=== PATIENT | female | born 1960 ===

== ENCOUNTER → 2018-07-14 08:08 | Outpatient (CLI) | payer MEDICARE, OTHER, SELFPAY ==
[2018-07-14 09:11] LABS: Add Manual Diff / Slide Review NO; Basophils Absolute Auto 0 /uL (0-100); Basophils Percent Auto 0.5 % (0-2); Eosinophils Absolute Auto 200 /uL (0-450); Eosinophils Percent Auto 2.8 % (2-4); Hematocrit 42.8 % (36-46); Hemoglobin 14.5 g/dL (12.0-16.0); Lymphocytes Absolute Auto 1600 /uL (1100-4500); Lymphocytes Percent Auto 27.9 % (25-40); Mean Corpuscular HGB Conc 33.8 % (30-36); Mean Corpuscular Hemoglobin 29.8 PG (26-34); Mean Corpuscular Volume 88.2 fL (80-100); Monocytes Absolute Auto 400 /uL (0-900); Monocytes Percent Auto 6.9 % (3-14); Neutrophils Absolute Auto 3600 /uL (1500-7000); Neutrophils Percent Auto 61.9 % (50-75); Platelet Count 257 X10^3/uL (150-400); Red Blood Cell Count 4.85 X10^6/uL (4.0-5.2); Red Cell Distribution Width 13.6 % (11.6-14.8); White Blood Cell Count 5.8 X10^3/uL (4.5-11.0)
[2018-07-14 09:43] LABS: Alanine Aminotransferase 32 IU/L (9-52); Albumin 4.5 g/dL (3.5-5.0); Albumin Globulin Ratio 1.4 (1.0-2.8); Alkaline Phosphatase 102 U/L (38-126); Aspartate Aminotransferase 26 IU/L (14-36); Bilirubin Total 0.5 mg/dL (0.2-1.3); Blood Urea Nitrogen 27 mg/dL (7-17); Calcium 10.9 mg/dL (8.4-10.2); Carbon Dioxide 30 mmol/L (22-32); Chloride 102 mmol/L (98-107); Cholesterol 151 mg/dL (140-199); Estimated Glomerular Filt Rate > 60.0 mL/min (>60); Globulin 3.3 g/dL (1.7-4.1); Glucose 110 mg/dL (70-100); HDL Cholesterol 38 mg/dL (40-60); HEMOLYSIS < 15 (0-50); LDL Cholesterol Calculated 80 mg/dL (<100); Potassium 4.7 mmol/L (3.4-5.1); Sodium 139 mmol/L (137-145); Total Protein 7.8 g/dL (6.3-8.2); Triglycerides 164 mg/dL (35-150)
[2018-07-14 10:17] LABS: Thyroid Stimulating Hormone 0.03 uIU/mL (0.47-4.68)
== END ==
PROVIDERS: Visit Provider Nurse Practitioner
DX: E03.9 Hypothyroidism, unspecified (principal); Z01.419 Encounter for gynecological examination (general) (routine) without abnormal findings
CPT/HCPCS: 36415; 80053; 80061; 84443; 85025

== ENCOUNTER → 2018-09-14 07:35 | Outpatient (CLI) | payer MEDICARE, OTHER, SELFPAY ==
[2018-09-14 09:28] LABS: Glucose 85 mg/dL (70-100)
[2018-09-14 09:49] LABS: Thyroid Stimulating Hormone 0.03 uIU/mL (0.47-4.68)
[2018-09-14 10:00] LABS: Vitamin D 25 Hydroxy (D3) 36.5 ng/mL (30.0-100.0)
[2018-09-14 10:14] LABS: Vitamin B12 282 pg/mL (239-931)
== END ==
PROVIDERS: Registered Nurse; PCP Nurse Practitioner; Visit Provider Nurse Practitioner
DX: R73.9 Hyperglycemia, unspecified (principal); E03.9 Hypothyroidism, unspecified; E55.9 Vitamin D deficiency, unspecified; E53.8 Deficiency of other specified B group vitamins
CPT/HCPCS: 36415; 82306; 82607; 82947; 84443

== ENCOUNTER → 2018-09-15 10:17 | Outpatient (CLI) | payer MEDICARE, OTHER, SELFPAY ==
--- NOTE | 2018-09-15 10:19 | DI.MG.S_ITS ---
BILATERAL DIGITAL SCREENING MAMMOGRAM 3D/2D WITH CAD: 09/15/2018 CLINICAL: Routine screening. Comparison is made to exam dated: 02/28/2014 mammogram - [facility]. There are scattered fibroglandular elements in both breasts. Current study was also evaluated with a Computer Aided Detection (CAD) system. There is an oval asymmetry in the right breast anterior depth superior region seen on the mediolateral oblique view only. There is an asymmetry in the left breast anterior depth lateral region seen on the craniocaudal view only. There is possible architectural distortion associated with the asymmetry. No other significant masses or calcifications are seen in either breast. IMPRESSION: INCOMPLETE: NEEDS ADDITIONAL IMAGING EVALUATION The oval asymmetry in the right breast anterior depth superior region seen on the mediolateral oblique view only is indeterminate. Additional views with possible ultrasound are recommended. The asymmetry in the left breast anterior depth lateral region seen on the craniocaudal view only is indeterminate. Additional views with possible ultrasound are recommended. This exam was interpreted at Station ID: [id number]. NOTE: For mammograms, a report in lay terms will be sent to the patient. Approximately 15% of breast malignancies will not be visualized mammographically. In the management of a palpable breast mass, a negative mammogram must not discourage biopsy of a clinically suspicious lesion. Electronically Signed By: Guillaume Obrine M.D. ecl/:09/15/2018 20:20:12 letter sent: Additional Imaging Needed ACR BI-RADS Category 0: Incomplete 3340F
== END ==
PROVIDERS: PCP Nurse Practitioner; Visit Provider Nurse Practitioner
DX: Z12.31 Encounter for screening mammogram for malignant neoplasm of breast (principal)
CPT/HCPCS: 77063; 77067

== ENCOUNTER → 2018-09-30 13:44 | Outpatient (CLI) | payer MEDICARE, OTHER, SELFPAY ==
--- NOTE | 2018-09-30 13:48 | DI.MG.S_ITS ---
BILATERAL DIGITAL DIAGNOSTIC MAMMOGRAM 3D/2D WITH ADDITIONAL VIEWS: 09/30/2018 CLINICAL: Additional evaluation requested from prior study. Comparison is made to exams dated: 09/15/2018 mammogram - [facility] and 02/28/2014 mammogram - [facility]. There are scattered fibroglandular elements in both breasts. Previously identified oval asymmetry in the right breast anterior depth superior region seen on the mediolateral oblique view only on comparison screening mammogram of 09/15/18 resolves with additional views and likely represented superimposed fibroglandular tissues. Previously identified asymmetry with possible associated architectural distortion in the left breast anterior depth lateral region seen on the craniocaudal view only on comparison screening mammogram of 09/15/18 localizes to the superior lateral left breast and resolves with additional views and likely represented superimposed fibroglandular tissues. There is an asymmetry in the left breast anterior to middle depth superior region resolves with additional views and likely represented superimposed fibroglandular tissues. No significant masses, calcifications, or other findings are seen in either breast. IMPRESSION: INCOMPLETE: NEEDS ADDITIONAL IMAGING EVALUATION 1) Previously identified oval asymmetry in the right breast anterior depth superior region seen on the mediolateral oblique view only on comparison screening mammogram of 09/15/18 resolves with additional views and likely represented superimposed fibroglandular tissues. A targeted ultrasound is recommended for further evaluation. 2) Previously identified asymmetry with possible associated architectural distortion in the left breast anterior depth lateral region seen on the craniocaudal view only on comparison screening mammogram of 09/15/18 localizes to the superior lateral left breast and resolves with additional views and likely represented superimposed fibroglandular tissues. A targeted ultrasound is recommended for further evaluation. 3) An asymmetry in the left breast anterior to middle depth superior region resolves with additional views and likely represented superimposed fibroglandular tissues. A targeted ultrasound is recommended for further evaluation. This exam was interpreted at Station ID: [id number]. NOTE: For mammograms, a report in lay terms will be sent to the patient. Approximately 15% of breast malignancies will not be visualized mammographically. In the management of a palpable breast mass, a negative mammogram must not discourage biopsy of a clinically suspicious lesion. Electronically Signed By: Guillaume Obrien M.D. ecl/:09/30/2018 15:26:43 ACR BI-RADS Category 0: Incomplete [id number]
--- NOTE | 2018-09-30 13:48 | DI.US.S_ITS ---
LIMITED ULTRASOUND OF LEFT BREAST: 09/30/2018 CLINICAL: Additional evaluation requested from prior study. Comparison is made to exams dated: 09/30/2018 mammogram, 09/15/2018 mammogram - [facility], and 02/28/2014 mammogram - [facility]. Color flow and real-time ultrasound of the left breast 9-3 o'clock region were performed. Whatley scale images of the real-time examination were reviewed. No underlying breast mass or abnormality is identified. There is no ultrasound correlate for the previously noted asymmetry with possible associated architectural distortion in the left breast anterior depth lateral region seen on the craniocaudal view only on comparison screening mammogram of 09/15/18 or the asymmetry in the left breast anterior to middle depth superior region, both of which also resolved on additional diagnostic mammogram views performed earlier today 09/30/18 and likely represented superimposed fibroglandular tissues. IMPRESSION: NEGATIVE There is no sonographic evidence of malignancy in the imaged areas of the left breast. Return to annual screening mammography schedule is recommended. The patient was advised to monitor her breasts and to return sooner for re-evaluation should she feel anything grow or change. This exam was interpreted at Station ID: [id number]. Electronically Signed By: Guillaume Obrien M.D. ecl/:09/30/2018 15:34:33 letter sent: Normal Exam Ultrasound BI-RADS: 1 Negative
--- NOTE | 2018-09-30 13:48 | DI.US.S_ITS ---
LIMITED ULTRASOUND OF RIGHT BREAST: 09/30/2018 CLINICAL: Additional evaluation requested from prior study. Comparison is made to exams dated: 09/30/2018 mammogram, 09/15/2018 mammogram - [facility], and 02/28/2014 mammogram - [facility]. Color flow and real-time ultrasound of the right breast 9-3 o'clock region were performed. Whatley scale images of the real-time examination were reviewed. No underlying breast mass or abnormality is identified. There is no ultrasound correlate for the previously noted oval asymmetry in the right breast anterior depth superior region seen on the mediolateral oblique view only on comparison screening mammogram of 09/15/18, which also resolved on additional diagnostic mammogram views performed earlier today 09/30/18 and likely represented superimposed fibroglandular tissues. IMPRESSION: NEGATIVE There is no sonographic evidence of malignancy in the imaged areas of the right breast. Return to annual screening mammography schedule is recommended. The patient was advised to monitor her breasts and to return sooner for re-evaluation should she feel anything grow or change. This exam was interpreted at Station ID: [id number]. Electronically Signed By: Guillaume Obrien M.D. ecl/:09/30/2018 15:37:08 letter sent: Normal Exam Ultrasound BI-RADS: 1 Negative
== END ==
PROVIDERS: PCP Nurse Practitioner; Visit Provider Nurse Practitioner
DX: R92.8 Other abnormal and inconclusive findings on diagnostic imaging of breast (principal)
CPT/HCPCS: 76642; 77066; G0279

== ENCOUNTER → 2018-11-19 07:52 | Outpatient (CLI) | payer MEDICARE, OTHER, SELFPAY ==
[2018-11-19 10:57] LABS: Thyroid Stimulating Hormone 0.17 uIU/mL (0.47-4.68)
== END ==
PROVIDERS: PCP Nurse Practitioner; Visit Provider Nurse Practitioner
DX: E03.9 Hypothyroidism, unspecified (principal)
CPT/HCPCS: 36415; 84443

== ENCOUNTER → 2018-11-23 11:33 | Outpatient (CLI) | payer MEDICARE, OTHER, SELFPAY ==
--- NOTE | 2018-11-23 11:36 | DI.RAD.S_ITS ---
PROCEDURE: XR CHEST 2V INDICATIONS: cough TECHNIQUE: 2 views of the chest were acquired. COMPARISON: None. FINDINGS: Surgical changes and devices: None. Lungs and pleura: Lungs are clear. No pleural effusions or pneumothorax. Mediastinum: Mediastinal contours are normal. Heart size is normal. Bones and chest wall: No suspicious bony abnormalities. Soft tissues appear unremarkable. IMPRESSION: Relatively large lung volumes, no pneumonia seen. No underlying mass identified. Possible COPD. Dictated by: Tyrone uMeller M.D. on 11/23/2018 at 12:25 Approved by: Tyrone Mueller M.D. on 11/23/2018 at 12:35
== END ==
PROVIDERS: PCP Nurse Practitioner; Visit Provider Nurse Practitioner
DX: R05 Cough (principal); J44.9 Chronic obstructive pulmonary disease, unspecified
CPT/HCPCS: 71046

== ENCOUNTER → 2018-12-27 12:01 | Outpatient (CLI) | payer MEDICARE, OTHER, SELFPAY | PROVIDERS: PCP Nurse Practitioner; Visit Provider Psychiatry & Neurology Psychiatry | DX: F31.73 Bipolar disorder, in partial remission, most recent episode manic (principal) ==

== ENCOUNTER 2018-12-29 10:11 | Emergency (ER) | payer MEDICARE, OTHER, SELFPAY ==
[2018-12-29 10:15] VITALS: BP 142/86; PULSE 98; RESP 18; TEMP 36.8; O2SAT 97
--- NOTE | 2018-12-29 10:34 | ED.GENADULT ---
HPI - General Adult General Chief complaint: Abdominal Pain Stated complaint: Chrons attack, can't eat Time Seen by Provider: 12/29/18 10:25 Source: patient Mode of arrival: Ambulatory Limitations: no limitations History of Present Illness HPI narrative: Patient is a 58-year-old female with a history of Crohn's disease. Has had bowel resection in the past. Patient states she has ?small bowel Crohn's ?. Is not on any immune modulating medicines for this. States that yesterday she started having abdominal pain. Has not had a bowel movement the past couple days. No urinary symptoms. Has had some nausea and vomiting. No fevers. Generalized abdominal pain. Related Data Home Medications Medication Instructions Recorded Confirmed vedolizumab 300 mg intravenous 300 mg IV Q8W 08/11/18 12/29/18 solution Previous Rx's Medication Instructions Recorded Glucometer #1 ea 08/17/18 lancets #100 each 08/17/18 test strips #100 each 08/17/18 aripiprazole 20 mg tablet 20 mg PO DAILY #30 tab 11/02/18 levothyroxine 137 mcg tablet 137 mcg PO DAILY #30 tab 11/22/18 albuterol sulfate 90 mcg/actuation 2 puff INHALATION Q4-6H PRN #8.5 11/23/18 aerosol inhaler gram montelukast 10 mg tablet 10 mg PO BEDTIME #90 tab 11/23/18 fluticasone 250 mcg-salmeterol 50 1 inhalation INHALATION Q12H #60 12/27/18 mcg/dose blistr powdr for each inhalation hydroxyzine HCl 50 mg tablet 50 mg PO QID PRN #120 tab 12/27/18 ondansetron 4 mg disintegrating 4 mg PO Q6H PRN #60 tab 12/27/18 tablet trazodone 50 mg tablet 100 mg PO BEDTIME #60 tab 12/27/18 prednisone 20 mg PO DAILY #25 tab 12/29/18 Allergies Allergy/AdvReac Type Severity Reaction Status Date / Time From SEROQUEL Allergy Intermediate MY LEGS Uncoded 12/27/18 10:54 DON;T WORK PENICILLIN Allergy Intermediate RASH Uncoded 12/27/18 10:54 SULFA Allergy Intermediate HIVES Uncoded 12/27/18 10:54 Review of Systems Constitutional Constitutional: Denies fever(s) Cardiovascular Cardiovascular: Denies chest pain and Denies dyspnea Respiratory Respiratory: Denies dyspnea Gastrointestinal Gastrointestinal: Reports abdominal pain, Reports nausea and Reports vomiting Comments: No bowel movement the past couple days Genitourinary Genitourinary: Denies dysuria Musculoskeletal Musculoskeletal: Denies myalgias and Denies arthralgias Integumentary/Breasts Skin/Breast: Denies rash Neurologic Neurologic: Denies behavioral changes Psychiatric Psychiatric: Denies behavioral changes Hematologic/Lymphatic Hematologic/Lymphatic: Denies easy bleeding and Denies easy bruising Patient History Medical History Abnormal chest xray (Resolved) ADHD (Chronic) Anemia (Resolved ~2016) Ankle pain (Chronic ~2017) Anxiety (Chronic) Asthma (Chronic) Bipolar disease, chronic (Chronic ~1998) Cataracts, bilateral (Chronic ~2018) Chicken pox (Resolved) Chronic back pain (Chronic ~2003) Chronic cough (Chronic) COPD (chronic obstructive pulmonary disease) (Chronic) Crohn's disease (Chronic ~2009) Depression (Chronic ~1988) Eczema (Chronic) Foot pain (Chronic ~2018) Headache (Chronic) Hemorrhoid (Chronic ~1979) History of emphysema (Chronic ~2017) Hypothyroidism (Chronic ~1989) Kidney disease (Chronic ~1974) Migraines (Chronic) MRSA (methicillin resistant Staphylococcus aureus) (Chronic ~2004) Osteoporosis (Chronic ~2016) Post traumatic stress disorder (PTSD) (Chronic) Restless leg syndrome (Chronic) Seizure (Chronic) Skin cancer, basal cell (Chronic ~2016) Sleep apnea (Chronic) Social History Smoking Status: Current every day smoker Exam Initial Vital Signs Initial Vital Signs: Vital Signs Temperature 98.3 F 12/29/18 10:15 Pulse Rate 98 H 12/29/18 10:15 Respiratory Rate 18 12/29/18 10:15 Blood Pressure 142/86 H 12/29/18 10:15 Pulse Oximetry 97 12/29/18 10:15 Const General: cooperative and comfortable Orientation: alert and awake HENMT Head: normal to inspection and normocephalic Resp Effort & Inspection: normal respiratory effort Auscultation: clear to auscultation bilaterally Cardio Rate: regular rate Rhythm: regular rhythm GI Inspection: non-distended Palpation: No firm, No guarding and tender (Generalized tenderness) Skin Lesions: no lesions Rashes: no rashes Neuro General: alert, awake and oriented x3 Cognition: normal cognition Speech: speech normal Extrem General: normal to inspection and capillary refill normal Psych Appearance: grossly normal and well kempt Course Orders Ordered: ED Orders 12/29/18 10:53 Complete Blood Count AUTO DIFF Stat Comprehensive Metabolic Panel Stat Lactate (Lactic Acid) Stat Lipase Stat 12/29/18 11:55 CT abdomen pelvis w con Stat Discontinued Medications Acetaminophen (Tylenol) 650 mg PO NOW ONE Stop: 12/29/18 12:13 Last Admin: 12/29/18 12:28 Dose: 650 mg Documented by: BTONER Sodium Chloride (Normal Saline 0.9%) 1,000 mls @ 1,000 mls/hr IV BOLUS ONE Stop: 12/29/18 11:31 Last Admin: 12/29/18 11:07 Dose: 1,000 mls/hr Documented by: BTONER Ondansetron HCl (Zofran) 4 mg IV NOW ONE Stop: 12/29/18 10:33 Last Admin: 12/29/18 11:07 Dose: 4 mg Documented by: BTONER Vital Signs Vital signs: Vital Signs - 8 hr 12/29/18 10:15 12/29/18 12:09 Temperature 98.3 F Pulse Rate 98 H 88 Respiratory Rate 18 Blood Pressure 142/86 H Blood Pressure [Right Arm] 145/61 H Pulse Oximetry 97 99 Medical Decision Making Lab Data Lab results reviewed: Yes I reviewed the patient's lab results. Result diagrams: 12/29/18 10:53 12/29/18 10:53 Labs: Lab Results 12/29/18 12/29/18 12/29/18 Range/Units 10:53 10:53 10:53 WBC 9.7 (4.5-11.0) X10^3/uL RBC 4.96 (4.0-5.2) X10^6/uL Hgb 15.0 (12.0-16.0) g/dL Hct 43.6 (36-46) % MCV 87.9 (80-100) fL MCH 30.3 (26-34) PG MCHC 34.5 (30-36) % RDW 14.3 (11.6-14.8) % Plt Count 347 (150-400) X10^3/uL Neut % (Auto) 76.6 H (50-75) % Lymph % (Auto) 14.5 L (25-40) % Tillman % (Auto) 7.1 (3-14) % Eos % (Auto) 1.4 L (2-4) % Baso % (Auto) 0.4 (0-2) % Neut # (Auto) 7400 H (0232-2721) /uL Lymph # (Auto) 1400 (9728-8806) /uL Tillman # (Auto) 700 (0-900) /uL Eos # (Auto) 100 (0-450) /uL Baso # (Auto) 0 (0-100) /uL Sodium 138 (137-145) mmol/L Potassium 4.1 (3.4-5.1) mmol/L Chloride 101 (98-107) mmol/L Carbon Dioxide 25 (22-32) mmol/L BUN 32 H (7-17) mg/dL Creatinine 1.00 (0.52-1.04) mg/dL Estimated GFR 56.7 L (>60) mL/min BUN/Creatinine Ratio 32.0 H (6-22) Glucose 116 H (70-100) mg/dL Lactate 0.7 (0.7-2.1) mmol/L Calcium 10.8 H (8.4-10.2) mg/dL Total Bilirubin 1.8 H (0.2-1.3) mg/dL AST 47 H (14-36) IU/L ALT 46 H (<35) IU/L Alkaline Phosphatase 131 H (38-126) U/L Total Protein 8.3 H (6.3-8.2) g/dL Albumin 5.0 (3.5-5.0) g/dL Globulin 3.3 (1.7-4.1) g/dL Albumin/Globulin Ratio 1.5 (1.0-2.8) Lipase 83 (23-300) U/L Imaging Data CT scan - abdomen: Radiologist's impression: [address] [address] [address] Scan Report Signed Patient: Louann Diaz JMR#: [id number] : 1960Acct:[id number] Age/Sex: 58 / FDate of Service: 12/29/18 Loc: ED Accession Number: [id number] Procedure: CT abdomen pelvis w con Ordering Provider: Manuel Phillips D.O. PROCEDURE: CT ABDOMEN PELVIS W CON INDICATIONS: History of Crohn's with abdominal pain TECHNIQUE: After the administration of oral and intravenous contrast, 5 mm thick sections acquired from the diaphragms to the symphysis. 5 mm thick coronal and sagittal reformats were performed. For radiation dose reduction, the following was used: automated exposure control, adjustment of mA and/or kV according to patient size. COMPARISON: None. FINDINGS: Image quality: Excellent. ABDOMEN: Lung bases: Scarring/atelectasis in the anterior aspect of right lung base is seen. Left lung base is clear. Heart size is normal. Solid organs: Liver is normal in size and enhancement. Gallbladder is surgically absent small bilateral. Biliary system is non-dilated. Pancreas enhances normally. Spleen is normal in size and enhancement. No adrenal nodules. Kidneys are normal in size and enhancement, without hydronephrosis. The bilateral renal cysts are seen, measures up to 2.1 x 1.6 cm in size in lower pole of right kidney Peritoneum and bowel: There is no evidence of bowel obstruction. Mild fluid distended small bowel loops are noted in mid to lower abdomen. Postsurgical changes are noted involving right side of abdomen, likely involving terminal ileal loop. There is wall thickening involving small bowel loops proximal to the area of surgical anastomosis with mild adjacent mesenteric fat stranding. There is also suggestion of wall thickening involving the ascending colon and sigmoid colon. No free fluid or free air is seen. Nodes and vessels: No retroperitoneal or mesenteric adenopathy. Aorta and inferior vena cava are normal in caliber. Miscellaneous: No ventral hernias. PELVIS: Genitourinary: Bladder wall thickness is normal. Miscellaneous: No inguinal hernias or adenopathy. Bones: No suspicious bony lesions. No vertebral body compression fractures. IMPRESSION: 1. Multiple segments of small bowel wall thickening in left side of abdomen extending to the surgical anastomosis in right side of abdomen. Wall thickening and edema also noted involving descending colon and sigmoid colon. Findings likely represent changes secondary to Crohn's disease. 2. No bowel obstruction. No free fluid or free air. 3. Prior cholecystectomy. Bilateral renal cysts. No hydronephrosis. Dictated by: Wilner Nowak M.D. on 12/29/2018 at 12:41 Approved by: Wilner Nowak M.D. on 12/29/2018 at 12:54 MDM Narrative Medical decision making narrative: Patient's CT scan is consistent with Crohn's disease. There is no signs of obstructions or abscesses. No indication for antibiotics. She is on a pain contract. Will send home with prednisone. She does have a GI provider. She is scheduled for colonoscopy 4 days from now. I informed her to contact her GI provider to discuss potentially changing this given her current situation. Patient was given return precautions. She expressed understanding and agreement plan. Discharge Plan Departure Patient Disposition: Home Clinical Impression: Crohn's disease Qualifiers: Gastrointestinal tract location: unspecified location Digestive disease complication type: unspecified complication Qualified Code(s): K50.919 - Crohn's disease, unspecified, with unspecified complications Abdominal pain Qualifiers: Abdominal location: generalized Qualified Code(s): R10.84 - Generalized abdominal pain Instructions: Crohn Disease Activity Restrictions/Additional Instructions: I recommend that you contact your GI provider today to discuss potential rescheduling of your colonoscopy and to discuss the Crohn's flare that you are currently having. Take the prednisone as directed. Return to the emergency department for any new symptoms. Prescriptions: New prednisone 20 mg tablet 20 mg PO DAILY Qty: 25 RF: 0 No Action aripiprazole 20 mg tablet 20 mg PO DAILY Qty: 30 RF: 3 trazodone 50 mg tablet 100 mg PO BEDTIME Qty: 60 RF: 3 (DME) Glucometer Qty: 1 RF: 0 (DME) lancets Qty: 100 RF: 0 (DME) test strips Qty: 100 RF: 0 levothyroxine 137 mcg tablet 137 mcg PO DAILY Qty: 30 RF: 2 Entyvio 300 mg recon soln 300 mg IV Q8W RF: 0 montelukast 10 mg tablet 10 mg PO BEDTIME Qty: 90 RF: 3 albuterol sulfate [Ventolin HFA] 90 mcg/actuation HFA aerosol inhaler 2 puff INHALATION Q4-6H PRN (Reason: shortness of breath or wheezing) Qty: 8.5 RF: 6 fluticasone propion-salmeterol [Advair Diskus] 250-50 mcg/dose blister with device 1 inhalation INHALATION Q12H Qty: 60 RF: 0 hydroxyzine HCl 50 mg tablet 50 mg PO QID PRN (Reason: nausea and vomiting) Qty: 120 RF: 0 ondansetron 4 mg tablet,disintegrating 4 mg PO Q6H PRN (Reason: nausea and vomiting) Qty: 60 RF: 11 Referrals: Liat Hernandez ARNP [Primary Care Provider] -
[2018-12-29] MEDS: SODIUM CHLORIDE 0.9% 1,000 ML 1000 ML IV (11:07)
[2018-12-29] MEDS: ONDANSETRON 4 MG/2 ML INJ IV (11:07)
[2018-12-29 11:12] LABS: Add Manual Diff / Slide Review NO; Basophils Absolute Auto 0 /uL (0-100); Basophils Percent Auto 0.4 % (0-2); Eosinophils Absolute Auto 100 /uL (0-450); Eosinophils Percent Auto 1.4 % (2-4); Hematocrit 43.6 % (36-46); Lymphocytes Absolute Auto 1400 /uL (1100-4500); Lymphocytes Percent Auto 14.5 % (25-40); Mean Corpuscular HGB Conc 34.5 % (30-36); Mean Corpuscular Hemoglobin 30.3 PG (26-34); Mean Corpuscular Volume 87.9 fL (80-100); Monocytes Absolute Auto 700 /uL (0-900); Monocytes Percent Auto 7.1 % (3-14); Neutrophils Absolute Auto 7400 /uL (1500-7000); Neutrophils Percent Auto 76.6 % (50-75); Platelet Count 347 X10^3/uL (150-400); Red Blood Cell Count 4.96 X10^6/uL (4.0-5.2); Red Cell Distribution Width 14.3 % (11.6-14.8); White Blood Cell Count 9.7 X10^3/uL (4.5-11.0)
[2018-12-29 11:24] LABS: Alanine Aminotransferase 46 IU/L (<35); Albumin Globulin Ratio 1.5 (1.0-2.8); Alkaline Phosphatase 131 U/L (38-126); Aspartate Aminotransferase 47 IU/L (14-36); Bilirubin Total 1.8 mg/dL (0.2-1.3); Blood Urea Nitrogen 32 mg/dL (7-17); Calcium 10.8 mg/dL (8.4-10.2); Carbon Dioxide 25 mmol/L (22-32); Chloride 101 mmol/L (98-107); Estimated Glomerular Filt Rate 56.7 mL/min (>60); Globulin 3.3 g/dL (1.7-4.1); Glucose 116 mg/dL (70-100); HEMOLYSIS < 15 (0-50); Lipase 83 U/L (23-300); Potassium 4.1 mmol/L (3.4-5.1); Sodium 138 mmol/L (137-145); Total Protein 8.3 g/dL (6.3-8.2)
[2018-12-29 11:25] LABS: Lactate (Lactic Acid) 0.7 mmol/L (0.7-2.1)
--- NOTE | 2018-12-29 11:48 | PC.NURSE ---
pt states similar to previous crohns flare.
--- NOTE | 2018-12-29 11:49 | PC.NURSE ---
pt c/o headache and abd pain, reported to dr. art.
--- NOTE | 2018-12-29 11:55 | DI.CT.S_ITS ---
PROCEDURE: CT ABDOMEN PELVIS W CON INDICATIONS: History of Crohn's with abdominal pain TECHNIQUE: After the administration of oral and intravenous contrast, 5 mm thick sections acquired from the diaphragms to the symphysis. 5 mm thick coronal and sagittal reformats were performed. For radiation dose reduction, the following was used: automated exposure control, adjustment of mA and/or kV according to patient size. COMPARISON: None. FINDINGS: Image quality: Excellent. ABDOMEN: Lung bases: Scarring/atelectasis in the anterior aspect of right lung base is seen. Left lung base is clear. Heart size is normal. Solid organs: Liver is normal in size and enhancement. Gallbladder is surgically absent small bilateral. Biliary system is non-dilated. Pancreas enhances normally. Spleen is normal in size and enhancement. No adrenal nodules. Kidneys are normal in size and enhancement, without hydronephrosis. The bilateral renal cysts are seen, measures up to 2.1 x 1.6 cm in size in lower pole of right kidney Peritoneum and bowel: There is no evidence of bowel obstruction. Mild fluid distended small bowel loops are noted in mid to lower abdomen. Postsurgical changes are noted involving right side of abdomen, likely involving terminal ileal loop. There is wall thickening involving small bowel loops proximal to the area of surgical anastomosis with mild adjacent mesenteric fat stranding. There is also suggestion of wall thickening involving the ascending colon and sigmoid colon. No free fluid or free air is seen. Nodes and vessels: No retroperitoneal or mesenteric adenopathy. Aorta and inferior vena cava are normal in caliber. Miscellaneous: No ventral hernias. PELVIS: Genitourinary: Bladder wall thickness is normal. Miscellaneous: No inguinal hernias or adenopathy. Bones: No suspicious bony lesions. No vertebral body compression fractures. IMPRESSION: 1. Multiple segments of small bowel wall thickening in left side of abdomen extending to the surgical anastomosis in right side of abdomen. Wall thickening and edema also noted involving descending colon and sigmoid colon. Findings likely represent changes secondary to Crohn's disease. 2. No bowel obstruction. No free fluid or free air. 3. Prior cholecystectomy. Bilateral renal cysts. No hydronephrosis. Dictated by: Wilner Nowak M.D. on 12/29/2018 at 12:41 Approved by: Wilner Nowak M.D. on 12/29/2018 at 12:54
[2018-12-29 12:09] VITALS: BP 145/61; PULSE 88; O2SAT 99
[2018-12-29] MEDS: ACETAMINOPHEN 325 MG TABLET 650 MG PO (12:28)
== END 2018-12-29 13:30 | disposition home or self-care (01) ==
PROVIDERS: Emergency Provider Emergency Medicine; PCP Nurse Practitioner
DX: K50.919 Crohn's disease, unspecified, with unspecified complications (principal); R10.84 Generalized abdominal pain; R11.2 Nausea with vomiting, unspecified
CPT/HCPCS: 36415; 74177; 80053; 83605; 83690; 85025; 96374; 99282; 99285; J2405; Q9967

== ENCOUNTER 2019-01-02 10:31 | Emergency (ER) | payer MEDICARE, OTHER, SELFPAY ==
[2019-01-02 10:36] VITALS: BP 183/105; PULSE 70; RESP 18; TEMP 36.7; O2SAT 97; BMI 25.5
[2019-01-02 11:34] LABS: Bacteria Urine None Seen; WBC Urine None Seen (0-5/HPF)
[2019-01-02 11:42] VITALS: BP 176/107; PULSE 66; RESP 18; O2SAT 100
[2019-01-02 11:51] LABS: Calcium Oxalate Crystals Urine Few; Culture Indicated Urine Cult Not Indicated; RBC Urine 1-5/HPF (0-5/HPF); Squamous Epithelial Cell Urine None Seen (0-5/HPF)
[2019-01-02] MEDS: PANTOPRAZOLE 40 MG VIAL IV (12:05)
[2019-01-02] MEDS: ONDANSETRON 4 MG/2 ML INJ IV ×2 (12:05→13:40)
[2019-01-02] MEDS: SODIUM CHLORIDE 0.9% 1,000 ML 1000 ML IV (12:05)
[2019-01-02 12:06] LABS: Add Manual Diff / Slide Review NO; Basophils Absolute Auto 0 /uL (0-100); Basophils Percent Auto 0.2 % (0-2); Eosinophils Absolute Auto 0 /uL (0-450); Eosinophils Percent Auto 0.3 % (2-4); Hematocrit 41.2 % (36-46); Hemoglobin 13.9 g/dL (12.0-16.0); Lymphocytes Absolute Auto 1500 /uL (1100-4500); Lymphocytes Percent Auto 12.2 % (25-40); Mean Corpuscular HGB Conc 33.7 % (30-36); Mean Corpuscular Hemoglobin 29.8 PG (26-34); Mean Corpuscular Volume 88.6 fL (80-100); Monocytes Absolute Auto 1000 /uL (0-900); Monocytes Percent Auto 8.1 % (3-14); Neutrophils Absolute Auto 9700 /uL (1500-7000); Neutrophils Percent Auto 79.2 % (50-75); Platelet Count 366 X10^3/uL (150-400); Red Blood Cell Count 4.65 X10^6/uL (4.0-5.2); Red Cell Distribution Width 14.4 % (11.6-14.8); White Blood Cell Count 12.3 X10^3/uL (4.5-11.0)
[2019-01-02 12:08] LABS: INR 0.9 (0.9-1.3); Prothrombin Time 10.1 SECONDS (10.1-12.7)
[2019-01-02 12:10] LABS: PTT Partial Thromboplastin Tim 29 SECONDS (26.4-36.2)
[2019-01-02 12:12] LABS: Alanine Aminotransferase 27 IU/L (<35); Albumin 4.7 g/dL (3.5-5.0); Albumin Globulin Ratio 1.4 (1.0-2.8); Alkaline Phosphatase 102 U/L (38-126); Aspartate Aminotransferase 24 IU/L (14-36); BUN Creatinine Ratio 24.4 (6-22); Bilirubin Total 0.8 mg/dL (0.2-1.3); Blood Urea Nitrogen 22 mg/dL (7-17); Calcium 10.8 mg/dL (8.4-10.2); Carbon Dioxide 25 mmol/L (22-32); Chloride 104 mmol/L (98-107); Estimated Glomerular Filt Rate > 60.0 mL/min (>60); Globulin 3.3 g/dL (1.7-4.1); Glucose 120 mg/dL (70-100); HEMOLYSIS 16 (0-50); Lipase 164 U/L (23-300); Potassium 3.6 mmol/L (3.4-5.1); Sodium 140 mmol/L (137-145)
--- NOTE | 2019-01-02 12:26 | ED.ABDPAIN ---
HPI - Abdominal Pain General Chief Complaint: Abdominal Pain Stated Complaint: ongoing chrones Time Seen by Provider: 01/02/19 11:30 Source: patient Mode of arrival: Ambulatory Limitations: no limitations History of Present Illness HPI narrative: Patient comes emergency department complaining of vomiting. The patient was recently seen for a flare-up of her Crohn's disease, and states that that is slowly improving though it is not totally better yet. She states that normally, she does have vomiting with the Crohn's, and feels that this is somewhat different than her usual symptoms. patient has been on prednisone, which she states normally does not make her nauseated. Patient also had an endoscopy about a week and half ago and states that they did not find any abnormalities that she knows of. Patient states that she has not had any blood in her vomitus. No chest pain or shortness of breath. No fevers. No blood in her stools. No sick contacts. No other complaints at this time. Related Data Home Medications Medication Instructions Recorded Confirmed vedolizumab 300 mg intravenous 300 mg IV Q8W 08/11/18 12/29/18 solution Previous Rx's Medication Instructions Recorded Glucometer #1 ea 08/17/18 lancets #100 each 08/17/18 test strips #100 each 08/17/18 aripiprazole 20 mg tablet 20 mg PO DAILY #30 tab 11/02/18 levothyroxine 137 mcg tablet 137 mcg PO DAILY #30 tab 11/22/18 albuterol sulfate 90 mcg/actuation 2 puff INHALATION Q4-6H PRN #8.5 11/23/18 aerosol inhaler gram montelukast 10 mg tablet 10 mg PO BEDTIME #90 tab 11/23/18 fluticasone 250 mcg-salmeterol 50 1 inhalation INHALATION Q12H #60 12/27/18 mcg/dose blistr powdr for each inhalation hydroxyzine HCl 50 mg tablet 50 mg PO QID PRN #120 tab 12/27/18 ondansetron 4 mg disintegrating 4 mg PO Q6H PRN #60 tab 12/27/18 tablet trazodone 50 mg tablet 100 mg PO BEDTIME #60 tab 12/27/18 prednisone 20 mg PO DAILY #25 tab 12/29/18 Allergies Allergy/AdvReac Type Severity Reaction Status Date / Time From SEROQUEL Allergy Intermediate MY LEGS Uncoded 01/02/19 10:36 DON;T WORK PENICILLIN Allergy Intermediate RASH Uncoded 01/02/19 10:36 SULFA Allergy Intermediate HIVES Uncoded 01/02/19 10:36 Review of Systems Constitutional Constitutional: Denies chills, Denies fatigue, Denies fever(s), Denies frequent falls, Denies lethargy and Denies weakness Eyes Eyes: Denies change in vision, Denies eye discharge, Denies irritation and Denies loss of vision ENT Ears, Nose, Mouth, and Throat: Denies change in voice, Denies dizziness, Denies neck pain, Denies sore throat and Denies throat swelling Cardiovascular Cardiovascular: Denies chest pain, Denies irregular heart rhythm, Denies lightheadedness, Denies palpitations, Denies dyspnea, Denies dyspnea on exertion and Denies orthopnea Respiratory Respiratory: Denies cough, Denies dyspnea, Denies dyspnea on exertion and Denies wheezing Gastrointestinal Gastrointestinal: Denies abdominal pain, Denies change in bowel habits, Reports diarrhea, Reports nausea and Reports vomiting Genitourinary Genitourinary: Denies hematuria, Denies flank pain, Denies urinary incontinence and Denies urinary urgency Musculoskeletal Musculoskeletal: Denies back pain, Denies muscle weakness, Denies neck pain, Denies numbness and Denies tingling Integumentary/Breasts Skin/Breast: Denies pruritus, Denies erythema, Denies rash and Denies wounds Neurologic Neurologic: Denies behavioral changes, Denies confusion, Denies dizziness, Denies frequent falls, Denies loss of vision, Denies numbness, Denies tingling and Denies weakness Psychiatric Psychiatric: Denies anxiety, Denies behavioral changes, Denies confusion, Denies depression, Denies homicidal ideation and Denies suicidal ideation Endocrine Endocrine: Denies fatigue, Denies flushing and Denies palpitations Hematologic/Lymphatic Hematologic/Lymphatic: Denies easy bruising Allergic/Immunologic Allergic/Immunologic: Denies urticaria, Denies throat swelling and Denies wheezing Patient History Medical History Abnormal chest xray (Resolved) ADHD (Chronic) Anemia (Resolved ~2016) Ankle pain (Chronic ~2017) Anxiety (Chronic) Asthma (Chronic) Bipolar disease, chronic (Chronic ~1998) Cataracts, bilateral (Chronic ~2018) Chicken pox (Resolved) Chronic back pain (Chronic ~2003) Chronic cough (Chronic) COPD (chronic obstructive pulmonary disease) (Chronic) Crohn's disease (Chronic ~2009) Depression (Chronic ~1988) Eczema (Chronic) Foot pain (Chronic ~2018) Headache (Chronic) Hemorrhoid (Chronic ~1979) History of emphysema (Chronic ~2017) Hypothyroidism (Chronic ~1989) Kidney disease (Chronic ~1974) Migraines (Chronic) MRSA (methicillin resistant Staphylococcus aureus) (Chronic ~2004) Osteoporosis (Chronic ~2016) Post traumatic stress disorder (PTSD) (Chronic) Restless leg syndrome (Chronic) Seizure (Chronic) Skin cancer, basal cell (Chronic ~2016) Sleep apnea (Chronic) Surgical History History of section (Resolved) History of cholecystectomy (Resolved) History of intestinal surgery (Resolved) History of partial hysterectomy (Resolved) Social History Smoking Status: Current every day smoker tobacco type: cigarettes Substance Use Type: marijuana Exam Initial Vital Signs Initial Vital Signs: Vital Signs Temperature 98.0 F 01/02/19 10:36 Pulse Rate 70 01/02/19 10:36 Respiratory Rate 18 01/02/19 10:36 Blood Pressure 183/105 H 01/02/19 10:36 Pulse Oximetry 97 01/02/19 10:36 Const General: cooperative and well developed Nutritional Appearance: well nourished Orientation: alert, awake, oriented x3 and not confused [facility] Head: normocephalic and atraumatic Ears: external ears normal Nose: external nose normal and No nasal discharge Face and sinus: face symmetric and No dry mucous membranes Mouth: oral mucosae normal and moist mucous membranes Teeth and gingiva: dentition normal Eyes General: appearance normal, both eyes and all related structures Eyelids: eyelids normal Conjunctivae: conjunctivae normal Sclera: sclerae normal Pupils: PERRL EOM: EOM intact bilaterally Neck Neck: normal visual inspection, trachea midline, No lymphadenopathy, No midline deformity and No JVD Lymphatic: No lymphedema Chest Chest: normal inspection of the chest Resp Effort & Inspection: normal respiratory effort, able to speak in complete sentences, no respiratory distress and no use of accessory muscles Auscultation: clear to auscultation bilaterally, no rales, no rhonchi and no wheezes Cardio Rate: regular rate Rhythm: regular rhythm Heart Sounds: no click, no gallops, no murmurs and no rubs Pulses: normal peripheral pulses GI Inspection: non-distended Palpation: soft, no hepatosplenomegaly, No guarding, No pulsatile mass and No tender Auscultation: normal bowel sounds Back/Spine/Pelvis Back: No CVA tenderness Cervical Spine: cervical ROM normal and No pain with cervical ROM Thoracic/Lumbar Spine: thoracic and lumbar spine normal to inspection Skin General: no rashes or lesions noted, No jaundice and No petechiae Neuro General: alert, oriented x3, gait normal and no focal motor deficits Speech: speech normal Extrem General: full ROM, no clubbing, cyanosis or edema, no pedal edema and no calf tenderness Psych Appearance: well kempt Mental Status: mental status grossly normal Attitude: cooperative Thought Content: normal and suicidality Judgment: judgment good Course Course Course Narrative: Patient was treated symptomatically with IV fluids, Zofran, Protonix,and Ativan. She was worked with laboratory studies and EKG. Workup was unremarkable. The patient was found to be feeling much better after the above treatment and a small dose of Dilaudid. I feel the patient was stable for discharge home. We have discussed home management of the symptoms, as well as the usual indications for return and follow-up. Orders Ordered: Discontinued Medications Hydromorphone HCl (Dilaudid) 1 mg IV NOW ONE Stop: 01/02/19 13:32 Last Admin: 01/02/19 13:40 Dose: 1 mg Documented by: ÓSCAR Sodium Chloride (Normal Saline 0.9%) 1,000 mls @ 1,000 mls/hr IV BOLUS ONE Stop: 01/02/19 13:00 Last Infusion: 01/02/19 13:30 Dose: 0 mls/hr Documented by: Admin: 01/02/19 12:05 Dose: 1,000 mls/hr Documented by: MAURICE Lorazepam (Ativan) 1 mg IV NOW ONE Stop: 01/02/19 12:25 Last Admin: 01/02/19 12:32 Dose: 1 mg Documented by: MAURICE Ondansetron HCl (Zofran) 4 mg IV NOW ONE Stop: 01/02/19 12:02 Last Admin: 01/02/19 12:05 Dose: 4 mg Documented by: MAURICE Ondansetron HCl (Zofran) 4 mg IV NOW ONE Stop: 01/02/19 13:38 Last Admin: 01/02/19 13:40 Dose: 4 mg Documented by: ÓSCAR Pantoprazole Sodium (Protonix) 40 mg IV NOW ONE Stop: 01/02/19 12:02 Last Admin: 01/02/19 12:05 Dose: 40 mg Documented by: MAURICE Vital Signs Vital signs: Vital Signs - 8 hr 01/02/19 10:36 01/02/19 11:42 Temperature 98.0 F Pulse Rate 70 66 Respiratory Rate 18 18 Blood Pressure 183/105 H Blood Pressure [Right Arm] 176/107 H Pulse Oximetry 97 100 MDM - Abdominal Pain Medical Records Attestation: I reviewed the patient's medical records. Lab Data Attestation: I reviewed the patient's lab results. Result diagrams: 01/02/19 11:55 01/02/19 11:55 Labs: Lab Results 01/02/19 01/02/19 01/02/19 Range/Units 11: 11:55 11:55 WBC 12.3 H (4.5-11.0) X10^3/uL RBC 4.65 (4.0-5.2) X10^6/uL Hgb 13.9 (12.0-16.0) g/dL Hct 41.2 (36-46) % MCV 88.6 (80-100) fL MCH 29.8 (26-34) PG MCHC 33.7 (30-36) % RDW 14.4 (11.6-14.8) % Plt Count 366 (150-400) X10^3/uL Neut % (Auto) 79.2 H (50-75) % Lymph % (Auto) 12.2 L (25-40) % [place] % (Auto) 8.1 (3-14) % Eos % (Auto) 0.3 L (2-4) % Baso % (Auto) 0.2 (0-2) % Neut # (Auto) 9700 H (9258-6335) /uL Lymph # (Auto) 1500 (1504-5954) /uL [place] # (Auto) 1000 H (0-900) /uL Eos # (Auto) 0 (0-450) /uL Baso # (Auto) 0 (0-100) /uL PT 10.1 (10.1-12.7) SECONDS INR 0.9 (0.9-1.3) APTT 29 (26.4-36.2) SECONDS Sodium (137-145) mmol/L Potassium (3.4-5.1) mmol/L Chloride (98-107) mmol/L Carbon Dioxide (22-32) mmol/L BUN (7-17) mg/dL Creatinine (0.52-1.04) mg/dL Estimated GFR (>60) mL/min BUN/Creatinine Ratio (6-22) Glucose (70-100) mg/dL Calcium (8.4-10.2) mg/dL Total Bilirubin (0.2-1.3) mg/dL AST (14-36) IU/L ALT (<35) IU/L Alkaline Phosphatase (38-126) U/L Total Protein (6.3-8.2) g/dL Albumin (3.5-5.0) g/dL Globulin (1.7-4.1) g/dL Albumin/Globulin Ratio (1.0-2.8) Lipase (23-300) U/L Urine RBC 1-5/hpf (0-5/HPF) Urine WBC None seen (0-5/HPF) Ur Squamous Epith Cells None seen (0-5/HPF) Calcium Oxalate Crystal Few H Urine Bacteria None seen (None) Ur Culture Indicated? Cult not indicated 01/02/19 Range/Units 11:55 WBC (4.5-11.0) X10^3/uL RBC (4.0-5.2) X10^6/uL Hgb (12.0-16.0) g/dL Hct (36-46) % MCV (80-100) fL MCH (26-34) PG MCHC (30-36) % RDW (11.6-14.8) % Plt Count (150-400) X10^3/uL Neut % (Auto) (50-75) % Lymph % (Auto) (25-40) % [place] % (Auto) (3-14) % Eos % (Auto) (2-4) % Baso % (Auto) (0-2) % Neut # (Auto) (0271-2960) /uL Lymph # (Auto) (5279-7879) /uL [place] # (Auto) (0-900) /uL Eos # (Auto) (0-450) /uL Baso # (Auto) (0-100) /uL PT (10.1-12.7) SECONDS INR (0.9-1.3) APTT (26.4-36.2) SECONDS Sodium 140 (137-145) mmol/L Potassium 3.6 (3.4-5.1) mmol/L Chloride 104 (98-107) mmol/L Carbon Dioxide 25 (22-32) mmol/L BUN 22 H (7-17) mg/dL Creatinine 0.90 (0.52-1.04) mg/dL Estimated GFR > 60.0 (>60) mL/min BUN/Creatinine Ratio 24.4 H (6-22) Glucose 120 H (70-100) mg/dL Calcium 10.8 H (8.4-10.2) mg/dL Total Bilirubin 0.8 (0.2-1.3) mg/dL AST 24 (14-36) IU/L ALT 27 (<35) IU/L Alkaline Phosphatase 102 (38-126) U/L Total Protein 8.0 (6.3-8.2) g/dL Albumin 4.7 (3.5-5.0) g/dL Globulin 3.3 (1.7-4.1) g/dL Albumin/Globulin Ratio 1.4 (1.0-2.8) Lipase 164 D (23-300) U/L Urine RBC (0-5/HPF) Urine WBC (0-5/HPF) Ur Squamous Epith Cells (0-5/HPF) Calcium Oxalate Crystal Urine Bacteria (None) Ur Culture Indicated? Point of care testing: Urine Dip Bedside Urine Glucose Negative Bedside Urine Bilirubin - Negative Bedside Urine Ketone - Negative Urine Specific [place] 1.025 Bedside Urine Occult Blood + Bedside Urine pH 6.0 Bedside Urine Protein ++ 100 Bedside Urine Urobilinogen - Negative Bedside Urine Nitrite - Negative Bedside Urine Leukocytes - Negative Esterase Discharge Plan Departure Patient Disposition: Home Clinical Impression: Vomiting Qualifiers: Vomiting type: unspecified Vomiting Intractability: non-intractable Nausea presence: with nausea Qualified Code(s): R11.2 - Nausea with vomiting, unspecified Discharge Date/Time: 01/02/19 14:48 Instructions: DI for Vomiting -- Adult Activity Restrictions/Additional Instructions: Your labs looked great today. In fact, they look better today than they did 4 days ago when you are here. Your CT scan at that time showed changes consistent with a Crohn's flare. However, no other worrisome findings were noted. As such, we have not repeated your CT scan today. Please get plenty of fluids to drinking get rest tonight, and you may cautiously advance your diet tomorrow. Please follow up with your primary care physician. Prescriptions: No Action aripiprazole 20 mg tablet 20 mg PO DAILY Qty: 30 RF: 3 trazodone 50 mg tablet 100 mg PO BEDTIME Qty: 60 RF: 3 (DME) Glucometer Qty: 1 RF: 0 (DME) lancets Qty: 100 RF: 0 (DME) test strips Qty: 100 RF: 0 levothyroxine 137 mcg tablet 137 mcg PO DAILY Qty: 30 RF: 2 Entyvio 300 mg recon soln 300 mg IV Q8W RF: 0 montelukast 10 mg tablet 10 mg PO BEDTIME Qty: 90 RF: 3 albuterol sulfate [Ventolin HFA] 90 mcg/actuation HFA aerosol inhaler 2 puff INHALATION Q4-6H PRN (Reason: shortness of breath or wheezing) Qty: 8.5 RF: 6 fluticasone propion-salmeterol [Advair Diskus] 250-50 mcg/dose blister with device 1 inhalation INHALATION Q12H Qty: 60 RF: 0 hydroxyzine HCl 50 mg tablet 50 mg PO QID PRN (Reason: nausea and vomiting) Qty: 120 RF: 0 ondansetron 4 mg tablet,disintegrating 4 mg PO Q6H PRN (Reason: nausea and vomiting) Qty: 60 RF: 11 prednisone 20 mg tablet 20 mg PO DAILY Qty: 25 RF: 0 Referrals: Liat Hernandez ARNP [Primary Care Provider] -
[2019-01-02] MEDS: LORazepam 2 MG/ML INJ 1 MG IV (12:32)
[2019-01-02 12:38] VITALS: BP 142/98; PULSE 69; O2SAT 98
[2019-01-02] MEDS: HYDROMORPHONE 1 MG INJ IV (13:40)
[2019-01-02 13:44] VITALS: BP 169/100; PULSE 79; RESP 16; O2SAT 98
--- NOTE | 2019-01-02 13:53 | PC.NURSE ---
Received report from LYUDMILA Rod. pt ambulating to room from . IVF infused. IV flushed. reports intense abd pain. denies diarrhea states her stools are normal they are just constant. Assisted to bed. MD made aware of pain and pain and nausea meds given. pt vomited x 1 into emesis bag and felt better after. resting in bed. VS obtained and at side, will monitor.
[2019-01-02 14:02] VITALS: BP 116/74; PULSE 87; RESP 16; O2SAT 97
== END 2019-01-02 14:48 | disposition home or self-care (01) ==
PROVIDERS: Emergency Provider Emergency Medicine; PCP Nurse Practitioner
DX: R11.2 Nausea with vomiting, unspecified (principal); R19.7 Diarrhea, unspecified; R10.9 Unspecified abdominal pain
CPT/HCPCS: 36415; 80053; 81003; 81015; 83690; 85025; 85610; 85730; 93005; 96361; 96374; 96375; 96376; 99283; 99284; C9113; J1170; J2060; J2405

== ENCOUNTER → 2019-02-18 09:47 | Outpatient (CLI) | payer MEDICARE, OTHER, SELFPAY ==
[2019-02-18 10:38] LABS: Hematocrit 39.1 % (36-46); Hemoglobin 13.4 g/dL (12.0-16.0); Mean Corpuscular HGB Conc 34.2 % (30-36); Mean Corpuscular Hemoglobin 30.3 PG (26-34); Mean Corpuscular Volume 88.8 fL (80-100); Red Cell Distribution Width 14.8 % (11.6-14.8); White Blood Cell Count 11.2 X10^3/uL (4.5-11.0)
[2019-02-18 10:44] LABS: Add Manual Diff / Slide Review YES
[2019-02-18 10:58] LABS: Alanine Aminotransferase 23 IU/L (<35); Albumin 4.5 g/dL (3.5-5.0); Albumin Globulin Ratio 1.6 (1.0-2.8); Alkaline Phosphatase 74 U/L (38-126); Aspartate Aminotransferase 20 IU/L (14-36); BUN Creatinine Ratio 22.2 (6-22); Bilirubin Total 0.8 mg/dL (0.2-1.3); Bilirubin Unconjugated 0.8 mg/dL (0.0-1.1); Blood Urea Nitrogen 20 mg/dL (7-17); Calcium 10.2 mg/dL (8.4-10.2); Carbon Dioxide 26 mmol/L (22-32); Chloride 102 mmol/L (98-107); Estimated Glomerular Filt Rate > 60.0 mL/min (>60); Globulin 2.8 g/dL (1.7-4.1); Glucose 106 mg/dL (70-100); HEMOLYSIS < 15 (0-50); Sodium 138 mmol/L (137-145); Total Protein 7.3 g/dL (6.3-8.2)
[2019-02-18 11:02] LABS: Neutrophils Absolute Manual 9184 /uL (3000-5900); RBC Morphology Normal Morphology; Total Cells Counted 100
[2019-02-18 11:30] LABS: Thyroid Stimulating Hormone 0.25 uIU/mL (0.47-4.68)
== END ==
PROVIDERS: Family Provider Psychiatry & Neurology Psychiatry; PCP Nurse Practitioner; Visit Provider Nurse Practitioner
DX: F31.70 Bipolar disorder, currently in remission, most recent episode unspecified (principal); Z79.899 Other long term (current) drug therapy; F31.0 Bipolar disorder, current episode hypomanic; F31.71 Bipolar disorder, in partial remission, most recent episode hypomanic
CPT/HCPCS: 36415; 80053; 80076; 84439; 84443; 85025

== ENCOUNTER 2019-07-01 22:14 | Observation (INO) | payer MEDICARE, OTHER, SELFPAY ==
[2019-07-01 22:23] VITALS: BP 159/122; PULSE 120; RESP 20; TEMP 36.6; O2SAT 99
[2019-07-01 23:10] LABS: Add Manual Diff / Slide Review NO; Basophils Absolute Auto 100 /uL (0-100); Basophils Percent Auto 1.2 % (0-2); Eosinophils Absolute Auto 200 /uL (0-450); Eosinophils Percent Auto 2.1 % (2-4); Hematocrit 43.1 % (36-46); Hemoglobin 14.7 g/dL (12.0-16.0); Lymphocytes Absolute Auto 2000 /uL (1100-4500); Lymphocytes Percent Auto 19.3 % (25-40); Mean Corpuscular HGB Conc 34.2 % (30-36); Mean Corpuscular Hemoglobin 30.2 PG (26-34); Mean Corpuscular Volume 88.2 fL (80-100); Monocytes Absolute Auto 900 /uL (0-900); Monocytes Percent Auto 9.1 % (3-14); Neutrophils Absolute Auto 7100 /uL (1500-7000); Neutrophils Percent Auto 68.3 % (50-75); Platelet Count 448 X10^3/uL (150-400); Red Blood Cell Count 4.89 X10^6/uL (4.0-5.2); Red Cell Distribution Width 13.3 % (11.6-14.8); White Blood Cell Count 10.4 X10^3/uL (4.5-11.0)
[2019-07-01 23:12] LABS: Alanine Aminotransferase 28 IU/L (<35); Albumin 4.8 g/dL (3.5-5.0); Albumin Globulin Ratio 1.3 (1.0-2.8); Alkaline Phosphatase 139 U/L (38-126); Aspartate Aminotransferase 35 IU/L (14-36); BUN Creatinine Ratio 21.4 (6-22); Blood Urea Nitrogen 28 mg/dL (7-17); Carbon Dioxide 23 mmol/L (22-32); Chloride 101 mmol/L (98-107); Estimated Glomerular Filt Rate 41.4 mL/min (>60); Globulin 3.8 g/dL (1.7-4.1); Glucose 132 mg/dL (80-110); HEMOLYSIS < 15 (0-50); Lipase 105 U/L (23-300); Potassium 3.7 mmol/L (3.4-5.1); Sodium 137 mmol/L (137-145); Total Protein 8.6 g/dL (6.3-8.2)
--- NOTE | 2019-07-01 23:15 | ED_ITS ---
HPI - Nausea/Vomiting/Diarrhea General Chief complaint: Nausea/Vomiting/Diarrhea Stated complaint: Nauseous, Can't Sleep Time Seen by Provider: 07/01/19 22:28 Source: patient Mode of arrival: Ambulatory Limitations: no limitations History of Present Illness HPI Narrative: 59-year-old woman with Crohn's disease on Entyvio presents with 4 days of significant nausea and vomiting. She has chronic diarrhea and that has not changed in frequency. She notes that she has been eating and drinking a bit less of the volumes of diarrhea have slowed a bit. She never gets fevers but she has noted some chills over the past 3-4 days. She has had no coughing, notes that her wheezing has gotten significantly better since she stopped smoking cigarettes in switched to vaping, no chest pain, no shortness of breath, no abdominal pain associated with the nausea she is currently having, no increased extremity edema. She also notes a recent 25 lb weight increase that happened over an approximate month period of time with a changed medications including large doses of prednisone Related Data Home Medications Medication Instructions Recorded Confirmed vedolizumab 300 mg intravenous 300 mg IV Q8W 08/11/18 06/06/19 solution Previous Rx's Medication Instructions Recorded albuterol sulfate 90 mcg/actuation 2 puff INHALATION Q4-6H PRN #8.5 11/23/18 aerosol inhaler gram montelukast 10 mg tablet 10 mg PO BEDTIME #90 tab 11/23/18 hydroxyzine HCl 50 mg tablet 50 mg PO QID PRN #120 tab 12/27/18 ondansetron 4 mg disintegrating 4 mg PO Q6H PRN #60 tab 12/27/18 tablet levothyroxine 125 mcg tablet 125 mcg PO DAILY #30 tab 04/14/19 gabapentin 300 mg capsule 300 mg PO TID #270 cap 05/25/19 aripiprazole 20 mg tablet 20 mg PO DAILY #30 tab 05/27/19 trazodone 50 mg tablet 100 mg PO BEDTIME #60 tab 05/27/19 baclofen 10 mg tablet 5 mg PO DAILY PRN #30 tab 06/29/19 miscellaneous medical supply 1 each MISC BID #1 each 06/29/19 methylphenidate HCl 20 mg tablet 20 mg PO BID #60 tab 06/30/19 lisinopril 5 mg tablet 5 mg PO DAILY #90 tab MDD 5 mg (1 07/01/19 tablet) Allergies Allergy/AdvReac Type Severity Reaction Status Date / Time From SEROQUEL Allergy Intermediate MY LEGS Uncoded 06/06/19 10:44 DON;T WORK PENICILLIN Allergy Intermediate RASH Uncoded 06/06/19 10:44 SULFA Allergy Intermediate HIVES Uncoded 06/06/19 10:44 Review of Systems Review of Systems Narrative: Pertinent positive and negative findings as per HPI Remainder of review of systems is otherwise unremarkable for ENT: No sore throat, neck pain, ear pain CV: Chest pain, palpitations, dyspnea on exertion Respiratory: Cough, dyspnea : Dysuria, hematuria, flank pain MS: Muscle weakness, numbness, joint swelling or warmth Skin: Rashes, nonhealing lesions Neuro: Syncope, dizziness, tingling Psych: Depression, anxiety, suicidal ideation Endocrine: heat or cold intolerance, very dry skin Heme: Easy bruising or bleeding Allergy: Seasonal rhinorrhea, itchy eyes Patient History Medical History Abnormal chest xray (Resolved) ADHD (Chronic) Anemia (Resolved ~2016) Ankle pain (Chronic ~2017) Anxiety (Chronic) Asthma (Chronic) Bipolar disease, chronic (Chronic ~1998) Bronchospasm (Acute) Cataracts, bilateral (Chronic ~2018) Chicken pox (Resolved) Chronic back pain (Chronic ~2003) Chronic cough (Chronic) COPD (chronic obstructive pulmonary disease) (Chronic) Crohn's disease (Chronic ~2009) Depression (Chronic ~1988) Eczema (Chronic) Foot pain (Chronic ~2018) Headache (Chronic) Hemorrhoid (Chronic ~1979) History of emphysema (Chronic ~2017) Hypothyroidism (Chronic ~1989) Kidney disease (Chronic ~1974) Migraines (Chronic) MRSA (methicillin resistant Staphylococcus aureus) (Chronic ~2004) Osteoporosis (Chronic ~2016) Post traumatic stress disorder (PTSD) (Chronic) Restless leg syndrome (Chronic) Seizure (Chronic) Skin cancer, basal cell (Chronic ~2016) Sleep apnea (Chronic) Surgical History History of section (Resolved) History of cholecystectomy (Resolved) History of intestinal surgery (Resolved) History of partial hysterectomy (Resolved) Social History Smoking Status: Current every day smoker Smoking Status: Current every day smoker tobacco type: vaping Substance Use Type: marijuana Exam Narrative Exam Narrative: General: Healthy appearing, in no acute distress. Able to give a complete and coherent history. Well-nourished well-developed HEENT: Moist mucous membranes, normal sclera with reactive pupils, Neck: No JVD, supple Respiratory: Lungs are clear to auscultation, minor scattered wheezing no rales no rhonchi. Full and symmetrical air movement Cardiac: Regular rate and rhythm no murmurs no bruits Abdomen: Soft nontender good bowel tones, no flank pain Skin: Warm and dry, no rashes Neurologic: Grossly neurologically intact with no obvious asymmetries or abnormalities Extremities: No trauma, well perfused Psych: Cooperative, appropriate insight and affect Initial Vital Signs Initial Vital Signs: Vital Signs Temperature 98 F 07/01/19 22:23 Pulse Rate 120 H 07/01/19 22:23 Respiratory Rate 20 07/01/19 22:23 Blood Pressure 159/122 H 07/01/19 22:23 Pulse Oximetry 99 07/01/19 22:23 Course Orders Ordered: ED Orders 07/01/19 22:40 Complete Blood Count AUTO DIFF Stat Comprehensive Metabolic Panel Stat Lipase Stat 07/02/19 00:31 Ionized Calcium Stat Acetaminophen (Tylenol) 650 mg PO Q6HR PRN PRN Reason: Fever/Mild Pain (1-3) Sodium Chloride (Normal Saline 0.9%) 1,000 mls @ 1,000 mls/hr IV BOLUS ONE Stop: 07/02/19 01:16 Sodium Chloride (Normal Saline 0.9%) 1,000 mls @ 150 mls/hr IV CONT TIA Ondansetron HCl (Zofran) 4 mg IV Q4HR PRN PRN Reason: Nausea And Vomiting Discontinued Medications Sodium Chloride (Normal Saline 0.9%) 1,000 mls @ 1,000 mls/hr IV BOLUS ONE Stop: 07/01/19 23:53 Last Admin: 07/01/19 23:22 Dose: 1,000 mls/hr Documented by: FEDERICA Lorazepam (Ativan) 0.5 mg IV NOW ONE Stop: 07/02/19 00:39 Metoclopramide HCl (Reglan) 10 mg IV NOW ONE Stop: 07/02/19 00:18 Ondansetron HCl (Zofran) 4 mg IV NOW ONE Stop: 07/01/19 22:55 Last Admin: 07/01/19 23:22 Dose: 4 mg Documented by: FEDERICA Vital Signs Vital signs: Vital Signs - 8 hr 07/01/19 22:23 07/02/19 00:34 Temperature 98 F Pulse Rate 120 H 108 H Respiratory Rate 20 15 Blood Pressure 159/122 H Blood Pressure [Left Arm] 138/85 Pulse Oximetry 99 98 MDM - Nausea/Vomiting/Diarrhea Medical Records Attestation: I reviewed the patient's medical records. Lab Data Attestation: I reviewed the patient's lab results. Lab results narrative: Worsening renal function with a creatinine of 1.3 and noted hypercalcemia Result diagrams: 07/01/19 22:40 07/01/19 22:40 Labs: Lab Results 07/01/19 07/01/19 Range/Units 22:40 22:40 WBC 10.4 (4.5-11.0) X10^3/uL RBC 4.89 (4.0-5.2) X10^6/uL Hgb 14.7 (12.0-16.0) g/dL Hct 43.1 (36-46) % MCV 88.2 (80-100) fL MCH 30.2 (26-34) PG MCHC 34.2 (30-36) % RDW 13.3 (11.6-14.8) % Plt Count 448 H (150-400) X10^3/uL Neut % (Auto) 68.3 (50-75) % Lymph % (Auto) 19.3 L (25-40) % [place] % (Auto) 9.1 (3-14) % Eos % (Auto) 2.1 (2-4) % Baso % (Auto) 1.2 (0-2) % Neut # (Auto) 7100 H (4847-5077) /uL Lymph # (Auto) 2000 (5184-1797) /uL [place] # (Auto) 900 (0-900) /uL Eos # (Auto) 200 (0-450) /uL Baso # (Auto) 100 (0-100) /uL Sodium 137 (137-145) mmol/L Potassium 3.7 (3.4-5.1) mmol/L Chloride 101 (98-107) mmol/L Carbon Dioxide 23 (22-32) mmol/L BUN 28 H (7-17) mg/dL Creatinine 1.31 H (0.52-1.04) mg/dL Estimated GFR 41.4 L (>60) mL/min BUN/Creatinine Ratio 21.4 (6-22) Glucose 132 H (80-110) mg/dL Calcium 12.6 H (8.4-10.2) mg/dL Total Bilirubin 1.0 (0.2-1.3) mg/dL AST 35 (14-36) IU/L ALT 28 (<35) IU/L Alkaline Phosphatase 139 H (38-126) U/L Total Protein 8.6 H (6.3-8.2) g/dL Albumin 4.8 (3.5-5.0) g/dL Globulin 3.8 (1.7-4.1) g/dL Albumin/Globulin Ratio 1.3 (1.0-2.8) Lipase 105 (23-300) U/L Urine Dip Bedside Urine Glucose Negative Bedside Urine Bilirubin + 1 Bedside Urine Ketone ++ 40 Urine Specific [place] 1.030 Bedside Urine Occult Blood +/- Bedside Urine pH 5.5 Bedside Urine Protein ++ 100 Bedside Urine Urobilinogen 1+ 2mg Bedside Urine Nitrite - Negative Bedside Urine Leukocytes - Negative Esterase MDM Narrative Medical decision making narrative: 59-year-old woman on Entyvio for Crohn's disease presents with 4 days of unrelenting nausea and vomiting without diarrhea or abdominal pain. Labs reveal worsening renal function with a creatinine jumping from 0.8-1.3 and calcium elevated at 12.6. Will admit for intractable nausea vomiting with acute renal impairment, dehydration and hypercalcemia needing further workup. Case is discussed with Dr. Paul Driscoll MD transition orders are written and patient will be admitted to Dr. Natasha Stearns's. Discharge Plan Departure Patient Disposition: Admitted as Observation Clinical Impression: Hypercalcemia, Acute renal insufficiency Nausea & vomiting Qualifiers: Vomiting type: unspecified Vomiting Intractability: intractable Qualified Code(s): R11.2 - Nausea with vomiting, unspecified Referrals: Liat Hernandez ARNP [Primary Care Provider] -
[2019-07-01] MEDS: ONDANSETRON 4 MG/2 ML INJ IV (23:22)
[2019-07-01] MEDS: SODIUM CHLORIDE 0.9% 1,000 ML 1000 ML IV (23:22)
[2019-07-01 23:23] LABS: Calcium 12.6 mg/dL (8.4-10.2)
[2019-07-02 00:34] VITALS: BP 138/85; PULSE 108; RESP 15; O2SAT 98
[2019-07-02] MEDS: ONDANSETRON 4 MG/2 ML INJ IV (00:43)
[2019-07-02 01:10] VITALS: BP 127/93; PULSE 91; RESP 16; TEMP 36.9; O2SAT 95; BMI 29.8
[2019-07-02] MEDS: SODIUM CHLORIDE 0.9% 1,000 ML 1000 ML IV (01:25)
[2019-07-02] MEDS: SODIUM CHLORIDE 0.9% 1,000 ML 150 ML IV (02:33)
[2019-07-02] MEDS: LORazepam 2 MG/ML INJ 0.5 MG IV (02:42)
--- NOTE | 2019-07-02 02:51 | PC.NURSE ---
Pt. admitted from ER via wheelchair. Denies nausea upon admit, Reglan ER order not administer. But C/O insomnia & requested one time order of Lorazepam 0.5 mg. IVP admin. History of fall placed on high fall risk, bed alarm activated & instructed not to get up OOB without any assistance. Call light within reach, oriented to her room call light, TV & bed controls. Will cont. POC & monitor.
[2019-07-02 03:18] VITALS: BP 98/68; PULSE 91; RESP 16
[2019-07-02 04:15] VITALS: BP 98/69; PULSE 97; RESP 16; TEMP 36.8; O2SAT 91
--- NOTE | 2019-07-02 07:49 | P.HP_ITS ---
History of Present Illness History of Present Illness Date Patient Seen: 07/02/19 Chief complaint: Nauseous, Can't Sleep Narrative: Louann Diaz is a 59-year-old female with a past medical history significant for hypertension, Crohn's disease on Entyvio, bipolar disorder, ADHD, depression, anxiety, COPD, and tobacco dependence currently smoking cigarettes and vaping who presented to the ED with progressive worsening nausea and vomiting. The patient reports that she began having nausea and vomiting 4 days ago that has progressively worsened. She noticed her urine output has tapered off and her appetite is poor with little p.o. intake. She reports she has done this before and believes that she vaped too much. She does not believe her Crohn's is flaring and continues to have chronic diarrhea which is variable and up to 15 times a day. She denies headache, chest pain, shortness of breath, abdominal pain, nausea, vomiting, fever, chills, dysuria, or constipation. She does en dorse chronic cough which is she reports is her normal cough and no worse than usual. She also endorses night sweats which she believes is related to her Crohn's disease. She has no other complaints. The patient is admitted as observation for nausea and vomiting with dehydration, acute kidney injury, and hypercalcemia. Patient History Medical History Abnormal chest xray (Resolved) ADHD (Chronic) Anemia (Resolved ~2016) Ankle pain (Chronic ~2017) Anxiety (Chronic) Asthma (Chronic) Bipolar disease, chronic (Chronic ~1998) Bronchospasm (Acute) Cataracts, bilateral (Chronic ~2018) Chicken pox (Resolved) Chronic back pain (Chronic ~2003) Chronic cough (Chronic) COPD (chronic obstructive pulmonary disease) (Chronic) Crohn's disease (Chronic ~2009) Depression (Chronic ~1988) Eczema (Chronic) Foot pain (Chronic ~2018) Headache (Chronic) Hemorrhoid (Chronic ~1979) History of emphysema (Chronic ~2017) Hypothyroidism (Chronic ~1989) Kidney disease (Chronic ~1974) Migraines (Chronic) MRSA (methicillin resistant Staphylococcus aureus) (Chronic ~2004) Osteoporosis (Chronic ~2016) Post traumatic stress disorder (PTSD) (Chronic) Restless leg syndrome (Chronic) Seizure (Chronic) Skin cancer, basal cell (Chronic ~2016) Sleep apnea (Chronic) Surgical History (Updated 07/02/19 @ 11:36 by Natasha Stearns DO) History of section (Resolved) History of cholecystectomy (Resolved) History of intestinal surgery (Resolved) History of partial hysterectomy (Resolved) S/P tonsillectomy (Acute) Family & Social History Family History (Updated 07/02/19 @ 11:37 by Natasha Stearns DO) Mother Cancer Father Heart disease Kidney disease Social History: household members spouse Prior Living Arrangements House Safety & Behavioral: Feels Safe in Current Yes Environment Been Physically Hurt or No Threatened By a Person Suicidal Ideation Description None Suicide Plan Description No Plan Tobacco & Substance use: Tobacco type e-cigarettes Smoking Status Current every day smoker alcohol intake never Substance Use Type marijuana Meds Home Medications and Allergies Home Medications Medication Instructions Recorded Confirmed Type vedolizumab 300 mg intravenous 300 mg IV Q8W 08/11/18 07/02/19 History solution albuterol sulfate 90 mcg/actuation 2 puff INHALATION Q4-6H PRN #8.5 11/23/18 07/02/19 Rx aerosol inhaler gram montelukast 10 mg tablet 10 mg PO BEDTIME #90 tab 11/23/18 07/02/19 Rx hydroxyzine HCl 50 mg tablet 50 mg PO QID PRN #120 tab 12/27/18 07/02/19 Rx ondansetron 4 mg disintegrating 4 mg PO Q6H PRN #60 tab 12/27/18 07/02/19 Rx tablet levothyroxine 125 mcg tablet 125 mcg PO DAILY #30 tab 04/14/19 07/02/19 Rx baclofen 10 mg tablet 5 mg PO DAILY PRN #30 tab 06/29/19 07/02/19 Rx miscellaneous medical supply 1 each MISC BID #1 each 06/29/19 07/02/19 Rx methylphenidate HCl 20 mg tablet 20 mg PO BID #60 tab 06/30/19 07/02/19 Rx lisinopril 5 mg tablet 5 mg PO DAILY #90 tab MDD 5 mg (1 07/01/19 07/02/19 Rx tablet) aripiprazole [Abilify] 20 mg PO DAILY 07/02/19 07/02/19 History gabapentin [Neurontin] 300 mg PO TID 07/02/19 07/02/19 History trazodone 100 mg PO BEDTIME PRN 07/02/19 07/02/19 History Allergies Allergy/AdvReac Type Severity Reaction Status Date / Time From SEROQUEL Allergy Intermediate MY LEGS Uncoded 06/06/19 10:44 DON;T WORK PENICILLIN Allergy Intermediate RASH Uncoded 06/06/19 10:44 SULFA Allergy Intermediate HIVES Uncoded 06/06/19 10:44 Review of Systems Review of Systems Narrative: A 10 system comprehensive review of systems was conducted with the patient and found to be negative except as above in the History of Present Illness. Exam Vital Signs (past 8 hours): - 07/02/19 00:34 07/02/19 01:10 07/02/19 03:18 Temperature 98.5 F Pulse Rate 108 H 91 H 91 H Respiratory Rate 15 16 16 Blood Pressure 127/93 H 98/68 Blood Pressure [Left Arm] 138/85 Pulse Oximetry 98 95 07/02/19 04:15 Temperature 98.2 F Pulse Rate 97 H Respiratory Rate 16 Blood Pressure 98/69 Blood Pressure [Left Arm] Pulse Oximetry 91 Oxygen Delivery Method Room Air Oxygen Flow Rate 0 Narrative Exam Narrative: General: Older female lying in bed and in no acute distress, appears chronically ill and older than stated age, well-developed, well-nourished, appropriately interactive. HEENT: Normocephalic, atraumatic. External ears without defect. Pupils equal, round, and reactive to light. Anicteric sclerae, moist conjunctivae, and no lid lag. Oropharynx free of erythema and cobble stoning with moist mucosa. Neck: Supple with full range of motion. No lymphadenopathy or thyromegaly. Cardiovascular: Regular rate and rhythm without murmurs, rubs, or gallops appreciated Pulmonary: Clear to auscultation bilaterally without crackles, wheezes, or rhonchi. Normal respiratory effort with no use of accessory muscles. Abdomen: Soft, bowel sounds present, nontender, nondistended. No hepatosplenomegaly or masses appreciated. Extremities: No clubbing, cyanosis, or edema. Skin: Normal temperature, turgor, and texture; no rash, ulcers, or subcutaneous nodules appreciated. Neurological: Cranial nerves grossly intact. Psychiatric: Mildly anxious mood and affect. Alert and oriented to person, place, and time. Objective Labs Result Diagrams: 07/02/19 06:00 07/02/19 06:00 Labs: Laboratory Results - last 24 hr 07/01/19 07/01/19 22:40 22:40 WBC 10.4 RBC 4.89 Hgb 14.7 Hct 43.1 MCV 88.2 MCH 30.2 MCHC 34.2 RDW 13.3 Plt Count 448 H Neut % (Auto) 68.3 Lymph % (Auto) 19.3 L [place] % (Auto) 9.1 Eos % (Auto) 2.1 Baso % (Auto) 1.2 Neut # (Auto) 7100 H Lymph # (Auto) 2000 [place] # (Auto) 900 Eos # (Auto) 200 Baso # (Auto) 100 Sodium 137 Potassium 3.7 Chloride 101 Carbon Dioxide 23 BUN 28 H Creatinine 1.31 H Estimated GFR 41.4 L BUN/Creatinine Ratio 21.4 Glucose 132 H Calcium 12.6 H Total Bilirubin 1.0 AST 35 ALT 28 Alkaline Phosphatase 139 H Total Protein 8.6 H Albumin 4.8 Globulin 3.8 Albumin/Globulin Ratio 1.3 Lipase 105 Assessment & Plan Assessment & Plan narrative: Louann Diaz is a 59-year-old female with a past medical history significant for hypertension, Crohn's disease on Entyvio, bipolar disorder, ADHD, depression, anxiety, COPD, and tobacco dependence currently smoking cigarettes and vaping who presented to the ED with progressive worsening nausea and vomiting. 1. Acute intractable nausea and vomiting with dehydration, present on admission. Resolved. -Patient reports progressive worsening nausea and vomiting x4 days which she believes is related to vaping. -Differential diagnosis includes: Crohn's flare versus hyperemesis cannabis versus viral gastroenteritis versus vaping? -Continue antiemetics with ondansetron 4 mg every 6 hours as needed for nausea and vomiting. -Received 2 L of NS in ED. Continued normal saline at 200 mL/hr until adequately hydrated. 2. Acute kidney injury, secondary to nausea and vomiting with dehydration, present on admission. Resolved. -Initial creatinine 1.3. Baseline creatinine 0.90. -Avoid nephrotoxic agents. Held lisinopril and gabapentin due to KRISTI. -Received 2 L of NS in ED. Continue normal saline at 200 mL/hr until adequately hydrated. -Continue to monitor renal function daily. 3. Acute hypercalcemia, secondary to nausea and vomiting with dehydration -Initial calcium 12.6. -Ionized calcium and intact PTH pending. -Received 2 L of NS in ED. Continue normal saline at 200 mL/hr until adequately hydrated. -Continue to monitor calcium level daily. 4. Crohn's disease, chronic, present on admission. Presumed stable -Patient receives Entyvio 300 mg every 8 weeks with last injection 06/06/2019. -Recommended close outpatient follow-up with GI Dr. Chan for evaluation and treatment of Crohn's as patient reports she continues to have variable amount of bowel movements a day sometimes up to 15. 5. Hypertension, chronic, present on admission. Stable. -Held lisinopril due to KRISTI as above. Ordered labetalol 10 mg IV every 4 hours as needed for SBP> 180 mmHg sustained for 15 minutes. 6. Bipolar disorder, ADHD, depression, and anxiety, chronic, present on admission. Stable. -Continue home Abilify 20 mg daily and methylphenidate 20 mg twice daily. 7. Hypothyroidism, chronic, present on admission. Stable. -Ordered TSH with reflex, pending. -Continue home levothyroxine 125 mcg daily. 8. Insomnia, chronic, present on admission. Stable. -Continue home trazodone 100 mg daily at bedtime as needed for insomnia. 9. COPD, chronic, present on admission. Stable. -Does not represent COPD exacerbation. -Continue home albuterol inhaler 2 puffs every 4-6 hours as needed for shortness of breath and montelukast 10 mg daily at bedtime. Code status: Full code DVT prophylaxis: SQ heparin Patient is admitted under observation status with expected length of stay less than 2 midnights due to severity of presenting symptoms, risk of adverse event, and complexity of treatment plan. Quality VTE Deep Vein Thrombosis/Pulmonary Embolism Present on Admission: No
[2019-07-02 08:05] VITALS: BP 112/57; PULSE 90; RESP 19; TEMP 36.1; O2SAT 99
[2019-07-02 08:09] LABS: Add Manual Diff / Slide Review NO; Basophils Absolute Auto 0 /uL (0-100); Basophils Percent Auto 0.6 % (0-2); Eosinophils Absolute Auto 100 /uL (0-450); Hematocrit 36.4 % (36-46); Hemoglobin 12.3 g/dL (12.0-16.0); Lymphocytes Absolute Auto 1800 /uL (1100-4500); Lymphocytes Percent Auto 27.3 % (25-40); Mean Corpuscular HGB Conc 33.7 % (30-36); Mean Corpuscular Hemoglobin 30.1 PG (26-34); Mean Corpuscular Volume 89.4 fL (80-100); Monocytes Absolute Auto 600 /uL (0-900); Monocytes Percent Auto 8.9 % (3-14); Neutrophils Absolute Auto 4000 /uL (1500-7000); Neutrophils Percent Auto 61.2 % (50-75); Platelet Count 342 X10^3/uL (150-400); Red Blood Cell Count 4.07 X10^6/uL (4.0-5.2); Red Cell Distribution Width 13.5 % (11.6-14.8); White Blood Cell Count 6.6 X10^3/uL (4.5-11.0)
[2019-07-02 08:12] LABS: Alanine Aminotransferase 22 IU/L (<35); Albumin 3.7 g/dL (3.5-5.0); Albumin Globulin Ratio 1.2 (1.0-2.8); Alkaline Phosphatase 96 U/L (38-126); Aspartate Aminotransferase 60 IU/L (14-36); BUN Creatinine Ratio 26.8 (6-22); Bilirubin Total 0.8 mg/dL (0.2-1.3); Blood Urea Nitrogen 26 mg/dL (7-17); Calcium 10.1 mg/dL (8.4-10.2); Carbon Dioxide 24 mmol/L (22-32); Chloride 108 mmol/L (98-107); Estimated Glomerular Filt Rate 58.6 mL/min (>60); Glucose 103 mg/dL (80-110); HEMOLYSIS < 15 (0-50); Potassium 3.9 mmol/L (3.4-5.1); Sodium 140 mmol/L (137-145); Total Protein 6.7 g/dL (6.3-8.2)
[2019-07-02] MEDS: FAMOTIDINE 20 MG TABLET PO (09:01)
[2019-07-02] MEDS: HEPARIN 5,000 UNIT/ML VIAL 5000 UNIT SUBCUT (09:01)
[2019-07-02 09:10] LABS: TSH w/ Reflex to FT4 4.72 uIU/mL (0.47-4.68)
[2019-07-02 10:18] LABS: Appearance Urine UA CLEAR; Bilirubin Urine UA 1+ (NEGATIVE); Color Urine UA YELLOW; Glucose Urine UA NEGATIVE (Negative); Ketones Urine UA TRACE (NEGATIVE); Leukocyte Esterase Urine UA NEGATIVE (NEGATIVE); Nitrite Urine UA NEGATIVE (Negative); Occult Blood Urine UA 1+ (Negative); Protein Urine UA TRACE (Negative); Specific Gravity Urine UA >=1.030 (1.000-1.035); Urobilinogen Urine UA 0.2 E.U./dL (0.2)
--- NOTE | 2019-07-02 10:19 | CM.DANOTE ---
DCP: Case received, EMR reviewed and met with patient. Introduced self and role. Was able to meet with patient and obtain information regarding her baseline activity level and living situation. DCP assessment completed with information currently available. Patient is a 59 year old female who admitted early this morning to the care of the hospitalist team. PCP: Liat YAO. Payer: confirmed: Medicare/. Patient came to the hospital secondary to nausea and vomiting. She holds current diagnosis of acute renal impairment. Patient has been receiving some IV fluids. Met with patient in her room. She was sitting up in bed, alert and oriented. She is independent at baseline, and resides in [place] with her spouse, Jose Ordoñez. P: DCP to continue to follow and be available for any resources needed. Patient should be able to discharge home when she is medically stable. Na Ribeiro RN/Adjutant General
[2019-07-02 10:39] LABS: Bacteria Urine Few (2-10); Calcium Oxalate Crystals Urine Occasional; Hyaline Casts Urine 1-5/LPF; Mucus Urine 1+ (Negative); RBC Urine 1-5/HPF (0-5/HPF); Squamous Epithelial Cell Urine 1-5 /HPF (0-5/HPF); Uric Acid Crystals Urine Few; WBC Urine 1-5/HPF (0-5/HPF); pH Urine UA 5.5 (4.5-8.0)
[2019-07-02 10:40] LABS: Culture Indicated Urine Cult Not Indicated
[2019-07-02 10:44] LABS: Ictotest Urine Negative (Negative)
[2019-07-02] MEDS: METHYLPHENIDATE 5 MG TABLET 20 MG PO (11:08)
[2019-07-02] MEDS: ARIPiprazole 10 MG TABLET 20 MG PO (11:09)
--- NOTE | 2019-07-02 11:42 | P.DS_ITS ---
History of Present Illness History of Present Illness Date Patient Seen: 07/02/19 Chief complaint: Nauseous, Can't Sleep Narrative: Written by myself Dr. Stearns: Louann Diaz is a 59-year-old female with a past medical history significant for hypertension, Crohn's disease on Entyvio, bipolar disorder, ADHD, depression, anxiety, COPD, and tobacco dependence currently smoking cigarettes and vaping who presented to the ED with progressive worsening nausea and vomiting. The patient reports that she began having nausea and vomiting 4 days ago that has progressively worsened. She noticed her urine output has tapered off and her appetite is poor with little p.o. intake. She reports she has done this before and believes that she vaped too much. She does not believe her Crohn's is f laring and continues to have chronic diarrhea which is variable and up to 15 times a day. She denies headache, chest pain, shortness of breath, abdominal pain, nausea, vomiting, fever, chills, dysuria, or constipation. She does endorse chronic cough which is she reports is her normal cough and no worse than usual. She also endorses night sweats which she believes is related to her Crohn's disease. She has no other complaints. The patient is admitted as observation for nausea and vomiting with dehydration, acute kidney injury, and hypercalcemia. Discharge Providers Provider Date of admission: 07/02/19 00:42 Discharge Date: 07/02/19 Primary care physician: MAXIMILIAN Doyle Discharge provider: Natasha Stearns DO Summary Hospital Course Discharge Diagnosis: 1. Acute intractable nausea and vomiting with dehydration, present on admission. Resolved. 2. Acute kidney injury, secondary to nausea and vomiting with dehydration, present on admission. Resolved. 3. Acute hypercalcemia, secondary to nausea and vomiting with dehydration, present on admission. Resolved. 4. Crohn's disease, chronic, present on admission. Presumed stable 5. Hypertension, chronic, present on admission. Stable. 6. Bipolar disorder, ADHD, depression, and anxiety, chronic, present on admission. Stable. 7. Hypothyroidism, chronic, present on admission. Stable. 8. Insomnia, chronic, present on admission. Stable. 9. COPD, chronic, present on admission. Stable. 10. Tobacco dependence, chronic, present on admission. Stable. Hospital Course: Louann Diaz is a 59-year-old female with a past medical history significant for hypertension, Crohn's disease on Entyvio, bipolar disorder, ADHD, depression, anxiety, COPD, and tobacco dependence currently smoking cigarettes and vaping who presented to the ED with progressive worsening nausea and vomiting. 1. Acute intractable nausea and vomiting with dehydration, present on admission. Resolved. -Patient reports progressive worsening nausea and vomiting x4 days which she believes is related to vaping. -Differential diagnosis includes: Crohn's flare versus hyperemesis cannabis versus viral gastroenteritis versus vaping? -GI stool PCR negative for infectious diarrhea. -Continued antiemetics with ondansetron 4 mg every 6 hours as needed for nausea and vomiting. -Received 2 L of NS in ED. Continued normal saline at 200 mL/hr until adequately hydrated then discontinued. 2. Acute kidney injury, secondary to nausea and vomiting with dehydration, present on admission. Resolved. -Initial creatinine 1.3. Baseline creatinine 0.90. Repeat creatinine returned to baseline at 0.97. -Avoid nephrotoxic agents. Held lisinopril and gabapentin due to KRISTI. Inst ructed patient to restart her lisinopril and gabapentin as prescribed at time of discharge. -Received 2 L of NS in ED. Continued normal saline at 200 mL/hr until adequately hydrated then discontinued. -Continued to monitor renal function daily. 3. Acute hypercalcemia, secondary to nausea and vomiting with dehydration, present on admission. Resolved. -Initial calcium 12.6. Repeat calcium normalized at 10.1. -Ionized calcium and intact PTH pending and will need to be followed up by PCP. -Received 2 L of NS in ED. Continued normal saline at 200 mL/hr until adequately hydrated then discontinued. -Continued to monitor calcium level daily. 4. Crohn's disease, chronic, present on admission. Presumed stable -Patient receives Entyvio 300 mg every 8 weeks with last injection 06/06/2019. -GI stool PCR negative for infectious diarrhea. -Recommended close outpatient follow-up with GI, Dr. Chan, for evaluation and treatment of Crohn's as patient reports she continues to have variable byron unt of bowel movements a day sometimes up to 15x/day. Patient reports she was supposed to have colonoscopy recently but it was rescheduled due to COVID-19 pandemic. 5. Hypertension, chronic, present on admission. Stable. -Held lisinopril due to KRISTI as above. Ordered labetalol 10 mg IV every 4 hours as needed for SBP> 180 mmHg sustained for 15 minutes. -Instructed patient to restart her lisinopril as prescribed at time of discharge. 6. Bipolar disorder, ADHD, depression, and anxiety, chronic, present on admission. Stable. -Continued home Abilify 20 mg daily and methylphenidate 20 mg twice daily. 7. Hypothyroidism, chronic, present on admission. Stable. -TSH mildly elevated at 4.72 and free T4 normal at 1.06 indicative of subclinical hypothyroidism and may need to increase levothyroxine if symptomatic and will defer to PCP. -Continued home levothyroxine 125 mcg daily. 8. Insomnia, chronic, present on admission. Stable. -Continued home trazodone 100 mg daily at bedtime as needed for insomnia. 9. COPD, chronic, present on admission. Stable. -Does not represent COPD exacerbation. -Continued home albuterol inhaler 2 puffs every 4-6 hours as needed for shortness of breath and montelukast 10 mg daily at bedtime. 10. Tobacco dependence, chronic, present on admission. Stable. -Patient reports she smokes 5-6 cigarettes per day and uses a vape pen frequently throughout the day. -Highly recommended and discussed at length smoking cessation. Also recommended against use of marijuana. Exam Vital Signs (past 8 hours): - 07/02/19 04:15 07/02/19 08:05 Temperature 98.2 F 96.9 F L Pulse Rate 97 H 90 Respiratory Rate 16 19 Blood Pressure 98/69 112/57 L Pulse Oximetry 91 99 Oxygen Delivery Method Room Air Oxygen Flow Rate 0 Narrative Exam Narrative: General: Older female lying in bed and in no acute distress, appears chronically ill and older than stated age, well-developed, well-nourished, appropriately interactive. HEENT: Normocephalic, atraumatic. External ears without defect. Pupils equal, round, and reactive to light. Anicteric sclerae, moist conjunctivae, and no lid lag. Oropharynx free of erythema and cobble stoning with moist mucosa. Neck: Supple with full range of motion. No lymphadenopathy or thyromegaly. Cardiovascular: Regular rate and rhythm without murmurs, rubs, or gallops appreciated Pulmonary: Clear to auscultation bilaterally without crackles, wheezes, or rhonchi. Normal respiratory effort with no use of accessory muscles. Abdomen: Soft, bowel sounds present, nontender, nondistended. No hepatosplenomegaly or masses appreciated. Extremities: No clubbing, cyanosis, or edema. Skin: Normal temperature, turgor, and texture; no rash, ulcers, or subcutaneous nodules appreciated. Neurological: Cranial nerves grossly intact. Psychiatric: Mildly anxious mood and affect. Alert and oriented to person, place, and time. Objective Labs Result Diagrams: 07/02/19 06:00 07/02/19 06:00 Labs: Laboratory Results - last 24 hr 07/01/19 07/01/19 07/02/19 22:40 22:40 06:00 WBC 10.4 6.6 RBC 4.89 4.07 Hgb 14.7 12.3 Hct 43.1 36.4 MCV 88.2 89.4 MCH 30.2 30.1 MCHC 34.2 33.7 RDW 13.3 13.5 Plt Count 448 H 342 Neut % (Auto) 68.3 61.2 Lymph % (Auto) 19.3 L 27.3 [place] % (Auto) 9.1 8.9 Eos % (Auto) 2.1 2.0 Baso % (Auto) 1.2 0.6 Neut # (Auto) 7100 H 4000 Lymph # (Auto) 2000 1800 [place] # (Auto) 900 600 Eos # (Auto) 200 100 Baso # (Auto) 100 0 Sodium 137 Potassium 3.7 Chloride 101 Carbon Dioxide 23 BUN 28 H Creatinine 1.31 H Estimated GFR 41.4 L BUN/Creatinine Ratio 21.4 Glucose 132 H Calcium 12.6 H Total Bilirubin 1.0 AST 35 ALT 28 Alkaline Phosphatase 139 H Total Protein 8.6 H Albumin 4.8 Globulin 3.8 Albumin/Globulin Ratio 1.3 Lipase 105 TSH Urine Color Urine Appearance Urine pH Ur Specific [place] Urine Protein Urine Glucose (UA) Urine Ketones Urine Occult Blood Urine Nitrate Urine Bilirubin Ur Bilirubin Confirm Urine Urobilinogen Ur Leukocyte Esterase Urine RBC Urine WBC Ur Squamous Epith Cells Calcium Oxalate Crystal Uric Acid Crystals Urine Bacteria Hyaline Casts Urine Mucus Ur Culture Indicated? 07/02/19 07/02/19 07/02/19 06:00 06:00 09:44 WBC RBC Hgb Hct MCV MCH MCHC RDW Plt Count Neut % (Auto) Lymph % (Auto) [place] % (Auto) Eos % (Auto) Baso % (Auto) Neut # (Auto) Lymph # (Auto) [place] # (Auto) Eos # (Auto) Baso # (Auto) Sodium 140 Potassium 3.9 Chloride 108 H Carbon Dioxide 24 BUN 26 H Creatinine 0.97 Estimated GFR 58.6 L BUN/Creatinine Ratio 26.8 H Glucose 103 Calcium 10.1 Total Bilirubin 0.8 AST 60 H ALT 22 Alkaline Phosphatase 96 Total Protein 6.7 Albumin 3.7 Globulin 3.0 Albumin/Globulin Ratio 1.2 Lipase TSH 4.72 H Urine Color Yellow Urine Appearance Clear Urine pH 5.5 Ur Specific [place] >=1.030 H Urine Protein Trace H Urine Glucose (UA) Negative Urine Ketones Trace H Urine Occult Blood 1+ H Urine Nitrate Negative Urine Bilirubin 1+ H Ur Bilirubin Confirm Negative Urine Urobilinogen 0.2 Ur Leukocyte Esterase Negative Urine RBC 1-5/hpf Urine WBC 1-5/hpf Ur Squamous Epith Cells 1-5 /hpf Calcium Oxalate Crystal Occasional H Uric Acid Crystals Few H Urine Bacteria Few (2-10) H Hyaline Casts 1-5/lpf Urine Mucus 1+ H Ur Culture Indicated? Cult not indicated Discharge Plan Discharge Plan Patient Disposition: Home Discharge comment: You are being discharged home. You were severely dehydrated from nausea and vomiting. Your kidneys and calcium level are back to normal. Please try to stay well hydrated and get plenty of rest. Please follow-up with your primary care provider, Liat YAO, in the next 1 week regarding your hospitalization and repeat lab work. Recommend you also follow-up as soon as possible with GI, Dr. Chan, regarding your Crohn's disease, persistent diarrhea, and need for repeat colonoscopy. Discharge orders & Medications Prescriptions: Continued levothyroxine 125 mcg tablet 125 mcg PO DAILY Qty: 30 RF: 1 methylphenidate HCl 20 mg tablet 20 mg PO BID Qty: 60 RF: 0 lisinopril 5 mg tablet 5 mg PO DAILY MDD 5 mg (1 tablet) Qty: 90 RF: 0 Entyvio 300 mg recon soln 300 mg IV Q8W RF: 0 montelukast 10 mg tablet 10 mg PO BEDTIME Qty: 90 RF: 3 albuterol sulfate [Ventolin HFA] 90 mcg/actuation HFA aerosol inhaler 2 puff INHALATION Q4-6H PRN (Reason: shortness of breath or wheezing) Qty: 8.5 RF: 6 hydroxyzine HCl 50 mg tablet 50 mg PO QID PRN (Reason: nausea and vomiting) Qty: 120 RF: 0 ondansetron 4 mg tablet,disintegrating 4 mg PO Q6H PRN (Reason: nausea and vomiting) Qty: 60 RF: 11 baclofen 10 mg tablet 5 mg PO DAILY PRN (Reason: pain) Qty: 30 RF: 2 Blood Pressure Cuff Misc 1 each MISC BID Qty: 1 RF: 0 gabapentin [Neurontin] 300 mg capsule 300 mg PO TID RF: 0 aripiprazole [Abilify] 20 mg tablet 20 mg PO DAILY RF: 0 trazodone 50 mg tablet 100 mg PO BEDTIME PRN (Reason: insomnia) RF: 0 Follow up/Referrals: Liat Hernandez ARNP [Primary Care Provider] - 1 Week Ursula Chan DO [Physician] - 1 Week (Next available) Diet/Activity/Treatments Diet: Diet as Tolerated, Low-fat, Low-sodium and Low-cholesterol Activity: Activity as tolerated Visit Report/Discharge Packet Instructions: DI for Crohn's Disease, DI for Dehydration -- Adult, How to Pr event [place], E-Cigarettes and Vaporizers: A Safe Substitute for Smokers?, All Forms of Smoking Are Bad for You, Nausea and Vomiting-Adult, How to Quit Smoking, DI for Crohn's Disease Flare Visit Report Forms: Patient Portal/API, Stroke Signs & Symptoms Discharge Data Primary Care Provider: Liat Hernandez Attending Provider: Natasha Stearns Admit Date/Time: 07/02/19 00:42 Discharges patient from system. Discharge Date/Time: 07/02/19 15:00 Quality VTE Deep Vein Thrombosis/Pulmonary Embolism Present on Admission: No
[2019-07-02 12:05] VITALS: BP 112/81; PULSE 84; RESP 18; TEMP 36.4; O2SAT 96
[2019-07-02 12:33] LABS: Free T4, Direct Thyroxine 1.06 ng/dL (0.78-2.19)
--- NOTE | 2019-07-02 14:57 | PC.NURSE ---
Addendum entered by Melo Macdonald R.N. 07/02/19 15:08: Patient only wanted to wait 1 hour for stool results, which are not back at this time and patient's is waiting to pick her up. She states it is hard to coordinate with her to get the ride home. Attempted to call lab and micro to see if results are in but no one is answering at this time. IV dc'd intact and patient escorted out for discharge to home, phone number taken for MD to call her if stool results come back abnormal. Patient states she will schedule follwo up. Original Note: Discharge instructions and home care handouts reviewed with patient, she states understanding and has no further questions or concerns at this time. Patient tolerating liquids and meals, denies n/v. Patient did have episode watery brown stool with mucous noted, and sent to lab for GI panel. Per Dr. Stearns, she requests that patient wait until stool sample results are in before patient leaves for home. Patient states she will schedule a follow up within next week to see her PCP and her GI doctor. A waiting results at this time.
[2019-07-02 15:58] LABS: Campylobacter Not Detected (Not Detect); Clostridium difficile toxin AB Not Detected (Not Detect); Enteroaggregative E.coli Not Detected (Not Detect); Enteropathogenic E.coli Not Detected (Not Detect); Enterotoxigenic E.coli It/st Not Detected (Not Detect); Plesiomonsa shigelloides Not Detected (Not Detect); Salmonella Not Detected (Not Detect); Shiga-like toxin-prod E.coli Not Detected (Not Detect); Vibrio Not Detected (Not Detect); Vibrio cholerae Not Detected (Not Detect); Yersinia enterocolitica Not Detected (Not Detect)
[2019-07-02 15:59] LABS: Adenovirus F 40/41 Not Detected (Not Detect); Astrovirus Not Detected (Not Detect); Cryptosporidium Not Detected (Not Detect); Cyclospora cayetanensis Not Detected (Not Detect); Entamoeba histolytica Not Detected (Not Detect); Giardia lamblia Not Detected (Not Detect); Norovirus GI/GII Not Detected (Not Detect); Rotavirus A Not Detected (Not Detect); Sapovirus Not Detected (Not Detect); Shigella/Enteroinvasive E.coli Not Detected (Not Detect)
[2019-07-03 09:53] LABS: Parathyroid Hormone Int 39 pg/mL (15-65)
[2019-07-03 14:48] LABS: Ionized Calcium 5.6 mg/dL (4.5-5.6)
== END 2019-07-02 15:00 | disposition home or self-care (01) ==
LOC: ED 07-02 00:22 → AC 07-02 08:42
PROVIDERS: Admitting Provider Internal Medicine; Emergency Provider Emergency Medicine; Family Provider Psychiatry & Neurology Psychiatry; PCP Nurse Practitioner; Referring Provider Emergency Medicine; Visit Provider Internal Medicine
DX: R11.2 Nausea with vomiting, unspecified (principal); K50.90 Crohn's disease, unspecified, without complications; Z72.0 Tobacco use; I10 Essential (primary) hypertension; F41.9 Anxiety disorder, unspecified; F31.9 Bipolar disorder, unspecified; F12.99 Cannabis use, unspecified with unspecified cannabis-induced disorder; J44.9 Chronic obstructive pulmonary disease, unspecified; E86.0 Dehydration; N17.9 Acute kidney failure, unspecified; E83.52 Hypercalcemia; E03.9 Hypothyroidism, unspecified; G47.00 Insomnia, unspecified; R19.7 Diarrhea, unspecified
CPT/HCPCS: 36415; 80053; 81001; 81003; 82330; 83690; 83970; 84439; 84443; 85025; 87507; 96361; 96372; 96374; 96375; 96376; 99284; G0378; A9270; J1644; J2060; J2405

== ENCOUNTER → 2019-07-23 10:44 | Outpatient (CLI) | payer MEDICARE, OTHER, SELFPAY ==
[2019-07-02 01:10] VITALS: BMI 29.8
[2019-07-24 01:47] LABS: COVID19 Sendout Not Detected (Not Detect)
== END ==
PROVIDERS: Family Provider Psychiatry & Neurology Psychiatry; PCP Nurse Practitioner; Visit Provider Physician Assistant
DX: Z01.812 Encounter for preprocedural laboratory examination (principal)
CPT/HCPCS: 87635

== ENCOUNTER → 2019-08-09 10:01 | Outpatient (CLI) | payer MEDICARE, OTHER, SELFPAY ==
--- NOTE | 2019-08-09 10:03 | DI.RAD.S_ITS ---
PROCEDURE: XR FOOT LT MIN 3V INDICATIONS: left foot pain dorsal aspect under 2nd and 3rd toes TECHNIQUE: 3 views of the foot were acquired. COMPARISON: None. FINDINGS: Bones: No acute fractures or dislocations. Degenerative changes of the first metatarsophalangeal joint. No suspicious bony lesions. Soft tissues: No tibiotalar joint effusion. Achilles tendon appears normal. IMPRESSION: Left foot without acute fracture or dislocation. Degenerative changes of the left first metatarsophalangeal joint. If there are persistent symptoms or clinical suspicion for pathology, then repeat radiographs or advanced imaging (CT, MRI or bone scan) should be considered for further evaluation. Dictated by: Víctor Lawler M.D. on 08/09/2019 at 12:14 Approved by: Víctor Lawler M.D. on 08/09/2019 at 12:16
== END ==
PROVIDERS: Family Provider Psychiatry & Neurology Psychiatry; PCP Nurse Practitioner; Referring Provider Nurse Practitioner; Visit Provider Nurse Practitioner
DX: M79.672 Pain in left foot (principal)
CPT/HCPCS: 73630

== ENCOUNTER 2019-08-14 05:52 | Inpatient (IN) | payer MEDICARE, OTHER, SELFPAY ==
[2019-08-14] VITALS (17 sets, daily range): BP systolic 132–180; BP diastolic 72–108; PULSE 83–110; RESP 15–21; TEMP 36.4–36.8; O2SAT 87–99; BMI 29.0; BMI 29.5
--- NOTE | 2019-08-14 06:04 | DI.CT.S_ITS ---
PROCEDURE: CT ABDOMEN PELVIS W CON INDICATIONS: Generalized abdominal pain, history of Crohn's TECHNIQUE: After the administration of intravenous contrast, 5 mm thick sections acquired from the diaphragm to the symphysis. 5 mm coronal and sagittal reformats were acquired. For radiation dose reduction, the following was used: automated exposure control, adjustment of mA and/or kV according to patient size. COMPARISON: None. FINDINGS: Image quality: Excellent. ABDOMEN: Lung bases: Lung bases are clear. Heart size is normal. Solid organs: Liver is normal in size and enhancement. Gallbladder is surgically absent. Biliary system is non dilated. Pancreas enhances normally. Spleen is normal in size and enhancement. No adrenal nodules. Kidneys demonstrate normal size and enhancement, without hydronephrosis. Peritoneum and bowel: Partial small bowel resection is noted. There is an anastomosis present at the right of midline in the upper abdomen. Reference image 39/2. There is an apparent narrowing at the anastomosis. This may be the area of small bowel obstruction. The small bowel contents are fecalized proximal to this anastomosis. However, additionally, there are nondilated loops of ileum which exhibit wall thickening and are consistent with involvement of Crohn's disease. The colon is decompressed. The appearance of the sigmoid suggests chronic inflammatory change. No free air or abscess cavity. Minimal free fluid. Nodes and vessels: No retroperitoneal or mesenteric adenopathy by size criteria. Aorta and inferior vena cava are normal in size. Miscellaneous: No ventral hernias. PELVIS: Genitourinary: Bladder wall thickness is normal. Miscellaneous: No inguinal hernias or adenopathy. Bones: No suspicious bony lesions. No vertebral body compression fractures. IMPRESSION: 1. Findings consistent with Crohn's disease, with involvement of multiple small bowel loops and possibly the sigmoid. 2. Previous partial small bowel resection. 3. Small bowel obstruction. Dictated by: Robel Rayo M.D. on 08/14/2019 at 6:53 Approved by: Robel Rayo M.D. on 08/14/2019 at 7:01
--- NOTE | 2019-08-14 06:16 | ED_ITS ---
HPI - General Adult General Chief complaint: Nausea/Vomiting/Diarrhea Stated complaint: has Crohns, states has blockage Time Seen by Provider: 08/14/19 06:02 Source: patient Mode of arrival: Ambulatory Limitations: no limitations History of Present Illness HPI narrative: Patient is a 59-year-old female. History of Crohn's disease. Has also had a history of bowel resection. Is currently on IV infusions every 8 weeks for her Crohn's disease. Her GI provider is located at [facility]. Here for evaluation of which she thinks is a bowel blockage. She states that yesterday she was feeling fine. She states that last evening she started have some nausea which turned into vomiting. Multiple episodes of vomiting since then. Did not have a bowel movement all evening. She did have 1 here just after checking into the emergency department however she states that it was very hard. She still feels nauseated. Reports minimal abdominal pain. No other reported symptoms. Related Data Home Medications Medication Instructions Recorded Confirmed vedolizumab 300 mg intravenous 300 mg IV Q8W 08/11/18 08/14/19 solution aripiprazole [Abilify] 20 mg PO DAILY 07/02/19 08/14/19 trazodone 50 mg PO BEDTIME PRN 07/02/19 08/14/19 fluticasone propion-salmeterol 1 inh INHALATION BID 08/14/19 08/14/19 [Advair Diskus] Previous Rx's Medication Instructions Recorded albuterol sulfate 90 mcg/actuation 2 puff INHALATION Q4-6H PRN #8.5 11/23/18 aerosol inhaler gram montelukast 10 mg tablet 10 mg PO BEDTIME #90 tab 11/23/18 hydroxyzine HCl 50 mg tablet 50 mg PO QID PRN #120 tab 12/27/18 ondansetron 4 mg disintegrating 4 mg PO Q6H PRN #60 tab 12/27/18 tablet baclofen 10 mg tablet 5 mg PO DAILY PRN #30 tab 06/29/19 miscellaneous medical supply 1 each MISC BID #1 each 06/29/19 methylphenidate HCl 20 mg tablet 20 mg PO BID #60 tab 07/28/19 levothyroxine 125 mcg tablet 125 mcg PO DAILY #90 tab 08/01/19 lisinopril 5 mg tablet 10 mg PO DAILY #180 tab 08/09/19 omeprazole 20 mg capsule,delayed 20 mg PO DAILY PRN #30 cap 08/09/19 release Allergies Allergy/AdvReac Type Severity Reaction Status Date / Time Penicillins Allergy Intermediate Rash Verified 08/14/19 07:37 Sulfa (Sulfonamide Allergy Intermediate Hives Verified 08/14/19 07:37 Antibiotics) adalimumab [From Humira] AdvReac Intermediate pneumonia Verified 08/14/19 10:03 quetiapine [From Seroquel] AdvReac Intermediate Verified 08/14/19 07:37 Review of Systems Constitutional Constitutional: Denies fever(s) Cardiovascular Cardiovascular: Denies chest pain and Denies dyspnea Respiratory Respiratory: Denies dyspnea Gastrointestinal Gastrointestinal: Denies abdominal pain, Reports change in bowel habits, Reports nausea and Reports vomiting Genitourinary Genitourinary: Denies dysuria Genitourinary: Denies dysuria Musculoskeletal Musculoskeletal: Denies arthralgias and Denies myalgias Integumentary/Breasts Skin/Breast: Denies rash Neurologic Neurologic: Denies behavioral changes and Denies confusion Psychiatric Psychiatric: Denies behavioral changes and Denies confusion Hematologic/Lymphatic Hematologic/Lymphatic: Denies easy bleeding and Denies easy bruising Allergic/Immunologic Allergic/Immunologic: Denies urticaria Patient History Medical History Abnormal chest xray (Resolved) ADHD (Chronic) Anemia (Resolved ~2016) Ankle pain (Chronic ~2017) Anxiety (Chronic) Asthma (Chronic) Bipolar disease, chronic (Chronic ~1998) Bronchospasm (Acute) Cataracts, bilateral (Chronic ~2018) Chicken pox (Resolved) Chronic back pain (Chronic ~2003) Chronic cough (Chronic) COPD (chronic obstructive pulmonary disease) (Chronic) Crohn's disease (Chronic ~2009) Depression (Chronic ~1988) Eczema (Chronic) Foot pain (Chronic ~2018) Headache (Chronic) Hemorrhoid (Chronic ~1979) History of emphysema (Chronic ~2017) Hypothyroidism (Chronic ~1989) Kidney disease (Chronic ~1974) Left foot pain (Acute) Migraines (Chronic) MRSA (methicillin resistant Staphylococcus aureus) (Chronic ~2004) Osteoporosis (Chronic ~2016) Post traumatic stress disorder (PTSD) (Chronic) Restless leg syndrome (Chronic) Seizure (Chronic) Skin cancer, basal cell (Chronic ~2016) Sleep apnea (Chronic) Surgical History History of section (Resolved) History of cholecystectomy (Resolved) History of intestinal surgery (Resolved) History of partial hysterectomy (Resolved) S/P tonsillectomy (Acute) Family History Mother Cancer Father Heart disease Kidney disease Social History household members: spouse Smoking Status: Current every day smoker alcohol intake: never Smoking Status: Current every day smoker tobacco type: vaping Substance Use Type: marijuana Exam Initial Vital Signs Initial Vital Signs: Vital Signs Temperature 97.6 F 08/14/19 06:03 Pulse Oximetry 95 08/14/19 06:03 Const General: cooperative, comfortable and well developed Limitations: mental status not altered HENMT Head: normal to inspection and normocephalic Resp Effort & Inspection: normal respiratory effort Auscultation: clear to auscultation bilaterally Cardio Rate: regular rate GI Inspection: non-distended Palpation: soft, No firm and No tender Skin Lesions: no lesions Rashes: no rashes Neuro General: patient alert, patient awake and patient oriented x3 Cognition: normal cognition Motor: muscle tone normal throughout Sensory Exam: no sensory deficits noted Extrem General: normal to inspection and capillary refill normal Psych Appearance: grossly normal and well kempt Scores GCS Sincere coma scale eye opening: Spontaneous Sincere coma scale verbal response: Orientated Sincere coma scale motor response: Obey commands [place] coma scale total score: 15 Course Orders Ordered: Albuterol (Ventolin Hfa) 2 puff INH Q4H PRN PRN Reason: shortness of breath/wheezing Aripiprazole (Abilify) 20 mg PO DAILY TIA Last Admin: 08/14/19 10:10 Dose: 20 mg Documented by: EDVIN Baclofen (Lioresal) 5 mg PO DAILY PRN PRN Reason: pain Hydroxyzine Pamoate (Vistaril) 50 mg PO QID PRN PRN Reason: nausea and vomiting Sodium Chloride (Normal Saline 0.9%) 1,000 mls @ 125 mls/hr IV CONT TIA Last Infusion: 08/14/19 12:12 Dose: 0 mls/hr Documented by: Infusion: 08/14/19 10:00 Dose: 125 mls/hr Documented by: Infusion: 08/14/19 09:53 Dose: 0 mls/hr Documented by: Admin: 08/14/19 09:00 Dose: 125 mls/hr Documented by: JUANCHO Levothyroxine Sodium (Synthroid) 125 mcg PO DAILY [facility] Last Admin: 08/14/19 10:12 Dose: 125 mcg Documented by: EDVIN Lisinopril (Zestril) 10 mg PO DAILY [facility] Last Admin: 08/14/19 10:10 Dose: 10 mg Documented by: EDVIN Montelukast Sodium (Singulair) 10 mg PO BEDTIME [facility] Morphine Sulfate (Morphine) 2 mg IV Q2HR PRN PRN Reason: Pain, Moderate (4-6) Last Admin: 08/14/19 13:06 Dose: 2 mg Documented by: EDVIN Morphine Sulfate (Morphine) 4 mg IV Q4HR PRN PRN Reason: Pain, Severe (7-10) Last Admin: 08/14/19 15:24 Dose: 4 mg Documented by: ALEXANDRA Ondansetron HCl (Zofran) 4 mg IV Q2HR PRN PRN Reason: Nausea And Vomiting Last Admin: 08/14/19 18:05 Dose: 4 mg Documented by: Admin: 08/14/19 11:53 Dose: 4 mg Documented by: EDIVN Trazodone HCl (Desyrel) 50 mg PO BEDTIME PRN PRN Reason: insomnia Discontinued Medications Albuterol (Ventolin Hfa (Vent/Covid R/O)) 2 puff INH Q4H PRN PRN Reason: shortness of breath or wheezing Gabapentin (Neurontin) 300 mg PO TID [facility] Last Admin: 08/14/19 10:05 Dose: Not Given Documented by: EDVIN Sodium Chloride (Normal Saline 0.9%) 1,000 mls @ 1,000 mls/hr IV BOLUS ONE Stop: 08/14/19 07:02 Last Infusion: 08/14/19 11:48 Dose: 0 mls/hr Documented by: Admin: 08/14/19 06:39 Dose: 1,000 mls/hr Documented by: JODY Lactated Ringer's (Lactated Ringers) 1,000 mls @ 100 mls/hr IV CONT TIA Last Admin: 08/14/19 10:05 Dose: Not Given Documented by: EDVIN Sodium Chloride (Normal Saline 0.9%) 1,000 mls @ 1,000 mls/hr IV BOLUS ONE Stop: 08/14/19 13:00 Last Admin: 08/14/19 12:08 Dose: 1,000 mls/hr Documented by: EDVIN Morphine Sulfate (Morphine) 4 mg IV NOW ONE Stop: 08/14/19 08:49 Last Admin: 08/14/19 08:56 Dose: 4 mg Documented by: JUANCHO Ondansetron HCl (Zofran) 4 mg IV NOW ONE Stop: 08/14/19 06:18 Last Admin: 08/14/19 06:39 Dose: 4 mg Documented by: JODY Ondansetron HCl (Zofran) 4 mg IV NOW ONE Stop: 08/14/19 08:49 Last Admin: 08/14/19 08:56 Dose: 4 mg Documented by: JUANCHO Trazodone HCl (Desyrel) 100 mg PO BEDTIME PRN PRN Reason: insomnia Vital Signs Vital signs: Vital Signs - 8 hr 08/14/19 06:03 08/14/19 06:09 08/14/19 06:30 Temperature 97.6 F Pulse Rate 110 H 106 H Blood Pressure 167/74 H 157/100 H Pulse Oximetry 95 97 96 Medical Decision Making Lab Data Lab results reviewed: Yes I reviewed the patient's lab results. Result diagrams: 08/14/19 06:20 08/14/19 06:20 Labs: Lab Results 08/14/19 08/14/19 08/14/19 Range/Units 06:20 06:20 06:20 WBC 10.8 (4.5-11.0) X10^3/uL RBC 4.89 (4.0-5.2) X10^6/uL Hgb 14.4 (12.0-16.0) g/dL Hct 42.7 (36-46) % MCV 87.4 (80-100) fL MCH 29.5 (26-34) PG MCHC 33.7 (30-36) % RDW 13.7 (11.6-14.8) % Plt Count 346 (150-400) X10^3/uL Neut % (Auto) 87.9 H (50-75) % Lymph % (Auto) 6.5 L (25-40) % [place] % (Auto) 5.3 (3-14) % Eos % (Auto) 0.0 L (2-4) % Baso % (Auto) 0.3 (0-2) % Neut # (Auto) 9500 H (9644-6035) /uL Lymph # (Auto) 700 L (1935-3168) /uL [place] # (Auto) 600 (0-900) /uL Eos # (Auto) 0 (0-450) /uL Baso # (Auto) 0 (0-100) /uL ESR 5 (0-20) MM/HR Sodium 141 (137-145) mmol/L Potassium 4.0 (3.4-5.1) mmol/L Chloride 105 (98-107) mmol/L Carbon Dioxide 22 (22-32) mmol/L BUN 24 H (7-17) mg/dL Creatinine 0.89 (0.52-1.04) mg/dL Estimated GFR > 60.0 (>60) mL/min BUN/Creatinine Ratio 27.0 H (6-22) Glucose 177 H (80-110) mg/dL Lactate 4.0 H (0.7-2.1) mmol/L Calcium 10.9 H (8.4-10.2) mg/dL Total Bilirubin 0.9 (0.2-1.3) mg/dL AST 34 (14-36) IU/L ALT 42 H (<35) IU/L Alkaline Phosphatase 144 H (38-126) U/L C-Reactive Protein 5.0 H (<1.0) mg/dL Total Protein 7.8 (6.3-8.2) g/dL Albumin 4.6 (3.5-5.0) g/dL Globulin 3.2 (1.7-4.1) g/dL Albumin/Globulin Ratio 1.4 (1.0-2.8) Lipase 69 (23-300) U/L Procalcitonin (<0.5) ng/mL 08/14/19 Range/Units 06:20 WBC (4.5-11.0) X10^3/uL RBC (4.0-5.2) X10^6/uL Hgb (12.0-16.0) g/dL Hct (36-46) % MCV (80-100) fL MCH (26-34) PG MCHC (30-36) % RDW (11.6-14.8) % Plt Count (150-400) X10^3/uL Neut % (Auto) (50-75) % Lymph % (Auto) (25-40) % [place] % (Auto) (3-14) % Eos % (Auto) (2-4) % Baso % (Auto) (0-2) % Neut # (Auto) (2305-3129) /uL Lymph # (Auto) (1637-3745) /uL [place] # (Auto) (0-900) /uL Eos # (Auto) (0-450) /uL Baso # (Auto) (0-100) /uL ESR (0-20) MM/HR Sodium (137-145) mmol/L Potassium (3.4-5.1) mmol/L Chloride (98-107) mmol/L Carbon Dioxide (22-32) mmol/L BUN (7-17) mg/dL Creatinine (0.52-1.04) mg/dL Estimated GFR (>60) mL/min BUN/Creatinine Ratio (6-22) Glucose (80-110) mg/dL Lactate (0.7-2.1) mmol/L Calcium (8.4-10.2) mg/dL Total Bilirubin (0.2-1.3) mg/dL AST (14-36) IU/L ALT (<35) IU/L Alkaline Phosphatase (38-126) U/L C-Reactive Protein (<1.0) mg/dL Total Protein (6.3-8.2) g/dL Albumin (3.5-5.0) g/dL Globulin (1.7-4.1) g/dL Albumin/Globulin Ratio (1.0-2.8) Lipase (23-300) U/L Procalcitonin 0.08 (<0.5) ng/mL Imaging Data CT scan - abdomen/pelvis: Radiologist's Impression: Proximal small bowel dilation consistent with mechanical obstruction. No pneumoperitoneum. Generalized wall thickening of the distal small bowel consistent with a history of inflammatory bowel disease. Prior cholecystectomy. Renal cysts bilaterally. MDM Narrative Medical decision making narrative: Patient has a benign abdominal exam however does have an elevated lactate and a CT scan that is concerning for a bowel obstruction. Fluids administered. Patient hypotensive. Care turned over to Dr. Shields at change of shift to follow up on surgery consultation and disposition. Discharge Plan Departure Patient Disposition: Admitted as Observation Clinical Impression: Nausea and vomiting Discharge Date/Time: 08/14/19 09:30 Admit Date/Time: 08/14/19 08:36 Admit Provider: Kelin Waldron
[2019-08-14 06:30] LABS: Add Manual Diff / Slide Review NO; Basophils Absolute Auto 0 /uL (0-100); Basophils Percent Auto 0.3 % (0-2); Eosinophils Absolute Auto 0 /uL (0-450); Hematocrit 42.7 % (36-46); Hemoglobin 14.4 g/dL (12.0-16.0); Lymphocytes Absolute Auto 700 /uL (1100-4500); Lymphocytes Percent Auto 6.5 % (25-40); Mean Corpuscular HGB Conc 33.7 % (30-36); Mean Corpuscular Hemoglobin 29.5 PG (26-34); Mean Corpuscular Volume 87.4 fL (80-100); Monocytes Absolute Auto 600 /uL (0-900); Monocytes Percent Auto 5.3 % (3-14); Neutrophils Absolute Auto 9500 /uL (1500-7000); Neutrophils Percent Auto 87.9 % (50-75); Platelet Count 346 X10^3/uL (150-400); Red Blood Cell Count 4.89 X10^6/uL (4.0-5.2); Red Cell Distribution Width 13.7 % (11.6-14.8); White Blood Cell Count 10.8 X10^3/uL (4.5-11.0)
[2019-08-14 06:38] LABS: Albumin 4.6 g/dL (3.5-5.0); Albumin Globulin Ratio 1.4 (1.0-2.8); Alkaline Phosphatase 144 U/L (38-126); Aspartate Aminotransferase 34 IU/L (14-36); Bilirubin Total 0.9 mg/dL (0.2-1.3); Blood Urea Nitrogen 24 mg/dL (7-17); Calcium 10.9 mg/dL (8.4-10.2); Carbon Dioxide 22 mmol/L (22-32); Chloride 105 mmol/L (98-107); Estimated Glomerular Filt Rate > 60.0 mL/min (>60); Globulin 3.2 g/dL (1.7-4.1); Glucose 177 mg/dL (80-110); HEMOLYSIS < 15 (0-50); Lipase 69 U/L (23-300); Sodium 141 mmol/L (137-145); Total Protein 7.8 g/dL (6.3-8.2)
[2019-08-14] MEDS: SODIUM CHLORIDE 0.9% 1,000 ML 1000 ML IV ×2 (06:39→12:08)
[2019-08-14] MEDS: ONDANSETRON 4 MG/2 ML INJ IV ×4 (06:39→18:05)
[2019-08-14 06:42] LABS: Alanine Aminotransferase 42 IU/L (<35)
[2019-08-14 06:43] LABS: Erythrocyte Sedimentation Rate 5 MM/HR (0-20)
[2019-08-14 08:22] LABS: Reflexed Lactate in 2 Hours Y
[2019-08-14] MEDS: MORPHINE 4 MG/ML INJ IV ×2 (08:56→15:24)
[2019-08-14] MEDS: SODIUM CHLORIDE 0.9% 1,000 ML 125 ML IV ×2 (09:00→19:50)
--- NOTE | 2019-08-14 09:01 | PM.HP.1 ---
History of Present Illness History of Present Illness Date Patient Seen: 08/14/19 Time Patient Seen: 09:01 Date of Onset of Symptoms: 08/13/19 Chief complaint: has Crohns, states has blockage Narrative: This is a 59 yo woman with history of bipolar, ADHD, depression, anxiety, COPD, tobacco dependence currently smoking and vaping, hypothyroid, asthma, back pain, hypertension, seasonal allergies, who is s/p ileocecectomy for fistulizing Crohn's disease. She is maintained on Q8 week Vedoluzimab for her Crohn's which she last had two weeks ago. Yesterday evening she started having nausea and vomiting. She normally has chronic diarrhea which is variable and up to 15 times a day. Her last BM was this morning, but she felt is was very hard and abnormal for her. Her last colonoscopy and EGD was done on 07/25. No active Crohn's or inflammatory findings were seen, and biopsies were negative for active inflammation. She reports back pain and general malaise. She denies fevers. She also endorses night sweats which she believes is related to her Crohn's disease. She has no other complaints. Her CT scan in the ER is concerning for small bowel obstruction. She has a normal WBC, but her lactate is 4 in the ER. She denies any cough or viral symptoms. She states she was covid tested two weeks ago for her endoscopy procedures and has been isolating at home. ROS: Constitutional: Denies fever(s) Cardiovascular: Denies chest pain and Denies dyspnea Respiratory: Denies dyspnea Gastrointestinal: Denies abdominal pain, Reports change in bowel habits, Reports nausea and Reports vomiting Genitourinary: Denies dysuria Musculoskeletal: Denies arthralgias and Denies myalgias; reports exacerbation of her chronic back pain Skin/Breast: Denies rash Neurologic: Denies behavioral changes and Denies confusion Hematologic/Lymphatic: Denies easy bleeding and Denies easy bruising Allergic/Immunologic: Denies urticaria PE: GENERAL: Alert, markedly uncomfortable. Appears stated age. Answers questions promptly and appropriately. Vital signs noted. HENT: Normocephalic, atraumatic. Hearing intact. EYES: Conjunctiva pink, sclera white, no periorbital swelling. CARDIOVASCULAR: Regular rate. No pedal edema. RESPIRATORY: Non-tachypneic, breathing comfortably on room air. GASTROINTESTINAL: Abdomen soft, mildly distended, non tender, well healed midline incisional scar; no masses GENITALURINARY: No flank tenderness. MUSCULOSKELETAL: Equal tone and mass bilaterally. SKIN: Warm, dry, soft, appropriate color for ethnicity. No other lesions, rashes, or wounds. NEURO: Alert and Oriented X 3. No gross sensory deficits, or cognitive issues. PSYCH: Appropriate affect and mood. Patient History Medical History Abnormal chest xray (Resolved) ADHD (Chronic) Anemia (Resolved ~2016) Ankle pain (Chronic ~2017) Anxiety (Chronic) Asthma (Chronic) Bipolar disease, chronic (Chronic ~1998) Bronchospasm (Acute) Cataracts, bilateral (Chronic ~2018) Chicken pox (Resolved) Chronic back pain (Chronic ~2003) Chronic cough (Chronic) COPD (chronic obstructive pulmonary disease) (Chronic) Crohn's disease (Chronic ~2009) Depression (Chronic ~1988) Eczema (Chronic) Foot pain (Chronic ~2018) Headache (Chronic) Hemorrhoid (Chronic ~1979) History of emphysema (Chronic ~2017) Hypothyroidism (Chronic ~1989) Kidney disease (Chronic ~1974) Left foot pain (Acute) Migraines (Chronic) MRSA (methicillin resistant Staphylococcus aureus) (Chronic ~2004) Osteoporosis (Chronic ~2016) Post traumatic stress disorder (PTSD) (Chronic) Restless leg syndrome (Chronic) Seizure (Chronic) Skin cancer, basal cell (Chronic ~2016) Sleep apnea (Chronic) Surgical History History of section (Resolved) History of cholecystectomy (Resolved) History of intestinal surgery (Resolved) History of partial hysterectomy (Resolved) S/P tonsillectomy (Acute) Family & Social History Family History Mother Cancer Father Heart disease Kidney disease Social History: household members spouse Safety & Behavioral: Feels Safe in Current Yes Environment Tobacco & Substance use: Tobacco type e-cigarettes Smoking Status Current every day smoker alcohol intake never alcohol intake frequency 0-2 drinks per day Substance Use Type marijuana Meds Home Medications and Allergies Home Medications Medication Instructions Recorded Confirmed Type vedolizumab 300 mg intravenous 300 mg IV Q8W 08/11/18 08/14/19 History solution albuterol sulfate 90 mcg/actuation 2 puff INHALATION Q4-6H PRN #8.5 11/23/18 08/14/19 Rx aerosol inhaler gram montelukast 10 mg tablet 10 mg PO BEDTIME #90 tab 11/23/18 08/14/19 Rx hydroxyzine HCl 50 mg tablet 50 mg PO QID PRN #120 tab 12/27/18 08/14/19 Rx ondansetron 4 mg disintegrating 4 mg PO Q6H PRN #60 tab 12/27/18 08/14/19 Rx tablet baclofen 10 mg tablet 5 mg PO DAILY PRN #30 tab 06/29/19 08/14/19 Rx miscellaneous medical supply 1 each MISC BID #1 each 06/29/19 08/14/19 Rx aripiprazole [Abilify] 20 mg PO DAILY 07/02/19 08/14/19 History trazodone 50 mg PO BEDTIME PRN 07/02/19 08/14/19 History methylphenidate HCl 20 mg tablet 20 mg PO BID #60 tab 07/28/19 08/14/19 Rx levothyroxine 125 mcg tablet 125 mcg PO DAILY #90 tab 08/01/19 08/14/19 Rx lisinopril 5 mg tablet 10 mg PO DAILY #180 tab 08/09/19 08/14/19 Rx omeprazole 20 mg capsule,delayed 20 mg PO DAILY PRN #30 cap 08/09/19 08/14/19 Rx release fluticasone propion-salmeterol 1 inh INHALATION BID 08/14/19 08/14/19 History [Advair Diskus] Allergies Allergy/AdvReac Type Severity Reaction Status Date / Time Penicillins Allergy Intermediate Rash Verified 08/14/19 07:37 Sulfa (Sulfonamide Allergy Intermediate Hives Verified 08/14/19 07:37 Antibiotics) adalimumab [From Humira] AdvReac Intermediate pneumonia Verified 08/14/19 10:03 quetiapine [From Seroquel] AdvReac Intermediate Verified 08/14/19 07:37 Exam Vital Signs (past 8 hours): - 08/14/19 06:03 08/14/19 06:09 08/14/19 06:30 Temperature 97.6 F Pulse Rate 110 H 106 H Blood Pressure 167/74 H 157/100 H Pulse Oximetry 95 97 96 07/05/20 07:02 08/14/19 07:30 08/14/19 07:33 Temperature Pulse Rate 95 H 96 H 104 H Blood Pressure 137/89 Pulse Oximetry 97 98 98 08/14/19 08:00 08/14/19 08:01 Temperature Pulse Rate 95 H 92 H Blood Pressure 156/72 H Pulse Oximetry [address] scan - abdomen: Radiologist's impression: [address] [address] [address] Scan Report Signed Patient: Louann Diaz JMR#: [id number] : 1960Acct:[id number] Age/Sex: 59 / FDate of Service: 08/14/19 Loc: ED Accession Number: [id number] Procedure: CT abdomen pelvis w con Ordering Provider: Manuel Phillips D.O. PROCEDURE: CT ABDOMEN PELVIS W CON INDICATIONS: Generalized abdominal pain, history of Crohn's TECHNIQUE: After the administration of intravenous contrast, 5 mm thick sections acquired from the diaphragm to the symphysis. 5 mm coronal and sagittal reformats were acquired. For radiation dose reduction, the following was used: automated exposure control, adjustment of mA and/or kV according to patient size. COMPARISON: None. FINDINGS: Image quality: Excellent. ABDOMEN: Lung bases: Lung bases are clear. Heart size is normal. Solid organs: Liver is normal in size and enhancement. Gallbladder is surgically absent. Biliary system is non dilated. Pancreas enhances normally. Spleen is normal in size and enhancement. No adrenal nodules. Kidneys demonstrate normal size and enhancement, without hydronephrosis. Peritoneum and bowel: Partial small bowel resection is noted. There is an anastomosis present at the right of midline in the upper abdomen. Reference image 39/2. There is an apparent narrowing at the anastomosis. This may be the area of small bowel obstruction. The small bowel contents are fecalized proximal to this anastomosis. However, additionally, there are nondilated loops of ileum which exhibit wall thickening and are consistent with involvement of Crohn's disease. The colon is decompressed. The appearance of the sigmoid suggests chronic inflammatory change. No free air or abscess cavity. Minimal free fluid. Nodes and vessels: No retroperitoneal or mesenteric adenopathy by size criteria. Aorta and inferior vena cava are normal in size. Miscellaneous: No ventral hernias. PELVIS: Genitourinary: Bladder wall thickness is normal. Miscellaneous: No inguinal hernias or adenopathy. Bones: No suspicious bony lesions. No vertebral body compression fractures. IMPRESSION: 1. Findings consistent with Crohn's disease, with involvement of multiple small bowel loops and possibly the sigmoid. 2. Previous partial small bowel resection. 3. Small bowel obstruction. Labs Result Diagrams: 08/14/19 06:20 08/14/19 06:20 Labs: Laboratory Results - last 24 hr 08/14/19 08/14/19 08/14/19 06:20 06:20 06:20 WBC 10.8 RBC 4.89 Hgb 14.4 Hct 42.7 MCV 87.4 MCH 29.5 MCHC 33.7 RDW 13.7 Plt Count 346 Neut % (Auto) 87.9 H Lymph % (Auto) 6.5 L [place] % (Auto) 5.3 Eos % (Auto) 0.0 L Baso % (Auto) 0.3 Neut # (Auto) 9500 H Lymph # (Auto) 700 L [place] # (Auto) 600 Eos # (Auto) 0 Baso # (Auto) 0 ESR 5 Sodium 141 Potassium 4.0 Chloride 105 Carbon Dioxide 22 BUN 24 H Creatinine 0.89 Estimated GFR > 60.0 BUN/Creatinine Ratio 27.0 H Glucose 177 H Lactate 4.0 H Calcium 10.9 H Total Bilirubin 0.9 AST 34 ALT 42 H Alkaline Phosphatase 144 H C-Reactive Protein 5.0 H Total Protein 7.8 Albumin 4.6 Globulin 3.2 Albumin/Globulin Ratio 1.4 Lipase 69 Assessment & Plan Assessment and plan (1) Nausea and vomiting: Status: Acute (2) Tobacco abuse disorder: Status: Chronic (3) Marijuana use: Status: Chronic (4) Asthma: Status: Chronic (5) COPD (chronic obstructive pulmonary disease): Status: Chronic (6) Chronic post-traumatic stress disorder (PTSD): Status: Chronic (7) Bipolar disorder in partial remission: Status: Chronic (8) Anxiety and depression: Status: Chronic (9) Crohns disease: Status: Chronic (10) Kidney disease: Status: Chronic (11) Hypothyroidism (acquired): Status: Chronic (12) Chronic pain: Status: Chronic (13) SBO (small bowel obstruction): Status: Acute (14) Hypercalcemia: Status: Acute Assessment & Plan narrative: This is a 59-year-old woman with a complex medical and surgical history who presents with symptoms and imaging consistent with a small-bowel obstruction. In the setting of her Crohn's disease and her prior surgical resections, she may be having an adhesive obstruction, an obstruction due to anastomotic narrowing, or a Crohn's flare. She is nontender, and she had a normal EGD and colonoscopy 2 weeks ago, and so Crohn's flare seems less likely. For now, we will treat her as an adhesive small bowel obstruction, and place an NG tube, and attempt to treat her nonsurgically. I have requested the notes from her outside GI doctor, which should becoming tomorrow. I will continue her home medications, and treat her with IV antiemetics and pain medication as needed. Her lactate has come down to 3 after some IV fluids. We will give her another saline bolus and repeated. She continues to have nausea, and so we will place NG tube. Plan: NGT NPO except for meds, sips, ice chips daily labs repeat lactate saline bolus IV antiemetic and pain med as needed Ambulate frequently Request outside GI notes from Dr. Chan COVID-19 COVID-19 status: Negative Result date/Date tested (Pos, Neg/Pending): 07/23/19 Time Spent With Patient Time with patient: Greater than 35 minutes Quality VTE Deep Vein Thrombosis/Pulmonary Embolism Present on Admission: No
[2019-08-14 09:32] LABS: Procalcitonin 0.08 ng/mL (<0.5)
[2019-08-14] MEDS: lisinopriL 5 MG TABLET 10 MG PO (10:10)
[2019-08-14] MEDS: ARIPiprazole 10 MG TABLET 20 MG PO (10:10)
[2019-08-14] MEDS: LEVOTHYROXINE 125 MCG TABLET PO (10:12)
--- NOTE | 2019-08-14 11:59 | PC.NURSE ---
Addendum entered by Quin Casillas R.N. 08/14/19 15:19: Up walking in halls with x2 this shift, walked around ICU nurses station and down mendoza to main nurses station and back. Addendum entered by Quin Casillas R.N. 08/14/19 13:11: Episode of emesis 200 ml, pt reports feeling better but still nauseated after zofran administration. Also reporting 6/10 cramping abdominal pain. Reported to Dr. Waldron and order for NG tube received/implemented. 16F NG tube placed to right nare, pt tolerated well, green/brown output resulting. Verified via CXR - NG tube advanced about 2 cm per CXR report recommendations. IV morphine administered for pain control and pt instructed on importance of mobility and is agreeable to walk in halls this afternoon. Original Note: Admit Note Pt to room 223 from ER at 0935. Able to walk self from stretcher to bed, steady on feet. Denies nausea, denies pain on arrival, received morphine/zofran prior to transfer. NPO except sips/chips. Purse at bedside, clothing in room closet, declines to lock up any valuables in safe. Oriented to room and to call light/bed/tv controls. Instructed to call for assistance prior to getting out of bed, acknowledged understanding. Call light within reach.
--- NOTE | 2019-08-14 12:42 | DI.RAD.S_ITS ---
PROCEDURE: XR CHEST 1V INDICATIONS: verify NG tube placement TECHNIQUE: One view of the chest was acquired. COMPARISON: None. FINDINGS: Surgical changes and devices: NG tube tip projects to the GE junction. Slight advancement may be helpful. Lungs and pleura: Lungs are clear. No pleural effusions or pneumothorax. Mediastinum: Mediastinal contours appear normal. Heart size is normal. Bones and chest wall: No suspicious bony lesions. Overlying soft tissues appear unremarkable. IMPRESSION: NG tube tip projects to GE junction. Slight advancement may be helpful. Dictated by: Robel Rayo M.D. on 08/14/2019 at 12:00 Approved by: Robel Rayo M.D. on 08/14/2019 at 12:00
[2019-08-14] MEDS: MORPHINE 2 MG/ML INJ IV ×2 (13:06→20:54)
[2019-08-14 15:32] LABS: Lactate (Lactic Acid) 1.7 mmol/L (0.7-2.1)
[2019-08-14] MEDS: NICOTINE 14 PATCH 14 MG TOP (19:02)
[2019-08-14] MEDS: LORazepam 2 MG/ML INJ 0.5 MG IV (19:02)
[2019-08-14] MEDS: HEPARIN 5,000 UNIT/ML VIAL 5000 UNIT SUBCUT (20:54)
[2019-08-14] MEDS: PROCHLORPERAZINE 10 MG/2 ML VIAL IV (20:55)
--- NOTE | 2019-08-14 22:36 | PC.NURSE ---
Pt c/o of intermittent nausea and abdominal px, well controlled w/Morphine and compazine. Pt states she believes she needs to have a bowel movement, but is unable to do so at this time. Pt began to ambulate around unit, but began retching and returned to bed.
--- NOTE | 2019-08-14 23:21 | PC.NURSE ---
NG to LIS with Channing valve in place and tube actively draining brown liquid into cannister. Placement check by injecting small air bolus into blue pigtail and placement confirmed by auscultation. Tube pinned to pt's gown. Filter plug in blue pigtail appropriately. No gastric contents in blue pigtail.
[2019-08-15] VITALS (7 sets, daily range): BP systolic 120–148; BP diastolic 74–98; PULSE 87–118; RESP 16–20; TEMP 35.9–36.9; O2SAT 95–99
[2019-08-15] MEDS: LORazepam 2 MG/ML INJ 0.5 MG IV ×5 (00:02→21:10)
[2019-08-15] MEDS: MORPHINE 4 MG/ML INJ IV (00:09)
[2019-08-15] MEDS: SODIUM CHLORIDE 0.9% 1,000 ML 125 ML IV (04:01)
[2019-08-15 05:15] LABS: Add Manual Diff / Slide Review NO; Basophils Absolute Auto 0 /uL (0-100); Basophils Percent Auto 0.4 % (0-2); Eosinophils Absolute Auto 100 /uL (0-450); Eosinophils Percent Auto 3.3 % (2-4); Hematocrit 36.1 % (36-46); Lymphocytes Absolute Auto 1100 /uL (1100-4500); Lymphocytes Percent Auto 26.7 % (25-40); Mean Corpuscular HGB Conc 33.4 % (30-36); Mean Corpuscular Hemoglobin 29.5 PG (26-34); Mean Corpuscular Volume 88.2 fL (80-100); Monocytes Absolute Auto 800 /uL (0-900); Monocytes Percent Auto 20.4 % (3-14); Neutrophils Absolute Auto 2000 /uL (1500-7000); Neutrophils Percent Auto 49.2 % (50-75); Platelet Count 253 X10^3/uL (150-400); Red Blood Cell Count 4.09 X10^6/uL (4.0-5.2); Red Cell Distribution Width 13.5 % (11.6-14.8); White Blood Cell Count 4.1 X10^3/uL (4.5-11.0)
[2019-08-15 05:24] LABS: BUN Creatinine Ratio 23.7 (6-22); Blood Urea Nitrogen 18 mg/dL (7-17); Calcium 9.5 mg/dL (8.4-10.2); Carbon Dioxide 27 mmol/L (22-32); Chloride 108 mmol/L (98-107); Estimated Glomerular Filt Rate > 60.0 mL/min (>60); Glucose 108 mg/dL (80-110); HEMOLYSIS < 15 (0-50); Potassium 4.3 mmol/L (3.4-5.1); Sodium 141 mmol/L (137-145)
--- NOTE | 2019-08-15 05:36 | PC.NURSE ---
No complaints of nausea on this shift. Patient had small BM brown and bloody w/ solid chunks. NG tube output 350cc. Patient up ambulating in hallway this shift.
--- NOTE | 2019-08-15 07:34 | DI.RAD.S_ITS ---
PROCEDURE: FL SMALL BOWEL FOLLOW THROUGH INDICATIONS: small bowel obstruction. COMPARISON: Located Within [facility], CT, CT ABDOMEN PELVIS W CON, 08/14/2019, 6:49. FINDINGS: KUB: Preprocedural solutions architect film demonstrates a normal bowel gas pattern. No suspicious abdominal calcifications. Visualized solid organ contours appear normal. No suspicious bony abnormalities. Small bowel: There is normal transit time of oral contrast through the small bowel. Small bowel loops are of normal caliber superiorly and through the middle third, and appear only slightly dilated at the distal third. This represents an interval improvement from the comparison CT scan early yesterday. Mucosal folds are smooth and of normal thickness. There is a focal mild stricture identified at the right lower quadrant of the abdomen, in the area identified by CT scanning 08/14/19. The pattern of feculent transformation of small bowel contents seen by CT scanning also appears to have resolved. No new strictures, intraluminal masses, or extrinsic mass effects are noted. The terminal ileum is identified, and is normal in morphology. IMPRESSION: Appreciable improvement from reference with the PET/CT scanning performed early 08/14/19 in terms of degree of small bowel distention previously present. A focal stricture also seen by CT scanning appears present at the right lower abdomen, no free air is seen, and oral contrast has entered the colon. Dictated by: Tyrone Mueller M.D. on 08/15/2019 at 10:03 Approved by: Tyrone Mueller M.D. on 08/15/2019 at 10:11
[2019-08-15] MEDS: NICOTINE 14 PATCH 14 MG TOP (08:02)
[2019-08-15] MEDS: METHYLPHENIDATE 5 MG TABLET 20 MG PO ×2 (08:03→13:09)
[2019-08-15] MEDS: ARIPiprazole 10 MG TABLET 20 MG PO (08:03)
[2019-08-15] MEDS: lisinopriL 5 MG TABLET 10 MG PO (08:03)
[2019-08-15] MEDS: PANTOPRAZOLE 40 MG VIAL IV (08:04)
[2019-08-15] MEDS: LEVOTHYROXINE 125 MCG TABLET PO (08:04)
[2019-08-15] MEDS: HEPARIN 5,000 UNIT/ML VIAL 5000 UNIT SUBCUT ×2 (08:04→21:03)
--- NOTE | 2019-08-15 08:12 | PC.NURSE ---
Day shift: Pt off unit for imaging at this time. Meds given and NG clamped and Pt SL at this time. Pt will be going to the imaging throughout the day.
[2019-08-15] MEDS: MORPHINE 2 MG/ML INJ IV ×3 (09:11→21:10)
--- NOTE | 2019-08-15 09:19 | PC.NURSE ---
Day shift: Pt back on AC unit at approx 0910. Per design technology teacher Do not hook back to NG suction yet.
--- NOTE | 2019-08-15 09:35 | PC.NURSE ---
Day shift: Pt off AC unit for more imaging at approx 0930.
[2019-08-15] MEDS: ALBUTEROL HFA 60 PUFF/8 GM INH INH ×2 (10:04→13:26)
--- NOTE | 2019-08-15 10:12 | PC.NURSE ---
Day shift: Pt back on AC unit at approx 0950. Pt has had 2 losse BM's since returing. Back on IV fluids and NG tube patent on low intermittent suction.
--- NOTE | 2019-08-15 10:42 | CM.DANOTE ---
DCP/Assessment: Reviewed chart. Patient is a 59yr old female admitted to [facility] with Chrohn's disease /SBO. PCP is Liat Hernandez. Primary payor is 1)Medicare 2)[facility]. Met with patient and spouse at bedside explained CM/SW role. Patient ambulating in room. Patient currently with NG tube. Current plan per notes, is to attempt to treat patient non-surgically for SBO. Patient reports that she is completely I with all ADL's. Patient resides with family in [place] No identified d/c planning needs at this time. Patient and spouse aware that CM team will continue to follow. Patient with h/o bipolar, depression, and anxiety. Per notes, patient active with Dr. Pollack from psychiatry. No concerns related to patient's MH noted at this time. P: CM team to continue to follow for d/c planning needs. REN Mendenhall Discharge Planning/Care Management CM Discharge Assessment Start: 08/15/19 10:39 Freq: Status: Active Protocol: Document 08/15/19 10:40 KJS (Rec: 08/15/19 10:42 KJS [id number]) Discharge Planning Assessment Assigned Plastics Seasoner Operator REN Mendenhall Contact Information Kiel Diaz (spouse) Advance Directives? No Advance Directives on File No History Provided By Patient,Significant Other, Medical Record Prior Living Arrangements House Household Members spouse Type of transporation used prior to Drives own vehicle admit Independent with ADL's Yes Is patient alert and oriented? Yes Caregiver for Another No Barriers to Discharge No Discharge Plan Home Transportation Arrangement Spouse Whiteboard Updated in Patient Room with Yes name and ext. # of Plastics Seasoner Operator Review Status In Process Next Review Type Continued Stay Review
[2019-08-15] MEDS: BENZOCAINE/MENTHOL 1 LOZ PKT 1 EACH PO (12:50)
[2019-08-15] MEDS: predniSONE 20 MG TABLET 40 MG PO (12:54)
--- NOTE | 2019-08-15 12:56 | P.PN_ITS ---
Subjective Subjective Date Patient Seen: 08/15/19 Time Patient Seen: 12:56 Interval history: No acute overnight events. May be passage of flatus overnight but patient is unsure. Abdominal distension feels less than yesterday continues to have some right sided abdominal pain. Exam Vital Signs (past 8 hours): - 08/15/19 08:00 08/15/19 10:08 Temperature 98.4 F Pulse Rate 97 H 99 H Respiratory Rate 16 20 Blood Pressure 147/98 H Pulse Oximetry 97 99 Oxygen Delivery Method Room Air Oxygen Flow Rate 0 Narrative Exam Narrative: General adult female alert oriented no acute distress Chest nonlabored respirations Abdomen soft mildly distended Objective Labs Result Diagrams: 08/15/19 04:50 08/15/19 04:50 Labs: Laboratory Results - last 24 hr 08/14/19 08/15/19 08/15/19 15:10 04:50 04:50 WBC 4.1 L D RBC 4.09 Hgb 12.0 Hct 36.1 MCV 88.2 MCH 29.5 MCHC 33.4 RDW 13.5 Plt Count 253 Neut % (Auto) 49.2 L D Lymph % (Auto) 26.7 D [place] % (Auto) 20.4 H Eos % (Auto) 3.3 Baso % (Auto) 0.4 Neut # (Auto) 2000 Lymph # (Auto) 1100 [place] # (Auto) 800 Eos # (Auto) 100 Baso # (Auto) 0 Sodium 141 Potassium 4.3 Chloride 108 H Carbon Dioxide 27 BUN 18 H Creatinine 0.76 Estimated GFR > 60.0 BUN/Creatinine Ratio 23.7 H Glucose 108 Lactate 1.7 Calcium 9.5 Phosphorus 3.0 Magnesium 2.0 C-Reactive Protein 08/15/19 04:50 WBC RBC Hgb Hct MCV MCH MCHC RDW Plt Count Neut % (Auto) Lymph % (Auto) [place] % (Auto) Eos % (Auto) Baso % (Auto) Neut # (Auto) Lymph # (Auto) [place] # (Auto) Eos # (Auto) Baso # (Auto) Sodium Potassium Chloride Carbon Dioxide BUN Creatinine Estimated GFR BUN/Creatinine Ratio Glucose Lactate Calcium Phosphorus Magnesium C-Reactive Protein 7.0 H Assessment & Plan Assessment & Plan narrative: This 59-year-old female with a history of Crohn's disease admitted with a small-bowel obstruction. Small-bowel follow-through was performed today which shows the largely normal transit of contrast through the small bowel which is no longer duct is significantly dilated into the colon. It appears there is a partial stricture in the right lower quadrant. Nasogastric tube is removed will start clear liquid diet. In discussion with her glue mill operator it is unclear whether the right lower quadrant stricture is acute or chronic. Gastroenterology recommends a trial of 40 mg of prednisone daily should this be in acute Crohn's stricture that may respond to corticosteroids. -clear liquid diet -DC IV fluids was tolerating adequate p.o. -anticipate transition to regular diet tomorrow and likely discharge home at at time Quality VTE Deep Vein Thrombosis/Pulmonary Embolism Present on Admission: No
--- NOTE | 2019-08-15 13:56 | PC.NURSE ---
Day shift: Pt tolerating oral fluids at this time w/ no nausea or emesis.
[2019-08-15] MEDS: MONTELUKAST 10 MG TABLET PO (21:03)
[2019-08-15] MEDS: TRAZODONE 50 MG TABLET PO (21:11)
[2019-08-16 00:10] VITALS: BP 110/67; PULSE 111; RESP 18; TEMP 36.4; O2SAT 96
[2019-08-16] MEDS: MORPHINE 2 MG/ML INJ IV (00:45)
[2019-08-16] MEDS: LORazepam 2 MG/ML INJ 0.5 MG IV (00:45)
[2019-08-16] MEDS: SODIUM CHLORIDE 0.9% FLUSH 10 ML IV (00:46)
[2019-08-16] MEDS: ONDANSETRON 4 MG/2 ML INJ IV (00:46)
[2019-08-16 04:57] VITALS: BP 132/73; PULSE 60; RESP 18; TEMP 36.6; O2SAT 96
[2019-08-16 05:12] LABS: Add Manual Diff / Slide Review NO; Basophils Absolute Auto 0 /uL (0-100); Basophils Percent Auto 0.4 % (0-2); Eosinophils Absolute Auto 0 /uL (0-450); Eosinophils Percent Auto 0.7 % (2-4); Hematocrit 29.8 % (36-46); Hemoglobin 9.9 g/dL (12.0-16.0); Lymphocytes Absolute Auto 900 /uL (1100-4500); Lymphocytes Percent Auto 32.5 % (25-40); Mean Corpuscular HGB Conc 33.3 % (30-36); Mean Corpuscular Hemoglobin 29.3 PG (26-34); Mean Corpuscular Volume 88.1 fL (80-100); Monocytes Absolute Auto 500 /uL (0-900); Monocytes Percent Auto 19.3 % (3-14); Neutrophils Absolute Auto 1300 /uL (1500-7000); Neutrophils Percent Auto 47.1 % (50-75); Platelet Count 208 X10^3/uL (150-400); Red Blood Cell Count 3.39 X10^6/uL (4.0-5.2); Red Cell Distribution Width 13.2 % (11.6-14.8); White Blood Cell Count 2.8 X10^3/uL (4.5-11.0)
[2019-08-16 05:22] LABS: Blood Urea Nitrogen 13 mg/dL (7-17); Calcium 9.7 mg/dL (8.4-10.2); Carbon Dioxide 26 mmol/L (22-32); Chloride 108 mmol/L (98-107); Estimated Glomerular Filt Rate > 60.0 mL/min (>60); Glucose 98 mg/dL (80-110); HEMOLYSIS < 15 (0-50); Magnesium 2.1 mg/dL (1.6-2.3); Phosphorous 3.5 mg/dL (2.8-4.1); Potassium 3.7 mmol/L (3.4-5.1); Sodium 138 mmol/L (137-145)
[2019-08-16] MEDS: LEVOTHYROXINE 125 MCG TABLET PO (06:11)
[2019-08-16] MEDS: METHYLPHENIDATE 5 MG TABLET 20 MG PO (06:13)
[2019-08-16 07:20] VITALS: BP 148/79; PULSE 81; RESP 16; TEMP 36.3; O2SAT 97
[2019-08-16] MEDS: ALBUTEROL HFA 60 PUFF/8 GM INH INH (08:14)
[2019-08-16 08:15] VITALS: PULSE 76; RESP 18; O2SAT 97
[2019-08-16] MEDS: ACETAMINOPHEN 325 MG TABLET 650 MG PO (08:56)
[2019-08-16] MEDS: HEPARIN 5,000 UNIT/ML VIAL 5000 UNIT SUBCUT (08:56)
[2019-08-16] MEDS: lisinopriL 5 MG TABLET 10 MG PO (08:57)
[2019-08-16] MEDS: predniSONE 20 MG TABLET 40 MG PO (08:57)
[2019-08-16] MEDS: PANTOPRAZOLE 40 MG VIAL IV (08:57)
[2019-08-16] MEDS: ARIPiprazole 10 MG TABLET 20 MG PO (09:03)
--- NOTE | 2019-08-16 12:11 | DIET.PN ---
Dietary Progress Note Assessment: 59y F admitted for SBO c hx of Crohns Disease referred to nutrition for d/c teaching on low residue and anti-inflammatory diet. Pt was dx c CD 7y ago, in 2014 had bowel resection of ileus and fistula b/w LI and SI. 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 Pt teary and upset about going back on prednisone on d/c. Pt has lived in apartments past 7y, recently bought home. Pt feeling stressed about pandemic and how health is falling apart. Pt unhappy as she cannot walk as stress reliever r/t arthritis. Per pt and confirmed c spouse: pt avoids popcorn, most fresh F/V, eggs, hard meats (like pork chop), is careful c potato skins and grain foods as these all tend to cause GI issues. Pt enjoys peanut butter, beans, peeled potatoes. Pt is current everyday smoker combined c low intake fresh F/V puts pt at higher risk for inflammation and ROS r/t low Vit C intake. Pt is good water drinker so tries to stay hydrated. Pt reports after surgery in 2014 relied on Inspecting Machine Adjuster [place] type spaghetti o's and raviolis to avoid SBO. Cooks c butter and vegetable/canola oil. HT: 167.6cm WT: 81.6kg BMI: 29.0 Labs: hgb 9.9 L, CRP 7 H MNA: 14 normal nutrition Usama: 21 low risk for skin breakdown Interventions: 1. Pt has pretty good idea of low residue diet principles, collaborated c pt and spouse on making beans and fresh melon work in diet by limiting volume and frequency. Pt received handout for review at home. 2. Introduced concept of anti-inflammatory diet focusing on what pt can include into already restrictive diet. Pt will drink more black, green, and herbal tea. Pt will incorporate anti-inflammatory herbs and spices. Pt will switch from veg/canola oil to olive oil for cooking. Pt will incorporate fresh melon into diet (also vit C). 3. Discussed at length self-care and stress reduction. Pt enjoys watering sheets, playing c pets, and woodworking. Reinforced stress reduction as way to reduce Crohn's flairs. That both exciting stress and negative stress can cause trigger event. Diet Order: Full Liquid
--- NOTE | 2019-08-16 12:29 | PC.NURSE ---
Day shift: Pt left unit in WC to private car driven by spouse. Paperwork signed and all questions answered. Pt has all personal belongings. scripts sent electronic. Pt did talk with the nutrition person and has paperwork for that as well as a start to a good plan. Read through Dr Cotter d/c instructions as well.
[2019-08-17 15:08] LABS: Calprotectin, Stool 229 ug/g (0-120)
== END 2019-08-16 12:34 | disposition home or self-care (01) | DRG 389 ==
LOC: ED 06:54 → AC 08:37
PROVIDERS: Admitting Provider Surgery; Emergency Provider Emergency Medicine; Family Provider Psychiatry & Neurology Psychiatry; PCP Nurse Practitioner; Referring Provider Emergency Medicine; Visit Provider Surgery
DX: K56.609 Unspecified intestinal obstruction, unspecified as to partial versus complete obstruction (principal); K50.90 Crohn's disease, unspecified, without complications; E83.52 Hypercalcemia; F31.9 Bipolar disorder, unspecified; F90.9 Attention-deficit hyperactivity disorder, unspecified type; J44.9 Chronic obstructive pulmonary disease, unspecified; F17.210 Nicotine dependence, cigarettes, uncomplicated; E03.9 Hypothyroidism, unspecified; J45.909 Unspecified asthma, uncomplicated; I10 Essential (primary) hypertension
CPT/HCPCS: 36415; 71045; 74177; 74250; 80048; 80053; 82962; 83605; 83690; 83735; 83993; 84100; 84145; 85025; 85651; 86140; 94640; 99221; 99231; 99284; G0378; C9113; J0780; J1644; J2060; J2270; J2405; Q9967

== ENCOUNTER → 2019-09-09 14:33 | Outpatient (CLI) | payer MEDICARE, OTHER, SELFPAY ==
[2019-08-14 09:46] VITALS: BMI 29.5
--- NOTE | 2019-09-09 14:37 | DI.MRI.S_ITS ---
PROCEDURE: MRFOOT LT WO CON INDICATIONS: Pain in left foot TECHNIQUE: Noncontrast sagittal T1 spin echo and T2 fast spin echo with fat saturation, long-axis T1 spin echo and T2 fast spin echo with fat saturation, short-axis T1 spin echo and T2 fast spin echo with fat saturation through the forefoot. COMPARISON: None. FINDINGS: Image quality: Excellent. Nondisplaced , incomplete stress fracture involving the base of the 2nd metatarsal. There is associated marrow edema. There is also periosteal and adjacent soft tissue edema. Remainder of the marrow signal intensity remains intact. Hallux sesamoids grossly unremarkable. The visualized flexor and extensor tendons unremarkable. Subcutaneous signal intensity within normal limits. IMPRESSION: Nondisplaced 2nd metatarsal base stress fracture with associated adjacent soft tissue and periosteal edema. Approved by: Dimitrios Fry M.D. on 09/09/2019 at 15:51
== END ==
PROVIDERS: Family Provider Psychiatry & Neurology Psychiatry; PCP Nurse Practitioner; Referring Provider Podiatrist; Visit Provider Podiatrist
DX: M79.672 Pain in left foot (principal); M84.375A Stress fracture, left foot, initial encounter for fracture
CPT/HCPCS: 73718

== ENCOUNTER 2019-09-24 12:27 | Emergency (ER) | payer MEDICARE, OTHER, SELFPAY ==
[2019-08-14 09:46] VITALS: BMI 29.5
[2019-09-24 12:47] VITALS: BP 119/74; PULSE 71; RESP 16; TEMP 36.8; O2SAT 97; BMI 29.0
--- NOTE | 2019-09-24 12:58 | ED.EYEPROB ---
HPI - Eye Problem General Chief complaint: Eye Problems Stated complaint: Right Eye Pain and Swelling Time Seen by Provider: 09/24/19 12:51 Source: patient Mode of arrival: Ambulatory Limitations: no limitations History of Present Illness HPI Narrative: Patient is a 59-year-old female with history of Crohn's disease presenting with right eye swelling just below the eye which started yesterday and progressively got worse today. She denies any visual changes no erythema no fever. She took Tylenol at 7:00 a.m. this morning without any relief she says it is slightly painful to touch. She denies any fever she has no sinus tenderness or his frontal standard it is MD chief complaint: eye pain Onset (ago): day(s) Onset description: gradual Location: right eye Related Data Home Medications Medication Instructions Recorded Confirmed vedolizumab 300 mg intravenous 300 mg IV Q8W 08/11/18 08/29/19 solution trazodone 50 mg PO BEDTIME PRN 07/02/19 08/29/19 fluticasone propion-salmeterol 1 inh INHALATION BID 08/14/19 08/29/19 [Advair Diskus] Previous Rx's Medication Instructions Recorded albuterol sulfate 90 mcg/actuation 2 puff INHALATION Q4-6H PRN #8.5 11/23/18 aerosol inhaler gram montelukast 10 mg tablet 10 mg PO BEDTIME #90 tab 11/23/18 baclofen 10 mg tablet 5 mg PO DAILY PRN #30 tab 06/29/19 miscellaneous medical supply 1 each MISC BID #1 each 06/29/19 levothyroxine 125 mcg tablet 125 mcg PO DAILY #90 tab 08/01/19 lisinopril 5 mg tablet 10 mg PO DAILY #180 tab 08/09/19 omeprazole 20 mg capsule,delayed 20 mg PO DAILY PRN #90 cap 08/16/19 release prednisone 40 mg PO DAILY #60 tab 08/16/19 ondansetron 4 mg disintegrating 4 mg PO Q6H PRN #60 tab 08/24/19 tablet aripiprazole 20 mg tablet 20 mg PO DAILY #30 tab 08/29/19 hydroxyzine HCl 50 mg tablet 50 mg PO QID PRN #120 tab 08/29/19 methylphenidate HCl 20 mg tablet 20 mg PO BID #60 tab 08/29/19 methylphenidate HCl 20 mg tablet 20 mg PO BID #60 tab 08/29/19 methylphenidate HCl 20 mg tablet 20 mg PO BID #60 tab 08/29/19 Allergies Allergy/AdvReac Type Severity Reaction Status Date / Time Penicillins Allergy Intermediate Rash Verified 08/29/19 11:06 Sulfa (Sulfonamide Allergy Intermediate Hives Verified 08/29/19 11:06 Antibiotics) adalimumab [From Humira] AdvReac Intermediate pneumonia Verified 08/29/19 11:06 quetiapine [From Seroquel] AdvReac Intermediate Verified 08/29/19 11:06 Review of Systems Review of Systems Narrative: GENERAL: Denies chills,fever HEENT: See HPI Denies throat pain RESPIRATORY: Denies dyspnea, cough, wheezing CARDIOVASCULAR: Denies chest pain, palpitations GASTROINTESTINAL: Denies nausea, vomiting MUSCULOSKELETAL: Denies extremity pain, injury SKIN: No rash, no laceration, no pruritus NEUROLOGIC: Denies weakness, dizziness, headache, numbness 8 point review of systems is negative except for those stated above and HPI Patient History Medical History Abnormal chest xray (Resolved) ADHD (Chronic) Anemia (Resolved ~2016) Ankle pain (Chronic ~2017) Anxiety (Chronic) Asthma (Chronic) Bipolar disease, chronic (Chronic ~1998) Bronchospasm (Acute) Cataracts, bilateral (Chronic ~2018) Chicken pox (Resolved) Chronic back pain (Chronic ~2003) Chronic cough (Chronic) COPD (chronic obstructive pulmonary disease) (Chronic) Crohn's disease (Chronic ~2009) Depression (Chronic ~1988) Eczema (Chronic) Foot pain (Chronic ~2018) Headache (Chronic) Hemorrhoid (Chronic ~1979) History of emphysema (Chronic ~2017) Hypothyroidism (Chronic ~1989) Kidney disease (Chronic ~1974) Left foot pain (Acute) Migraines (Chronic) MRSA (methicillin resistant Staphylococcus aureus) (Chronic ~2004) Osteoporosis (Chronic ~2016) Post traumatic stress disorder (PTSD) (Chronic) Restless leg syndrome (Chronic) Seizure (Chronic) Skin cancer, basal cell (Chronic ~2016) Sleep apnea (Chronic) Surgical History History of section (Resolved) History of cholecystectomy (Resolved) History of intestinal surgery (Resolved) History of partial hysterectomy (Resolved) S/P tonsillectomy (Acute) Family History Mother Cancer Father Heart disease Kidney disease Social History household members: spouse Smoking Status: Current every day smoker alcohol intake: never Smoking Status: Current every day smoker tobacco type: vaping alcohol intake frequency: 0-2 drinks per day Substance Use Type: marijuana Exam Initial Vital Signs Initial Vital Signs: Vital Signs Temperature 98.2 F 09/24/19 12:47 Pulse Rate 71 09/24/19 12:47 Respiratory Rate 16 09/24/19 12:47 Blood Pressure 119/74 09/24/19 12:47 Pulse Oximetry 97 09/24/19 12:47 GENERAL: Well-appearing, well-nourished and in no acute distress. EYES: EOMI, swelling noted right inferior orbit, no erythema, no stye CARDIOVASCULAR: peripheral pulses in tact, cap refill <2 sec RESPIRATORY: No respiratory distress, speaks in full sentences without difficulty ABDOMEN: Soft, nontender, no guarding or rebound EXTREMITIES: Normal range of motion, no clubbing or edema. Neurovascularly intact NEUROLOGICAL: Cranial nerves II through XII grossly intact. Normal gait and speech. SKIN: Warm, dry, no petechiae, no rashes or lesions. Course Vital Signs Vital signs: Vital Signs - 8 hr 09/24/19 12:47 Temperature 98.2 F Pulse Rate 71 Respiratory Rate 16 Blood Pressure 119/74 Pulse Oximetry 97 Discharge Plan Departure Patient Disposition: Home Clinical Impression: Eye swelling, right Discharge Date/Time: 09/24/19 13:25 Instructions: DI for Eye Allergic Reaction Activity Restrictions/Additional Instructions: *You have been diagnosed with right eye swelling *What to do: Recommend cool compresses, expect swelling to be worse in the morning and as you sit up and are vertical the swelling she decrease and be only just below the eye. *Continue to take medications as directed Recommend ibuprofen 600 mg every 6-8 hours if needed for pain or swelling *Follow up with your primary care provider in 2-3 days *Return to ER if you should have increased swelling, redness, visual changes, discharge from the eye or any new, worsening or concerning symptoms Prescriptions: No Action methylphenidate HCl 20 mg tablet 20 mg PO BID Qty: 60 RF: 0 aripiprazole 20 mg tablet 20 mg PO DAILY Qty: 30 RF: 5 methylphenidate HCl 20 mg tablet 20 mg PO BID Qty: 60 RF: 0 methylphenidate HCl 20 mg tablet 20 mg PO BID Qty: 60 RF: 0 levothyroxine 125 mcg tablet 125 mcg PO DAILY Qty: 90 RF: 1 omeprazole 20 mg capsule,delayed release(DR/EC) 20 mg PO DAILY PRN (Reason: GERD) Qty: 90 RF: 3 ondansetron 4 mg tablet,disintegrating 4 mg PO Q6H PRN (Reason: nausea and vomiting) Qty: 60 RF: 11 hydroxyzine HCl 50 mg tablet 50 mg PO QID PRN (Reason: nausea and vomiting) Qty: 120 RF: 1 Entyvio 300 mg recon soln 300 mg IV Q8W RF: 0 montelukast 10 mg tablet 10 mg PO BEDTIME Qty: 90 RF: 3 albuterol sulfate [Ventolin HFA] 90 mcg/actuation HFA aerosol inhaler 2 puff INHALATION Q4-6H PRN (Reason: shortness of breath or wheezing) Qty: 8.5 RF: 6 baclofen 10 mg tablet 5 mg PO DAILY PRN (Reason: pain) Qty: 30 RF: 2 Blood Pressure Cuff Misc 1 each MISC BID Qty: 1 RF: 0 lisinopril 5 mg tablet 10 mg PO DAILY Qty: 180 RF: 3 trazodone 50 mg tablet 50 mg PO BEDTIME PRN (Reason: insomnia) RF: 0 fluticasone propion-salmeterol [Advair Diskus] 250-50 mcg/dose blister with device 1 inh INHALATION BID RF: 0 prednisone 20 mg tablet 40 mg PO DAILY Qty: 60 RF: 2 Referrals: Liat Hernandez ARNP [Primary Care Provider] -
== END 2019-09-24 13:25 | disposition home or self-care (01) ==
PROVIDERS: Emergency Provider Emergency Medicine; Family Provider Psychiatry & Neurology Psychiatry; PCP Nurse Practitioner
DX: H57.89 Other specified disorders of eye and adnexa (principal)
CPT/HCPCS: 99281

== ENCOUNTER → 2019-12-01 12:25 | Outpatient (CLI) | payer MEDICARE, OTHER, SELFPAY ==
[2019-08-14 09:46] VITALS: BMI 29.5
--- NOTE | 2019-12-01 12:27 | DI.MG.S_ITS ---
BILATERAL DIGITAL SCREENING MAMMOGRAM 3D/2D WITH CAD: 12/01/2019 CLINICAL: Routine screening. Comparison is made to exams dated: 09/30/2018 mammogram, 09/15/2018 mammogram - [facility], and 02/28/2014 mammogram - [facility]. There are scattered fibroglandular elements in both breasts. Current study was also evaluated with a Computer Aided Detection (CAD) system. No significant masses, calcifications, or other findings are seen in either breast. There has been no significant interval change. IMPRESSION: NEGATIVE There is no mammographic evidence of malignancy. A 1 year screening mammogram is recommended. This exam was interpreted at Station ID: [id number]. NOTE: For mammograms, a report in lay terms will be sent to the patient. Approximately 15% of breast malignancies will not be visualized mammographically. In the management of a palpable breast mass, a negative mammogram must not discourage biopsy of a clinically suspicious lesion. Electronically Signed By: Lowell mcleod/lauro:12/01/2019 12:44:11 letter sent: Normal Exam ACR BI-RADS Category 1: Negative 3341F
== END ==
PROVIDERS: Family Provider Psychiatry & Neurology Psychiatry; PCP Nurse Practitioner; Referring Provider Nurse Practitioner; Visit Provider Nurse Practitioner
DX: Z12.31 Encounter for screening mammogram for malignant neoplasm of breast (principal); M85.852 Other specified disorders of bone density and structure, left thigh; Z78.0 Asymptomatic menopausal state; E07.9 Disorder of thyroid, unspecified; S92.902A Unspecified fracture of left foot, initial encounter for closed fracture; Z79.52 Long term (current) use of systemic steroids; Z72.0 Tobacco use
CPT/HCPCS: 77063; 77067; 77080

== ENCOUNTER → 2020-04-11 10:56 | Outpatient (CLI) | payer MEDICARE, OTHER, SELFPAY ==
[2020-01-18 16:58] VITALS: BMI 29.5
[2020-04-11 12:54] LABS: Alanine Aminotransferase 54 IU/L (<35); Albumin 5.1 g/dL (3.5-5.0); Albumin Globulin Ratio 1.6 (1.0-2.8); Alkaline Phosphatase 121 U/L (38-126); Aspartate Aminotransferase 46 IU/L (14-36); Bilirubin Total 0.8 mg/dL (0.2-1.3); Blood Urea Nitrogen 20 mg/dL (7-17); Calcium 11.4 mg/dL (8.4-10.2); Carbon Dioxide 28 mmol/L (22-32); Chloride 102 mmol/L (98-107); Estimated Glomerular Filt Rate 56.4 mL/min (>60); Globulin 3.2 g/dL (1.7-4.1); Glucose 98 mg/dL (80-110); HEMOLYSIS 22 (0-50); Potassium 4.8 mmol/L (3.4-5.1); Sodium 137 mmol/L (137-145); Total Protein 8.3 g/dL (6.3-8.2)
[2020-04-11 13:27] LABS: Thyroid Stimulating Hormone 9.93 uIU/mL (0.47-4.68)
== END ==
PROVIDERS: Family Provider Psychiatry & Neurology Psychiatry; PCP Nurse Practitioner; Referring Provider Nurse Practitioner; Visit Provider Nurse Practitioner
DX: E03.9 Hypothyroidism, unspecified (principal); F32.9 Major depressive disorder, single episode, unspecified; F41.9 Anxiety disorder, unspecified; Z79.899 Other long term (current) drug therapy; R94.4 Abnormal results of kidney function studies
CPT/HCPCS: 36415; 80053; 84443

== ENCOUNTER → 2020-04-12 09:39 | Outpatient (CLI) | payer MEDICARE, OTHER, SELFPAY ==
[2020-01-18 16:58] VITALS: BMI 29.5
[2020-04-12 12:20] LABS: Thyroid Stimulating Hormone 12.6 uIU/mL (0.47-4.68)
[2020-04-13 12:11] LABS: Calcium 10.5 mg/dL (8.7-10.3); Parathyroid Hormone, Intact 73 pg/mL (15-65)
== END ==
PROVIDERS: Family Provider Psychiatry & Neurology Psychiatry; PCP Nurse Practitioner; Referring Provider Nurse Practitioner; Visit Provider Nurse Practitioner
DX: E03.9 Hypothyroidism, unspecified (principal); R79.89 Other specified abnormal findings of blood chemistry; E83.52 Hypercalcemia
CPT/HCPCS: 36415; 82310; 83970; 84443

== ENCOUNTER → 2020-11-16 07:13 | Outpatient (CLI) | payer MEDICARE, OTHER, SELFPAY ==
[2020-01-18 16:58] VITALS: BMI 29.5
[2020-11-16 08:29] LABS: COVID19 -Nasal RAPID Negative (Negative)
== END ==
PROVIDERS: Family Provider Psychiatry & Neurology Psychiatry; PCP Nurse Practitioner; Visit Provider Nurse Practitioner
DX: Z20.822 Contact with and (suspected) exposure to COVID-19 (principal); J02.9 Acute pharyngitis, unspecified; R51.9 Headache, unspecified
CPT/HCPCS: 87635

== ENCOUNTER → 2020-12-04 09:53 | Outpatient (CLI) | payer MEDICARE, OTHER, SELFPAY ==
[2020-01-18 16:58] VITALS: BMI 29.5
--- NOTE | 2020-12-04 09:56 | DI.MG.S_ITS ---
BILATERAL DIGITAL SCREENING MAMMOGRAM 3D/2D WITH CAD: 12/04/2020 CLINICAL: Routine screening. Comparison is made to exams dated: 12/01/2019 mammogram, 09/15/2018 mammogram - [facility], and 02/28/2014 mammogram - [facility]. There are scattered fibroglandular elements in both breasts. Current study was also evaluated with a Computer Aided Detection (CAD) system. No significant masses, calcifications, or other findings are seen in either breast. There has been no significant interval change. IMPRESSION: NEGATIVE There is no mammographic evidence of malignancy. A 1 year screening mammogram is recommended. This exam was interpreted at Station ID: [id number]. NOTE: For mammograms, a report in lay terms will be sent to the patient. Approximately 15% of breast malignancies will not be visualized mammographically. In the management of a palpable breast mass, a negative mammogram must not discourage biopsy of a clinically suspicious lesion. Electronically Signed By: Geovanni Calderon acr/lauro:12/04/2020 11:05:35 letter sent: Normal Exam ACR BI-RADS Category 1: Negative 3341F
== END ==
PROVIDERS: Family Provider Psychiatry & Neurology Psychiatry; PCP Nurse Practitioner; Referring Provider Nurse Practitioner; Visit Provider Nurse Practitioner
DX: Z12.31 Encounter for screening mammogram for malignant neoplasm of breast (principal)
CPT/HCPCS: 77063; 77067

== ENCOUNTER 2020-12-04 22:19 | Observation (INO) | payer MEDICARE, OTHER, SELFPAY ==
[2020-01-18 16:58] VITALS: BMI 29.5
[2020-12-04 22:25] VITALS: BP 169/78; PULSE 122; RESP 30; O2SAT 97
[2020-12-04 22:27] VITALS: BP 169/78; PULSE 118; RESP 25; O2SAT 95
[2020-12-04 22:30] VITALS: PULSE 118; RESP 21; O2SAT 95; BMI 24.2
--- NOTE | 2020-12-04 22:31 | DI.CT.S_ITS ---
PROCEDURE: CT ABDOMEN PELVIS W CON INDICATIONS: Right-sided abdominal pain, history of Crohn's disease TECHNIQUE: After the administration of intravenous contrast, axial sections acquired from the lung bases to the pubic symphysis. Coronal and sagittal reformats were performed. For radiation dose reduction, the following was used: automated exposure control, adjustment of mA and/or kV according to patient size. COMPARISON: [facility], CT, CT ABDOMEN PELVIS W CON, 08/14/2019, 6:49. FINDINGS: Image quality: Excellent. Lung bases: Lung bases are clear. Heart size is normal. Solid organs: Liver: The liver has no mass or intrahepatic biliary ductal dilatation. The portal vein and hepatic veins are patent. Biliary: Status post cholecystectomy. Pancreas: The pancreas has no mass or ductal dilatation. There is no surrounding inflammation. Spleen: Normal size. There are no masses. Adrenals: No hypertrophy or nodules. Kidneys: No obstructive calculus or hydronephrosis. No solid mass. The right kidney a 1.5 cm cyst in the inferior pole. No solid mass. Peritoneum and bowel: There is a small hiatal hernia. The small bowel is diffusely distended with fluid to the colon. Anastomotic sutures are seen at the distal small bowel proximal colon junction likely from prior resection of the terminal ileum. The lumen within the anastomotic sutures appears narrowed. There is stool in the right colon. The appendix is not visualized, likely resected. No mass. No free air or pneumatosis. There is fluid in the pelvis. Nodes and vessels: No retroperitoneal or mesenteric adenopathy by size criteria. The aorta has atherosclerosis with no aneurysmal dilatation. Miscellaneous: No abdominal wall mass or hernia. PELVIS: Genitourinary: The bladder has no wall thickening or mass. No pelvic mass. Bones: No suspicious bony lesions. No vertebral body compression fractures. IMPRESSION: Fluid distension and air-fluid levels throughout the small bowel to the level of anastomotic sutures between the distal ileum and right colon which appears narrowed, likely the point of bowel obstruction/partial bowel obstruction. Dictated by: Geovanni Calderon M.D. on 12/05/2020 at 0:09 Approved by: Geovanni Calderon M.D. on 12/05/2020 at 0:17
--- NOTE | 2020-12-04 22:44 | ED.GENADULT ---
HPI - General Adult General Chief complaint: Abdominal Pain Stated complaint: Chrones/Poss Blockage Time Seen by Provider: 12/04/20 22:30 Source: patient Mode of arrival: Ambulatory History of Present Illness HPI narrative: Patient is a 60-year-old female. History of Crohn's disease. Has had a bowel resection in the past. Does see a GI provider. Gets Q6 week infusions for her Crohn's. Her last infusion was 5 weeks ago. She is here for evaluation of approximately 12 hours of right-sided abdominal discomfort. She states that it was a fairly sudden onset earlier this afternoon. Has had some nausea and vomiting. No fevers. No chest pain. No shortness of breath. No urinary symptoms. No change in bowel habits. No blood in her stool. She states this does feel very similar to her prior issues with Crohn's. She also states that her abdomen is distended. Related Data Home Medications Medication Instructions Recorded Confirmed fluticasone 250 mcg-salmeterol 50 1 inh INHALATION BID 08/14/19 11/16/20 mcg/dose blistr powdr for inhalation (Advair Diskus) cholecalciferol (vitamin D3) 10 10 mcg PO DAILY 02/14/20 11/16/20 mcg (400 unit) capsule multivitamin,[id number] 1 tab PO DAILY 02/14/20 11/16/20 (Complete Multivitamin) vedolizumab 300 mg intravenous 300 mg IV Q6W ea 04/11/20 11/16/20 solution (Entyvio) super beets PO 08/28/20 11/16/20 Previous Rx's Medication Instructions Recorded albuterol sulfate 90 mcg/actuation 2 puff INHALATION Q4-6H PRN #8.5 11/23/18 aerosol inhaler (Ventolin HFA) gram Che[employer]incellaneous medical supply 1 each MISC BID #1 each 06/29/19 (Blood Pressure Cuff) varicella-zoster glycoE [id number] 0.5 ml IM ONCE #1 each 10/25/19 adj(PF) 50 mcg/0.5 mL IM susp, kit (Shingrix (PF)) lidocaine HCl 2 % mucosal solution 15 ml MUCOUS MEMBRANE DAILY PRN 07/28/20 #100 ml lisinopril 5 mg tablet 10 mg PO DAILY #180 tab 08/14/20 levothyroxine 125 mcg tablet 125 mcg PO DAILY #90 tab 09/17/20 levothyroxine 25 mcg tablet See Rx Instructions .ROUTE 09/17/20 .COMPLEX #90 tab aripiprazole 15 mg tablet 15 mg PO BEDTIME #90 tab 09/19/20 buspirone 10 mg tablet 10 mg PO BID #60 tab 09/19/20 estradiol 1 appful VAGINAL DAILY #42.5 g 09/19/20 fluconazole 150 mg tablet 150 mg PO Q3D #2 tab 09/19/20 methylphenidate HCl 20 mg 20 mg PO QAM #30 tab 09/19/20 tablet,extended release trazodone 50 mg tablet 50 mg PO BEDTIME PRN #90 tab 09/19/20 methylphenidate HCl 10 mg tablet 10 mg PO DAILY #30 tab 11/14/20 methylphenidate HCl 10 mg tablet 10 mg PO DAILY #30 tab 11/14/20 methylphenidate HCl 10 mg tablet 10 mg PO DAILY #30 tab 11/14/20 methylphenidate HCl 20 mg 20 mg PO QAM #30 tab 11/14/20 tablet,extended release methylphenidate HCl 20 mg 20 mg PO QAM #30 tab 11/14/20 tablet,extended release ondansetron 4 mg disintegrating See Rx Instructions .ROUTE 11/21/20 tablet .COMPLEX #60 tab Allergies Allergy/AdvReac Type Severity Reaction Status Date / Time Penicillins Allergy Intermediate Rash Verified 11/16/20 07:39 Sulfa (Sulfonamide Allergy Intermediate Hives Verified 11/16/20 07:39 Antibiotics) adalimumab [From Humira] AdvReac Intermediate pneumonia Verified 11/16/20 07:39 quetiapine [From Seroquel] AdvReac Intermediate Verified 11/16/20 07:39 Review of Systems Constitutional Constitutional: Denies fever(s) Cardiovascular Cardiovascular: Reports as per HPI and Reports system reviewed and no additional complaints, except as documented Respiratory Respiratory: Reports as per HPI and Reports system reviewed and no additional complaints, except as documented Gastrointestinal Gastrointestinal: Reports system reviewed and no additional complaints, except as documented Genitourinary Genitourinary: Reports system reviewed and no additional complaints, except as documented Musculoskeletal Musculoskeletal: Reports system reviewed and no additional complaints, except as documented Integumentary/Breasts Skin/Breast: Reports system reviewed and no additional complaints, except as documented Neurologic Neurologic: Reports system reviewed and no additional complaints, except as documented Hematologic/Lymphatic On Anticoagulants: No Patient History Medical History Abnormal chest xray Acute renal insufficiency ADHD Anemia (~2016) Ankle pain (~2017) Anxiety Asthma Attention deficit disorder Bipolar disease, chronic (~1998) Bipolar disorder in partial remission Bronchospasm Cataracts, bilateral Cataracts, bilateral (~2018) Chicken pox Chronic back pain (~2003) Chronic cough Chronic pain Chronic post-traumatic stress disorder (PTSD) COPD (chronic obstructive pulmonary disease) Cough COVID-19 vaccine series declined Crohn's disease (~2009) Decreased GFR Depressed bipolar affective disorder Depression (~1988) Eczema Eczema Elevated liver enzymes Encounter for tobacco use cessation counseling Foot pain (~2018) Foot pain, left Headache Hemorrhoid (~1979) History of emphysema (~2017) Hypercalcemia Hypothyroidism (~1989) Insomnia Kidney disease Kidney disease (~1974) Left foot pain Lower extremity pain, posterior Marijuana use Migraines MRSA (methicillin resistant Staphylococcus aureus) (~2004) Nausea & vomiting Osteopenia of multiple sites Osteoporosis (~2016) Post traumatic stress disorder (PTSD) Restless leg syndrome Restless legs syndrome SBO (small bowel obstruction) Seizure Skin cancer, basal cell (~2016) Sleep apnea Tobacco abuse disorder Surgical History History of section History of cholecystectomy History of intestinal surgery History of partial hysterectomy S/P tonsillectomy Family History Mother Cancer Father Heart disease Kidney disease Social History household members: spouse Smoking Status: Current every day smoker (vape) alcohol intake: never Smoking Status: Current every day smoker (vape) tobacco type: vaping alcohol intake frequency: 0-2 drinks per day Substance Use Type: marijuana Exam Initial Vital Signs Initial Vital Signs: Vital Signs Pulse Rate 122 H 12/04/20 22:25 Respiratory Rate 30 H 12/04/20 22:25 Blood Pressure 169/78 H 12/04/20 22:25 Pulse Oximetry 97 12/04/20 22:25 Const General: cooperative and well developed HENMT Head: normal to inspection and normocephalic Eyes General: appearance normal, both eyes and all related structures Resp Effort & Inspection: normal respiratory effort Auscultation: clear to auscultation bilaterally Cardio Rate: regular rate Rhythm: regular rhythm GI Palpation: soft, No firm, No rigid and tender Back/Spine/Pelvis Back: No CVA tenderness Skin General: no rashes or lesions noted Neuro General: patient alert, patient awake, patient oriented x3 and moves all extremities Extrem General: normal to inspection and capillary refill normal Psych Appearance: grossly normal and well kempt Course Orders Ordered: ED Orders 12/04/20 22:31 CT abdomen pelvis w con Stat 12/04/20 22:40 Complete Blood Count AUTO DIFF Stat Comprehensive Metabolic Panel Stat Lipase Stat 12/04/20 23:30 Urine Culture Stat Urine Microscopic Stat 12/05/20 00:27 Consult to General Surgery Stat 12/05/20 00:56 COVID19 - ADMIT (COMSEC MANAGER swab/PCR) Stat Discontinued Medications Sodium Chloride (Normal Saline 0.9%) 1,000 mls @ 1,000 mls/hr IV BOLUS ONE Stop: 12/04/20 23:30 Last Infusion: 12/05/20 00:32 Dose: 1,000 mls/hr Documented by: Admin: 12/04/20 22:55 Dose: 1,000 mls/hr Documented by: JORJE Morphine Sulfate (Morphine 4 Mg/Ml Inj) 4 mg IV NOW ONE Stop: 12/04/20 22:45 Last Admin: 12/04/20 22:56 Dose: 4 mg Documented by: JORJE Ondansetron HCl (Ondansetron 4 Mg/2 Ml Inj) 4 mg IV NOW ONE Stop: 12/04/20 22:45 Last Admin: 12/04/20 22:56 Dose: 4 mg Documented by: JORJE Ondansetron HCl (Ondansetron 4 Mg/2 Ml Inj) 4 mg IV NOW ONE Stop: 12/05/20 00:30 Last Admin: 12/05/20 00:31 Dose: 4 mg Documented by: JORJE Vital Signs Vital signs: Vital Signs - 8 hr 12/04/20 22:25 12/04/20 22:27 12/04/20 22:30 Pulse Rate 122 H 118 H 118 H Respiratory Rate 30 H 25 H 21 Blood Pressure 169/78 H 169/78 H Pulse Oximetry 97 95 95 12/04/20 23:00 12/04/20 23:46 12/04/20 23:47 Pulse Rate 124 H 101 H 98 H Respiratory Rate 29 H 30 H 22 Blood Pressure 142/60 H 159/72 H Pulse Oximetry 98 98 12/05/20 00:00 Pulse Rate 92 H Respiratory Rate 18 Blood Pressure 142/60 H Pulse Oximetry 93 Medical Decision Making Lab Data Lab results reviewed: Yes I reviewed the patient's lab results. Result diagrams: 12/04/20 22:40 12/04/20 22:40 Labs: Lab Results 12/04/20 12/04/20 12/04/20 Range/Units 22:40 22:40 23:30 WBC 11.5 H (4.5-11.0) X10^3/uL RBC 4.48 (4.0-5.2) X10^6/uL Hgb 13.4 (12.0-16.0) g/dL Hct 40.2 (36-46) % MCV 89.7 (80-100) fL MCH 29.9 (26-34) PG MCHC 33.3 (30-36) % RDW 13.6 (11.6-14.8) % Plt Count 409 H (150-400) X10^3/uL Neut % (Auto) 81.6 H (50-75) % Lymph % (Auto) 12.3 L (25-40) % [place] % (Auto) 3.9 (3-14) % Eos % (Auto) 1.8 L (2-4) % Baso % (Auto) 0.4 (0-2) % Neut # (Auto) 9400 H (5393-2254) /uL Lymph # (Auto) 1400 (0483-3400) /uL [place] # (Auto) 500 (0-900) /uL Eos # (Auto) 200 (0-450) /uL Baso # (Auto) 0 (0-100) /uL Sodium 141 (137-145) mmol/L Potassium 3.5 (3.4-5.1) mmol/L Chloride 100 (98-107) mmol/L Carbon Dioxide 30 (22-32) mmol/L BUN 19 H (7-17) mg/dL Creatinine 1.29 H (0.52-1.04) mg/dL Estimated GFR 42.0 L (>60) mL/min BUN/Creatinine Ratio 14.7 (6-22) Glucose 155 H (80-110) mg/dL Calcium 10.3 H (8.4-10.2) mg/dL Total Bilirubin 0.7 (0.2-1.3) mg/dL AST 40 H (14-36) IU/L ALT 39 H (<35) IU/L Alkaline Phosphatase 162 H (38-126) U/L Total Protein 7.8 (6.3-8.2) g/dL Albumin 4.5 (3.5-5.0) g/dL Globulin 3.3 (1.7-4.1) g/dL Albumin/Globulin Ratio 1.4 (1.0-2.8) Lipase 62 (23-300) U/L Urine RBC 0-1/hpf (0-5/HPF) Urine WBC 5-10/hpf H (0-5/HPF) Ur Squamous Epith Cells 0-1 /hpf (0-5/HPF) Ur Renal Epithelial Cell 0-1/hpf (0-1/HPF) Amorphous Sediment 2+ Urine Bacteria None seen (None) Ur Culture Indicated? Specimen cultured Urine Dip Bedside Urine Glucose Negative Bedside Urine Bilirubin - Negative Bedside Urine Ketone - Negative Urine Specific [place] 1.015 Bedside Urine Occult Blood - Negative Bedside Urine pH 8.0 Bedside Urine Protein +/- 15 Bedside Urine Urobilinogen - Negative Bedside Urine Nitrite - Negative Bedside Urine Leukocytes + 70 Esterase Point of care testing: Urine Dip Bedside Urine Glucose Negative Bedside Urine Bilirubin - Negative Bedside Urine Ketone - Negative Urine Specific [place] 1.015 Bedside Urine Occult Blood - Negative Bedside Urine pH 8.0 Bedside Urine Protein +/- 15 Bedside Urine Urobilinogen - Negative Bedside Urine Nitrite - Negative Bedside Urine Leukocytes + [address] scan - abdomen/pelvis: Radiologist's Impression: [address] [id number] Scan ReportSigned Patient: Louann Diaz JMR#: [id number]: [id number]:[id number]/Sex: 60 / FDate of Service: 12/04/20Loc: EDAccession Number: [id number] Procedure: CT abdomen pelvis w con Ordering Provider: Manuel Phillips D.O. PROCEDURE: CT ABDOMEN PELVIS W CON INDICATIONS: Right-sided abdominal pain, history of Crohn's disease TECHNIQUE: After the administration of intravenous contrast, axial sections acquired from the lung bases to the pubic symphysis. Coronal and sagittal reformats were performed. For radiation dose reduction, the following was used: automated exposure control, adjustment of mA and/or kV according to patient size. COMPARISON: [facility], CT, CT ABDOMEN PELVIS W CON, 08/14/2019, 6:49. FINDINGS: Image quality: Excellent. Lung bases: Lung bases are clear. Heart size is normal. Solid organs: Liver: The liver has no mass or intrahepatic biliary ductal dilatation. The portal vein and hepatic veins are patent. Biliary: Status post cholecystectomy. Pancreas: The pancreas has no mass or ductal dilatation. There is no surrounding inflammation. Spleen: Normal size. There are no masses. Adrenals: No hypertrophy or nodules. Kidneys: No obstructive calculus or hydronephrosis. No solid mass. The right kidney a 1.5 cm cyst in the inferior pole. No solid mass. Peritoneum and bowel: There is a small hiatal hernia. The small bowel is diffusely distended with fluid to the colon. Anastomotic sutures are seen at the distal small bowel proximal colon junction likely from prior resection of the terminal ileum. The lumen within the anastomotic sutures appears narrowed. There is stool in the right colon. The appendix is not visualized, likely resected. No mass. No free air or pneumatosis. There is fluid in the pelvis. Nodes and vessels: No retroperitoneal or mesenteric adenopathy by size criteria. The aorta has atherosclerosis with no aneurysmal dilatation. Miscellaneous: No abdominal wall mass or hernia. PELVIS: Genitourinary: The bladder has no wall thickening or mass. No pelvic mass. Bones: No suspicious bony lesions. No vertebral body compression fractures. IMPRESSION: Fluid distension and air-fluid levels throughout the small bowel to the level of anastomotic sutures between the distal ileum and right colon which appears narrowed, likely the point of bowel obstruction/partial bowel obstruction. Dictated by: Geovanni Calderon M.D. on 12/05/2020 at 0:09 Approved by: Geovanni Calderon M.D. on 12/05/2020 at 0:17 MDM Narrative Medical decision making narrative: CT scan of the abdomen does show findings consistent with a small-bowel obstruction. This also fits her exam. I did discuss the case with Dr. Foley with General surgery who asked the patient be admitted to the Medicine Service. Discussed the case with COMSEC MANAGER Mills the night hospitalist who will admit for further evaluation and treatment. I did discuss the findings of the CT scan with the patient and her . They expressed understanding and agreement as well. Will hold on an NG tube for now. Patient's nausea and pain controlled with Zofran and morphine. Discharge Plan Departure Patient Disposition: Home Clinical Impression: Small bowel obstruction, Crohn's disease
[2020-12-04] MEDS: SODIUM CHLORIDE 0.9% 1,000 ML 1000 ML IV (22:55)
[2020-12-04] MEDS: MORPHINE 4 MG/ML INJ IV (22:56)
[2020-12-04] MEDS: ONDANSETRON 4 MG/2 ML INJ IV (22:56)
[2020-12-04 23:00] VITALS: BP 142/60; PULSE 124; RESP 29
[2020-12-04 23:15] LABS: Alanine Aminotransferase 39 IU/L (<35); Albumin 4.5 g/dL (3.5-5.0); Albumin Globulin Ratio 1.4 (1.0-2.8); Alkaline Phosphatase 162 U/L (38-126); Aspartate Aminotransferase 40 IU/L (14-36); BUN Creatinine Ratio 14.7 (6-22); Bilirubin Total 0.7 mg/dL (0.2-1.3); Blood Urea Nitrogen 19 mg/dL (7-17); Calcium 10.3 mg/dL (8.4-10.2); Carbon Dioxide 30 mmol/L (22-32); Chloride 100 mmol/L (98-107); Globulin 3.3 g/dL (1.7-4.1); Glucose 155 mg/dL (80-110); HEMOLYSIS < 15 (0-50); Lipase 62 U/L (23-300); Potassium 3.5 mmol/L (3.4-5.1); Sodium 141 mmol/L (137-145); Total Protein 7.8 g/dL (6.3-8.2)
[2020-12-04 23:23] LABS: Add Manual Diff / Slide Review NO; Basophils Absolute Auto 0 /uL (0-100); Basophils Percent Auto 0.4 % (0-2); Eosinophils Absolute Auto 200 /uL (0-450); Eosinophils Percent Auto 1.8 % (2-4); Hematocrit 40.2 % (36-46); Hemoglobin 13.4 g/dL (12.0-16.0); Lymphocytes Absolute Auto 1400 /uL (1100-4500); Lymphocytes Percent Auto 12.3 % (25-40); Mean Corpuscular HGB Conc 33.3 % (30-36); Mean Corpuscular Hemoglobin 29.9 PG (26-34); Mean Corpuscular Volume 89.7 fL (80-100); Monocytes Absolute Auto 500 /uL (0-900); Monocytes Percent Auto 3.9 % (3-14); Neutrophils Absolute Auto 9400 /uL (1500-7000); Neutrophils Percent Auto 81.6 % (50-75); Platelet Count 409 X10^3/uL (150-400); Red Blood Cell Count 4.48 X10^6/uL (4.0-5.2); Red Cell Distribution Width 13.6 % (11.6-14.8); White Blood Cell Count 11.5 X10^3/uL (4.5-11.0)
[2020-12-04 23:46] VITALS: PULSE 101; RESP 30; O2SAT 98
[2020-12-04 23:47] VITALS: BP 159/72; PULSE 98; RESP 22; O2SAT 98
[2020-12-04 23:53] LABS: Amorphous Sediment Urine 2+; Bacteria Urine None Seen; Culture Indicated Urine Specimen Cultured; RBC Urine 0-1/HPF (0-5/HPF); Renal Epithelial Cells Urine 0-1/HPF (0-1/HPF); Squamous Epithelial Cell Urine 0-1 /HPF (0-5/HPF); WBC Urine 5-10/HPF (0-5/HPF)
[2020-12-05] VITALS (13 sets, daily range): BP systolic 105–142; BP diastolic 60–79; PULSE 65–92; RESP 15–19; TEMP 36.2–37.1; O2SAT 93–97; BMI 27.7
[2020-12-05] MEDS: ONDANSETRON 4 MG/2 ML INJ IV ×2 (00:31→02:36)
[2020-12-05] MEDS: MORPHINE 4 MG/ML INJ IV ×4 (01:25→20:22)
[2020-12-05 02:05] LABS: Magnesium 1.7 mg/dL (1.6-2.3)
[2020-12-05 02:07] LABS: COVID19 - ADMIT (NP swab/PCR) Negative (Negative)
--- NOTE | 2020-12-05 02:13 | PM.HP.1 ---
History of Present Illness History of Present Illness Date Patient Seen: 12/05/20 Time Patient Seen: 01:50 Chief complaint: Chrones/Poss Blockage Narrative: Louann Diaz is a 60-year-old female with a past medical history significant for hypertension, Crohn's disease on Vedolizumab, bipolar disorder, ADHD, PTSD, depression, anxiety, COPD, and tobacco dependence currently smoking cigarettes & vaping who presented to the ED for approximately 12 hours of right-sided abdominal pain, nausea, and vomting.? She states that it was a fairly sudden onset earlier this afternoon.? Has had some nausea and vomiting.? No fevers, body aches, chills, chest pain, shortness of breath, urinary symptoms, and no change in bowel habits.? Patient denies melena or hematuria. She does feel these symptoms are very similar to her prior issues with Crohn's disease.? She also states that her abdomen is distended. Patients last BM was earlier in the ED, liquid which is normal for her,denies constipation, melena. appetite has been decreased due to nausea. Patient denies any recent changes to her medication, chest pain, SOB, PRINCE, change in vision, weakness, cough, respiratory symptoms, recent injury or trauma. Initially WBC 11.5, with left shift neutrophils 9400, platelets 409, KRISTI with a BUN of 19 and creatinine of 1.29 (baseline 0.77), glucose 155, GFR 42 (baseline >60). Patient had a recent diagnosis of hepatitis a and hepatitis-B without active infection AST 40, ALT 39, alk-phos 162. Urine was cultured in ED. patient's abdomen/pelvis CT demonstrated fluid distension and air-fluid levels throughout the small bowel to the level of anastomotic sutures between the distal ileum and right colon which appears narrowed. Dr. Foley was consulted in the ED, requested patient be admitted under Internal Medicine hospitalist, and she will graciously consult tomorrow. Patient admitted for intractable nausea and vomiting and right sided abdominal pain likely secondary to SBO. Patient History Medical History (Updated 12/05/20 @ 02:26 by RAMIN Hernandez-JEWELL) Abnormal chest xray Acute renal insufficiency ADHD Anemia (~2016) Ankle pain (~2017) Anxiety Asthma Attention deficit disorder Bipolar disease, chronic (~1998) Bipolar disorder in partial remission Bronchospasm Cataracts, bilateral Cataracts, bilateral (~2018) Chicken pox Chronic back pain (~2003) Chronic cough Chronic pain Chronic post-traumatic stress disorder (PTSD) COPD (chronic obstructive pulmonary disease) Cough COVID-19 vaccine series declined Crohn's disease (~2009) Decreased GFR Depressed bipolar affective disorder Depression (~1988) Eczema Eczema Elevated liver enzymes Encounter for tobacco use cessation counseling Foot pain (~2018) Foot pain, left Headache Hemorrhoid (~1979) Hepatitis A test positive Hepatitis B surface antigen positive History of emphysema (~2017) Hypercalcemia Hypothyroidism (~1989) Insomnia Kidney disease Kidney disease (~1974) Left foot pain Lower extremity pain, posterior Marijuana use Migraines MRSA (methicillin resistant Staphylococcus aureus) (~2004) Nausea & vomiting Osteopenia of multiple sites Osteoporosis (~2016) Post traumatic stress disorder (PTSD) Restless leg syndrome Restless legs syndrome SBO (small bowel obstruction) Seizure Skin cancer, basal cell (~2016) Sleep apnea Tobacco abuse disorder Surgical History History of section History of cholecystectomy History of intestinal surgery History of partial hysterectomy S/P tonsillectomy Family & Social History Family History Mother Cancer Father Heart disease Kidney disease Social History: household members spouse, 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 Safety & Behavioral: Feels Safe in Current Yes Environment Been Physically Hurt or No Threatened By a Person Tobacco & Substance use: Tobacco type e-cigarettes Smoking Status Current every day smoker alcohol intake never alcohol intake frequency 0-2 drinks per day Substance Use Type marijuana daily Meds Home Medications and Allergies Home Medications Medication Instructions Recorded Confirmed Type albuterol sulfate 90 mcg/actuation 2 puff INHALATION Q4-6H PRN #8.5 11/23/18 12/05/20 Rx aerosol inhaler (Ventolin HFA) gram miscellaneous medical supply 1 each MISC BID #1 each 06/29/19 12/05/20 Rx (Blood Pressure Cuff) cholecalciferol (vitamin D3) 10 10 mcg PO DAILY 02/14/20 12/05/20 History mcg (400 unit) capsule multivitamin,[id number] 1 tab PO DAILY 02/14/20 12/05/20 History (Complete Multivitamin) vedolizumab 300 mg intravenous 300 mg IV Q6W ea 04/11/20 12/05/20 History solution (Entyvio) levothyroxine 125 mcg tablet 125 mcg PO DAILY #90 tab 09/17/20 12/05/20 Rx aripiprazole 15 mg tablet 15 mg PO BEDTIME #90 tab 09/19/20 12/05/20 Rx buspirone 10 mg tablet 10 mg PO BID #60 tab 09/19/20 12/05/20 Rx estradiol 1 appful VAGINAL DAILY #42.5 g 09/19/20 12/05/20 Rx trazodone 50 mg tablet 50 mg PO BEDTIME PRN #90 tab 09/19/20 12/05/20 Rx ondansetron 4 mg disintegrating See Rx Instructions .ROUTE 11/21/20 12/05/20 Rx tablet .COMPLEX #60 tab levothyroxine 25 mcg tablet 25 mcg PO DAILY 12/05/20 12/05/20 History lidocaine HCl 2 % mucosal solution 15 ml MUCOUS MEMBRANE PRN PRN 12/05/20 12/05/20 History lisinopril 5 mg tablet 10 mg PO DAILY 12/05/20 12/05/20 History Allergies Allergy/AdvReac Type Severity Reaction Status Date / Time Penicillins Allergy Intermediate Rash Verified 11/16/20 07:39 Sulfa (Sulfonamide Allergy Intermediate Hives Verified 11/16/20 07:39 Antibiotics) adalimumab [From Humira] AdvReac Intermediate pneumonia Verified 11/16/20 07:39 quetiapine [From Seroquel] AdvReac Intermediate Verified 11/16/20 07:39 Review of Systems Review of Systems Narrative: All 12 point systems reviewed with the patient and are negative except otherwise documented. Exam Vital Signs (past 8 hours): - 12/04/20 22:25 12/04/20 22:27 12/04/20 22:30 Temperature Pulse Rate 122 H 118 H 118 H Respiratory Rate 30 H 25 H 21 Blood Pressure 169/78 H 169/78 H Pulse Oximetry 97 95 95 12/04/20 23:00 12/04/20 23:46 12/04/20 23:47 Temperature Pulse Rate 124 H 101 H 98 H Respiratory Rate 29 H 30 H 22 Blood Pressure 142/60 H 159/72 H Pulse Oximetry 98 98 12/05/20 00:00 12/05/20 01:52 Temperature 97.8 F Pulse Rate 92 H 90 Respiratory Rate 18 19 Blood Pressure 142/60 H 141/79 H Pulse Oximetry 93 94 Narrative Exam Narrative: General: Patient is a well-developed, well-nourished female in no distress at this time. HEENT: Normocephalic, atraumatic, extraocular muscles intact, oral pharynx is clear and mucous membranes are dry. Neck is supple and symmetric, trachea is midline, no adenopathy, no thyroid enlargement, nontender, no masses palpated. Negative for JVD Chest: Normal AP diameter and contour without kyphoscoliosis, no nasal flaring, retractions, or tachypneic labored breathing. Lungs: Auscultation of all lung montero, mildly decreased bilaterally, coarse, frequent extra [place] wheezing on the right upper lower lobes, poor air exchange throughout. Cardio: regular rate and rhythm without murmur, rubs, or gallops, no carotid bruit, no cardiac pulsations present. Abdomen: Bowel sounds are present in all 4 quadrants, soft mild tenderness on the right upper & lower quadrants, palpation on the left creates right-sided abdominal pain, no rigidity, or fluctuation noted. positive right sided CVA tenderness. Musculoskeletal: Muscle strength and tone are equal within normal limits, no deformity, crepitus, effusions, cyanosis, clubbing or edema present. Full range of motion intact radial and pedal pulses are normal. Skin: Warm dry and intact without rashes, ulcerations or petechiae. Neuro: Alert and orientated x3, strength is +5/5 in all extremities, sensation to touch intact, no gross deficits noted of cranial nerves. Psych: Patient has a well-kept appearance, appropriate affect, mental status attitude thought context and judgment are appropriate for age. Objective Labs Result Diagrams: 12/04/20 22:40 12/04/20 22:40 Labs: Laboratory Results - last 24 hr 12/04/20 12/04/20 12/04/20 22:40 22:40 22:55 WBC 11.5 H RBC 4.48 Hgb 13.4 Hct 40.2 MCV 89.7 MCH 29.9 MCHC 33.3 RDW 13.6 Plt Count 409 H Neut % (Auto) 81.6 H Lymph % (Auto) 12.3 L [place] % (Auto) 3.9 Eos % (Auto) 1.8 L Baso % (Auto) 0.4 Neut # (Auto) 9400 H Lymph # (Auto) 1400 [place] # (Auto) 500 Eos # (Auto) 200 Baso # (Auto) 0 Sodium 141 Potassium 3.5 Chloride 100 Carbon Dioxide 30 BUN 19 H Creatinine 1.29 H Estimated GFR 42.0 L BUN/Creatinine Ratio 14.7 Glucose 155 H Calcium 10.3 H Magnesium 1.7 Total Bilirubin 0.7 AST 40 H ALT 39 H Alkaline Phosphatase 162 H Total Protein 7.8 Albumin 4.5 Globulin 3.3 Albumin/Globulin Ratio 1.4 Lipase 62 Urine RBC Urine WBC Ur Squamous Epith Cells Ur Renal Epithelial Cell Amorphous Sediment Urine Bacteria Ur Culture Indicated? SARS-CoV-2 (PCR) 12/04/20 12/05/20 23:30 00:54 WBC RBC Hgb Hct MCV MCH MCHC RDW Plt Count Neut % (Auto) Lymph % (Auto) [place] % (Auto) Eos % (Auto) Baso % (Auto) Neut # (Auto) Lymph # (Auto) [place] # (Auto) Eos # (Auto) Baso # (Auto) Sodium Potassium Chloride Carbon Dioxide BUN Creatinine Estimated GFR BUN/Creatinine Ratio Glucose Calcium Magnesium Total Bilirubin AST ALT Alkaline Phosphatase Total Protein Albumin Globulin Albumin/Globulin Ratio Lipase Urine RBC 0-1/hpf Urine WBC 5-10/hpf H Ur Squamous Epith Cells 0-1 /hpf Ur Renal Epithelial Cell 0-1/hpf Amorphous Sediment 2+ Urine Bacteria None seen Ur Culture Indicated? Specimen cultured SARS-CoV-2 (PCR) Negative Assessment & Plan Assessment & Plan narrative: Louann Diaz is a 60-year-old female with a past medical history significant for hypertension, Crohn's disease on Vedolizumab, bipolar disorder, ADHD, PTSDdepression, anxiety, COPD, and tobacco dependence currently smoking cigarettes and vaping who presented to the ED with acute onset nausea, vomiting, and abdominal pain. Patient admitted for acute intractable nausea and vomiting with dehydration and right-sided abdominal pain likely secondary to SBO. 1. Acute intractable nausea and vomiting with dehydration and right sided abdominal pain, acute , present on admission. -Suspect SBO ? -WBC 11.5, neutrophils 9400, platelets 409, Urine was cultured in ED. -Abdomen/pelvis CT demonstrated fluid distension and air-fluid levels throughout the small bowel to the level of anastomotic sutures between the distal ileum and right colon which appears narrowed. -Patient has a hx of SBO 08/2019 -Differential diagnosis includes:? SBO vs Crohn's flare versus viral gastroenteritis versus vaping. -Continue antiemetics with ondansetron 4 mg every 6 hours as needed for nausea and vomiting. -Continued NS@60cc/hr until adequately hydrated. -patient started on Zosyn for intra-abdominal infection high risk due to immunocompromised due to medication/Crohn's disease. Patient does have a documented intermediate allergy to penicillin resulting in a rash will monitor patient for tolerability. -NPO -until evaluated by Dr. Foley tomorrow, except Sips w/meds -Consult for Dr. Foley placed. -Nausea & vomiting currently resolved, no NG tube needed at this time. 2. Acute kidney injury, secondary to nausea and vomiting with dehydration,acute, present on admission.? -BUN of 19 and creatinine of 1.29 (baseline 0.77), glucose 155, GFR 42 (baseline >60) -Avoid nephrotoxic agents.? Held lisinopril and gabapentin due to KRISTI. -Continue NS@60 mL/hr until adequately hydrated. -Continue to monitor renal function daily. 3. Diagnosis of hepatitis a and hepatitis-B without active infection, acute, present on admission -AST 40, ALT 39, alk-phos 162. 4. Crohn's disease, possibly acute on chronic, present on admission.? -Patient receives Vedolizumab 300 mgIV every 6 weeks with last infusion 5 wks ago. 5. Hypertension essential, chronic, present on admission.? Stable. -Held lisinopril due to KRISTI as above.? 6. Bipolar disorder, ADHD, PTSD, depression, and anxiety, chronic, present on admission.? -Continue home aripiprazole 15mg QD BuSpar 10 mg p.o. b.i.d. Trazodone 50 mg p.o. q.h.s. Methylphenidate ER 20 mg p.o. q.day Methylphenidate IR 10 mg in the afternoon q.day Patient on controlled substance contract with Dr. dillon psychiatry 7. Hypothyroidism, acquired, chronic, present on admission.? -Ordered TSH with reflex, pending. -Continue home levothyroxine 125 mcg + 25mcg daily. 8. Insomnia, chronic, present on admission.? Stable. -Continue home trazodone 50 mg daily at bedtime. 9. COPD, chronic, present on admission.? -Does not represent COPD exacerbation. -Continue home albuterol inhaler 2 puffs every 4-6 hours as needed for shortness of breath and montelukast 10 mg daily at bedtime. Code status:Full Surrogate decision maker: Tiago Emily (spouse) COVID PCR:Negative COVID vaccination: Patient refused COVID vaccination even in the setting of immunocompromise, due to episcopal or personal beliefs. DVT/VTE prophylaxis:SCD's only -may require surgical intervention Disposition: Patient admitted for intractable nausea and vomiting and right quadrant abdominal pain likely SBO estimated length of stay expected to be greater than 2 midnights. I have utilized all available immediate resources to obtain, update, or review the patient's current medications. I confirmed that the patient's advanced care plan is present, Code status is documented and/or surrogate decision maker is listed in the patient's medical record. Time Spent With Patient Critical Care time: I spent a total of [] minutes of critical care time on this patient's care today; this time is exclusive of procedural time.
[2020-12-05] MEDS: SODIUM CHLORIDE 0.9% 1,000 ML 60 ML IV ×2 (02:36→20:16)
[2020-12-05] MEDS: PIPERACILLIN/TAZO 4.5 GM in SODIUM CHLORIDE 0.9% 100 ML 200 ML IV (02:36)
[2020-12-05 02:37] LABS: Lactate (Lactic Acid) 1.1 mmol/L (0.7-2.1)
--- NOTE | 2020-12-05 05:49 | PC.NURSE ---
Late Note: Patient arrived from the ED via stretcher at 0145 with her Tiago. Patient is A/O with mild pain, Nausea and small emesis. Patient was oriented to call light, room, and fall precautions. Call light and belongs were left within reach. Bed was in lowest, locked position. Home medications were reviewed and patients belongs placed on couch in room. Patient stated she had a BM before leaving the ED.
[2020-12-05] MEDS: PIPERACILLIN/TAZO 3.375 GM in SODIUM CHLORIDE 0.9% 100 ML 25 ML IV ×3 (05:58→22:17)
[2020-12-05 06:51] LABS: Prothrombin Time 11.3 SECONDS (10.1-12.7)
[2020-12-05 06:53] LABS: PTT Partial Thromboplastin Tim 30 SECONDS (26.4-36.2)
[2020-12-05 06:54] LABS: Alanine Aminotransferase 31 IU/L (<35); Albumin 3.6 g/dL (3.5-5.0); Albumin Globulin Ratio 1.4 (1.0-2.8); Alkaline Phosphatase 102 U/L (38-126); Aspartate Aminotransferase 31 IU/L (14-36); BUN Creatinine Ratio 18.4 (6-22); Bilirubin Total 0.9 mg/dL (0.2-1.3); Blood Urea Nitrogen 18 mg/dL (7-17); Calcium 8.7 mg/dL (8.4-10.2); Carbon Dioxide 27 mmol/L (22-32); Chloride 105 mmol/L (98-107); Estimated Glomerular Filt Rate 57.7 mL/min (>60); Globulin 2.6 g/dL (1.7-4.1); Glucose 124 mg/dL (80-110); HEMOLYSIS < 15 (0-50); Potassium 4.1 mmol/L (3.4-5.1); Sodium 140 mmol/L (137-145); Total Protein 6.2 g/dL (6.3-8.2)
[2020-12-05 07:03] LABS: NT-proBNP (BNP-Adult 18+) 635 pg/mL (<125)
[2020-12-05 07:10] LABS: Procalcitonin 1.78 ng/mL (<0.5)
[2020-12-05 09:37] LABS: Add Manual Diff / Slide Review NO; Basophils Absolute Auto 0 /uL (0-100); Basophils Percent Auto 0.4 % (0-2); Eosinophils Absolute Auto 0 /uL (0-450); Eosinophils Percent Auto 0.9 % (2-4); Hemoglobin 13.4 g/dL (12.0-16.0); Lymphocytes Absolute Auto 700 /uL (1100-4500); Lymphocytes Percent Auto 15.8 % (25-40); Mean Corpuscular HGB Conc 33.6 % (30-36); Mean Corpuscular Hemoglobin 30.3 PG (26-34); Mean Corpuscular Volume 90.1 fL (80-100); Monocytes Absolute Auto 700 /uL (0-900); Monocytes Percent Auto 16.6 % (3-14); Neutrophils Absolute Auto 2800 /uL (1500-7000); Neutrophils Percent Auto 66.3 % (50-75); Platelet Count 233 X10^3/uL (150-400); Red Blood Cell Count 4.44 X10^6/uL (4.0-5.2); Red Cell Distribution Width 13.9 % (11.6-14.8); White Blood Cell Count 4.2 X10^3/uL (4.5-11.0)
--- NOTE | 2020-12-05 11:07 | CM.DANOTE ---
DCP: Case received, EMR reviewed and met with patient. Introduces self and role. Was able to obtain information regarding patient's baseline activity status prior to hospitalization, as well as her current living situation. DCP assessment completed with information currently available. Patient is a 60 year old female who admitted early this morning to the care of the hospitalist team. PCP: MAXIMILIAN Doyle. Payer: confirmed: Medicare/. Patient came to the hospital via family vehicle secondary to having abdominal discomfort. Patient was diagnosed with small bowel obstruction. Patient has history of Chrohn's Disease, and gets infusions every 6 weeks. Met with patient in her room. She is alert and oriented. She resides in [place] with her spouse, Tiago. She is independent at her baseline. P: DCP to continue to follow. Patient should be able to go home when she is medically stable. Na Ribeiro RN/Sports Management Intern Discharge Planning/Care Management Advanced directive, confirm from FAMILY Start: 12/05/20 02:19 Freq: Q24H Status: Active Protocol: Document 12/05/20 02:19 MARIZA (Rec: 12/05/20 02:51 MARIZA [id number]) Advance Directive, confirm on record Time 02:30 Person contacted Patient and spouse Copy received No CM Discharge Assessment Start: 12/05/20 11:05 Freq: Status: Active Protocol: Document 12/05/20 11:05 (Rec: 12/05/20 11:06 [id number]) Discharge Planning Assessment Assigned Manufacturing Engineer Machining Na Ribeiro RN/Sports Management Intern Advance Directives? No Advance Directives on File No History Provided By Patient,Family Member, Significant Other,Medical Record Prior Living Arrangements House Household Members spouse Type of transporation used prior to Drives own vehicle admit Independent with ADL's Yes Is patient alert and oriented? Yes Barriers to Discharge No Discharge Plan Home Transportation Arrangement Spouse Referrals Initiated None needed Whiteboard Updated in Patient Room with Yes name and ext. # of Manufacturing Engineer Machining Review Status In Process Next Review Type Continued Stay Review
--- NOTE | 2020-12-05 11:24 | PC.NURSE ---
Addendum entered by Odessa Early R.N. 12/05/20 15:20: Patient given 4mg of iv morphine around 1345. This has been helpful for her r.sided abdominal pain. She tolerated a full liquid diet and denied nausea. Patient sitting up in her chair now and waiting for to see her. Original Note: Patient complained of r.side abdominal pain, given 4mg of iv morphine and helpful. She is waiting to see . Denies nausea at this time and tolerating her ivf well
--- NOTE | 2020-12-05 11:36 | P.CONS_ITS ---
History of Present Illness Consult details Date Patient Seen: 12/05/20 Time Patient Seen: 11:36 Chief complaint: Crohn's/Poss Blockage Reason for consult: SBO Requesting provider: Erica Escobedo Narrative: Patient presented to ED with recurrent SBO. She has h/o Crohn's an is on biologic medications. Has had stable GI provider. Had no flautus and increasing abdominal pain worse in the RLQ. Usually resolves spontaneously. CT scan shows dilated SB with transition at ilieocolic anastamosis where she has had issues before. Started having BM last night and again this moring. Feels better. Meds Home Medications and Allergies Home Medications Medication Instructions Recorded Confirmed Type albuterol sulfate 90 mcg/actuation 2 puff INHALATION Q4-6H PRN #8.5 11/23/18 12/05/20 Rx aerosol inhaler (Ventolin HFA) gram miscellaneous medical supply 1 each MISC BID #1 each 06/29/19 12/05/20 Rx (Blood Pressure Cuff) cholecalciferol (vitamin D3) 10 10 mcg PO DAILY 02/14/20 12/05/20 History mcg (400 unit) capsule multivitamin,[id number] 1 tab PO DAILY 02/14/20 12/05/20 History (Complete Multivitamin) vedolizumab 300 mg intravenous 300 mg IV Q6W ea 04/11/20 12/05/20 History solution (Entyvio) levothyroxine 125 mcg tablet 125 mcg PO DAILY #90 tab 09/17/20 12/05/20 Rx aripiprazole 15 mg tablet 15 mg PO BEDTIME #90 tab 09/19/20 12/05/20 Rx buspirone 10 mg tablet 10 mg PO BID #60 tab 09/19/20 12/05/20 Rx estradiol 1 appful VAGINAL DAILY #42.5 g 09/19/20 12/05/20 Rx trazodone 50 mg tablet 50 mg PO BEDTIME PRN #90 tab 09/19/20 12/05/20 Rx ondansetron 4 mg disintegrating See Rx Instructions .ROUTE 11/21/20 12/05/20 Rx tablet .COMPLEX #60 tab levothyroxine 25 mcg tablet 25 mcg PO DAILY 12/05/20 12/05/20 History lidocaine HCl 2 % mucosal solution 15 ml MUCOUS MEMBRANE PRN PRN 12/05/20 12/05/20 History lisinopril 5 mg tablet 10 mg PO DAILY 12/05/20 12/05/20 History Allergies Allergy/AdvReac Type Severity Reaction Status Date / Time Penicillins Allergy Intermediate Rash Verified 12/05/20 10:56 Sulfa (Sulfonamide Allergy Intermediate Hives Verified 11/16/20 07:39 Antibiotics) adalimumab [From Humira] AdvReac Intermediate pneumonia Verified 11/16/20 07:39 quetiapine [From Seroquel] AdvReac Intermediate Verified 11/16/20 07:39 Review of Systems Review of Systems ROS: Yes All systems reviewed with the patient and are negative except as otherwise documented Exam Vital Signs (past 8 hours): - 12/05/20 04:09 12/05/20 05:30 12/05/20 08:00 Temperature 98.2 F 98.6 F Pulse Rate 75 77 Respiratory Rate 19 18 Blood Pressure 114/73 105/68 Pulse Oximetry 96 96 97 12/05/20 08:55 Temperature Pulse Rate Respiratory Rate Blood Pressure Pulse Oximetry 93 Oxygen Delivery Method Room Air Oxygen Flow Rate 0 Const General: cooperative, anxious and disheveled Nutritional Appearance: average body habitus [facility] Head: normocephalic and atraumatic Ears: hearing grossly normal bilaterally Eyes General: appearance normal, both eyes and all related structures Sclera: sclerae normal Neck Neck: trachea midline Resp Effort & Inspection: normal respiratory effort and able to speak in complete sentences Cardio Rate: regular rate Rhythm: regular rhythm GI Inspection: normal to inspection Palpation: soft Other: residual RLQ tenderness no acute abdomin Skin General: no rashes or lesions noted and turgor normal Neuro General: patient alert and patient awake Cognition: normal cognition Extrem General: full ROM Psych Appearance: grossly normal Judgment: judgment good Objective Labs Result Diagrams: 12/05/20 08:27 12/05/20 06:34 Labs: Laboratory Results - last 24 hr 12/04/20 12/04/20 12/04/20 22:40 22:40 22:55 WBC 11.5 H RBC 4.48 Hgb 13.4 Hct 40.2 MCV 89.7 MCH 29.9 MCHC 33.3 RDW 13.6 Plt Count 409 H Neut % (Auto) 81.6 H Lymph % (Auto) 12.3 L [place] % (Auto) 3.9 Eos % (Auto) 1.8 L Baso % (Auto) 0.4 Neut # (Auto) 9400 H Lymph # (Auto) 1400 [place] # (Auto) 500 Eos # (Auto) 200 Baso # (Auto) 0 PT INR APTT Sodium 141 Potassium 3.5 Chloride 100 Carbon Dioxide 30 BUN 19 H Creatinine 1.29 H Estimated GFR 42.0 L BUN/Creatinine Ratio 14.7 Glucose 155 H Lactate Calcium 10.3 H Magnesium 1.7 Total Bilirubin 0.7 AST 40 H ALT 39 H Alkaline Phosphatase 162 H NT-Pro-B Natriuret Pep Total Protein 7.8 Albumin 4.5 Globulin 3.3 Albumin/Globulin Ratio 1.4 Lipase 62 Procalcitonin Urine RBC Urine WBC Ur Squamous Epith Cells Ur Renal Epithelial Cell Amorphous Sediment Urine Bacteria Ur Culture Indicated? SARS-CoV-2 (PCR) 12/04/20 12/05/20 12/05/20 23:30 00:54 02:10 WBC RBC Hgb Hct MCV MCH MCHC RDW Plt Count Neut % (Auto) Lymph % (Auto) [place] % (Auto) Eos % (Auto) Baso % (Auto) Neut # (Auto) Lymph # (Auto) [place] # (Auto) Eos # (Auto) Baso # (Auto) PT INR APTT Sodium Potassium Chloride Carbon Dioxide BUN Creatinine Estimated GFR BUN/Creatinine Ratio Glucose Lactate 1.1 Calcium Magnesium Total Bilirubin AST ALT Alkaline Phosphatase NT-Pro-B Natriuret Pep Total Protein Albumin Globulin Albumin/Globulin Ratio Lipase Procalcitonin Urine RBC 0-1/hpf Urine WBC 5-10/hpf H Ur Squamous Epith Cells 0-1 /hpf Ur Renal Epithelial Cell 0-1/hpf Amorphous Sediment 2+ Urine Bacteria None seen Ur Culture Indicated? Specimen cultured SARS-CoV-2 (PCR) Negative 12/05/20 12/05/20 12/05/20 06:34 06:34 08:27 WBC 4.2 L D RBC 4.44 Hgb 13.4 Hct 40.0 MCV 90.1 MCH 30.3 MCHC 33.6 RDW 13.9 Plt Count 233 Neut % (Auto) 66.3 Lymph % (Auto) 15.8 L [place] % (Auto) 16.6 H Eos % (Auto) 0.9 L Baso % (Auto) 0.4 Neut # (Auto) 2800 Lymph # (Auto) 700 L [place] # (Auto) 700 Eos # (Auto) 0 Baso # (Auto) 0 PT 11.3 INR 1.0 APTT 30 Sodium 140 Potassium 4.1 Chloride 105 Carbon Dioxide 27 BUN 18 H Creatinine 0.98 Estimated GFR 57.7 L BUN/Creatinine Ratio 18.4 Glucose 124 H Lactate Calcium 8.7 Magnesium Total Bilirubin 0.9 AST 31 ALT 31 Alkaline Phosphatase 102 D NT-Pro-B Natriuret Pep 635 H Total Protein 6.2 L Albumin 3.6 Globulin 2.6 Albumin/Globulin Ratio 1.4 Lipase Procalcitonin 1.78 H Urine RBC Urine WBC Ur Squamous Epith Cells Ur Renal Epithelial Cell Amorphous Sediment Urine Bacteria Ur Culture Indicated? SARS-CoV-2 (PCR) [facility] Medical History Abnormal chest xray Acute renal insufficiency ADHD Anemia (~2016) Ankle pain (~2017) Anxiety Asthma Attention deficit disorder Bipolar disease, chronic (~1998) Bipolar disorder in partial remission Bronchospasm Cataracts, bilateral Cataracts, bilateral (~2018) Chicken pox Chronic back pain (~2003) Chronic cough Chronic pain Chronic post-traumatic stress disorder (PTSD) COPD (chronic obstructive pulmonary disease) Cough COVID-19 vaccine series declined Crohn's disease (~2009) Decreased GFR Depressed bipolar affective disorder Depression (~1988) Eczema Eczema Elevated liver enzymes Encounter for tobacco use cessation counseling Foot pain (~2018) Foot pain, left Headache Hemorrhoid (~1979) Hepatitis A test positive Hepatitis B surface antigen positive History of emphysema (~2017) Hypercalcemia Hypothyroidism (~1989) Insomnia Kidney disease Kidney disease (~1974) Left foot pain Lower extremity pain, posterior Marijuana use Migraines MRSA (methicillin resistant Staphylococcus aureus) (~2004) Nausea & vomiting Osteopenia of multiple sites Osteoporosis (~2016) Post traumatic stress disorder (PTSD) Restless leg syndrome Restless legs syndrome SBO (small bowel obstruction) Seizure Skin cancer, basal cell (~2016) Sleep apnea Tobacco abuse disorder Surgical History History of section History of cholecystectomy History of intestinal surgery History of partial hysterectomy S/P tonsillectomy Family History Mother Cancer Father Heart disease Kidney disease Social History household members: spouse Tobacco & Substance Use Smoking Status: Current every day smoker alcohol intake: never Assessment & Plan Assessment & Plan narrative: Recurrent SBO associated with RLQ anastomotic site. H/o Crohn's. SBO is resolving with hydration Plan: advance diet as tolerated, ok to discharge today COVID-19 COVID-19 status: Negative Time Spent With Patient Critical Care time: I spent a total of [] minutes of critical care time on this patient's care today; this time is exclusive of procedural time.
[2020-12-05] MEDS: KETOROLAC 30 MG/ML VIAL IV (15:49)
[2020-12-05] MEDS: HYDROMORPHONE 0.5 MG INJ IV ×2 (16:50→23:38)
[2020-12-05] MEDS: TRAZODONE 50 MG TABLET PO (23:42)
[2020-12-05] MEDS: ARIPiprazole 10 MG TABLET 15 MG PO (23:43)
[2020-12-05] MEDS: BUSPIRONE 5 MG TABLET 10 MG PO (23:44)
[2020-12-06] VITALS (7 sets, daily range): BP systolic 102–129; BP diastolic 45–72; PULSE 65–68; RESP 16–18; TEMP 36.3–36.6; O2SAT 95–99
--- NOTE | 2020-12-06 00:40 | PC.NURSE ---
Addendum entered by Farzana Roach R.N. 12/06/20 05:52: Pt resting at intervals IVF continue as per orders w/o incidence. Med mid-shift w/MS for discomfort w/good relief. Relatively uneventful noc, Condition remains essentially unchanged. Call light w/in reach, bed alarm on for pt safety. Continue w/plan of care. Original Note: Pt SpO2 96%, C/O abdominal discomfort, Med w/Dilaudid as per orders Also requesting trazodone for sleep NS infusing @ 60cc/hr via pump into left hand w/o incidence. Call light w/in reach, Bed alarm on for pt safety.
[2020-12-06] MEDS: MORPHINE 4 MG/ML INJ IV (02:59)
[2020-12-06] MEDS: PIPERACILLIN/TAZO 3.375 GM in SODIUM CHLORIDE 0.9% 100 ML 25 ML IV (04:56)
[2020-12-06] MEDS: LEVOTHYROXINE 25 MCG TABLET PO (05:12)
[2020-12-06] MEDS: LEVOTHYROXINE 125 MCG TABLET PO (05:12)
[2020-12-06 06:07] LABS: Add Manual Diff / Slide Review NO; Basophils Absolute Auto 0 /uL (0-100); Basophils Percent Auto 0.4 % (0-2); Eosinophils Absolute Auto 300 /uL (0-450); Eosinophils Percent Auto 7.1 % (2-4); Hematocrit 28.5 % (36-46); Hemoglobin 9.5 g/dL (12.0-16.0); Lymphocytes Absolute Auto 1200 /uL (1100-4500); Mean Corpuscular HGB Conc 33.3 % (30-36); Mean Corpuscular Hemoglobin 30.4 PG (26-34); Mean Corpuscular Volume 91.2 fL (80-100); Monocytes Absolute Auto 500 /uL (0-900); Monocytes Percent Auto 11.9 % (3-14); Neutrophils Absolute Auto 2300 /uL (1500-7000); Neutrophils Percent Auto 52.6 % (50-75); Platelet Count 252 X10^3/uL (150-400); Red Blood Cell Count 3.12 X10^6/uL (4.0-5.2); Red Cell Distribution Width 13.5 % (11.6-14.8); White Blood Cell Count 4.4 X10^3/uL (4.5-11.0)
[2020-12-06 06:11] LABS: Alanine Aminotransferase 26 IU/L (<35); Albumin 3.3 g/dL (3.5-5.0); Albumin Globulin Ratio 1.2 (1.0-2.8); Alkaline Phosphatase 84 U/L (38-126); Aspartate Aminotransferase 26 IU/L (14-36); Bilirubin Total 0.9 mg/dL (0.2-1.3); Blood Urea Nitrogen 15 mg/dL (7-17); Calcium 9.5 mg/dL (8.4-10.2); Carbon Dioxide 24 mmol/L (22-32); Chloride 107 mmol/L (98-107); Estimated Glomerular Filt Rate 56.4 mL/min (>60); Globulin 2.7 g/dL (1.7-4.1); Glucose 97 mg/dL (80-110); HEMOLYSIS < 15 (0-50); Potassium 3.9 mmol/L (3.4-5.1); Sodium 137 mmol/L (137-145)
[2020-12-06] MEDS: HYDROMORPHONE 0.5 MG INJ IV (07:18)
--- NOTE | 2020-12-06 08:38 | PM.DS.1 ---
History of Present Illness History of Present Illness Date Patient Seen: 12/06/20 Chief complaint: Crohn's/Poss Blockage Narrative: Louann Diaz is a 60-year-old female with a past medical history significant for hypertension, Crohn's disease on Vedolizumab, bipolar disorder, ADHD, PTSD, depression, anxiety, COPD, and tobacco dependence currently smoking cigarettes & vaping who presented to the ED for approximately 12 hours of right-sided abdominal pain, nausea, and vomting.? She states that it was a fairly sudden onset earlier this afternoon.? Has had some nausea and vomiting.? No fevers, body aches, chills, chest pain, shortness of breath, urinary symptoms, and no change in bowel habits.? Patient denies melena or hematuria. She does feel these symptoms are very similar to her prior issues with Crohn's disease.? She also states that her abdomen is distended. Patients last BM was earlier in the ED, liquid which is normal for her,denies constipation, melena.? appetite has been decreased due to nausea.? Patient denies any recent changes to her medication, chest pain, SOB, PRINCE, change in vision, weakness, cough, respiratory symptoms, recent injury or trauma. Initially WBC 11.5, with left shift neutrophils 9400, platelets 409, KRISTI with a BUN of 19 and creatinine of 1.29 (baseline 0.77), glucose 155, GFR 42 (baseline >60).? Patient had a recent diagnosis of hepatitis a and hepatitis-B without active infection AST 40, ALT 39, alk-phos 162.? Urine was cultured in ED. patient's abdomen/pelvis CT demonstrated fluid distension and air-fluid levels throughout the small bowel to the level of anastomotic sutures between the distal ileum and right colon which appears narrowed.? Dr. Foley was consulted in the ED, requested patient be admitted under Internal Medicine hospitalist, and she will graciously consult tomorrow.? Patient admitted for intractable nausea and vomiting and right sided abdominal pain likely secondary to SBO. Discharge Providers Provider Date of admission: 12/05/20 00:57 Discharge Date: 12/06/20 Primary care physician: MAXIMILIAN Doyle Consults: 12/05/20 00:27 Consult to General Surgery Stat Comment: Consulting Provider: Shani Foley Reason for consultation: SBO Has provider been notified: Yes 12/05/20 01:41 Consult to Physician Routine Comment: Consulting Provider: Shani Foley Reason for consultation: SBO Has provider been notified: Yes 12/05/20 03:05 Consult to Respiratory Therapy Evaluate & Treat Comment: Physician Instructions: Evaluate and treat Discharge provider: Erica Escobedo MD Summary Hospital Course Discharge Diagnosis: 1. Small Bowel Obstruction 2. Crohn's Disease 3. Acute Renal Insufficiency 4. Bipolar affective disorder 5. COPD 5.Depression Hospital Course: Patient was admitted to the hospital for evaluation of abdominal pain. Patient underwent a CT scan of the abdomen. This revealed a small-bowel obstruction with a transition at the ileocolic anastomoses. The patient ultimately was able to start having bowel movements again. Her diet was slowly advanced which she tolerated without difficulty. She had no nausea or vomiting. She continues to have diarrhea which is chronic. She did report some right-sided abdominal pain. This was persistent. As she continued to have bowel movements, and was able to tolerate her diet. The patient was deemed appropriate for discharge. She was given some medication for her right-sided abdominal pain. Overall the patient was significantly improved and deemed appropriate for discharge home. She will follow-up with her primary care provider, Liat hernandez for further evaluation. Patient's diet was advanced which she tolerated. And was discharged home Status at Discharge Cognitive/behavioral status at discharge: oriented Functional status at discharge: independent ambulation Overall status at discharge: patient is progressing back to baseline Exam Vital Signs (past 8 hours): - 12/06/20 01:00 12/06/20 03:50 12/06/20 05:00 Temperature 97.9 F Pulse Rate 68 Respiratory Rate 18 Blood Pressure 102/45 L Pulse Oximetry 95 99 96 12/06/20 08:00 Temperature 97.3 F L Pulse Rate 67 Respiratory Rate 16 Blood Pressure 129/72 Pulse Oximetry 96 Oxygen Delivery Method Room Air Oxygen Flow Rate 0 Narrative Exam Narrative: Pleasant female in no obvious distress Resp Other: Lungs decreased breath sounds with end-expiratory wheezing Cardio Other: Cardiac exam: Regular rate and rhythm normal S1-S2 GI Other: Abdomen: Soft, mildly tender in the right side, no rebound tenderness, no board-like rigidity, no palpable mass Extrem Other: No edema Objective Labs Result Diagrams: 12/06/20 05:40 12/06/20 05:40 Labs: Laboratory Results - last 24 hr 12/05/20 12/06/20 12/06/20 08:27 05:40 05:40 WBC 4.2 L D 4.4 L RBC 4.44 3.12 L Hgb 13.4 9.5 L Hct 40.0 28.5 L MCV 90.1 91.2 MCH 30.3 30.4 MCHC 33.6 33.3 RDW 13.9 13.5 Plt Count 233 252 Neut % (Auto) 66.3 52.6 Lymph % (Auto) 15.[address] [place] % (Auto) 16.6 H 11.9 Eos % (Auto) 0.9 L 7.1 H Baso % (Auto) 0.4 0.4 Neut # (Auto) 2800 2300 Lymph # (Auto) [address] # (Auto) 700 500 Eos # (Auto) 0 300 Baso # (Auto) 0 0 Sodium 137 Potassium 3.9 Chloride 107 Carbon Dioxide 24 BUN 15 Creatinine 1.00 Estimated GFR 56.4 L BUN/Creatinine Ratio 15.0 Glucose 97 Calcium 9.5 Total Bilirubin 0.9 AST 26 ALT 26 Alkaline Phosphatase 84 Total Protein 6.0 L Albumin 3.3 L Globulin 2.7 Albumin/Globulin Ratio 1.2 [facility] Medical History Abnormal chest xray Acute renal insufficiency ADHD Anemia (~2016) Ankle pain (~2017) Anxiety Asthma Attention deficit disorder Bipolar disease, chronic (~1998) Bipolar disorder in partial remission Bronchospasm Cataracts, bilateral Cataracts, bilateral (~2018) Chicken pox Chronic back pain (~2003) Chronic cough Chronic pain Chronic post-traumatic stress disorder (PTSD) COPD (chronic obstructive pulmonary disease) Cough COVID-19 vaccine series declined Crohn's disease (~2009) Decreased GFR Depressed bipolar affective disorder Depression (~1988) Eczema Eczema Elevated liver enzymes Encounter for tobacco use cessation counseling Foot pain (~2018) Foot pain, left Headache Hemorrhoid (~1979) Hepatitis A test positive Hepatitis B surface antigen positive History of emphysema (~2017) Hypercalcemia Hypothyroidism (~1989) Insomnia Kidney disease Kidney disease (~1974) Left foot pain Lower extremity pain, posterior Marijuana use Migraines MRSA (methicillin resistant Staphylococcus aureus) (~2004) Nausea & vomiting Osteopenia of multiple sites Osteoporosis (~2016) Post traumatic stress disorder (PTSD) Restless leg syndrome Restless legs syndrome SBO (small bowel obstruction) Seizure Skin cancer, basal cell (~2017) Sleep apnea Tobacco abuse disorder Surgical History History of section History of cholecystectomy History of intestinal surgery History of partial hysterectomy S/P tonsillectomy Family History Mother Cancer Father Heart disease Kidney disease Social History household members: spouse Smoking Status: Current every day smoker alcohol intake: never Discharge Assessment & Plan Assessment and Plan Assessment: 1. Small-bowel obstruction, present on admission, resolved 2. Crohn's disease, chronic 3. COPD 4. Bipolar affective disorder Plan of Treatment: Discharge home Follow-up with Liat hernandez next week Follow-up with gastroenterology as previously scheduled Discharge Plan Discharge Plan Patient Disposition: Home Discharge orders & Medications Prescriptions: New tramadol 50 mg tablet 50 mg PO Q6H PRN (Reason: pain) Qty: 20 RF: 0 Continued aripiprazole 15 mg tablet 15 mg PO BEDTIME Qty: 90 RF: 3 trazodone 50 mg tablet 50 mg PO BEDTIME PRN (Reason: insomnia) Qty: 90 RF: 3 buspirone 10 mg tablet 10 mg PO BID Qty: 60 RF: 3 cholecalciferol (vitamin D3) 10 mcg (400 unit) capsule 10 mcg PO DAILY RF: 0 Complete Multivitamin Tablet 1 tab PO DAILY RF: 0 levothyroxine 125 mcg tablet 125 mcg PO DAILY Qty: 90 RF: 0 ondansetron 4 mg tablet,disintegrating See Rx Instructions .ROUTE .COMPLEX Qty: 60 RF: 4 Entyvio 300 mg recon soln 300 mg IV Q6W RF: 0 albuterol sulfate [Ventolin HFA] 90 mcg/actuation HFA aerosol inhaler 2 puff INHALATION Q4-6H PRN (Reason: shortness of breath or wheezing) Qty: 8.5 RF: 6 Blood Pressure Cuff Misc 1 each MISC BID Qty: 1 RF: 0 estradiol 0.01 % (0.1 mg/gram) cream 1 appful vaginal DAILY Qty: 42.5 RF: 3 levothyroxine 25 mcg tablet 25 mcg PO DAILY RF: 0 lidocaine HCl 2 % solution 15 ml mucous membrane PRN PRN (Reason: pain) RF: 0 lisinopril 5 mg tablet 10 mg PO DAILY RF: 0 Follow up/Referrals: Liat Hernandez ARNP [Primary Care Provider] - Discharge Health Status Multidrug resistant organism: No MDRO Diet/Activity/Treatments Diet: Diet as Tolerated Skin/Wound/Dressing Care Report to your healthcare provider any signs of infection, such as:: chills, fever and increased pain Discharge Data Primary Care Provider: Liat Hernandez
[2020-12-06] MEDS: BUSPIRONE 5 MG TABLET 10 MG PO (09:25)
[2020-12-06] MEDS: lisinopriL 5 MG TABLET 10 MG PO (09:25)
[2020-12-06] MEDS: KETOROLAC 30 MG/ML VIAL IV (09:53)
--- NOTE | 2020-12-06 10:41 | PM.PN.1 ---
Subjective Subjective Date Patient Seen: 12/06/20 Time Patient Seen: 08:00 Interval history: Still right sided discomfort. Eating ok, BM's and gas. Exam Vital Signs (past 8 hours): - 12/06/20 03:50 12/06/20 05:00 12/06/20 08:00 Temperature 97.9 F 97.3 F L Pulse Rate 68 67 Respiratory Rate 18 16 Blood Pressure 102/45 L 129/72 Pulse Oximetry 99 96 96 Oxygen Delivery Method Room Air Oxygen Flow Rate 0 Narrative Exam Narrative: Abdomen is soft with hyper BS. Right sided tender to palpation in area corresponding to anastomotic site. No surgical abd. Objective Labs Result Diagrams: 12/06/20 05:40 12/06/20 05:40 Labs: Laboratory Results - last 24 hr 12/06/20 12/06/20 05:40 05:40 WBC 4.4 L RBC 3.12 L Hgb 9.5 L Hct 28.5 L MCV 91.2 MCH 30.4 MCHC 33.3 RDW 13.5 Plt Count 252 Neut % (Auto) 52.6 Lymph % (Auto) 28.0 [place] % (Auto) 11.9 Eos % (Auto) 7.1 H Baso % (Auto) 0.4 Neut # (Auto) 2300 Lymph # (Auto) 1200 [place] # (Auto) 500 Eos # (Auto) 300 Baso # (Auto) 0 Sodium 137 Potassium 3.9 Chloride 107 Carbon Dioxide 24 BUN 15 Creatinine 1.00 Estimated GFR 56.4 L BUN/Creatinine Ratio 15.0 Glucose 97 Calcium 9.5 Total Bilirubin 0.9 AST 26 ALT 26 Alkaline Phosphatase 84 Total Protein 6.0 L Albumin 3.3 L Globulin 2.7 Albumin/Globulin Ratio 1.2 [facility] Medical History Abnormal chest xray Acute renal insufficiency ADHD Anemia (~2016) Ankle pain (~2017) Anxiety Asthma Attention deficit disorder Bipolar disease, chronic (~1998) Bipolar disorder in partial remission Bronchospasm Cataracts, bilateral Cataracts, bilateral (~2018) Chicken pox Chronic back pain (~2003) Chronic cough Chronic pain Chronic post-traumatic stress disorder (PTSD) COPD (chronic obstructive pulmonary disease) Cough COVID-19 vaccine series declined Crohn's disease (~2009) Decreased GFR Depressed bipolar affective disorder Depression (~1988) Eczema Eczema Elevated liver enzymes Encounter for tobacco use cessation counseling Foot pain (~2018) Foot pain, left Headache Hemorrhoid (~1979) Hepatitis A test positive Hepatitis B surface antigen positive History of emphysema (~2017) Hypercalcemia Hypothyroidism (~1989) Insomnia Kidney disease Kidney disease (~1974) Left foot pain Lower extremity pain, posterior Marijuana use Migraines MRSA (methicillin resistant Staphylococcus aureus) (~2004) Nausea & vomiting Osteopenia of multiple sites Osteoporosis (~2016) Post traumatic stress disorder (PTSD) Restless leg syndrome Restless legs syndrome SBO (small bowel obstruction) Seizure Skin cancer, basal cell (~2016) Sleep apnea Tobacco abuse disorder Surgical History History of section History of cholecystectomy History of intestinal surgery History of partial hysterectomy S/P tonsillectomy Family History Mother Cancer Father Heart disease Kidney disease Social History household members: spouse Smoking Status: Current every day smoker alcohol intake: never Assessment & Plan Assessment & Plan narrative: SBO resolved. Right sided discomfort should resolve. Plan: ok to discharge home Time Spent With Patient Critical Care time: I spent a total of [] minutes of critical care time on this patient's care today; this time is exclusive of procedural time.
== END 2020-12-06 10:10 | disposition home or self-care (01) | DRG 389 ==
LOC: ED 12-05 00:29 → AC 12-05 00:58
PROVIDERS: Admitting Provider Nurse Practitioner Family; Emergency Provider Emergency Medicine; Family Provider Psychiatry & Neurology Psychiatry; PCP Nurse Practitioner; Referring Provider Emergency Medicine; Visit Provider Nurse Practitioner Family
DX: K56.609 Unspecified intestinal obstruction, unspecified as to partial versus complete obstruction (principal); K50.90 Crohn's disease, unspecified, without complications; B15.9 Hepatitis A without hepatic coma; B19.10 Unspecified viral hepatitis B without hepatic coma; N17.9 Acute kidney failure, unspecified; E86.0 Dehydration; F17.210 Nicotine dependence, cigarettes, uncomplicated; F41.9 Anxiety disorder, unspecified; F31.9 Bipolar disorder, unspecified; F90.9 Attention-deficit hyperactivity disorder, unspecified type; F43.10 Post-traumatic stress disorder, unspecified; E03.9 Hypothyroidism, unspecified; G47.00 Insomnia, unspecified; J44.9 Chronic obstructive pulmonary disease, unspecified; I10 Essential (primary) hypertension; Z20.822 Contact with and (suspected) exposure to COVID-19; Z12.31 Encounter for screening mammogram for malignant neoplasm of breast
CPT/HCPCS: 36415; 74177; 77063; 77067; 80053; 81003; 81015; 83605; 83690; 83735; 83880; 84145; 85025; 85610; 85730; 87040; 87086; 87635; 94760; 96361; 96365; 96366; 96374; 96375; 96376; 99224; 99225; 99284; C9803; G0378; J1170; J1885; J2270; J2405; J2543; Q9967

== ENCOUNTER → 2021-05-23 15:13 | Outpatient (CLI) | payer MEDICARE, OTHER, SELFPAY ==
[2021-05-07 12:50] VITALS: BMI 27.7
[2021-05-23 20:03] LABS: Occult Blood 1 Negative (Negative); Occult Blood 2 Negative (Negative); Occult Blood 3 Negative (Negative)
== END ==
PROVIDERS: Family Provider Psychiatry & Neurology Psychiatry; PCP Nurse Practitioner; Referring Provider Nurse Practitioner; Visit Provider Nurse Practitioner
DX: D64.9 Anemia, unspecified (principal)
CPT/HCPCS: 82270

== ENCOUNTER 2021-07-05 03:27 | Observation (INO) | payer MEDICARE, OTHER, SELFPAY ==
[2021-05-07 12:50] VITALS: BMI 27.7
[2021-07-05] VITALS (11 sets, daily range): BP systolic 95–159; BP diastolic 58–99; PULSE 82–124; RESP 13–18; TEMP 36.2–37; O2SAT 92–96; BMI 30.7; BMI 31.4
--- NOTE | 2021-07-05 03:49 | ED.GENADULT ---
HPI - General Adult General Chief complaint: Abdominal Pain Stated complaint: stomach pain Time Seen by Provider: 07/05/21 03:43 Source: patient Mode of arrival: Ambulatory Limitations: no limitations History of Present Illness HPI narrative: 61-year-old female. Has a history of Crohn's disease and has had bowel obstructions in the past to comes into the emergency department for evaluation of abdominal discomfort and nausea. It has been a couple days since she has had a bowel movement. States the symptoms started during dinner last evening. She feels like her symptoms been worsening since the onset. No fevers. No urinary symptoms. No chest pain. No shortness of breath. Related Data Home Medications Medication Instructions Recorded Confirmed cholecalciferol (vitamin D3) 10 10 mcg PO DAILY 02/14/20 05/28/21 mcg (400 unit) capsule multivitamin,[id number]-[id number] 1 tab PO DAILY 02/14/20 05/28/21 (Complete Multivitamin) vedolizumab 300 mg intravenous 300 mg IV Q6W ea 04/11/20 05/28/21 solution (Entyvio) omega-3 840 mg-dha 375 mg-epa 465 cap PO 04/18/21 05/28/21 mg-fish oil 1,220 mg capsule vitamin B complex (B 1 tab PO DAILY 04/18/21 05/28/21 Complex-Vitamin B12) zinc gluconate 30 mg tablet 30 mg PO DAILY 04/18/21 05/28/21 Previous Rx's Medication Instructions Recorded miscellaneous medical supply 1 each MISC BID #1 each 06/29/19 (Blood Pressure Cuff) estradiol 1 appful VAGINAL DAILY #42.5 g 09/19/20 tramadol 50 mg tablet 50 mg PO Q6H PRN #20 tab 12/06/20 aripiprazole 20 mg tablet 20 mg PO BEDTIME #90 tab 03/05/21 buspirone 10 mg tablet 10 mg PO BID #180 tab 03/05/21 trazodone 50 mg tablet See Rx Instructions PO BEDTIME PRN 03/05/21 #180 tab lidocaine HCl 2 % mucosal solution 15 ml MUCOUS MEMBRANE QID PRN #100 04/02/21 ml levothyroxine 125 mcg tablet See Rx Instructions .ROUTE 04/22/21 .COMPLEX #90 tab levothyroxine 25 mcg tablet See Rx Instructions .ROUTE 04/22/21 .COMPLEX #90 tablet albuterol sulfate 90 mcg/actuation 2 puff INHALATION Q4-6H PRN #8.5 04/29/21 aerosol inhaler (Ventolin HFA) gram ondansetron 4 mg disintegrating See Rx Instructions .ROUTE 05/06/21 tablet .COMPLEX #60 tab ferrous sulfate 142 mg (45 mg 284 mg PO BID #360 tab 05/08/21 iron) tablet,extended release (Slow Fe) Magic Mouthwash 30 ml PO QID PRN #240 ml 05/15/21 lisinopril 5 mg tablet See Rx Instructions .ROUTE 05/22/21 .COMPLEX #180 tablet saliva substitute combo no.9 15 ml MUCOUS MEMBRANE 5XD PRN 05/22/21 (Biotene Dry Mouth Oral Rinse) #1000 ml diphenhydramine HCl 25 mg capsule 50 mg PO BID PRN #20 cap 05/27/21 (Benadryl) prednisone 50 mg tablet 50 mg PO DAILY #5 tab 05/27/21 prednisone 5 mg tablets in a dose See Rx Instructions PO PER PKG DIR 05/28/21 pack #48 ea methylphenidate HCl 10 mg tablet 10 mg PO DAILY #30 tab 06/11/21 methylphenidate HCl 10 mg tablet 10 mg PO DAILY #30 tab 06/11/21 methylphenidate HCl 20 mg 20 mg PO DAILY #30 tab 06/11/21 tablet,extended release methylphenidate HCl 20 mg 20 mg PO DAILY #30 tab 06/11/21 tablet,extended release Allergies Allergy/AdvReac Type Severity Reaction Status Date / Time Penicillins Allergy Severe Rash Verified 05/28/21 11:27 Sulfa (Sulfonamide Allergy Intermediate Hives Verified 05/28/21 11:00 Antibiotics) adalimumab [From Humira] AdvReac Intermediate pneumonia Verified 05/28/21 11:00 quetiapine [From Seroquel] AdvReac Intermediate Verified 05/28/21 11:00 Review of Systems Constitutional Constitutional: Denies fever(s) Cardiovascular Cardiovascular: Reports system reviewed and no additional complaints, except as documented Respiratory Respiratory: Reports system reviewed and no additional complaints, except as documented Gastrointestinal Gastrointestinal: Reports as per HPI and Reports system reviewed and no additional complaints, except as documented Integumentary/Breasts Skin/Breast: Reports system reviewed and no additional complaints, except as documented Hematologic/Lymphatic On Anticoagulants: No Patient History Medical History Abnormal chest xray Acute renal insufficiency ADHD Allergy to antibiotic Anemia (~2016) Ankle pain (~2017) Anxiety Asthma Asthma Attention deficit disorder Bipolar disease, chronic (~1998) Bipolar disorder in partial remission Bronchospasm Cataracts, bilateral Cataracts, bilateral (~2018) Chicken pox Chronic back pain (~2003) Chronic cough Chronic pain Chronic post-traumatic stress disorder (PTSD) COPD (chronic obstructive pulmonary disease) COPD (chronic obstructive pulmonary disease) Cough COVID-19 vaccine series declined Crohn's disease (~2009) Crohns disease Decreased GFR Depressed bipolar affective disorder Depression (~1988) Eczema Eczema Elevated liver enzymes Elevated parathyroid hormone Encounter for tobacco use cessation counseling Foot pain (~2018) Foot pain, left Glomerulonephritis Headache Hemorrhoid (~1979) Hepatitis A test positive Hepatitis B surface antigen positive History of emphysema (~2017) Hypercalcemia Hypothyroidism (~1989) Insomnia Kidney disease Kidney disease (~1974) Left foot pain Lower extremity pain, posterior Marijuana use Migraines MRSA (methicillin resistant Staphylococcus aureus) (~2004) Nausea & vomiting Oral lesion Oral lesion Osteopenia of multiple sites Osteoporosis (~2016) Pharyngitis Post traumatic stress disorder (PTSD) Restless leg syndrome Restless legs syndrome SBO (small bowel obstruction) Seizure Serum calcium elevated Skin cancer, basal cell (~2016) Sleep apnea Small bowel obstruction Tobacco abuse disorder Surgical History History of section History of cholecystectomy History of intestinal surgery History of partial hysterectomy S/P tonsillectomy Family History Mother Cancer Father Heart disease Kidney disease Social History household members: spouse Smoking Status: Current every day smoker alcohol intake: never Smoking Status: Current every day smoker tobacco type: vaping alcohol intake frequency: 0-2 drinks per day Substance Use Type: does not use Exam Initial Vital Signs Initial Vital Signs: Vital Signs Temperature 98.2 F 07/05/21 03:41 Pulse Rate 94 H 07/05/21 03:41 Respiratory Rate 16 07/05/21 03:41 Blood Pressure 159/86 H 07/05/21 03:41 Pulse Oximetry 96 07/05/21 03:41 HENMT Head: normal to inspection and normocephalic Resp Effort & Inspection: normal respiratory effort Auscultation: clear to auscultation bilaterally Cardio Rate: regular rate Rhythm: regular rhythm GI Inspection: normal to inspection and distended Palpation: soft, No firm, No guarding and tender Skin General: no rashes or lesions noted Neuro General: patient alert, patient awake and moves all extremities Extrem General: normal to inspection and capillary refill normal Psych Appearance: grossly normal and well kempt Course Orders Ordered: ED Orders 07/05/21 03:51 CT abdomen pelvis w con Stat 07/05/21 04:15 Complete Blood Count AUTO DIFF Stat Comprehensive Metabolic Panel Stat Lactate (Lactic Acid) Stat Lipase Stat 07/05/21 05:53 Consult to General Surgery Stat Discontinued Medications Sodium Chloride (Normal Saline 0.9%) 1,000 mls @ 500 mls/hr IV BOLUS ONE Stop: 07/05/21 05:48 Last Admin: 07/05/21 04:20 Dose: 500 mls/hr Documented by: KENDRA Metoclopramide HCl (Metoclopramide 10 Mg/2 Ml Inj) 10 mg IV NOW ONE Stop: 07/05/21 05:25 Last Admin: 07/05/21 05:37 Dose: 10 mg Documented by: FEDERICA Morphine Sulfate (Morphine 4 Mg/Ml Inj) 4 mg IV NOW ONE Stop: 07/05/21 03:50 Last Admin: 07/05/21 04:19 Dose: 4 mg Documented by: KENDRA Morphine Sulfate (Morphine 4 Mg/Ml Inj) 4 mg IV NOW ONE Stop: 07/05/21 06:02 Ondansetron HCl (Ondansetron 4 Mg/2 Ml Inj) 4 mg IV NOW ONE Stop: 07/05/21 03:50 Last Admin: 07/05/21 04:19 Dose: 4 mg Documented by: KENDRA Vital Signs Vital signs: Vital Signs - 8 hr 07/05/21 03:41 Temperature 98.2 F Pulse Rate 94 H Respiratory Rate 16 Blood Pressure 159/86 H Pulse Oximetry 96 Medical Decision Making Lab Data Lab results reviewed: Yes I reviewed the patient's lab results. Result diagrams: 07/05/21 04:15 07/05/21 04:15 Labs: Lab Results 05/27/22 05/27/22 05/27/22 Range/Units 04:15 04:15 04:15 WBC 11.3 H (4.5-11.0) X10^3/uL RBC 4.31 (4.0-5.2) X10^6/uL Hgb 13.5 (12.0-16.0) g/dL Hct 39.4 (36-46) % MCV 91.2 (80-100) fL MCH 31.3 (26-34) PG MCHC 34.3 (30-36) % RDW 13.7 (11.6-14.8) % Plt Count 315 (150-400) X10^3/uL Neut % (Auto) 81.9 H (50-75) % Lymph % (Auto) 13.1 L (25-40) % [place] % (Auto) 2.4 L (3-14) % Eos % (Auto) 0.6 L (2-4) % Baso % (Auto) 2.0 (0-2) % Neut # (Auto) 9200 H (8126-9000) /uL Lymph # (Auto) 1500 (5670-4133) /uL [place] # (Auto) 300 (0-900) /uL Eos # (Auto) 100 (0-450) /uL Baso # (Auto) 200 H (0-100) /uL Sodium 137 (137-145) mmol/L Potassium 4.6 (3.4-5.1) mmol/L Chloride 107 (98-107) mmol/L Carbon Dioxide 22 (22-32) mmol/L BUN 19 H (7-17) mg/dL Creatinine 1.14 H (0.52-1.04) mg/dL Estimated GFR 54 L (>60) mL/min BUN/Creatinine Ratio 16.7 (6-22) Glucose 118 H (80-110) mg/dL Lactate 1.8 (0.7-2.1) mmol/L Calcium 11.2 H (8.4-10.2) mg/dL Total Bilirubin 0.4 (0.2-1.3) mg/dL AST 24 (14-36) IU/L ALT 24 (<35) IU/L Alkaline Phosphatase 88 (38-126) U/L Total Protein 7.9 (6.3-8.2) g/dL Albumin 4.8 (3.5-5.0) g/dL Globulin 3.1 (1.7-4.1) g/dL Albumin/Globulin Ratio 1.5 (1.0-2.8) Lipase 74 (23-300) U/L Imaging Data CT scan - abdomen/pelvis: Radiologist's Impression: Small-bowel obstruction likely secondary to stricture at ileocolic anastomosis MDM Narrative Medical decision making narrative: Diffuse abdominal tenderness, normal labs, CT scan shows small bowel obstruction. Discussed case with Dr. Minor on-call for General surgery who will be happy to follow along with the patient after admission request the patient be admitted to the medicine service. Discussed case with Dr. Garcia the medicine service who will admit for further evaluation and treatment. I did discuss the findings of the CT scan with the patient. Discussed the need for admission to the hospital. She expressed understanding and agreement. Discharge Plan Departure Patient Disposition: Admitted As Inpatient Clinical Impression: Small bowel obstruction Admit Date/Time: 07/05/21 06:01
--- NOTE | 2021-07-05 03:51 | DI.CT.S_ITS ---
PROCEDURE: CT ABDOMEN PELVIS W CON INDICATIONS: hx of Crohn's and SBO's with pain TECHNIQUE: After the administration of IV contrast, axial sections were acquired from the lung bases to the pubic symphysis. Coronal and sagittal reformats were performed. For radiation dose reduction, the following was used: automated exposure control, adjustment of mA and/or kV according to patient size. COMPARISON: [facility], CT, CT ABDOMEN PELVIS W CON, 08/14/2019, 6:49. [facility], CT, CHEST W/O CONTRAST, 06/16/2014, 7:58. [facility], CT, CT ABDOMEN PELVIS W CON, 12/29/2018, 11:45. [facility], CT, CT ABDOMEN PELVIS W CON, 12/04/2020, 23:43. FINDINGS: Image quality: Excellent. Lung bases: There is chronic opacity in the right middle lobe, likely scars and atelectasis. Lingula atelectasis. Small hiatal hernia. Heart: No significant findings. ABDOMEN: Liver: Normal size. Mild hepatic steatosis. Gallbladder: Surgically removed. Biliary ducts: Unremarkable. Pancreas: Unremarkable. Spleen: Normal size. There is a 0.8 cm splenule.. Adrenal Glands: Unremarkable. Kidneys and Ureters: Normal size and symmetric in enhancement. Bilateral renal cysts. Stomach and Bowel: Stomach is normal. There are postsurgical changes with partial colectomy ileal colonic anastomosis. There is mild focal narrowing at the surgical anastomosis. Mildly distended fluid-filled small intestine measure up to 3.5 cm in in diameter. No transitional point is identified. The sigmoid colon may be mildly thickened. Peritoneum: There is a small amount of free peritoneal fluid. No free air. Ventral Wall: No hernia. Abdominal Nodes: No retroperitoneal or mesenteric adenopathy by size criteria. Vessels: Aorta and inferior vena cava are normal in size. PELVIS: Pelvic Organs: Unremarkable. Bladder: Unremarkable. Pelvic Nodes: No enlarged lymph nodes. Miscellaneous: No inguinal hernias are seen. Bones: Unremarkable. IMPRESSION: 1. Suspect mild small bowel obstruction at the ileocolonic anastomosis. 2. Sigmoid colon may be mildly thickened. Differential diagnoses include mild colitis versus artifact from inadequate distention. 3. Small amount of free fluid is present. No significant discrepancy with the [facility]ler radiology preliminary report. Dictated by: Rosalba Joyce M.D. on 07/05/2021 at 8:00 Approved by: Rosalba Joyce M.D. on 07/05/2021 at 8:10
[2021-07-05] MEDS: MORPHINE 4 MG/ML INJ IV ×2 (04:19→06:14)
[2021-07-05] MEDS: ONDANSETRON 4 MG/2 ML INJ IV ×4 (04:19→17:40)
[2021-07-05] MEDS: SODIUM CHLORIDE 0.9% 1,000 ML 500 ML IV (04:20)
[2021-07-05 04:21] LABS: Add Manual Diff / Slide Review NO; Basophils Absolute Auto 200 /uL (0-100); Eosinophils Absolute Auto 100 /uL (0-450); Eosinophils Percent Auto 0.6 % (2-4); Hematocrit 39.4 % (36-46); Hemoglobin 13.5 g/dL (12.0-16.0); Lymphocytes Absolute Auto 1500 /uL (1100-4500); Lymphocytes Percent Auto 13.1 % (25-40); Mean Corpuscular HGB Conc 34.3 % (30-36); Mean Corpuscular Hemoglobin 31.3 PG (26-34); Mean Corpuscular Volume 91.2 fL (80-100); Monocytes Absolute Auto 300 /uL (0-900); Monocytes Percent Auto 2.4 % (3-14); Neutrophils Absolute Auto 9200 /uL (1500-7000); Neutrophils Percent Auto 81.9 % (50-75); Platelet Count 315 X10^3/uL (150-400); Red Blood Cell Count 4.31 X10^6/uL (4.0-5.2); Red Cell Distribution Width 13.7 % (11.6-14.8); White Blood Cell Count 11.3 X10^3/uL (4.5-11.0)
[2021-07-05 04:31] LABS: Alanine Aminotransferase 24 IU/L (<35); Albumin 4.8 g/dL (3.5-5.0); Albumin Globulin Ratio 1.5 (1.0-2.8); Alkaline Phosphatase 88 U/L (38-126); Aspartate Aminotransferase 24 IU/L (14-36); BUN Creatinine Ratio 16.7 (6-22); Bilirubin Total 0.4 mg/dL (0.2-1.3); Blood Urea Nitrogen 19 mg/dL (7-17); Calcium 11.2 mg/dL (8.4-10.2); Carbon Dioxide 22 mmol/L (22-32); Chloride 107 mmol/L (98-107); Estimated Glomerular Filt Rate 54 mL/min (>60); Globulin 3.1 g/dL (1.7-4.1); Glucose 118 mg/dL (80-110); HEMOLYSIS < 15 (0-50); Lipase 74 U/L (23-300); Potassium 4.6 mmol/L (3.4-5.1); Sodium 137 mmol/L (137-145); Total Protein 7.9 g/dL (6.3-8.2)
[2021-07-05 04:32] LABS: Lactate (Lactic Acid) 1.8 mmol/L (0.7-2.1)
[2021-07-05] MEDS: METOCLOPRAMIDE 10 MG/2 ML INJ IV (05:37)
--- NOTE | 2021-07-05 06:44 | PM.HP.1 ---
History of Present Illness History of Present Illness Date Patient Seen: 07/05/21 Time Patient Seen: 06:44 Chief complaint: stomach pain Narrative: This is a 61-year-old female with Crohn's disease, anemia, anxiety, asthma, hypothyroidism, recurrent small-bowel obstruction, attention deficit disorder and bipolar disorder who presents with recurrent small-bowel obstruction. Around ?dinnertime? yesterday she started having spasms of abdominal pain. As this worsened she came to the ED overnight and her nausea/vomiting progressed. She vomited 3 times, never any obvious blood and has improved with IV ondansetron. Her abdominal distension has stabilized. As she puts it ?I came in earlier than I usually do. ? She is now admitted for bowel rest, IV hydration and antiemetics. General surgery has been consulted. The white blood count is 11.3. The metabolic panel is normal. Patient History Medical History Abnormal chest xray Acute renal insufficiency ADHD Allergy to antibiotic Anemia (~2016) Ankle pain (~2017) Anxiety Asthma Asthma Attention deficit disorder Bipolar disease, chronic (~1998) Bipolar disorder in partial remission Bronchospasm Cataracts, bilateral Cataracts, bilateral (~2018) Chicken pox Chronic back pain (~2003) Chronic cough Chronic pain Chronic post-traumatic stress disorder (PTSD) COPD (chronic obstructive pulmonary disease) COPD (chronic obstructive pulmonary disease) Cough COVID-19 vaccine series declined Crohn's disease (~2009) Crohns disease Decreased GFR Depressed bipolar affective disorder Depression (~1988) Eczema Eczema Elevated liver enzymes Elevated parathyroid hormone Encounter for tobacco use cessation counseling Foot pain (~2018) Foot pain, left Glomerulonephritis Headache Hemorrhoid (~1979) Hepatitis A test positive Hepatitis B surface antigen positive History of emphysema (~2017) Hypercalcemia Hypothyroidism (~1989) Insomnia Kidney disease Kidney disease (~1974) Left foot pain Lower extremity pain, posterior Marijuana use Migraines MRSA (methicillin resistant Staphylococcus aureus) (~2004) Nausea & vomiting Oral lesion Oral lesion Osteopenia of multiple sites Osteoporosis (~2016) Pharyngitis Post traumatic stress disorder (PTSD) Restless leg syndrome Restless legs syndrome SBO (small bowel obstruction) Seizure Serum calcium elevated Skin cancer, basal cell (~2016) Sleep apnea Small bowel obstruction Tobacco abuse disorder Surgical History History of section History of cholecystectomy History of intestinal surgery History of partial hysterectomy S/P tonsillectomy Family & Social History Family History (Updated 07/05/21 @ 07:15 by Nhi Garcia MD) Mother Cancer Alzheimer disease Father Heart disease Kidney disease Social History: household members spouse Safety & Behavioral: Feels Safe in Current Yes Environment Tobacco & Substance use: Tobacco type e-cigarettes Smoking Status Current every day smoker alcohol intake never alcohol intake frequency 0-2 drinks per day Substance Use Type does not use Meds Home Medications and Allergies Home Medications Medication Instructions Recorded Confirmed Type miscellaneous medical supply 1 each MISC BID #1 each 06/29/19 05/28/21 Rx (Blood Pressure Cuff) cholecalciferol (vitamin D3) 10 10 mcg PO DAILY 02/14/20 05/28/21 History mcg (400 unit) capsule multivitamin,du-mlyv-pexquxvp 1 tab PO DAILY 02/14/20 05/28/21 History (Complete Multivitamin) vedolizumab 300 mg intravenous 300 mg IV Q6W ea 04/11/20 05/28/21 History solution (Entyvio) estradiol 1 appful VAGINAL DAILY #42.5 g 09/19/20 05/28/21 Rx tramadol 50 mg tablet 50 mg PO Q6H PRN #20 tab 12/06/20 05/28/21 Rx aripiprazole 20 mg tablet 20 mg PO BEDTIME #90 tab 03/05/21 05/28/21 Rx buspirone 10 mg tablet 10 mg PO BID #180 tab 03/05/21 05/28/21 Rx trazodone 50 mg tablet See Rx Instructions PO BEDTIME PRN 03/05/21 05/28/21 Rx #180 tab lidocaine HCl 2 % mucosal solution 15 ml MUCOUS MEMBRANE QID PRN #100 04/02/21 05/28/21 Rx ml omega-3 840 mg-dha 375 mg-epa 465 cap PO 04/18/21 05/28/21 History mg-fish oil 1,220 mg capsule vitamin B complex (B 1 tab PO DAILY 04/18/21 05/28/21 History Complex-Vitamin B12) zinc gluconate 30 mg tablet 30 mg PO DAILY 04/18/21 05/28/21 History levothyroxine 125 mcg tablet See Rx Instructions .ROUTE 04/22/21 05/28/21 Rx .COMPLEX #90 tab levothyroxine 25 mcg tablet See Rx Instructions .ROUTE 04/22/21 05/28/21 Rx .COMPLEX #90 tablet albuterol sulfate 90 mcg/actuation 2 puff INHALATION Q4-6H PRN #8.5 04/29/21 05/28/21 Rx aerosol inhaler (Ventolin HFA) gram ondansetron 4 mg disintegrating See Rx Instructions .ROUTE 05/06/21 05/28/21 Rx tablet .COMPLEX #60 tab ferrous sulfate 142 mg (45 mg 284 mg PO BID #360 tab 05/08/21 05/28/21 Rx iron) tablet,extended release (Slow Fe) Magic Mouthwash 30 ml PO QID PRN #240 ml 05/15/21 05/28/21 Rx lisinopril 5 mg tablet See Rx Instructions .ROUTE 05/22/21 05/28/21 Rx .COMPLEX #180 tablet saliva substitute combo no.9 15 ml MUCOUS MEMBRANE 5XD PRN 05/22/21 05/28/21 Rx (Biotene Dry Mouth Oral Rinse) #1000 ml diphenhydramine HCl 25 mg capsule 50 mg PO BID PRN #20 cap 05/27/21 05/28/21 Rx (Benadryl) prednisone 50 mg tablet 50 mg PO DAILY #5 tab 05/27/21 05/28/21 Rx prednisone 5 mg tablets in a dose See Rx Instructions PO PER PKG DIR 05/28/21 05/28/21 Rx pack #48 ea methylphenidate HCl 10 mg tablet 10 mg PO DAILY #30 tab 06/11/21 06/11/21 Rx methylphenidate HCl 10 mg tablet 10 mg PO DAILY #30 tab 06/11/21 06/11/21 Rx methylphenidate HCl 20 mg 20 mg PO DAILY #30 tab 06/11/21 06/11/21 Rx tablet,extended release methylphenidate HCl 20 mg 20 mg PO DAILY #30 tab 06/11/21 06/11/21 Rx tablet,extended release Allergies Allergy/AdvReac Type Severity Reaction Status Date / Time Penicillins Allergy Severe Rash Verified 05/28/21 11:27 Sulfa (Sulfonamide Allergy Intermediate Hives Verified 05/28/21 11:00 Antibiotics) adalimumab [From Humira] AdvReac Intermediate pneumonia Verified 05/28/21 11:00 quetiapine [From Seroquel] AdvReac Intermediate Verified 05/28/21 11:00 Review of Systems Review of Systems Narrative: Positive for abdominal pain, nausea, vomiting Negative for fevers, chills, sweats, chest pain, diarrhea, bleeding, rash, dysuria, seizures, headaches, sore throat, new allergies, joint pain. Exam Vital Signs (past 8 hours): - 07/05/21 03:41 Temperature 98.2 F Pulse Rate 94 H Respiratory Rate 16 Blood Pressure 159/86 H Pulse Oximetry 96 Oxygen Delivery Method Room Air Narrative Exam Narrative: Alert and oriented x3. No apparent distress. Pupils are equally round reactive to light and accommodation. Extraocular muscles are intact. Sclerae are pink and nonicteric Throat looks normal No lymph nodes are felt head, neck, supraclavicular area There is no thyromegaly JVD is less than 6 cm Heart is regular rate and rhythm without murmur Lungs are clear to auscultation bilaterally Abdomen is soft, mildly distended, mildly diffusely tender, no organomegaly Extremities have no ankle edema Skin has no rash or jaundice Neurological exam: Reflexes are normal, motor function is 5/5 throughout, there is no tremor, cranial nerves 2-12 test intact. Objective Labs Result Diagrams: 07/05/21 04:15 07/05/21 04:15 Labs: Laboratory Results - last 24 hr 07/05/21 07/05/21 07/05/21 04:15 04:15 04:15 WBC 11.3 H RBC 4.31 Hgb 13.5 Hct 39.4 MCV 91.2 MCH 31.3 MCHC 34.3 RDW 13.7 Plt Count 315 Neut % (Auto) 81.9 H Lymph % (Auto) 13.1 L [place] % (Auto) 2.4 L Eos % (Auto) 0.6 L Baso % (Auto) 2.0 Neut # (Auto) 9200 H Lymph # (Auto) 1500 [place] # (Auto) 300 Eos # (Auto) 100 Baso # (Auto) 200 H Sodium 137 Potassium 4.6 Chloride 107 Carbon Dioxide 22 BUN 19 H Creatinine 1.14 H Estimated GFR 54 L BUN/Creatinine Ratio 16.7 Glucose 118 H Lactate 1.8 Calcium 11.2 H Total Bilirubin 0.4 AST 24 ALT 24 Alkaline Phosphatase 88 Total Protein 7.9 Albumin 4.8 Globulin 3.1 Albumin/Globulin Ratio 1.5 Lipase 74 Assessment & Plan Assessment & Plan narrative: This is a 61-year-old female with Crohn's disease, anemia, anxiety, asthma, hypothyroidism, recurrent small-bowel obstruction, attention deficit disorder and bipolar disorder who presents with recurrent small-bowel obstruction. Recurrent small-bowel obstruction, present on admission. Active. -this is a complication of prior Crohn's abdominal surgery adhesions. -her symptoms typically respond to bowel rest and anti emetics -general surgery has been consulted -continue IV fluids, ondansetron and bowel rest. Crohn's disease, present on admission. Chronic. -her GI treatments are managed by Dr. Glenn Odonnell at GI. -she is on Vedolizumab q.6 weeks IV. Bipolar disorder, present on admission. Chronic. -continue trazodone and Aripiprazolel ADD, present on admission. Chronic. -continue Ritalin Anxiety/PTSD, present on admission. Chronic. -continue buspirone and trazodone Hypothyroidism, present on admission. Chronic. -continue levothyroxine Her backup decision maker is her Tiago Diaz. She will be on Lovenox for DVT prevention. Time Spent With Patient Critical Care time: I spent a total of [] minutes of critical care time on this patient's care today; this time is exclusive of procedural time.
[2021-07-05 06:48] LABS: COVID19 -Nasal RAPID Negative (Negative)
[2021-07-05] MEDS: DEXTROSE 5%-0.9% NS 1,000 ML 125 ML IV ×3 (09:08→17:38)
[2021-07-05] MEDS: HYDROMORPHONE 0.5 MG INJ IV ×3 (09:32→19:17)
[2021-07-05] MEDS: ENOXAPARIN 40 MG/0.4 ML SYRINGE SUBCUT (10:53)
[2021-07-05] MEDS: BUSPIRONE 5 MG TABLET 10 MG PO ×2 (10:53→21:01)
--- NOTE | 2021-07-05 13:11 | PC.ADMIT ---
[email or web address] Admission Note: The patient,Louann Diaz,61 y/o, was given written information regarding hospital policies, unit procedures and contact persons. Patient's smoking status: Current every day smoker. Vital Signs - 8 hr 07/05/21 07:19 07/05/21 07:20 07/05/21 07:30 Temperature Pulse Rate 110 H 107 H 92 H Respiratory Rate Blood Pressure 141/99 H 135/68 Pulse Oximetry 92 96 93 07/05/21 08:00 07/05/21 08:30 07/05/21 09:25 Temperature 98.5 F 97.1 F L Pulse Rate 104 H 109 H 124 H Respiratory Rate 18 Blood Pressure 120/79 136/80 132/87 Pulse Oximetry 92 93 94 Acute Care Admission Note: Patient arrived on unit at 0925 with continuous IV fluids D5NS at 125 mL/hr. IV access in right forearm is intact, patent, and asymptomatic. Pt is A/Ox4, reports 8/10 px in upper abdomen, feels nauseated, vomited (bile) approx. 50 mL's shortly after arrival. Administered dilaudid 0.5 mg IVP once at 0930. Acknowledged orders for NPO status, except for pills, allowed ice chips at bedside per MD Phelps approval. Additional emesis (bile) of approx. 200 mL's occurred when starting admission assessment. Abdomen is soft, hypoactive bowel tones in all quadrants, except absent in RLQ. Surgical consult completed via MD George Plan of care is gastric rest. If pt continues vomiting, NGT insertion with LIWS. Pt's spouse, Tiago, is at bedside. Pt is currently reporting 0/10 px, resting in bed with bed locked in low position, call light within reach.
[2021-07-05] MEDS: METHYLPHENIDATE 5 MG TABLET 10 MG PO (14:12)
--- NOTE | 2021-07-05 16:39 | PM.CN ---
History of Present Illness Consult details Date Patient Seen: 07/05/21 Chief complaint: stomach pain Narrative: Louann Diaz is a 61-year-old woman who has a history of Crohn's disease and has had a ileocecectomy in the past at [facility]. She has a known stricture near the anastomosis and has had multiple bowel obstructions which have tended to resolve easily and quickly on their own. She has never required a Gastrografin challenge or any type of surgical procedure. She came to the ER after developing abdominal pain last night following dinner. She has vomited several times since getting to the hospital. She has not passed any gas. Meds Home Medications and Allergies Home Medications Medication Instructions Recorded Confirmed Type miscellaneous medical supply 1 each MISC BID #1 each 06/29/19 07/05/21 Rx (Blood Pressure Cuff) cholecalciferol (vitamin D3) 10 10 mcg PO DAILY 02/14/20 07/05/21 History mcg (400 unit) capsule multivitamin,gs-nsej-swonwrgl 1 tab PO DAILY 02/14/20 07/05/21 History (Complete Multivitamin) estradiol 1 appful VAGINAL DAILY #42.5 g 09/19/20 07/05/21 Rx buspirone 10 mg tablet 10 mg PO BID #180 tab 03/05/21 07/05/21 Rx trazodone 50 mg tablet See Rx Instructions PO BEDTIME PRN 03/05/21 07/05/21 Rx #180 tab omega-3 840 mg-dha 375 mg-epa 465 2 cap PO DAILY 04/18/21 07/05/21 History mg-fish oil 1,220 mg capsule vitamin B complex (B 1 tab PO DAILY 04/18/21 07/05/21 History Complex-Vitamin B12) zinc gluconate 30 mg tablet 30 mg PO DAILY 04/18/21 07/05/21 History levothyroxine 125 mcg tablet See Rx Instructions .ROUTE 04/22/21 07/05/21 Rx .COMPLEX #90 tab levothyroxine 25 mcg tablet See Rx Instructions .ROUTE 04/22/21 07/05/21 Rx .COMPLEX #90 tablet albuterol sulfate 90 mcg/actuation 2 puff INHALATION Q4-6H PRN #8.5 04/29/21 07/05/21 Rx aerosol inhaler (Ventolin HFA) gram ondansetron 4 mg disintegrating See Rx Instructions .ROUTE 05/06/21 07/05/21 Rx tablet .COMPLEX #60 tab lisinopril 5 mg tablet See Rx Instructions .ROUTE 05/22/21 07/05/21 Rx .COMPLEX #180 tablet methylphenidate HCl 10 mg tablet 10 mg PO DAILY #30 tab 06/11/21 07/05/21 Rx methylphenidate HCl 20 mg 20 mg PO DAILY #30 tab 06/11/21 07/05/21 Rx tablet,extended release ferrous sulfate 325 mg (65 mg 65 mg PO DAILY 07/05/21 07/05/21 History iron) tablet (Iron (ferrous sulfate)) Allergies Allergy/AdvReac Type Severity Reaction Status Date / Time Penicillins Allergy Severe Rash Verified 05/28/21 11:27 Sulfa (Sulfonamide Allergy Intermediate Hives Verified 05/28/21 11:00 Antibiotics) adalimumab [From Humira] AdvReac Intermediate pneumonia Verified 05/28/21 11:00 quetiapine [From Seroquel] AdvReac Intermediate Verified 05/28/21 11:00 Exam Vital Signs (past 8 hours): - 07/05/21 09:25 07/05/21 13:45 Temperature 97.1 F L 98.6 F Pulse Rate 124 H 92 H Respiratory Rate 18 18 Blood Pressure 132/87 95/58 L Pulse Oximetry 94 95 Oxygen Delivery Method Room Air Oxygen Flow Rate 0 Narrative Exam Narrative: Abdomen is soft, nontender Moderately distended Objective Labs Result Diagrams: 07/05/21 04:15 07/05/21 04:15 Labs: Laboratory Results - last 24 hr 07/05/21 07/05/21 07/05/21 04:15 04:15 04:15 WBC 11.3 H RBC 4.31 Hgb 13.5 Hct 39.4 MCV 91.2 MCH 31.3 MCHC 34.3 RDW 13.7 Plt Count 315 Neut % (Auto) 81.9 H Lymph % (Auto) 13.1 L [place] % (Auto) 2.4 L Eos % (Auto) 0.6 L Baso % (Auto) 2.0 Neut # (Auto) 9200 H Lymph # (Auto) 1500 [place] # (Auto) 300 Eos # (Auto) 100 Baso # (Auto) 200 H Sodium 137 Potassium 4.6 Chloride 107 Carbon Dioxide 22 BUN 19 H Creatinine 1.14 H Estimated GFR 54 L BUN/Creatinine Ratio 16.7 Glucose 118 H Lactate 1.8 Calcium 11.2 H Total Bilirubin 0.4 AST 24 ALT 24 Alkaline Phosphatase 88 Total Protein 7.9 Albumin 4.8 Globulin 3.1 Albumin/Globulin Ratio 1.5 Lipase 74 SARS-CoV-2 (PCR) 07/05/21 06:05 WBC RBC Hgb Hct MCV MCH MCHC RDW Plt Count Neut % (Auto) Lymph % (Auto) Jones % (Auto) Eos % (Auto) Baso % (Auto) Neut # (Auto) Lymph # (Auto) Jones # (Auto) Eos # (Auto) Baso # (Auto) Sodium Potassium Chloride Carbon Dioxide BUN Creatinine Estimated GFR BUN/Creatinine Ratio Glucose Lactate Calcium Total Bilirubin AST ALT Alkaline Phosphatase Total Protein Albumin Globulin Albumin/Globulin Ratio Lipase SARS-CoV-2 (PCR) Negative [facility] Medical History Abnormal chest xray Acute renal insufficiency ADHD Allergy to antibiotic Anemia (~2016) Ankle pain (~2017) Anxiety Asthma Asthma Attention deficit disorder Bipolar disease, chronic (~1998) Bipolar disorder in partial remission Bronchospasm Cataracts, bilateral Cataracts, bilateral (~2018) Chicken pox Chronic back pain (~2003) Chronic cough Chronic pain Chronic post-traumatic stress disorder (PTSD) COPD (chronic obstructive pulmonary disease) COPD (chronic obstructive pulmonary disease) Cough COVID-19 vaccine series declined Crohn's disease (~2009) Crohns disease Decreased GFR Depressed bipolar affective disorder Depression (~1988) Eczema Eczema Elevated liver enzymes Elevated parathyroid hormone Encounter for tobacco use cessation counseling Foot pain (~2018) Foot pain, left Glomerulonephritis Headache Hemorrhoid (~1979) Hepatitis A test positive Hepatitis B surface antigen positive History of emphysema (~2017) Hypercalcemia Hypothyroidism (~1989) Insomnia Kidney disease Kidney disease (~1974) Left foot pain Lower extremity pain, posterior Marijuana use Migraines MRSA (methicillin resistant Staphylococcus aureus) (~2004) Nausea & vomiting Oral lesion Oral lesion Osteopenia of multiple sites Osteoporosis (~2016) Pharyngitis Post traumatic stress disorder (PTSD) Restless leg syndrome Restless legs syndrome SBO (small bowel obstruction) Seizure Serum calcium elevated Skin cancer, basal cell (~2016) Sleep apnea Small bowel obstruction Tobacco abuse disorder Surgical History History of section History of cholecystectomy History of intestinal surgery History of partial hysterectomy S/P tonsillectomy Family History (Updated 07/05/21 @ 07:15 by Nhi Garcia MD) Mother Cancer Alzheimer disease Father Heart disease Kidney disease Social History household members: spouse Tobacco & Substance Use Smoking Status: Current every day smoker alcohol intake: never Assessment & Plan Assessment and plan (1) Small bowel obstruction: Status: Acute Plan If she continues to vomit recommend placing an NG tube If she does not open up by tomorrow we can consider a Gastrografin challenge. Time Spent With Patient Critical Care time: I spent a total of [] minutes of critical care time on this patient's care today; this time is exclusive of procedural time.
--- NOTE | 2021-07-05 19:59 | DI.RAD.S_ITS ---
PROCEDURE: XR KUB INDICATIONS: NGT placement TECHNIQUE: One view of the abdomen acquired. COMPARISON: None. FINDINGS: Surgical changes and devices: NG tube is in the expected location of proximal stomach lumen below the left hemidiaphragm. Surgical clips are seen in right upper quadrant abdomen. Bowel: Bowel gas pattern is normal. Soft tissues: No suspicious abdominal calcifications. Visualized solid organ contours appear normal in size. Bones: No suspicious bony lesions. IMPRESSION: NG tube tip is in the expected location of stomach lumen below the left hemidiaphragm. No gross peritoneal free air. Dictated by: Wilner Nowak M.D. on 07/05/2021 at 20:16 Approved by: Wilner Nowak M.D. on 07/05/2021 at 20:17
[2021-07-05] MEDS: TRAZODONE 50 MG TABLET PO (21:07)
[2021-07-06] VITALS (7 sets, daily range): BP systolic 103–141; BP diastolic 67–81; PULSE 68–84; RESP 14–18; TEMP 36.1–37.1; O2SAT 93–99
[2021-07-06] MEDS: HYDROMORPHONE 0.5 MG INJ IV ×4 (00:24→13:49)
[2021-07-06] MEDS: DEXTROSE 5%-0.9% NS 1,000 ML 125 ML IV ×3 (00:25→19:42)
--- NOTE | 2021-07-06 02:46 | PC.NURSE ---
Addendum entered by Alise David R.N. 07/06/21 07:30: 400cc brownish gastric output from NG tube at time of removal. Original Note: NG tube inserted by day shift nurse at change of shift due to episodes of emesis. At this time, patient insists on ng tube removal d/t pain, states it's much more painful than any NG tube I've ever had before. States she had bowel movement this evening. Bowel tones active in all quadrants. Per una Garcia to remove NG tube. NG tube removal tolerated by patient and she states her pain is tolerable at this time.
[2021-07-06] MEDS: LEVOTHYROXINE 150 MCG TABLET PO (05:20)
[2021-07-06 06:46] LABS: Add Manual Diff / Slide Review NO; Basophils Absolute Auto 0 /uL (0-100); Basophils Percent Auto 0.6 % (0-2); Eosinophils Absolute Auto 100 /uL (0-450); Eosinophils Percent Auto 3.3 % (2-4); Hematocrit 30.7 % (36-46); Hemoglobin 10.5 g/dL (12.0-16.0); Lymphocytes Absolute Auto 1200 /uL (1100-4500); Lymphocytes Percent Auto 33.4 % (25-40); Mean Corpuscular HGB Conc 34.2 % (30-36); Mean Corpuscular Hemoglobin 31.6 PG (26-34); Mean Corpuscular Volume 92.3 fL (80-100); Monocytes Absolute Auto 500 /uL (0-900); Monocytes Percent Auto 15.3 % (3-14); Neutrophils Absolute Auto 1700 /uL (1500-7000); Neutrophils Percent Auto 47.4 % (50-75); Platelet Count 236 X10^3/uL (150-400); Red Blood Cell Count 3.33 X10^6/uL (4.0-5.2); Red Cell Distribution Width 13.8 % (11.6-14.8); White Blood Cell Count 3.6 X10^3/uL (4.5-11.0)
[2021-07-06 06:57] LABS: Alanine Aminotransferase 17 IU/L (<35); Albumin 3.3 g/dL (3.5-5.0); Albumin Globulin Ratio 1.3 (1.0-2.8); Alkaline Phosphatase 61 U/L (38-126); Aspartate Aminotransferase 20 IU/L (14-36); BUN Creatinine Ratio 22.8 (6-22); Bilirubin Total 0.7 mg/dL (0.2-1.3); Blood Urea Nitrogen 18 mg/dL (7-17); Carbon Dioxide 23 mmol/L (22-32); Chloride 110 mmol/L (98-107); Estimated Glomerular Filt Rate > 60 mL/min (>60); Globulin 2.5 g/dL (1.7-4.1); Glucose 118 mg/dL (80-110); HEMOLYSIS < 15 (0-50); Sodium 136 mmol/L (137-145); Total Protein 5.8 g/dL (6.3-8.2)
[2021-07-06] MEDS: ENOXAPARIN 40 MG/0.4 ML SYRINGE SUBCUT (09:17)
[2021-07-06] MEDS: ACETAMINOPHEN 325 MG TABLET 650 MG PO ×2 (09:17→15:24)
[2021-07-06] MEDS: BUSPIRONE 5 MG TABLET 10 MG PO ×2 (09:18→19:54)
[2021-07-06] MEDS: ONDANSETRON 4 MG/2 ML INJ IV ×3 (09:22→19:54)
[2021-07-06] MEDS: METHYLPHENIDATE 5 MG TABLET 10 MG PO (10:12)
--- NOTE | 2021-07-06 11:00 | PM.PN.1 ---
Subjective Subjective Date Patient Seen: 07/06/21 Time Patient Seen: 11:00 Interval history: crampy abdominal pain and headache Exam Vital Signs (past 8 hours): - 07/06/21 04:11 07/06/21 07:44 Temperature 97.7 F 97.0 F L Pulse Rate 82 76 Respiratory Rate 17 18 Blood Pressure 116/77 103/67 Pulse Oximetry 98 96 Oxygen Delivery Method Room Air Oxygen Flow Rate 0 Narrative Exam Narrative: abdomen is soft with minimal distention. Had BM last evening. c/o nausea, could not tolerate NGT, Tenderness in RLQ is mild and to palpation. Const General: cooperative and anxious Nutritional Appearance: average body habitus Objective Labs Result Diagrams: 07/06/21 06:35 07/06/21 06:35 Labs: Laboratory Results - last 24 hr 07/06/21 07/06/21 06:35 06:35 WBC 3.6 L D RBC 3.33 L Hgb 10.5 L Hct 30.7 L MCV 92.3 MCH 31.6 MCHC 34.2 RDW 13.8 Plt Count 236 Neut % (Auto) 47.4 L D Lymph % (Auto) 33.4 D [place] % (Auto) 15.3 H Eos % (Auto) 3.3 Baso % (Auto) 0.6 Neut # (Auto) 1700 Lymph # (Auto) 1200 [place] # (Auto) 500 Eos # (Auto) 100 Baso # (Auto) 0 Sodium 136 L Potassium 4.0 Chloride 110 H Carbon Dioxide 23 BUN 18 H Creatinine 0.79 Estimated GFR > 60 BUN/Creatinine Ratio 22.8 H Glucose 118 H Calcium 9.0 Total Bilirubin 0.7 AST 20 ALT 17 Alkaline Phosphatase 61 Total Protein 5.8 L Albumin 3.3 L Globulin 2.5 Albumin/Globulin Ratio 1.3 [facility] Medical History Abnormal chest xray Acute renal insufficiency ADHD Allergy to antibiotic Anemia (~2016) Ankle pain (~2017) Anxiety Asthma Asthma Attention deficit disorder Bipolar disease, chronic (~1998) Bipolar disorder in partial remission Bronchospasm Cataracts, bilateral Cataracts, bilateral (~2018) Chicken pox Chronic back pain (~2003) Chronic cough Chronic pain Chronic post-traumatic stress disorder (PTSD) COPD (chronic obstructive pulmonary disease) COPD (chronic obstructive pulmonary disease) Cough COVID-19 vaccine series declined Crohn's disease (~2009) Crohns disease Decreased GFR Depressed bipolar affective disorder Depression (~1988) Eczema Eczema Elevated liver enzymes Elevated parathyroid hormone Encounter for tobacco use cessation counseling Foot pain (~2018) Foot pain, left Glomerulonephritis Headache Hemorrhoid (~1979) Hepatitis A test positive Hepatitis B surface antigen positive History of emphysema (~2017) Hypercalcemia Hypothyroidism (~1989) Insomnia Kidney disease Kidney disease (~1974) Left foot pain Lower extremity pain, posterior Marijuana use Migraines MRSA (methicillin resistant Staphylococcus aureus) (~2004) Nausea & vomiting Oral lesion Oral lesion Osteopenia of multiple sites Osteoporosis (~2016) Pharyngitis Post traumatic stress disorder (PTSD) Restless leg syndrome Restless legs syndrome SBO (small bowel obstruction) Seizure Serum calcium elevated Skin cancer, basal cell (~2016) Sleep apnea Small bowel obstruction Tobacco abuse disorder Surgical History History of section History of cholecystectomy History of intestinal surgery History of partial hysterectomy S/P tonsillectomy Family History (Updated 07/05/21 @ 07:15 by Nhi Garcia MD) Mother Cancer Alzheimer disease Father Heart disease Kidney disease Social History household members: spouse Smoking Status: Current every day smoker alcohol intake: never Assessment & Plan Assessment & Plan narrative: Likely persistent partial SBO related to known stricture and h/o Crohn's. Plan: continue IV hydration and sips of clears. continue observation until SBO is clearly resolved. Time Spent With Patient Time with patient: less than 30 minutes Critical Care time: I spent a total of [] minutes of critical care time on this patient's care today; this time is exclusive of procedural time.
--- NOTE | 2021-07-06 12:24 | CM.IDA ---
DCP Assessment Patient is 61 y/o female who presents to due to concern for stomach pain, patient admitted to due to small bowel obstruction. NG tube placed. Patient has hx of Tardive Dyskinesia, Anemia, Crohn's disease, Hypothyroidism, Depressed Bipolar Affective Disorder, Anxiety and Depression. Patient's PCP is CELINA Doyle. Patient states she also sees [employer] And Sh[employer] Inspector Dr. Glenn Odonnell with Medicine via telehealth. Patient has regular f/u with Psychiatrist Dr. Pollack. Patient has Medicare and n1health insurance. Per Dixie COREAS, Dr. Foley endorses that patient is slowly progressing. Patient presents as A/Ox4. Patient states she feel better but still have stomach pain and feel nauseous and endorses some anxiety about insurance coverage due to current OBS status. Patient endorses independence with ADLs. Patient states she resides at home with . Patient denies DCP needs upon d/c, and states she feels comfortable discharging home when medically clear. Plan: patient to d/c to home with spouse upon medical clearance. DCP to f/u with any further needs. 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 No Advance Directives on File No History Provided By Patient,Medical Record Has Patient been admitted in last 30 No days? Prior Living Arrangements House Household Members spouse Type of transportation used prior to Drives own vehicle admit Independent with ADL's Yes Is patient alert and oriented? Yes Caregiver for Another No Discharge Plan Home Transportation Arrangement Spouse Referrals Initiated None needed Please Provide Date Initial DC 07/06/21 Assessment Was Performed
--- NOTE | 2021-07-06 12:31 | P.PN_ITS ---
Subjective Subjective Interval history: The patient reports having a BM this morning, that she reports was full. She denies any blood in the stools. She also endorses passing flatus. NG tube was removed yesterday because it was causing her discomfort, and she denies any recurrence of emesis, although she endorses occasional nausea. Pending general surgery recommendations regarding Gastrografin, etc. Exam Vital Signs (past 8 hours): - 07/06/21 07:44 07/06/21 11:49 Temperature 97.0 F L 97.3 F L Pulse Rate 76 84 Respiratory Rate 18 18 Blood Pressure 103/67 116/75 Pulse Oximetry 96 98 Oxygen Delivery Method Room Air Oxygen Flow Rate 0 Const Other: Patient sitting up in bed comfortably upon my entering the room, appears comfortable on her laptop, and not in apparent acute distress Eyes Other: No scleral icterus appreciated Resp Other: Lungs clear to auscultation bilaterally Cardio Other: RRR, with normal S1 and S2 heart sounds, and no extra heart sounds or murmurs appreciated GI Other: Soft, non-distended, non-tender, bowel sounds present although hypoactive Skin Other: No grossly abnormal skin lesions noted Extrem Other: Palpable dorsalis pedis pulses bilaterally Objective Labs Result Diagrams: 07/06/21 06:35 07/06/21 06:35 Labs: Laboratory Results - last 24 hr 07/06/21 07/06/21 06:35 06:35 WBC 3.6 L D RBC 3.33 L Hgb 10.5 L Hct 30.7 L MCV 92.3 MCH 31.6 MCHC 34.2 RDW 13.8 Plt Count 236 Neut % (Auto) 47.4 L D Lymph % (Auto) 33.4 D [place] % (Auto) 15.3 H Eos % (Auto) 3.3 Baso % (Auto) 0.6 Neut # (Auto) 1700 Lymph # (Auto) 1200 [place] # (Auto) 500 Eos # (Auto) 100 Baso # (Auto) 0 Sodium 136 L Potassium 4.0 Chloride 110 H Carbon Dioxide 23 BUN 18 H Creatinine 0.79 Estimated GFR > 60 BUN/Creatinine Ratio 22.8 H Glucose 118 H Calcium 9.0 Total Bilirubin 0.7 AST 20 ALT 17 Alkaline Phosphatase 61 Total Protein 5.8 L Albumin 3.3 L Globulin 2.5 Albumin/Globulin Ratio 1.3 [facility] Medical History Abnormal chest xray Acute renal insufficiency ADHD Allergy to antibiotic Anemia (~2016) Ankle pain (~2017) Anxiety Asthma Asthma Attention deficit disorder Bipolar disease, chronic (~1998) Bipolar disorder in partial remission Bronchospasm Cataracts, bilateral Cataracts, bilateral (~2018) Chicken pox Chronic back pain (~2003) Chronic cough Chronic pain Chronic post-traumatic stress disorder (PTSD) COPD (chronic obstructive pulmonary disease) COPD (chronic obstructive pulmonary disease) Cough COVID-19 vaccine series declined Crohn's disease (~2009) Crohns disease Decreased GFR Depressed bipolar affective disorder Depression (~1988) Eczema Eczema Elevated liver enzymes Elevated parathyroid hormone Encounter for tobacco use cessation counseling Foot pain (~2018) Foot pain, left Glomerulonephritis Headache Hemorrhoid (~1979) Hepatitis A test positive Hepatitis B surface antigen positive History of emphysema (~2017) Hypercalcemia Hypothyroidism (~1989) Insomnia Kidney disease Kidney disease (~1974) Left foot pain Lower extremity pain, posterior Marijuana use Migraines MRSA (methicillin resistant Staphylococcus aureus) (~2004) Nausea & vomiting Oral lesion Oral lesion Osteopenia of multiple sites Osteoporosis (~2016) Pharyngitis Post traumatic stress disorder (PTSD) Restless leg syndrome Restless legs syndrome SBO (small bowel obstruction) Seizure Serum calcium elevated Skin cancer, basal cell (~2016) Sleep apnea Small bowel obstruction Tobacco abuse disorder Surgical History History of section History of cholecystectomy History of intestinal surgery History of partial hysterectomy S/P tonsillectomy Family History (Updated 07/05/21 @ 07:15 by Nhi Garcia MD) Mother Cancer Alzheimer disease Father Heart disease Kidney disease Social History household members: spouse Smoking Status: Current every day smoker alcohol intake: never Assessment & Plan Assessment & Plan narrative: Assessment: 1. Partial SBO at ileocolonic region, mild, with reactive thickened sigmoid colon 2. Hx of Crohn's adhesions, with ileocecectomy resultin in stricture at yenifer stamosis 3. Hx of Crohn's disease 4. Bipolar disorder 5. ADD 6. Anxiety/PTSD 7. Hypothyroidism Plan: 1. NG tube removed on July 05. Patient passing gas, with small BM's. Appreciate general surgery recommendations regarding if need for Gastrografin challenge, etc. 2. This likely is what caused patient's recurrent SBO. 3. Patient follows with Dr. Glenn Odonnell at [facility], where she receives IV Vedolizumab every 6 weeks. 4. Will continue home Aripiprazole and trazodone. 5. Will continue home Ritalin. 6. Will continue home trazodone and buspirone. 7. Will continue home levothyroxine. VTE prophylaxis: Lovenox 40 mg daily Code: Full Code I have utilized all available immediate resources to obtain, update, or verify the patient's current medications. Time Spent With Patient Critical Care time: I spent a total of [] minutes of critical care time on this patient's care today; this time is exclusive of procedural time. Quality MIPS - Admit I confirm the patient?s Advance Care Plan is present, Code status is documented, Surrogate decision maker is in patient?s record [If Yes, STOP here]: Yes
--- NOTE | 2021-07-06 14:44 | PC.NURSE ---
Pt up ambulating in halls with . Dilaudid IV given x2 with zofran IV. Pt without nausea. Abd soft, BT+ x4 quads.
[2021-07-06] MEDS: OXYCODONE IR 5 MG TABLET PO ×2 (14:48→19:53)
[2021-07-06] MEDS: lisinopriL 10 MG TABLET PO (19:54)
[2021-07-06] MEDS: TRAZODONE 50 MG TABLET PO (19:54)
[2021-07-07 00:04] VITALS: BP 102/52; PULSE 68; RESP 14; TEMP 36.3; O2SAT 95
[2021-07-07] MEDS: OXYCODONE IR 5 MG TABLET PO ×2 (00:31→04:07)
[2021-07-07] MEDS: DEXTROSE 5%-0.9% NS 1,000 ML 125 ML IV (03:12)
[2021-07-07 03:43] VITALS: BP 118/64; PULSE 64; RESP 18; TEMP 35.9; O2SAT 98
[2021-07-07] MEDS: LEVOTHYROXINE 150 MCG TABLET PO (05:42)
[2021-07-07 08:00] VITALS: BP 140/81; PULSE 76; RESP 16; TEMP 36.7; O2SAT 99
[2021-07-07] MEDS: BUSPIRONE 5 MG TABLET 10 MG PO (08:24)
[2021-07-07] MEDS: ENOXAPARIN 40 MG/0.4 ML SYRINGE SUBCUT (08:24)
[2021-07-07] MEDS: METHYLPHENIDATE 5 MG TABLET 10 MG PO (08:28)
--- NOTE | 2021-07-07 12:02 | P.DS_ITS ---
History of Present Illness History of Present Illness Chief complaint: stomach pain Narrative: 61-year-old woman who has a history of Crohn's disease and has had a ileocecectomy in the past at [facility].? She has a known stricture near the anastomosis and has had multiple bowel obstructions which have tended to resolve easily and quickly on their own.? She has never required a Gastrografin challenge or any type of surgical procedure.? She came to the ER after developing abdominal pain last night following dinner.? She has vomited several times since getting to the hospital.? She has not passed any gas. Discharge Providers Provider Date of admission: 07/05/21 06:01 Discharge Date: 07/07/21 Primary care physician: MAXIMILIAN Doyle Consults: 07/05/21 05:53 Consult to General Surgery Stat Comment: Consulting Provider: Nhi Garcia Reason for consultation: SBO Has provider been notified: Yes Discharge provider: Cameron Jalloh MD Summary Hospital Course Discharge Diagnosis: 1. Acute small-bowel obstruction at ileocolonic region 2. Crohn's disease, with ileocectomy resulting in stricture at anastomosis Abdomen/pelvis CT:1. Suspect mild small bowel obstruction at the ileocolonic anastomosis. ? 2. Sigmoid colon may be mildly thickened.? Differential diagnoses include mild colitis versus artifact from inadequate distention. ? 3. Small amount of free fluid is present.? Hospital Course: Patient admitted for recurrent SBO and managed conservatively. Surgery consulted. NG tube placed initially. She is now tolerating soft diet and h aving multiple bowel movements. She will follow-up with her GI doc at [facility]. Status at Discharge Cognitive/behavioral status at discharge: oriented Functional status at discharge: independent ambulation Overall status at discharge: patient is back to baseline Time Spent with Patient Time spent: Less than 30 minutes Exam Vital Signs (past 8 hours): - 07/07/21 08:00 Temperature 98.1 F Pulse Rate 76 Respiratory Rate 16 Blood Pressure 140/81 Pulse Oximetry 99 Oxygen Delivery Method Room Air Oxygen Flow Rate 0 Narrative Exam Narrative: General: Alert NAD Lungs: Clear Abdomen: Soft Extremities: No edema Neurological: Normal affect and speech Objective Labs Result Diagrams: 07/06/21 06:35 07/06/21 06:35 [facility] Medical History Abnormal chest xray Acute renal insufficiency ADHD Allergy to antibiotic Anemia (~2016) Ankle pain (~2017) Anxiety Asthma Asthma Attention deficit disorder Bipolar disease, chronic (~1998) Bipolar disorder in partial remission Bronchospasm Cataracts, bilateral Cataracts, bilateral (~2018) Chicken pox Chronic back pain (~2003) Chronic cough Chronic pain Chronic post-traumatic stress disorder (PTSD) COPD (chronic obstructive pulmonary disease) COPD (chronic obstructive pulmonary disease) Cough COVID-19 vaccine series declined Crohn's disease (~2009) Crohns disease Decreased GFR Depressed bipolar affective disorder Depression (~1988) Eczema Eczema Elevated liver enzymes Elevated parathyroid hormone Encounter for tobacco use cessation counseling Foot pain (~2018) Foot pain, left Glomerulonephritis Headache Hemorrhoid (~1979) Hepatitis A test positive Hepatitis B surface antigen positive History of emphysema (~2017) Hypercalcemia Hypothyroidism (~1989) Insomnia Kidney disease Kidney disease (~1974) Left foot pain Lower extremity pain, posterior Marijuana use Migraines MRSA (methicillin resistant Staphylococcus aureus) (~2004) Nausea & vomiting Oral lesion Oral lesion Osteopenia of multiple sites Osteoporosis (~2016) Pharyngitis Post traumatic stress disorder (PTSD) Restless leg syndrome Restless legs syndrome SBO (small bowel obstruction) Seizure Serum calcium elevated Skin cancer, basal cell (~2016) Sleep apnea Small bowel obstruction Tobacco abuse disorder Surgical History History of section History of cholecystectomy History of intestinal surgery History of partial hysterectomy S/P tonsillectomy Family History (Updated 07/05/21 @ 07:15 by Nhi Garcia MD) Mother Cancer Alzheimer disease Father Heart disease Kidney disease Social History household members: spouse Smoking Status: Current every day smoker alcohol intake: never Discharge Plan Discharge Plan Patient Disposition: Home Provider Discharge Comment: Follow up with your GI specialist. Discharge orders & Medications Prescriptions: Continued buspirone 10 mg tablet 10 mg PO BID Qty: 180 3RF trazodone 50 mg tablet See Rx Instructions PO BEDTIME PRN (Reason: insomnia) Qty: 180 3RF Rx Instructions: Take 50 to 100 mg (1-2 tabs) PO bedtime PRN; cholecalciferol (vitamin D3) 10 mcg (400 unit) capsule 10 mcg PO DAILY 0RF Complete Multivitamin Tablet 1 tab PO DAILY 0RF methylphenidate HCl 10 mg tablet 10 mg PO DAILY Qty: 30 0RF Rx Instructions: to be taken as afternoon booster dose. methylphenidate HCl 20 mg tablet extended release 20 mg PO DAILY Qty: 30 0RF levothyroxine 125 mcg tablet See Rx Instructions .ROUTE .COMPLEX Qty: 90 3RF Dose Instruction: TAKE 1 TABLET(125 MCG) BY MOUTH EVERY MORNING 30 MINUTES BEFORE BREAKFAST ON AN EMPTY STOMACH Rx Instructions: TAKE 1 TABLET(125 MCG) BY MOUTH EVERY MORNING 30 MINUTES BEFORE BREAKFAST ON AN EMPTY STOMACH levothyroxine 25 mcg tablet See Rx Instructions .ROUTE .COMPLEX Qty: 90 3RF Dose Instruction: TAKE 1 TABLET BY MOUTH EVERY DAY WITH 125 MCG TABLET FOR A TOTAL OF 150 MCG DAILY Rx Instructions: TAKE 1 TABLET BY MOUTH EVERY DAY WITH 125 MCG TABLET FOR A TOTAL OF 150 MCG DAILY albuterol sulfate [Ventolin HFA] 90 mcg/actuation HFA aerosol inhaler 2 puff INHALATION Q4-6H PRN (Reason: shortness of breath or wheezing) Qty: 8.5 6RF Rx Instructions: Use every 4-6 hours as needed for cough/shortness of breath/wheezing ondansetron 4 mg tablet,disintegrating See Rx Instructions .ROUTE .COMPLEX Qty: 60 3RF Dose Instruction: DISSOLVE 1 TABLET ON THE TONGUE EVERY 6 HOURS NEEDED FOR NAUSEA/VOMITING Rx Instructions: DISSOLVE 1 TABLET ON THE TONGUE EVERY 6 HOURS NEEDED FOR NAUSEA/VOMITING lisinopril 5 mg tablet See Rx Instructions .ROUTE .COMPLEX Qty: 180 3RF Dose Instruction: TAKE 2 TABLETS BY MOUTH EVERY NIGHT AT BEDTIME FOR HYPERTENSION FOR BLOOD PRESSURE GOAL UNDER 140/90 Label Comments: Patient reports taking med in AM instead of HS Rx Instructions: TAKE 2 TABLETS BY MOUTH EVERY NIGHT AT BEDTIME FOR HYPERTENSION FOR BLOOD PRESSURE GOAL UNDER 140/90 Blood Pressure Cuff Misc 1 each MISC BID Qty: 1 0RF Label Comments: pt reports using BP cuff once a week Rx Instructions: Check blood pressure twice daily. AM reading should be prior to medications. PM reading any time. estradiol 0.01 % (0.1 mg/gram) cream 1 appful vaginal DAILY Qty: 42.5 3RF Label Comments: Patient hasnt started taking Rx Instructions: Insert vaginally at bedtime for 14 days, then 3 days/week thereafter omega 2-kwu-fnk-fish oil 840 mg (375 mg- 465mg)-1,220 mg capsule 2 cap PO DAILY 0RF zinc gluconate 30 mg tablet 30 mg PO DAILY 0RF vitamin B complex [B Complex-Vitamin B12] Tablet 1 tab PO DAILY 0RF ferrous sulfate [Iron (ferrous sulfate)] 325 mg (65 mg iron) Tablet 65 mg PO DAILY 0RF Follow up/Referrals: Liat Hernandez ARNP [Primary Care Provider] - Diet/Activity/Treatments Diet: Diet as Tolerated Diet comment: Soft diet. No uncooked fuits/vegetables. Discharge Data Primary Care Provider: Liat Hernandez Attending Provider: Nhi Garcia
[2021-07-07] MEDS: ACETAMINOPHEN 325 MG TABLET 650 MG PO (12:39)
== END 2021-07-07 12:50 | disposition home or self-care (01) ==
LOC: ED 05:54 → AC 06:10
PROVIDERS: Admitting Provider Family Medicine; Emergency Provider Emergency Medicine; Family Provider Psychiatry & Neurology Psychiatry; PCP Nurse Practitioner; Referring Provider Family Medicine; Visit Provider Family Medicine
DX: K56.609 Unspecified intestinal obstruction, unspecified as to partial versus complete obstruction (principal); K50.90 Crohn's disease, unspecified, without complications; D64.9 Anemia, unspecified; F41.9 Anxiety disorder, unspecified; J45.909 Unspecified asthma, uncomplicated; E03.9 Hypothyroidism, unspecified; F31.9 Bipolar disorder, unspecified; F98.8 Other specified behavioral and emotional disorders with onset usually occurring in childhood and adolescence; F43.12 Post-traumatic stress disorder, chronic; Z72.0 Tobacco use; Z90.49 Acquired absence of other specified parts of digestive tract; Z20.822 Contact with and (suspected) exposure to COVID-19
CPT/HCPCS: 36415; 74018; 74177; 80053; 83605; 83690; 85025; 87635; 96361; 96372; 96374; 96375; 96376; 99284; C9803; G0378; J1170; J1650; J2270; J2405; J2765; Q9967

== ENCOUNTER → 2021-08-15 10:14 | Outpatient (CLI) | payer MEDICARE, OTHER, SELFPAY ==
[2021-07-15 10:21] VITALS: BMI 31.4
[2021-08-15 12:17] LABS: Add Manual Diff / Slide Review NO; Basophils Absolute Auto 0 /uL (0-100); Basophils Percent Auto 0.6 % (0-2); Eosinophils Absolute Auto 200 /uL (0-450); Eosinophils Percent Auto 4.2 % (2-4); Hematocrit 38.2 % (36-46); Hemoglobin 12.8 g/dL (12.0-16.0); Lymphocytes Absolute Auto 1400 /uL (1100-4500); Lymphocytes Percent Auto 26.3 % (25-40); Mean Corpuscular HGB Conc 33.5 % (30-36); Mean Corpuscular Hemoglobin 30.9 PG (26-34); Mean Corpuscular Volume 92.1 fL (80-100); Monocytes Absolute Auto 300 /uL (0-900); Monocytes Percent Auto 5.9 % (3-14); Neutrophils Absolute Auto 3400 /uL (1500-7000); Platelet Count 330 X10^3/uL (150-400); Red Blood Cell Count 4.15 X10^6/uL (4.0-5.2); Red Cell Distribution Width 13.1 % (11.6-14.8); White Blood Cell Count 5.4 X10^3/uL (4.5-11.0)
[2021-08-15 12:28] LABS: Alanine Aminotransferase 29 IU/L (<35); Albumin 4.7 g/dL (3.5-5.0); Albumin Globulin Ratio 1.4 (1.0-2.8); Alkaline Phosphatase 104 U/L (38-126); Aspartate Aminotransferase 28 IU/L (14-36); BUN Creatinine Ratio 8.7 (6-22); Bilirubin Total 0.6 mg/dL (0.2-1.3); Blood Urea Nitrogen 9 mg/dL (7-17); Calcium 10.5 mg/dL (8.4-10.2); Carbon Dioxide 28 mmol/L (22-32); Chloride 105 mmol/L (98-107); Estimated Glomerular Filt Rate > 60 mL/min (>60); Globulin 3.3 g/dL (1.7-4.1); Glucose 100 mg/dL (80-110); HEMOLYSIS < 15 (0-50); Potassium 4.1 mmol/L (3.4-5.1); Sodium 141 mmol/L (137-145)
[2021-08-15 12:45] LABS: Free T3, Triiodothyronine Free 2.29 pg/mL (2.77-5.27); Free T4, Direct Thyroxine 0.61 ng/dL (0.78-2.19)
[2021-08-15 12:58] LABS: Thyroid Stimulating Hormone 46.5 uIU/mL (0.47-4.68)
== END ==
PROVIDERS: Family Provider Psychiatry & Neurology Psychiatry; PCP Nurse Practitioner; Referring Provider Nurse Practitioner; Visit Provider Nurse Practitioner
DX: D64.9 Anemia, unspecified (principal); E03.9 Hypothyroidism, unspecified; E83.52 Hypercalcemia; F41.9 Anxiety disorder, unspecified; K50.919 Crohn's disease, unspecified, with unspecified complications; N05.9 Unspecified nephritic syndrome with unspecified morphologic changes; N18.9 Chronic kidney disease, unspecified; F31.4 Bipolar disorder, current episode depressed, severe, without psychotic features; G24.01 Drug induced subacute dyskinesia; F98.8 Other specified behavioral and emotional disorders with onset usually occurring in childhood and adolescence
CPT/HCPCS: 36415; 80053; 84439; 84443; 84481; 85025; 99214

== ENCOUNTER → 2021-10-17 11:56 | Outpatient (CLI) | payer MEDICARE, OTHER, SELFPAY ==
[2021-07-15 10:21] VITALS: BMI 31.4
--- NOTE | 2021-10-17 11:58 | DI.RAD.S_ITS ---
PROCEDURE: XR LUMBAR SPINE 2-3V INDICATIONS: lumbar back pain with sciatica TECHNIQUE: 3 views of the lumbar spine were acquired. COMPARISON: [facility], CT, CT ABDOMEN PELVIS W CON, 07/05/2021, 4:42. FINDINGS: Bones: 5 [id number] vertebrae are present. There is normal bony alignment. No vertebral body compression fractures. No suspicious bony lesions. Multilevel mild degenerative disc space narrowing throughout the lumbar spine, moderate at L5-S1. There is moderate to severe foraminal narrowing at L5-S1, mild L3-4 and L4-5. Soft tissues: Overlying bowel gas pattern is normal. No suspicious soft tissue calcifications. IMPRESSION: Degenerative changes most severe at L5-S1 as above. Dictated by: Anita Rhodes M.D. on 10/17/2021 at 16:10 Approved by: Anita Rhodes M.D. on 10/17/2021 at 16:11
== END ==
PROVIDERS: Family Provider Psychiatry & Neurology Psychiatry; PCP Nurse Practitioner; Referring Provider Nurse Practitioner; Visit Provider Nurse Practitioner
DX: M54.40 Lumbago with sciatica, unspecified side (principal)
CPT/HCPCS: 72100

== ENCOUNTER → 2021-10-31 08:49 | Outpatient (CLI) | payer MEDICARE, OTHER, SELFPAY ==
[2021-07-15 10:21] VITALS: BMI 31.4
--- NOTE | 2021-10-31 08:51 | DI.RAD.S_ITS ---
PROCEDURE: XR TOE LT MIN 2V INDICATIONS: Left great toe injury TECHNIQUE: 3 views of the 1st toe(s) acquired. COMPARISON: None. FINDINGS: Bones: There is vague linear lucency traversing the proximal aspect of the distal phalanx of the 1st digit. No suspicious bony lesions. Mild periarticular osteophyte formation at the 1st metatarsophalangeal joint. Soft tissues: No suspicious soft tissue densities. IMPRESSION: Possible minimally displaced fracture of the 1st digit. Dictated by: Jacey Berger M.D. on 10/31/2021 at 11:00 Approved by: Jacey Berger M.D. on 10/31/2021 at 11:02
== END ==
PROVIDERS: Family Provider Psychiatry & Neurology Psychiatry; PCP Nurse Practitioner; Referring Provider Nurse Practitioner Family; Visit Provider Nurse Practitioner Family
DX: S99.922A Unspecified injury of left foot, initial encounter (principal)
CPT/HCPCS: 73660

== ENCOUNTER → 2021-11-19 14:35 | Outpatient (CLI) | payer MEDICARE, OTHER, SELFPAY ==
[2021-07-15 10:21] VITALS: BMI 31.4
--- NOTE | 2021-11-19 14:39 | DI.RAD.S_ITS ---
PROCEDURE: XR CHEST 2V INDICATIONS: cough TECHNIQUE: 2 views of the chest were acquired. COMPARISON: [facility], CR, XR CHEST 1V, 08/14/2019, 12:48. FINDINGS: Surgical changes and devices: None. Lungs and pleura: Diffuse perihilar interstitial prominence bilaterally. Thickening of the fissures. No dense consolidations or pleural effusions. Mediastinum: Mediastinal contours are normal. Heart size is normal. Bones and chest wall: No suspicious bony abnormalities. Soft tissues appear unremarkable. IMPRESSION: 1. Diffuse bilateral perihilar interstitial thickening may indicate interstitial pneumonitis or edema. 2. No cardiomegaly or significant central vascular congestion. Correlate with BNP to exclude CHF. Dictated by: Ana Adkins M.D. on 11/19/2021 at 16:16 Approved by: Ana Adkins M.D. on 11/19/2021 at 16:17
== END ==
PROVIDERS: Family Provider Psychiatry & Neurology Psychiatry; PCP Nurse Practitioner; Referring Provider Nurse Practitioner; Visit Provider Nurse Practitioner
DX: R05.9 Cough, unspecified (principal); R06.02 Shortness of breath; R30.0 Dysuria
CPT/HCPCS: 71046; 81001; 87086

== ENCOUNTER → 2021-11-19 14:53 | Outpatient (CLI) | payer MEDICARE, OTHER, SELFPAY ==
[2021-07-15 10:21] VITALS: BMI 31.4
[2021-11-19 15:21] LABS: Appearance Urine UA CLEAR; Bilirubin Urine UA NEGATIVE (NEGATIVE); Color Urine UA YELLOW; Glucose Urine UA TRACE g/dL (Negative); Ketones Urine UA NEGATIVE (NEGATIVE); Leukocyte Esterase Urine UA 1+ (NEGATIVE); Nitrite Urine UA POSITIVE (Negative); Occult Blood Urine UA NEGATIVE (Negative); Protein Urine UA TRACE (Negative); pH Urine UA 6.5 (4.5-8.0)
[2021-11-19 15:25] LABS: Bacteria Urine Few (2-10); Culture Indicated Urine Specimen Cultured; RBC Urine None Seen (0-5/HPF); Squamous Epithelial Cell Urine 1-5 /HPF (0-5/HPF); WBC Urine 5-10/HPF (0-5/HPF)
== END ==
PROVIDERS: Family Provider Psychiatry & Neurology Psychiatry; PCP Nurse Practitioner; Referring Provider Nurse Practitioner; Visit Provider Nurse Practitioner
DX: R30.0 Dysuria (principal)
CPT/HCPCS: 81001; 87086

== ENCOUNTER → 2021-12-07 08:14 | Outpatient (CLI) | payer MEDICARE, OTHER, SELFPAY ==
[2021-07-15 10:21] VITALS: BMI 31.4
[2021-12-07 14:07] LABS: Clostridium Difficile Tox PCR Negative for C. diff (Negative)
== END ==
PROVIDERS: Family Provider Psychiatry & Neurology Psychiatry; PCP Nurse Practitioner; Referring Provider Nurse Practitioner; Visit Provider Nurse Practitioner
DX: R19.7 Diarrhea, unspecified (principal)
CPT/HCPCS: 87493

== ENCOUNTER → 2021-12-26 10:42 | Outpatient (CLI) | payer MEDICARE, OTHER, SELFPAY ==
[2021-07-15 10:21] VITALS: BMI 31.4
--- NOTE | 2021-12-26 10:43 | DI.RAD.S_ITS ---
PROCEDURE: XR CHEST 2V INDICATIONS: Pneumonia TECHNIQUE: 2 views of the chest were acquired. COMPARISON: [facility], CR, XR CHEST 2V, 11/19/2021, 14:47. FINDINGS: Surgical changes and devices: None. Lungs and pleura: Lungs are clear. No pleural effusions or pneumothorax. Mediastinum: Mediastinal contours are normal. Heart size is normal. Bones and chest wall: No suspicious bony abnormalities. Soft tissues appear unremarkable. IMPRESSION: No acute cardiopulmonary process demonstrated radiographically. Dictated by: Glenn Herrera M.D. on 12/26/2021 at 13:14 Approved by: Glenn Herrera M.D. on 12/26/2021 at 13:14
[2021-12-26 12:56] LABS: Free T3, Triiodothyronine Free 3.75 pg/mL (2.77-5.27); Free T4, Direct Thyroxine 1.38 ng/dL (0.78-2.19)
[2021-12-26 13:10] LABS: Thyroid Stimulating Hormone 0.738 uIU/mL (0.47-4.68)
== END ==
PROVIDERS: Family Provider Psychiatry & Neurology Psychiatry; PCP Nurse Practitioner; Referring Provider Nurse Practitioner; Visit Provider Nurse Practitioner
DX: E03.9 Hypothyroidism, unspecified (principal); J18.9 Pneumonia, unspecified organism; F31.4 Bipolar disorder, current episode depressed, severe, without psychotic features; F98.8 Other specified behavioral and emotional disorders with onset usually occurring in childhood and adolescence; G24.01 Drug induced subacute dyskinesia; F43.10 Post-traumatic stress disorder, unspecified
CPT/HCPCS: 36415; 71046; 84439; 84443; 84481; 99214

== ENCOUNTER → 2022-01-01 11:33 | Outpatient (CLI) | payer MEDICARE, OTHER, SELFPAY ==
[2021-07-15 10:21] VITALS: BMI 31.4
--- NOTE | 2022-01-01 11:45 | DI.RAD.S_ITS ---
PROCEDURE: XR THORACIC SPINE 3V INDICATIONS: back pain TECHNIQUE: 3 views of the thoracic spine were acquired. COMPARISON: None. FINDINGS: Bones: No fractures or dislocations. No suspicious bony lesions. 12 pairs of ribs are noted, and appear intact where visualized. There is leftward curvature of the thoracolumbar spine with a Schaffer angle of 11? and the left apex at T11. Soft tissues: No paravertebral stripe thickening. IMPRESSION: 1. No acute abnormality. 2. Levoscoliosis of the thoracolumbar spine with the left apex at T11. Dictated by: Geovanni Calderon M.D. on 01/02/2022 at 9:34 Approved by: Geovanni Calderon M.D. on 01/02/2022 at 9:42
--- NOTE | 2022-01-01 11:45 | DI.RAD.S_ITS ---
PROCEDURE: XR LUMBAR SPINE 2-3V INDICATIONS: back pain TECHNIQUE: 3 views of the lumbar spine were acquired. COMPARISON: [facility], , XR LUMBAR SPINE 2-3V, 10/17/2021, 12:03. FINDINGS: Bones: 5 [id number]-[id number] vertebrae are present. There is normal bony alignment. No vertebral body compression fractures. No suspicious bony lesions. Multilevel mild degenerative changes. There is facet arthrosis in the lower lumbar spine. Rightward curvature thoracolumbar spine with the rightward apex at L1 and a Schaffer angle of 6? Soft tissues: Overlying bowel gas pattern is normal. No suspicious soft tissue calcifications. IMPRESSION: Multilevel degenerative changes with mild rightward curvature of the thoracolumbar spine. No significant change compared to prior x-ray. Dictated by: Geovanni Calderon M.D. on 01/02/2022 at 9:42 Approved by: Geovanni Calderon M.D. on 01/02/2022 at 9:44
[2022-01-01 12:23] LABS: Add Manual Diff / Slide Review NO; Basophils Absolute Auto 0 /uL (0-100); Basophils Percent Auto 0.8 % (0-2); Eosinophils Absolute Auto 200 /uL (0-450); Eosinophils Percent Auto 3.3 % (2-4); Hematocrit 38.3 % (36-46); Hemoglobin 13.1 g/dL (12.0-16.0); Lymphocytes Absolute Auto 1300 /uL (1100-4500); Lymphocytes Percent Auto 26.9 % (25-40); Mean Corpuscular HGB Conc 34.2 % (30-36); Mean Corpuscular Hemoglobin 31.6 PG (26-34); Mean Corpuscular Volume 92.3 fL (80-100); Monocytes Absolute Auto 300 /uL (0-900); Monocytes Percent Auto 5.9 % (3-14); Neutrophils Absolute Auto 3200 /uL (1500-7000); Neutrophils Percent Auto 63.1 % (50-75); Platelet Count 307 X10^3/uL (150-400); Red Blood Cell Count 4.15 X10^6/uL (4.0-5.2); Red Cell Distribution Width 13.3 % (11.6-14.8)
[2022-01-01 12:51] LABS: Erythrocyte Sedimentation Rate 15 MM/HR (0-20)
[2022-01-01 13:27] LABS: Alanine Aminotransferase 37 IU/L (<35); Albumin 4.6 g/dL (3.5-5.0); Albumin Globulin Ratio 1.4 (1.0-2.8); Alkaline Phosphatase 101 U/L (38-126); Aspartate Aminotransferase 30 IU/L (14-36); BUN Creatinine Ratio 22.4 (6-22); Bilirubin Total 0.6 mg/dL (0.2-1.3); Blood Urea Nitrogen 22 mg/dL (7-17); C-Reactive Protein Quant < 0.5 mg/dL (<1.0); Calcium 10.9 mg/dL (8.4-10.2); Carbon Dioxide 26 mmol/L (22-32); Chloride 104 mmol/L (98-107); Estimated Glomerular Filt Rate > 60 mL/min (>60); Globulin 3.3 g/dL (1.7-4.1); Glucose 169 mg/dL (80-110); HEMOLYSIS < 15 (0-50); Potassium 5.2 mmol/L (3.4-5.1); Sodium 141 mmol/L (137-145); Total Protein 7.9 g/dL (6.3-8.2)
[2022-01-01 13:28] LABS: Rheumatoid Factor < 8.6 IU/mL (<12.0)
[2022-01-04 12:36] LABS: ANA Screen, IFA Negative (.)
== END ==
PROVIDERS: Family Provider Psychiatry & Neurology Psychiatry; PCP Nurse Practitioner; Referring Provider Nurse Practitioner; Visit Provider Nurse Practitioner
DX: M54.40 Lumbago with sciatica, unspecified side (principal); K50.919 Crohn's disease, unspecified, with unspecified complications; M25.579 Pain in unspecified ankle and joints of unspecified foot; M79.10 Myalgia, unspecified site; R21 Rash and other nonspecific skin eruption; M54.6 Pain in thoracic spine; M41.85 Other forms of scoliosis, thoracolumbar region
CPT/HCPCS: 36415; 72072; 72100; 80053; 85025; 85651; 86038; 86140; 86430

== ENCOUNTER → 2022-03-06 10:44 | Outpatient (CLI) | payer MEDICARE, OTHER, SELFPAY ==
[2021-07-15 10:21] VITALS: BMI 31.4
--- NOTE | 2022-03-06 10:46 | DI.MRI.S_ITS ---
PROCEDURE: MR LUMBAR SPINE WO CON INDICATIONS: Lumbar radiculopathy TECHNIQUE: Noncontrast sagittal T1 spin echo and T2 fast echo, sagittal STIR, and T2 fast spin echo through the lumbar spine. In cases with scoliosis, additional coronal T2 fast spin echo may be performed. COMPARISON: [facility], MR, L-SPINE W&WO CONTRAST, 06/03/2012, 10:37. [facility], CT, CT ABDOMEN PELVIS W CON, 07/05/2021, 4:42. [facility], CR, XR LUMBAR SPINE 2-3V, 01/01/2022, 11:51. [facility], MR, L-SPINE WITHOUT CONTRAST, 03/14/2016, 7:55. FINDINGS: Image quality: Excellent. Alignment and Curvature: There is minimal retrolisthesis seen at the L2-L3 level. Bone Marrow: Marrow is of normal overall signal. No acute vertebral body compression fractures. Spinal Cord: Conus medullaris terminates at the L1 level. Visualized cord demonstrates normal signal and size. Paraspinous Soft Tissues: No paravertebral masses. T12-L1: Normal appearance. L1-L2: Normal appearance. L2-L3: The disc height and disk signal are relatively well-preserved. Mild generalized disc bulge is seen. Mild facet joint hypertrophy is seen. Mild bilateral neural foraminal narrowing is seen. Mild central canal narrowing is seen. These imaging findings have progressed compared to the prior study. L3-L4: The disc height is well-preserved. Loss of disc signal is seen at this level. Mild generalized disc bulge is seen. Mild facet joint hypertrophy is seen. Mild bilateral neural foraminal narrowing is seen. No significant central canal narrowing is seen. These imaging findings have progressed compared to the prior study. L4-L5: The disc height is well-preserved. Loss of disc signal is seen at this level. Moderate disc bulge is seen, which is eccentric to the right. At least moderate facet hypertrophy is seen. Fluid is seen within the facet joints themselves. Moderate bilateral neural foraminal narrowing is seen. Moderate central canal narrowing is seen. When comparison is made with the prior images, these findings are similar. L5-S1: The disc height is well-preserved. Loss of disc signal is seen at this level. Moderate disc bulge is seen, with a superimposed central disc protrusion. Mild facet joint hypertrophy is seen. There is at least moderate bilateral neural foraminal narrowing seen. There is a degree of compression seen upon the exiting nerve roots. Moderate central canal narrowing is seen, which is exacerbated by prominent epidural fat. The degree of central disc protrusion is progressed compared to 2017. IMPRESSION: Multiple levels of lumbar spine degenerative change are seen, which are overall progressed compared to 2017. Dictated by: Fortino Casillas M.D. on 03/06/2022 at 18:22 Approved by: Fortino Casillas M.D. on 03/06/2022 at 18:26
== END ==
PROVIDERS: Family Provider Psychiatry & Neurology Psychiatry; PCP Nurse Practitioner; Referring Provider Anesthesiology; Visit Provider Anesthesiology
DX: M47.26 Other spondylosis with radiculopathy, lumbar region (principal); M47.27 Other spondylosis with radiculopathy, lumbosacral region
CPT/HCPCS: 72148

== ENCOUNTER 2022-03-20 14:35 | Outpatient (CLI) | payer MEDICARE, OTHER, SELFPAY ==
[2021-07-15 10:21] VITALS: BMI 31.4
--- NOTE | 2022-03-20 14:37 | DI.RAD.S_ITS ---
PROCEDURE: PAIN L INTERLAMINAR/CAUDAL INJ INDICATIONS: SPONDYLOSIS COMPARISON: [facility], MR, MR LUMBAR SPINE WO CON, 03/06/2022, 10:51. [facility], CR, XR LUMBAR SPINE 2-3V, 01/01/2022, 11:51. FINDINGS: Fluoroscopic spot filming was performed to verify placement of a spinal needle at the L4-L5 level, as labeled on the films. Appropriate location of the needle tip was confirmed by injection of iodinated contrast. IMPRESSION: Intraprocedural examination within normal limits. Dictated by: Fortino Casillas M.D. on 03/27/2022 at 14:59 Approved by: Fortino Casillas M.D. on 03/27/2022 at 15:00
[2022-03-20 14:43] VITALS: BP 116/69; PULSE 76; RESP 20; O2SAT 96
[2022-03-20 15:18] VITALS: BP 124/60; PULSE 73; RESP 16; O2SAT 96
[2022-03-20 15:23] VITALS: BP 114/57; PULSE 70; RESP 16; O2SAT 95
[2022-03-20 15:24] VITALS: BP 139/74; PULSE 74; RESP 18; O2SAT 97
[2022-03-20 15:29] VITALS: BP 137/70; PULSE 74; RESP 18; O2SAT 97
--- NOTE | 2022-03-20 17:00 | P.PCN_ITS ---
Date/Time/Diagnoses Date of procedure: 03/20/22 Time of procedure: 15:00 Procedure Notes Physician: Sal Strong Total Fluoroscopy time (seconds): 12 Total sedation minutes: 0 Procedure in detail & Post-procedure care: L4-5 Interlaminar Epidural Steroid Injection Indications: Louann is referred by Dr. Hernandez for treatment of lumbar radi culopathy with low back and leg pain. Preoperative diagnosis: Left lumbar radiculopathy Postoperative diagnosis: Same Focused Examination: Ax3 Mood and affect are normal Vital Signs: VSS ASA: 2 Consent: Following review of allergies and potential side effects/complications, including, but not necessarily limited to, infection, allergic reaction, local tissue breakdown, stroke, temporary or permanent nerve injury, paralysis, and possible , the patient indicated that they understood and agreed to proceed.? An informed consent document was signed by the patient, witnessed by a nurse and placed in the patient's chart.? Additionally, other treatment options including medications and physical therapy were reviewed with the patient. All questions were answered. Site was then marked. Anesthesia: Local Position: Prone Monitoring: NIBP, Pulse oximetry, 3 lead EKG Needle used: 18 G 3.5? Tuohy Contrast: Isovue 300M Injectate: Depo-Medrol 80 mg with 0.25% Bupivacaine 2 mL Technique: The skin was prepped with chloraprep and then draped in a sterile fashion. Time out was performed as per protocol. Oxygen applied via NC. Skin and subcutaneous structures of the needle entry site was then infiltrated with 3 mL of lidocaine 1%. Under AP, lateral and contralateral oblique fluoroscopic control, the Tuohy needle was guided into the L4-5 epidural space. The space was accessed with loss of resistance technique. Isovue 300M was then injected and the spread was consistent with the epidural space. There was no evidence for intravascular or intrathecal uptake. After negative aspiration, the above- mentioned injectate was then slowly administered and the needle withdrawn. The patient expressed no unusual discomfort or paresthesias during the injection. Band-Aids applied to injection sites. EBL: less than 1 ml Complications: None Post Procedure: Patient was taken to the recovery and monitored. The patient was provided a Pain Log to continue to record the patient's response to the target- specific procedure prior to the patient's follow-up visit with the referring physician. Patient was stable upon discharge. Detailed post procedure instructions were provided. Patient was asked to call in the event of worsening pain, fever, weakness, numbness or bladder or bowel incontinence.
== END 2022-03-20 15:35 | disposition home or self-care (01) ==
LOC: RAD 14:37
PROVIDERS: Family Provider Psychiatry & Neurology Psychiatry; PCP Nurse Practitioner; Referring Provider Anesthesiology; Visit Provider Anesthesiology
DX: M54.16 Radiculopathy, lumbar region (principal)
CPT/HCPCS: 62323; J1040; J3490

== ENCOUNTER → 2022-04-03 08:47 | Outpatient (CLI) | payer MEDICARE, OTHER, SELFPAY ==
[2021-07-15 10:21] VITALS: BMI 31.4
--- NOTE | 2022-04-03 | DI.MRI.S_ITS ---
PROCEDURE: MR ABDOME PELVIS WWO CON INDICATIONS: Crohn's disease/hx of small bowel obstruction TECHNIQUE: After the ingestion of oral contrast, coronal and axial HASTE, coronal 2-D FLASH in-and [id number] sequences. After the administration of contrast, coronal and axial VIBE or 2-D FLASH with fat saturation sequences acquired through the abdomen and pelvis. Optional diffusion weighted imaging and ADC may be performed. COMPARISON: [facility], CT, CT ABDOMEN PELVIS W CON, 07/05/2021, 4:42. FINDINGS: Image quality: Excellent. Bowel and peritoneum: Only the proximal half of small bowel loops are opacified with oral contrast. There is a focal transition point in the dorsal upper pelvis, proximal to which there are signs of stasis in a few small bowel loops. At this transition point, there is no discrete wall thickening or enhancement. There is an acute kink in the bowel at this point which may indicate adhesion rather than stricture. Proximal bowel loops demonstrate normal mucosal pattern but are mildly dilated to the upper limits of normal measuring 3 cm in diameter maximally. The distal ileum prior to the ileocolonic anastomosis is decompressed. Ileocolonic anastomosis appears widely patent. There is no suspicious surrounding enhancement. The proximal colon contains a normal amount of stool. The distal colon through rectum is entirely decompressed. Cine images demonstrate peristalsis throughout all portions of small bowel. Solid organs: Liver is normal in size and enhancement. Gallbladder is absent . Biliary system is non dilated, without findings to suggest primary sclerosing cholangitis. Pancreas is normal in morphology, without evidence for autoimmune pancreatitis. There is pancreas divisum morphology. Spleen is normal in size and enhancement. No adrenal nodules. Both kidneys are normal in size and enhancement, without hydronephrosis. Cortical renal cyst present, the largest arising from the lower pole right kidney. Nodes and vessels: No retroperitoneal or mesenteric adenopathy. Aorta is normal caliber. IVC is completely decompressed. Lung bases: No basal pleural effusions. Heart size is normal. Pelvis: No free pelvic fluid. No inguinal hernias or adenopathy. The uterus is within normal limits. Ovarian tissue is not well seen. Bones and soft tissues: No ventral hernias. Bone marrow is normal in overall signal. No findings to suggest sacroiliitis. Femoral heads demonstrate no avascular necrosis. IMPRESSION: 1. Partial distension of small bowel loops with a transition point in the dorsal upper pelvis. Etiology may be adhesion given acute kink rather than bowel inflammation given lack of wall thickening. 2. No suspicious enhancement of bowel loops. 3. Patent ileocolonic anastomosis without adjacent inflammation. Dictated by: Ana Adkins M.D. on 04/03/2022 at 14:19 Approved by: Ana Adkins M.D. on 04/03/2022 at 14:50
== END ==
PROVIDERS: Family Provider Psychiatry & Neurology Psychiatry; PCP Nurse Practitioner; Referring Provider Nurse Practitioner Family; Visit Provider Nurse Practitioner Family
DX: K50.818 Crohn's disease of both small and large intestine with other complication (principal); Z87.19 Personal history of other diseases of the digestive system; Z90.49 Acquired absence of other specified parts of digestive tract; Z98.0 Intestinal bypass and anastomosis status
CPT/HCPCS: 72197; 74183; A9579

== ENCOUNTER → 2022-04-15 16:47 | Outpatient (CLI) | payer MEDICARE, OTHER, SELFPAY ==
[2022-04-08 12:35] VITALS: BMI 31.4
--- NOTE | 2022-04-15 16:48 | DI.RAD.S_ITS ---
PROCEDURE: XR FOOT RT MIN 3V INDICATIONS: pain TECHNIQUE: 3 views of the foot were acquired. COMPARISON: None. FINDINGS: Bones: No fractures or dislocations. No suspicious bony lesions. Soft tissues: No tibiotalar joint effusion. Achilles tendon appears normal. IMPRESSION: No acute finding. Dictated by: Glenn Herrera M.D. on 04/16/2022 at 10:59 Approved by: Glenn Herrera M.D. on 04/16/2022 at 11:00
== END ==
PROVIDERS: Family Provider Psychiatry & Neurology Psychiatry; PCP Nurse Practitioner; Referring Provider Nurse Practitioner Family; Visit Provider Nurse Practitioner Family
DX: M79.671 Pain in right foot (principal); M81.0 Age-related osteoporosis without current pathological fracture
CPT/HCPCS: 73630

== ENCOUNTER → 2022-04-15 17:21 | Outpatient (CLI) | payer MEDICARE, OTHER, SELFPAY ==
[2022-04-08 12:35] VITALS: BMI 31.4
[2022-04-15 18:20] LABS: Free T3, Triiodothyronine Free 3.34 pg/mL (2.77-5.27); Free T4, Direct Thyroxine 1.11 ng/dL (0.78-2.19)
[2022-04-15 18:34] LABS: Thyroid Stimulating Hormone 11.5 uIU/mL (0.47-4.68)
== END ==
PROVIDERS: Family Provider Psychiatry & Neurology Psychiatry; PCP Nurse Practitioner; Referring Provider Nurse Practitioner; Visit Provider Nurse Practitioner
DX: E03.9 Hypothyroidism, unspecified (principal)
CPT/HCPCS: 36415; 84439; 84443; 84481

== ENCOUNTER → 2022-04-16 16:14 | Outpatient (CLI) | payer MEDICARE, OTHER, SELFPAY ==
[2022-04-08 12:35] VITALS: BMI 31.4
[2022-04-16 16:53] LABS: Uric Acid 4.1 mg/dL (2.5-6.2)
== END ==
PROVIDERS: Family Provider Psychiatry & Neurology Psychiatry; PCP Nurse Practitioner; Referring Provider Nurse Practitioner; Visit Provider Nurse Practitioner
DX: M79.673 Pain in unspecified foot (principal)
CPT/HCPCS: 36415; 84550

== ENCOUNTER → 2022-05-14 10:01 | Outpatient (CLI) | payer MEDICARE, OTHER, SELFPAY ==
[2022-05-05 09:51] VITALS: BMI 31.4
[2022-05-14 11:33] LABS: Add Manual Diff / Slide Review NO; Basophils Absolute Auto 0 /uL (0-100); Basophils Percent Auto 0.4 % (0-2); Eosinophils Absolute Auto 0 /uL (0-450); Eosinophils Percent Auto 0.3 % (2-4); Hematocrit 37.7 % (36-46); Hemoglobin 12.7 g/dL (12.0-16.0); Lymphocytes Absolute Auto 1100 /uL (1100-4500); Lymphocytes Percent Auto 11.6 % (25-40); Mean Corpuscular HGB Conc 33.6 % (30-36); Mean Corpuscular Hemoglobin 30.9 PG (26-34); Mean Corpuscular Volume 91.8 fL (80-100); Monocytes Absolute Auto 200 /uL (0-900); Monocytes Percent Auto 2.6 % (3-14); Neutrophils Absolute Auto 8000 /uL (1500-7000); Neutrophils Percent Auto 85.1 % (50-75); Platelet Count 374 X10^3/uL (150-400); Red Cell Distribution Width 13.8 % (11.6-14.8); White Blood Cell Count 9.4 X10^3/uL (4.5-11.0)
[2022-05-14 12:00] LABS: HEMOLYSIS < 15 (0-50); Iron 79 ug/dL (37-170)
[2022-05-14 12:02] LABS: Alanine Aminotransferase 40 IU/L (<35); Albumin 4.5 g/dL (3.5-5.0); Albumin Globulin Ratio 1.4 (1.0-2.8); Alkaline Phosphatase 110 U/L (38-126); Aspartate Aminotransferase 24 IU/L (14-36); Bilirubin Total 0.5 mg/dL (0.2-1.3); Blood Urea Nitrogen 33 mg/dL (7-17); C-Reactive Protein Quant 0.5 mg/dL (<1.0); Calcium 11.4 mg/dL (8.4-10.2); Carbon Dioxide 30 mmol/L (22-32); Chloride 96 mmol/L (98-107); Estimated Glomerular Filt Rate > 60 mL/min (>60); Globulin 3.3 g/dL (1.7-4.1); Glucose 111 mg/dL (80-110); HEMOLYSIS < 15 (0-50); Sodium 134 mmol/L (137-145); Total Protein 7.8 g/dL (6.3-8.2)
[2022-05-14 12:05] LABS: Potassium 5.5 mmol/L (3.4-5.1)
[2022-05-14 12:11] LABS: Percent Iron Saturation 23 % (15-50); Total Iron Binding Capacity 339 ug/dL (265-497); Transferrin 275 mg/dL (206-381)
[2022-05-14 12:15] LABS: Vitamin D 25 Hydroxy (D3) 24.8 ng/mL (30.0-100.0)
[2022-05-14 12:37] LABS: Ferritin 116 ng/mL (11-264)
[2022-05-14 12:52] LABS: Vitamin B12 291 pg/mL (239-931)
[2022-05-20 17:06] LABS: Adalimumab Antiboday 63 ng/mL (.)
== END ==
PROVIDERS: Family Provider Psychiatry & Neurology Psychiatry; PCP Nurse Practitioner; Referring Provider Nurse Practitioner; Visit Provider Nurse Practitioner
DX: D64.9 Anemia, unspecified (principal); E55.9 Vitamin D deficiency, unspecified; K13.79 Other lesions of oral mucosa; K50.919 Crohn's disease, unspecified, with unspecified complications; M81.0 Age-related osteoporosis without current pathological fracture
CPT/HCPCS: 36415; 80053; 80145; 82306; 82397; 82607; 82728; 83540; 83550; 85025; 86140

== ENCOUNTER 2022-06-03 10:06 | Inpatient (IN) | payer MEDICARE, OTHER, SELFPAY ==
[2022-06-02 17:13] VITALS: BMI 31.4
[2022-06-03] VITALS (83 sets, daily range): BP systolic 83–139; BP diastolic 46–83; PULSE 73–101; RESP 10–46; TEMP 36.3–37.7; O2SAT 86–100; BMI 36.3
--- NOTE | 2022-06-03 10:32 | DI.RAD.S_ITS ---
PROCEDURE: XR CHEST 1V INDICATIONS: suspected sepsis TECHNIQUE: One view of the chest was acquired. COMPARISON: [facility], CR, XR CHEST 2V, 12/26/2021, 10:52. FINDINGS: Surgical changes and devices: None. Lungs and pleura: Patchy bibasilar atelectasis. No pleural effusions or pneumothorax. Mediastinum: Mediastinal contours appear normal. Heart size is normal. Bones and chest wall: No suspicious bony lesions. Overlying soft tissues appear unremarkable. IMPRESSION: Patchy bibasilar atelectasis Dictated by: Robel Rayo M.D. on 06/03/2022 at 11:13 Approved by: Robel Rayo M.D. on 06/03/2022 at 11:14
[2022-06-03 10:51] LABS: Add Manual Diff / Slide Review NO; Basophils Absolute Auto 0 /uL (0-100); Basophils Percent Auto 0.3 % (0-2); Eosinophils Absolute Auto 0 /uL (0-450); Eosinophils Percent Auto 0.1 % (2-4); Hematocrit 30.3 % (36-46); Hemoglobin 10.2 g/dL (12.0-16.0); Lymphocytes Absolute Auto 500 /uL (1100-4500); Lymphocytes Percent Auto 4.1 % (25-40); Mean Corpuscular HGB Conc 33.8 % (30-36); Mean Corpuscular Hemoglobin 31.5 PG (26-34); Mean Corpuscular Volume 93.2 fL (80-100); Monocytes Absolute Auto 400 /uL (0-900); Monocytes Percent Auto 3.2 % (3-14); Neutrophils Absolute Auto 10500 /uL (1500-7000); Neutrophils Percent Auto 92.3 % (50-75); Platelet Count 182 X10^3/uL (150-400); Red Blood Cell Count 3.25 X10^6/uL (4.0-5.2); Red Cell Distribution Width 14.8 % (11.6-14.8); White Blood Cell Count 11.4 X10^3/uL (4.5-11.0)
[2022-06-03] MEDS: SODIUM CHLORIDE 0.9% 1,000 ML 1000 ML IV (10:52)
[2022-06-03 11:02] LABS: INR 0.9 (0.9-1.3); Prothrombin Time 10.4 SECONDS (10.1-12.7)
[2022-06-03 11:05] LABS: PTT Partial Thromboplastin Tim 25 SECONDS (26-36)
[2022-06-03 11:06] LABS: Lactate (Lactic Acid) 0.9 mmol/L (0.7-2.1)
[2022-06-03 11:09] LABS: Alanine Aminotransferase 33 IU/L (<35); Albumin 3.7 g/dL (3.5-5.0); Albumin Globulin Ratio 1.4 (1.0-2.8); Alkaline Phosphatase 69 U/L (38-126); Aspartate Aminotransferase 35 IU/L (14-36); BUN Creatinine Ratio 31.9 (6-22); Bilirubin Total 0.9 mg/dL (0.2-1.3); Blood Urea Nitrogen 38 mg/dL (7-17); Calcium 9.2 mg/dL (8.4-10.2); Carbon Dioxide 26 mmol/L (22-32); Chloride 99 mmol/L (98-107); Estimated Glomerular Filt Rate 51 mL/min (>60); Globulin 2.7 g/dL (1.7-4.1); Glucose 132 mg/dL (80-110); HEMOLYSIS < 15 (0-50); Lipase 36 U/L (23-300); Potassium 4.8 mmol/L (3.4-5.1); Sodium 131 mmol/L (137-145); Total Protein 6.4 g/dL (6.3-8.2)
--- NOTE | 2022-06-03 11:09 | ED.SOB ---
HPI - SOB/Dyspnea General Chief Complaint: Shortness of Breath/Dyspnea Stated Complaint: DR angel; acute resp. symptoms Time Seen by Provider: 06/03/22 10:17 Source: patient Mode of arrival: Wheelchair History of Present Illness HPI Narrative: 62-year-old female former smoker with history of opioid abuse, Crohn's on Humira presents from her PCP for evaluation of altered mental status and increased work of breathing with abdominal distention. She is had symptoms developing over the past few days including subjective fever and chills along with nausea. She is started developing shortness of breath with a dry hacking cough last night. She denies any chest pain. She is had no runny nose or sore throat. She denies nausea, vomiting or diarrhea but does admit to abdominal distention which is new for her. She does have minimal swelling in her lower extremities and states that she is gained about 14 lb in the past week or so. She denies history of blood clot, known cancer, recent travel. On arrival she has increased work of breathing with oxygen levels in the mid to upper 80s on room air Related Data Home Medications Medication Instructions Recorded Confirmed ferrous sulfate 325 mg (65 mg 65 mg PO DAILY anemia 07/05/21 06/03/22 iron) tablet (Iron (ferrous sulfate)) lisinopril 5 mg tablet 5 mg PO BID 06/03/22 06/03/22 pregabalin 25 mg capsule 75 mg PO BID 06/03/22 06/03/22 Previous Rx's Medication Instructions Recorded trazodone 50 mg tablet See Rx Instructions PO BEDTIME PRN 03/05/21 insomnia #180 tabs albuterol sulfate 90 mcg/actuation 2 puff inhalation Q4-6H PRN 12/31/21 aerosol inhaler (Ventolin HFA) shortness of breath or wheezing #8.5 grams ondansetron 4 mg disintegrating See Rx Instructions .Route 01/13/22 tablet .COMPLEX #60 tabs buspirone 10 mg tablet 15 mg PO BID #270 tabs 04/15/22 Synthroid 137 mcg tablet 137 mcg PO DAILY #90 tabs 04/16/22 (levothyroxine) lidocaine HCl 2 % mucosal solution 15 ml mucous membrane QID PRN pain 05/06/22 #100 mL naloxone 0.4 mg/mL injection 0.4 mg IM Q2M PRN opioid reversal 05/14/22 syringe #10 mL Suboxone 8 mg-2 mg sublingual film 1 film buccal Q24H #30 ea 05/21/22 (buprenorphine-naloxone) Allergies Allergy/AdvReac Type Severity Reaction Status Date / Time Penicillins Allergy Severe Rash Verified 06/03/22 09:33 Sulfa (Sulfonamide Allergy Intermediate Hives Verified 06/03/22 09:33 Antibiotics) adalimumab [From Humira] AdvReac Intermediate pneumonia Verified 06/03/22 09:33 quetiapine [From Seroquel] AdvReac Intermediate Verified 06/03/22 09:33 Review of Systems Review of Systems Narrative: GENERAL: see HPI HEENT: Denies sinus pain, ear pain, sore throat, difficulty swallowing, dizziness. RESPIRATORY: ee HPI CARDIOVASCULAR: Denies chest pain, palpitations, orthopnea, edema, GASTROINTESTINAL: see HPI : Denies dysuria, frequency, incontinence, hematuria, urinary retention. MUSCULOSKELETAL: denies weakness, joint pain, or bony pain SKIN: Denies rash, skin lesions, or other NEUROLOGIC: Denies weakness, headache, numbness, change in speech, confusion, seizures, incoordination. PSYCHIATRIC: No concerning psychosocial issues. 12 point review of systems is negative except for those stated above Patient History Medical History Abnormal chest xray Acute renal insufficiency ADHD Allergy to antibiotic Anemia (~2016) Ankle pain (~2017) Anxiety Asthma Asthma Attention deficit disorder Back pain of lumbar region with sciatica Bipolar disorder in partial remission Bronchospasm Cataracts, bilateral Cataracts, bilateral (~2018) Chicken pox Chronic back pain (~2003) Chronic back pain greater than 3 months duration Chronic cough Chronic pain Chronic post-traumatic stress disorder (PTSD) COPD (chronic obstructive pulmonary disease) Cough COVID-19 vaccine series declined Crohn's disease (~2009) Decreased GFR Depressed bipolar affective disorder Depression (~1988) Eczema Eczema Elevated liver enzymes Elevated parathyroid hormone Encounter for tobacco use cessation counseling Foot pain (~2018) Foot pain, left Glomerulonephritis Headache Hemorrhoid (~1979) Hepatitis A test positive Hepatitis B surface antigen positive History of emphysema (~2017) HLD (hyperlipidemia) Hypercalcemia Hypothyroidism (~1989) Insomnia Kidney disease Kidney disease (~1974) Left foot pain Lower extremity pain, posterior Marijuana use Migraines Mouth sores MRSA (methicillin resistant Staphylococcus aureus) (~2004) Nausea & vomiting Opacity of lung on imaging study Oral lesion Oral lesion Osteopenia of multiple sites Osteoporosis (~2016) Other spondylosis, lumbar region Pharyngitis Post traumatic stress disorder (PTSD) Pulmonary scarring Radiculopathy, lumbar region Restless leg syndrome Restless legs syndrome Seizure Serum calcium elevated Skin cancer, basal cell (~2016) Sleep apnea Small bowel obstruction Tobacco abuse disorder Tobacco use disorder, mild, in early remission Vitamin D deficiency Surgical History History of section History of cholecystectomy History of intestinal surgery History of partial hysterectomy S/P tonsillectomy Family History Mother Cancer Alzheimer disease Father Heart disease Kidney disease Social History household members: spouse Smoking Status: Former smoker alcohol intake: former Smoking Status: Former smoker tobacco type: vaping alcohol intake frequency: other Substance Use Type: does not use Exam Narrative Exam Narrative: GENERAL: [62] year old patient appears stated age. Well-developed patient, in mild distress. hypoxemic, placed on 4 L by nasal cannula, slightly altered, GCS 14 HEAD: Atraumatic. Normocephalic. EYES: Pupils equal round and reactive. Extraocular motions intact. No scleral icterus. No injection or drainage. ENT: Nose without bleeding, purulent drainage. Throat without erythema, tonsillar hypertrophy or exudate. Airway patent. NECK: Trachea midline. Non tender CARDIOVASCULAR: Regular rate and rhythm without murmurs, gallops, or rubs. RESPIRATORY: Clear to auscultation. Breath sounds equal bilaterally. No wheezes, rales, or rhonchi. GASTROINTESTINAL: mild distention, no significant tenderness, bowel sounds present throughout EXTREMITIES: No edema or joint tenderness. BACK: Nontender without deformity or crepitance. No flank tenderness. NEURO: AOx3. SKIN: No rash or erythema of visible areas Initial Vital Signs Initial Vital Signs: Vital Signs Temperature 99.7 F H 06/03/22 10:18 Pulse Rate 99 H 06/03/22 10:18 Respiratory Rate 30 H 06/03/22 10:18 Blood Pressure 106/65 06/03/22 10:18 Pulse Oximetry 96 06/03/22 10:18 Oxygen Delivery Method Room Air 06/03/22 10:18 Course Orders Ordered: ED Orders 06/04/22 05:34 BMP [Basic Metabolic Panel] DAILY CBC Auto Diff [Complete Blood Count AUTO DIFF] DAILY 06/05/22 05:00 BMP [Basic Metabolic Panel] DAILY CBC Auto Diff [Complete Blood Count AUTO DIFF] DAILY 06/06/22 05:00 BMP [Basic Metabolic Panel] DAILY CBC Auto Diff [Complete Blood Count AUTO DIFF] DAILY Acetaminophen (Acetaminophen 325 Mg Tablet) 650 mg PO Q6H PRN PRN Reason: Fever/Mild Pain (1-3) Azithromycin (Azithromycin 250 Mg Tablet) 500 mg PO DAILY [facility] Stop: 06/06/22 08:59 Buspirone HCl (Buspirone 5 Mg Tablet) 15 mg PO BID [facility] Last Admin: 06/04/22 00:01 Dose: Not Given Documented By: LINSEY Ferrous Sulfate (Ferrous Sulfate 325 Mg Tablet) 325 mg PO DAILY [facility] Furosemide (Furosemide 40 Mg/4 Ml Vial) 40 mg IV DAILY [facility] Last Admin: 06/03/22 15:22 Dose: 40 mg Documented By: IBRAHIMA Heparin Sodium (Porcine) (Heparin 5,000 Unit/Ml Vial) 5,000 unit SUBCUT BID [facility] Last Admin: 06/03/22 21:46 Dose: 5,000 unit Documented By: LINSEY Ceftriaxone Sodium 1,000 mg/ (Sodium Chloride) 100 mls @ 200 mls/hr IV Q24H [facility] Stop: 06/08/22 08:59 Levothyroxine Sodium (Levothyroxine 137 Mcg Tablet) 137 mcg PO DAILY@0600 [facility] Last Admin: 06/04/22 05:47 Dose: 137 mcg Documented By: LINSEY Melatonin (Melatonin 3 Mg Tablet) 6 mg PO BEDTIME PRN PRN Reason: Insomnia Naloxone HCl (Naloxone 0.4 Mg/Ml Vial) 0.2 mg IV Q2MIN PRN PRN Reason: Opiate Reversal Nf (Buprenorphine- Naloxone [Suboxone] 8-2 Mg Film) 1 film SL Q24H [facility] Ondansetron HCl (Ondansetron 4 Mg Odt) 4 mg SL NOW PRN PRN Reason: Nausea And Vomiting Ondansetron HCl (Ondansetron 4 Mg/2 Ml Inj) 4 mg IV NOW PRN PRN Reason: Nausea And Vomiting Ondansetron HCl (Ondansetron 4 Mg/2 Ml Inj) 4 mg IV Q6HR [facility] Last Admin: 06/04/22 05:31 Dose: Not Given Documented By: Admin: 06/04/22 00:00 Dose: Not Given Documented By: Admin: 06/03/22 17:54 Dose: Not Given Documented By: ADRIEN Polyethylene Glycol (Polyethylene Glycol 3350 17 Gm Powd.Pack) 17 gm PO DAILY PRN PRN Reason: Constipation Sennosides (Sennosides 8.6 Mg Tablet) 8.6 mg PO BID PRN PRN Reason: Constipation Tizanidine HCl (Tizanidine 4 Mg Tablet) 4 mg PO BID PRN PRN Reason: muscle spasticity Trazodone HCl (Trazodone 50 Mg Tablet) 50 mg PO BEDTIME PRN PRN Reason: insomnia Discontinued Medications Sodium Chloride (Normal Saline 0.9%) 1,000 mls @ 1,000 mls/hr IV BOLUS ONE Stop: 06/03/22 11:31 Last Infusion: 06/03/22 12:11 Dose: 0 mls/hr Documented By: Admin: 06/03/22 10:52 Dose: 1,000 mls/hr Documented By: AT Thiamine HCl 200 mg/ Sodium (Chloride) 102 mls @ 408 mls/hr IV NOW ONE Stop: 06/03/22 11:23 Last Infusion: 06/03/22 13:18 Dose: 0 mls/hr Documented By: Admin: 06/03/22 13:03 Dose: 408 mls/hr Documented By: AT Ceftriaxone Sodium 2,000 mg/ (Sodium Chloride) 100 mls @ 200 mls/hr IV NOW ONE Stop: 06/03/22 11:26 Last Infusion: 06/03/22 13:03 Dose: 0 mls/hr Documented By: Admin: 06/03/22 12:24 Dose: 200 mls/hr Documented By: AT Azithromycin 500 mg/ Dextrose 250 mls @ 250 mls/hr IV NOW ONE Stop: 06/03/22 13:45 Last Infusion: 06/03/22 16:20 Dose: 0 mls/hr Documented By: Admin: 06/03/22 15:06 Dose: 250 mls/hr Documented By: RO Reevaluation(s) Reevaluation #1: patient taken off supplemental O2 for 20 minutes and has frequent drops into the 86-88 range, placed back on 4L Time: 13:42 Vital Signs Vital signs: Vital Signs - 8 hr 06/03/22 10:18 06/03/22 10:20 06/03/22 10:25 Temperature 99.7 F H Pulse Rate 99 H 100 H 99 H Respiratory Rate 30 H 27 H 22 Blood Pressure 106/65 Pulse Oximetry 96 93 95 Oxygen Delivery Method Room Air Oxygen Flow Rate 06/03/22 10:30 06/03/22 10:31 06/03/22 10:31 Temperature Pulse Rate 97 H 96 H Respiratory Rate 42 H 30 H Blood Pressure 115/56 L Pulse Oximetry 93 92 Oxygen Delivery Method Oxygen Flow Rate 06/03/22 10:35 06/03/22 10:40 06/03/22 10:45 Temperature Pulse Rate 92 H 97 H Respiratory Rate 23 38 H Blood Pressure 83/46 L Pulse Oximetry 92 90 L Oxygen Delivery Method Oxygen Flow Rate 06/03/22 10:45 06/03/22 10:50 06/03/22 10:52 Temperature Pulse Rate 97 H 93 H Respiratory Rate 24 23 Blood Pressure 91/63 Pulse Oximetry 86 L 86 L Oxygen Delivery Method Room Air Room Air Oxygen Flow Rate 06/03/22 10:52 06/03/22 10:55 06/03/22 10:58 Temperature Pulse Rate 92 H 93 H 93 H Respiratory Rate 19 23 28 H Blood Pressure Pulse Oximetry 96 97 Oxygen Delivery Method Nasal Cannula Oxygen Flow Rate 4 06/03/22 10:58 06/03/22 11:00 06/03/22 11:00 Temperature Pulse Rate 91 H Respiratory Rate 25 H Blood Pressure 108/50 L 102/58 L Pulse Oximetry 97 Oxygen Delivery Method Oxygen Flow Rate 06/03/22 11:05 06/03/22 11:05 06/03/22 11:10 Temperature Pulse Rate 97 H Respiratory Rate 31 H Blood Pressure 108/67 117/57 L Pulse Oximetry 97 Oxygen Delivery Method Oxygen Flow Rate 06/03/22 11:10 06/03/22 11:15 06/03/22 11:15 Temperature Pulse Rate 91 H 89 Respiratory Rate 22 21 Blood Pressure 103/54 L Pulse Oximetry 97 98 Oxygen Delivery Method Oxygen Flow Rate 06/03/22 11:20 06/03/22 11:20 06/03/22 11:25 Temperature Pulse Rate 90 101 H Respiratory Rate 25 H 42 H Blood Pressure 105/56 L Pulse Oximetry 98 97 Oxygen Delivery Method Oxygen Flow Rate 06/03/22 11:30 06/03/22 11:35 06/03/22 11:39 Temperature Pulse Rate 86 88 92 H Respiratory Rate 19 24 20 Blood Pressure Pulse Oximetry 96 97 97 Oxygen Delivery Method Oxygen Flow Rate 06/03/22 11:39 06/03/22 11:40 06/03/22 11:40 Temperature Pulse Rate 94 H Respiratory Rate 31 H Blood Pressure 123/56 L 139/60 Pulse Oximetry 97 Oxygen Delivery Method Oxygen Flow Rate 06/03/22 11:45 06/03/22 11:45 06/03/22 11:50 Temperature Pulse Rate 88 86 Respiratory Rate 21 26 H Blood Pressure 137/56 L Pulse Oximetry 98 98 Oxygen Delivery Method Oxygen Flow Rate 06/03/22 11:55 06/03/22 11:56 06/03/22 11:56 Temperature Pulse Rate 85 83 Respiratory Rate 30 H 29 H Blood Pressure 108/51 L Pulse Oximetry 98 98 Oxygen Delivery Method Oxygen Flow Rate 06/03/22 12:00 06/03/22 12:16 06/03/22 12:17 Temperature Pulse Rate 86 84 82 Respiratory Rate 31 H 20 13 Blood Pressure Pulse Oximetry 97 98 100 Oxygen Delivery Method Nasal Cannula Oxygen Flow Rate 4 06/03/22 12:17 06/03/22 12:20 06/03/22 12:24 Temperature Pulse Rate 87 81 Respiratory Rate 22 17 Blood Pressure 116/71 Pulse Oximetry 100 98 Oxygen Delivery Method Oxygen Flow Rate 06/03/22 12:24 06/03/22 12:25 06/03/22 12:30 Temperature Pulse Rate 82 Respiratory Rate 23 Blood Pressure 125/59 L 117/62 Pulse Oximetry 98 Oxygen Delivery Method Oxygen Flow Rate 06/03/22 12:30 06/03/22 12:35 06/03/22 12:40 Temperature 99.5 F 99.5 F 99.5 F Pulse Rate 80 82 83 Respiratory Rate 19 19 21 Blood Pressure Pulse Oximetry 98 97 96 Oxygen Delivery Method Oxygen Flow Rate 06/03/22 12:45 06/03/22 12:50 06/03/22 12:50 Temperature 99.5 F 99.5 F Pulse Rate 84 77 Respiratory Rate 26 H 12 Blood Pressure 121/56 L Pulse Oximetry 98 96 Oxygen Delivery Method Oxygen Flow Rate 06/03/22 12:55 06/03/22 13:00 06/03/22 13:01 Temperature 99.7 F H 99.7 F H 99.7 F H Pulse Rate 76 84 84 Respiratory Rate 15 27 H 30 H Blood Pressure Pulse Oximetry 96 98 98 Oxygen Delivery Method Oxygen Flow Rate 06/03/22 13:01 06/03/22 13:05 06/03/22 13:10 Temperature 99.7 F H 99.7 F H Pulse Rate 78 84 Respiratory Rate 20 28 H Blood Pressure 115/71 Pulse Oximetry 96 98 Oxygen Delivery Method Oxygen Flow Rate 06/03/22 13:11 06/03/22 13:11 06/03/22 13:15 Temperature 99.7 F H 99.5 F Pulse Rate 81 84 Respiratory Rate 21 28 H Blood Pressure 110/53 L Pulse Oximetry 98 98 Oxygen Delivery Method Nasal Cannula Oxygen Flow Rate 4 06/03/22 13:50 06/03/22 13:55 06/03/22 14:00 Temperature 99.5 F 99.5 F Pulse Rate 81 81 Respiratory Rate 35 H 19 Blood Pressure 99/54 L Pulse Oximetry 98 98 Oxygen Delivery Method Oxygen Flow Rate 06/03/22 14:00 06/03/22 14:05 06/03/22 14:10 Temperature 99.5 F 99.5 F Pulse Rate 81 81 Respiratory Rate 23 34 H Blood Pressure 103/56 L Pulse Oximetry 98 98 Oxygen Delivery Method Oxygen Flow Rate 06/03/22 14:10 06/03/22 14:15 06/03/22 14:20 Temperature 99.5 F 99.7 F H 99.7 F H Pulse Rate 73 74 77 Respiratory Rate 18 12 26 H Blood Pressure Pulse Oximetry 97 97 98 Oxygen Delivery Method Oxygen Flow Rate 06/03/22 14:21 06/03/22 14:21 06/03/22 14:25 Temperature 99.7 F H 99.7 F H Pulse Rate 81 80 Respiratory Rate 19 18 Blood Pressure 97/56 L Pulse Oximetry 98 97 Oxygen Delivery Method Oxygen Flow Rate MDM - SOB/Dyspnea Lab Data 06/04/22 05:34 06/03/22 10:33 Labs: Lab Results 06/03/22 06/03/22 06/03/22 Range/Units 10:33 10:33 10:33 WBC 11.4 H (4.5-11.0) X10^3/uL RBC 3.25 L (4.0-5.2) X10^6/uL Hgb 10.2 L (12.0-16.0) g/dL Hct 30.3 L (36-46) % MCV 93.2 (80-100) fL MCH 31.5 (26-34) PG MCHC 33.8 (30-36) % RDW 14.8 (11.6-14.8) % Plt Count 182 (150-400) X10^3/uL Neut % (Auto) 92.3 H (50-75) % Lymph % (Auto) 4.1 L (25-40) % Lee % (Auto) 3.2 (3-14) % Eos % (Auto) 0.1 L (2-4) % Baso % (Auto) 0.3 (0-2) % Neut # (Auto) 17719 H (0672-8795) /uL Lymph # (Auto) 500 L (9417-8013) /uL Lee # (Auto) 400 (0-900) /uL Eos # (Auto) 0 (0-450) /uL Baso # (Auto) 0 (0-100) /uL PT 10.4 (10.1-12.7) SECONDS INR 0.9 (0.9-1.3) APTT 25 L (26-36) SECONDS D-Dimer (<500) ng/ml ABG pH (7.35-7.45) ABG pCO2 (35-45) mmHg ABG pO2 (80-100) mmHg ABG HCO3 (23-27) mmol/L ABG Total CO2 (23-27) mmol/L ABG O2 Saturation (95-100) % ABG Base Excess (-2-3) mmol/L FiO2 Sodium 131 L (137-145) mmol/L Potassium 4.8 (3.4-5.1) mmol/L Chloride 99 (98-107) mmol/L Carbon Dioxide 26 (22-32) mmol/L BUN 38 H (7-17) mg/dL Creatinine 1.19 H (0.52-1.04) mg/dL Estimated GFR 51 L (>60) mL/min BUN/Creatinine Ratio 31.9 H (6-22) Glucose 132 H (80-110) mg/dL Lactate (0.7-2.1) mmol/L Calcium 9.2 (8.4-10.2) mg/dL Magnesium (1.6-2.3) mg/dL Total Bilirubin 0.9 (0.2-1.3) mg/dL AST 35 (14-36) IU/L ALT 33 (<35) IU/L Alkaline Phosphatase 69 (38-126) U/L Total Creatine Kinase (30-135) U/L CK-MB (CK-2) (<2.37) ng/mL CK-MB (CK-2) Rel Index (1.5-5.0) % Troponin I (0.01-0.034) ng/mL NT-Pro-B Natriuret Pep (<125) pg/mL Total Protein 6.4 (6.3-8.2) g/dL Albumin 3.7 (3.5-5.0) g/dL Globulin 2.7 (1.7-4.1) g/dL Albumin/Globulin Ratio 1.4 (1.0-2.8) Lipase 36 (23-300) U/L Procalcitonin 0.76 H (<0.5) ng/mL TSH (0.47-4.68) uIU/mL Urine Color Urine Appearance Urine pH (4.5-8.0) Ur Specific Spivey (1.000-1.035) Urine Protein (Negative) Urine Glucose (UA) (Negative) g/dL Urine Ketones (NEGATIVE) Urine Occult Blood (Negative) Urine Nitrate (Negative) Urine Bilirubin (NEGATIVE) Urine Urobilinogen (0.2) E.U./dL Ur Leukocyte Esterase (NEGATIVE) Urine RBC (0-5/HPF) Urine WBC (0-5/HPF) Ur Squamous Epith Cells (0-5/HPF) Urine Bacteria (None) Ur Culture Indicated? Salicylates (<20) mg/dL U Opiates 300ng/mL cut (Negative) Ur Oxycodone Screen (Negative) Urine Methadone Screen (Negative) Acetaminophen (10-30) ug/mL Ur Barbiturates Screen (Negative) U Tricyclic Antidepress (Negative) Ur Phencyclidine Scrn (Negative) Ur Amphetamines Screen (Negative) U Methamphetamines Scrn (Negative) Ur MDMA Scrn (Ecstasy) (Negative) U Benzodiazepines Scrn (Negative) Urine Cocaine Screen (Negative) U Marijuana (THC) Screen (Negative) Ethyl Alcohol ( - 10) mg/dL Chlamy pneumoniae PCR (Not Detect) Adenovirus (PCR) (Not Detect) B. pertussis DNA (PCR) (Not Detecte) B.parapertussis DNA PCR (Not Detecte) Coronavirus OC43 (PCR) (Not Detect) Coronavirus HKU1 (PCR) (Not Detect) Coronavirus 229E (PCR) (Not Detect) SARS-CoV-2 (PCR) (Not Detecte) Coronavirus NL63 (PCR) (Not Detect) Human Metapneumovir PCR (Not Detect) Influenza Type A (PCR) (Not Detect) Influenza Type B (PCR) (Not Detect) M. pneumoniae (PCR) (Not Detect) Parainfluenza 1 (PCR) (Not Detect) Parainfluenza 2 (PCR) (Not Detect) Parainfluenza 3 (PCR) (Not Detect) Parainfluenza 4 (PCR) (Not Detect) RSV (PCR) (Not Detect) Entero/Rhino (PCR) (Not Detect) 06/03/22 06/03/22 06/03/22 Range/Units 10:33 10:33 10:33 WBC (4.5-11.0) X10^3/uL RBC (4.0-5.2) X10^6/uL Hgb (12.0-16.0) g/dL Hct (36-46) % MCV (80-100) fL MCH (26-34) PG MCHC (30-36) % RDW (11.6-14.8) % Plt Count (150-400) X10^3/uL Neut % (Auto) (50-75) % Lymph % (Auto) (25-40) % Lee % (Auto) (3-14) % Eos % (Auto) (2-4) % Baso % (Auto) (0-2) % Neut # (Auto) (5986-9185) /uL Lymph # (Auto) (1489-5660) /uL Lee # (Auto) (0-900) /uL Eos # (Auto) (0-450) /uL Baso # (Auto) (0-100) /uL PT (10.1-12.7) SECONDS INR (0.9-1.3) APTT (26-36) SECONDS D-Dimer 723 H (<500) ng/ml ABG pH (7.35-7.45) ABG pCO2 (35-45) mmHg ABG pO2 (80-100) mmHg ABG HCO3 (23-27) mmol/L ABG Total CO2 (23-27) mmol/L ABG O2 Saturation (95-100) % ABG Base Excess (-2-3) mmol/L FiO2 Sodium (137-145) mmol/L Potassium (3.4-5.1) mmol/L Chloride (98-107) mmol/L Carbon Dioxide (22-32) mmol/L BUN (7-17) mg/dL Creatinine (0.52-1.04) mg/dL Estimated GFR (>60) mL/min BUN/Creatinine Ratio (6-22) Glucose (80-110) mg/dL Lactate 0.9 (0.7-2.1) mmol/L Calcium (8.4-10.2) mg/dL Magnesium (1.6-2.3) mg/dL Total Bilirubin (0.2-1.3) mg/dL AST (14-36) IU/L ALT (<35) IU/L Alkaline Phosphatase (38-126) U/L Total Creatine Kinase (30-135) U/L CK-MB (CK-2) (<2.37) ng/mL CK-MB (CK-2) Rel Index (1.5-5.0) % Troponin I (0.01-0.034) ng/mL NT-Pro-B Natriuret Pep (<125) pg/mL Total Protein (6.3-8.2) g/dL Albumin (3.5-5.0) g/dL Globulin (1.7-4.1) g/dL Albumin/Globulin Ratio (1.0-2.8) Lipase (23-300) U/L Procalcitonin (<0.5) ng/mL TSH (0.47-4.68) uIU/mL Urine Color Urine Appearance Urine pH (4.5-8.0) Ur Specific Spivey (1.000-1.035) Urine Protein (Negative) Urine Glucose (UA) (Negative) g/dL Urine Ketones (NEGATIVE) Urine Occult Blood (Negative) Urine Nitrate (Negative) Urine Bilirubin (NEGATIVE) Urine Urobilinogen (0.2) E.U./dL Ur Leukocyte Esterase (NEGATIVE) Urine RBC (0-5/HPF) Urine WBC (0-5/HPF) Ur Squamous Epith Cells (0-5/HPF) Urine Bacteria (None) Ur Culture Indicated? Salicylates < 1.0 (<20) mg/dL U Opiates 300ng/mL cut (Negative) Ur Oxycodone Screen (Negative) Urine Methadone Screen (Negative) Acetaminophen < 10 (10-30) ug/mL Ur Barbiturates Screen (Negative) U Tricyclic Antidepress (Negative) Ur Phencyclidine Scrn (Negative) Ur Amphetamines Screen (Negative) U Methamphetamines Scrn (Negative) Ur MDMA Scrn (Ecstasy) (Negative) U Benzodiazepines Scrn (Negative) Urine Cocaine Screen (Negative) U Marijuana (THC) Screen (Negative) Ethyl Alcohol < 10 ( - 10) mg/dL Chlamy pneumoniae PCR (Not Detect) Adenovirus (PCR) (Not Detect) B. pertussis DNA (PCR) (Not Detecte) B.parapertussis DNA PCR (Not Detecte) Coronavirus OC43 (PCR) (Not Detect) Coronavirus HKU1 (PCR) (Not Detect) Coronavirus 229E (PCR) (Not Detect) SARS-CoV-2 (PCR) (Not Detecte) Coronavirus NL63 (PCR) (Not Detect) Human Metapneumovir PCR (Not Detect) Influenza Type A (PCR) (Not Detect) Influenza Type B (PCR) (Not Detect) M. pneumoniae (PCR) (Not Detect) Parainfluenza 1 (PCR) (Not Detect) Parainfluenza 2 (PCR) (Not Detect) Parainfluenza 3 (PCR) (Not Detect) Parainfluenza 4 (PCR) (Not Detect) RSV (PCR) (Not Detect) Entero/Rhino (PCR) (Not Detect) 06/03/22 06/03/22 06/03/22 Range/Units 10:33 10:33 10:37 WBC (4.5-11.0) X10^3/uL RBC (4.0-5.2) X10^6/uL Hgb (12.0-16.0) g/dL Hct (36-46) % MCV (80-100) fL MCH (26-34) PG MCHC (30-36) % RDW (11.6-14.8) % Plt Count (150-400) X10^3/uL Neut % (Auto) (50-75) % Lymph % (Auto) (25-40) % Lee % (Auto) (3-14) % Eos % (Auto) (2-4) % Baso % (Auto) (0-2) % Neut # (Auto) (5025-3564) /uL Lymph # (Auto) (9309-4705) /uL Lee # (Auto) (0-900) /uL Eos # (Auto) (0-450) /uL Baso # (Auto) (0-100) /uL PT (10.1-12.7) SECONDS INR (0.9-1.3) APTT (26-36) SECONDS D-Dimer (<500) ng/ml ABG pH (7.35-7.45) ABG pCO2 (35-45) mmHg ABG pO2 (80-100) mmHg ABG HCO3 (23-27) mmol/L ABG Total CO2 (23-27) mmol/L ABG O2 Saturation (95-100) % ABG Base Excess (-2-3) mmol/L FiO2 Sodium (137-145) mmol/L Potassium (3.4-5.1) mmol/L Chloride (98-107) mmol/L Carbon Dioxide (22-32) mmol/L BUN (7-17) mg/dL Creatinine (0.52-1.04) mg/dL Estimated GFR (>60) mL/min BUN/Creatinine Ratio (6-22) Glucose (80-110) mg/dL Lactate (0.7-2.1) mmol/L Calcium (8.4-10.2) mg/dL Magnesium 1.8 (1.6-2.3) mg/dL Total Bilirubin (0.2-1.3) mg/dL AST (14-36) IU/L ALT (<35) IU/L Alkaline Phosphatase (38-126) U/L Total Creatine Kinase (30-135) U/L CK-MB (CK-2) (<2.37) ng/mL CK-MB (CK-2) Rel Index (1.5-5.0) % Troponin I (0.01-0.034) ng/mL NT-Pro-B Natriuret Pep (<125) pg/mL Total Protein (6.3-8.2) g/dL Albumin (3.5-5.0) g/dL Globulin (1.7-4.1) g/dL Albumin/Globulin Ratio (1.0-2.8) Lipase (23-300) U/L Procalcitonin (<0.5) ng/mL TSH 3.91 (0.47-4.68) uIU/mL Urine Color Urine Appearance Urine pH (4.5-8.0) Ur Specific Spivey (1.000-1.035) Urine Protein (Negative) Urine Glucose (UA) (Negative) g/dL Urine Ketones (NEGATIVE) Urine Occult Blood (Negative) Urine Nitrate (Negative) Urine Bilirubin (NEGATIVE) Urine Urobilinogen (0.2) E.U./dL Ur Leukocyte Esterase (NEGATIVE) Urine RBC (0-5/HPF) Urine WBC (0-5/HPF) Ur Squamous Epith Cells (0-5/HPF) Urine Bacteria (None) Ur Culture Indicated? Salicylates (<20) mg/dL U Opiates 300ng/mL cut (Negative) Ur Oxycodone Screen (Negative) Urine Methadone Screen (Negative) Acetaminophen (10-30) ug/mL Ur Barbiturates Screen (Negative) U Tricyclic Antidepress (Negative) Ur Phencyclidine Scrn (Negative) Ur Amphetamines Screen (Negative) U Methamphetamines Scrn (Negative) Ur MDMA Scrn (Ecstasy) (Negative) U Benzodiazepines Scrn (Negative) Urine Cocaine Screen (Negative) U Marijuana (THC) Screen (Negative) Ethyl Alcohol ( - 10) mg/dL Chlamy pneumoniae PCR Not detected (Not Detect) Adenovirus (PCR) Not detected (Not Detect) B. pertussis DNA (PCR) Not detected (Not Detecte) B.parapertussis DNA PCR Not detected (Not Detecte) Coronavirus OC43 (PCR) Not detected (Not Detect) Coronavirus HKU1 (PCR) Not detected (Not Detect) Coronavirus 229E (PCR) Not detected (Not Detect) SARS-CoV-2 (PCR) Not detected (Not Detecte) Coronavirus NL63 (PCR) Not detected (Not Detect) Human Metapneumovir PCR Not detected (Not Detect) Influenza Type A (PCR) Not detected (Not Detect) Influenza Type B (PCR) Not detected (Not Detect) M. pneumoniae (PCR) Not detected (Not Detect) Parainfluenza 1 (PCR) Not detected (Not Detect) Parainfluenza 2 (PCR) Not detected (Not Detect) Parainfluenza 3 (PCR) Not detected (Not Detect) Parainfluenza 4 (PCR) Not detected (Not Detect) RSV (PCR) Not detected (Not Detect) Entero/Rhino (PCR) Not detected (Not Detect) 06/03/22 06/03/22 06/03/22 Range/Units 10:44 11:38 11:38 WBC (4.5-11.0) X10^3/uL RBC (4.0-5.2) X10^6/uL Hgb (12.0-16.0) g/dL Hct (36-46) % MCV (80-100) fL MCH (26-34) PG MCHC (30-36) % RDW (11.6-14.8) % Plt Count (150-400) X10^3/uL Neut % (Auto) (50-75) % Lymph % (Auto) (25-40) % Lee % (Auto) (3-14) % Eos % (Auto) (2-4) % Baso % (Auto) (0-2) % Neut # (Auto) (3779-1206) /uL Lymph # (Auto) (9640-2473) /uL Lee # (Auto) (0-900) /uL Eos # (Auto) (0-450) /uL Baso # (Auto) (0-100) /uL PT (10.1-12.7) SECONDS INR (0.9-1.3) APTT (26-36) SECONDS D-Dimer (<500) ng/ml ABG pH (7.35-7.45) ABG pCO2 (35-45) mmHg ABG pO2 (80-100) mmHg ABG HCO3 (23-27) mmol/L ABG Total CO2 (23-27) mmol/L ABG O2 Saturation (95-100) % ABG Base Excess (-2-3) mmol/L FiO2 Sodium (137-145) mmol/L Potassium (3.4-5.1) mmol/L Chloride (98-107) mmol/L Carbon Dioxide (22-32) mmol/L BUN (7-17) mg/dL Creatinine (0.52-1.04) mg/dL Estimated GFR (>60) mL/min BUN/Creatinine Ratio (6-22) Glucose (80-110) mg/dL Lactate (0.7-2.1) mmol/L Calcium (8.4-10.2) mg/dL Magnesium (1.6-2.3) mg/dL Total Bilirubin (0.2-1.3) mg/dL AST (14-36) IU/L ALT (<35) IU/L Alkaline Phosphatase (38-126) U/L Total Creatine Kinase 410 H (30-135) U/L CK-MB (CK-2) 3.61 H (<2.37) ng/mL CK-MB (CK-2) Rel Index 0.9 L (1.5-5.0) % Troponin I 0.012 (0.01-0.034) ng/mL NT-Pro-B Natriuret Pep 873 H (<125) pg/mL Total Protein (6.3-8.2) g/dL Albumin (3.5-5.0) g/dL Globulin (1.7-4.1) g/dL Albumin/Globulin Ratio (1.0-2.8) Lipase (23-300) U/L Procalcitonin (<0.5) ng/mL TSH (0.47-4.68) uIU/mL Urine Color Yellow Urine Appearance Clear Urine pH 7.0 (4.5-8.0) Ur Specific Spivey <=1.005 (1.000-1.035) Urine Protein Negative (Negative) Urine Glucose (UA) Negative (Negative) g/dL Urine Ketones Negative (NEGATIVE) Urine Occult Blood Trace-intact (Negative) Urine Nitrate Negative (Negative) Urine Bilirubin Negative (NEGATIVE) Urine Urobilinogen 0.2 (0.2) E.U./dL Ur Leukocyte Esterase Negative (NEGATIVE) Urine RBC None seen (0-5/HPF) Urine WBC 0-1/hpf (0-5/HPF) Ur Squamous Epith Cells None seen (0-5/HPF) Urine Bacteria None seen (None) Ur Culture Indicated? Cult not indicated Salicylates (<20) mg/dL U Opiates 300ng/mL cut Positive H (Negative) Ur Oxycodone Screen Negative (Negative) Urine Methadone Screen Negative (Negative) Acetaminophen (10-30) ug/mL Ur Barbiturates Screen Negative (Negative) U Tricyclic Antidepress Negative (Negative) Ur Phencyclidine Scrn Negative (Negative) Ur Amphetamines Screen Negative (Negative) U Methamphetamines Scrn Negative (Negative) Ur MDMA Scrn (Ecstasy) Negative (Negative) U Benzodiazepines Scrn Negative (Negative) Urine Cocaine Screen Negative (Negative) U Marijuana (THC) Screen Negative (Negative) Ethyl Alcohol ( - 10) mg/dL Chlamy pneumoniae PCR (Not Detect) Adenovirus (PCR) (Not Detect) B. pertussis DNA (PCR) (Not Detecte) B.parapertussis DNA PCR (Not Detecte) Coronavirus OC43 (PCR) (Not Detect) Coronavirus HKU1 (PCR) (Not Detect) Coronavirus 229E (PCR) (Not Detect) SARS-CoV-2 (PCR) (Not Detecte) Coronavirus NL63 (PCR) (Not Detect) Human Metapneumovir PCR (Not Detect) Influenza Type A (PCR) (Not Detect) Influenza Type B (PCR) (Not Detect) M. pneumoniae (PCR) (Not Detect) Parainfluenza 1 (PCR) (Not Detect) Parainfluenza 2 (PCR) (Not Detect) Parainfluenza 3 (PCR) (Not Detect) Parainfluenza 4 (PCR) (Not Detect) RSV (PCR) (Not Detect) Entero/Rhino (PCR) (Not Detect) 06/03/22 Range/Units 11:54 WBC (4.5-11.0) X10^3/uL RBC (4.0-5.2) X10^6/uL Hgb (12.0-16.0) g/dL Hct (36-46) % MCV (80-100) fL MCH (26-34) PG MCHC (30-36) % RDW (11.6-14.8) % Plt Count (150-400) X10^3/uL Neut % (Auto) (50-75) % Lymph % (Auto) (25-40) % Lee % (Auto) (3-14) % Eos % (Auto) (2-4) % Baso % (Auto) (0-2) % Neut # (Auto) (9495-5317) /uL Lymph # (Auto) (9785-6463) /uL Lee # (Auto) (0-900) /uL Eos # (Auto) (0-450) /uL Baso # (Auto) (0-100) /uL PT (10.1-12.7) SECONDS INR (0.9-1.3) APTT (26-36) SECONDS D-Dimer (<500) ng/ml ABG pH 7.35 (7.35-7.45) ABG pCO2 46.4 H (35-45) mmHg ABG pO2 116 H (80-100) mmHg ABG HCO3 26 (23-27) mmol/L ABG Total CO2 27 (23-27) mmol/L ABG O2 Saturation 98 (95-100) % ABG Base Excess 0.0 (-2-3) mmol/L FiO2 36 Sodium (137-145) mmol/L Potassium (3.4-5.1) mmol/L Chloride (98-107) mmol/L Carbon Dioxide (22-32) mmol/L BUN (7-17) mg/dL Creatinine (0.52-1.04) mg/dL Estimated GFR (>60) mL/min BUN/Creatinine Ratio (6-22) Glucose (80-110) mg/dL Lactate (0.7-2.1) mmol/L Calcium (8.4-10.2) mg/dL Magnesium (1.6-2.3) mg/dL Total Bilirubin (0.2-1.3) mg/dL AST (14-36) IU/L ALT (<35) IU/L Alkaline Phosphatase (38-126) U/L Total Creatine Kinase (30-135) U/L CK-MB (CK-2) (<2.37) ng/mL CK-MB (CK-2) Rel Index (1.5-5.0) % Troponin I (0.01-0.034) ng/mL NT-Pro-B Natriuret Pep (<125) pg/mL Total Protein (6.3-8.2) g/dL Albumin (3.5-5.0) g/dL Globulin (1.7-4.1) g/dL Albumin/Globulin Ratio (1.0-2.8) Lipase (23-300) U/L Procalcitonin (<0.5) ng/mL TSH (0.47-4.68) uIU/mL Urine Color Urine Appearance Urine pH (4.5-8.0) Ur Specific Spivey (1.000-1.035) Urine Protein (Negative) Urine Glucose (UA) (Negative) g/dL Urine Ketones (NEGATIVE) Urine Occult Blood (Negative) Urine Nitrate (Negative) Urine Bilirubin (NEGATIVE) Urine Urobilinogen (0.2) E.U./dL Ur Leukocyte Esterase (NEGATIVE) Urine RBC (0-5/HPF) Urine WBC (0-5/HPF) Ur Squamous Epith Cells (0-5/HPF) Urine Bacteria (None) Ur Culture Indicated? Salicylates (<20) mg/dL U Opiates 300ng/mL cut (Negative) Ur Oxycodone Screen (Negative) Urine Methadone Screen (Negative) Acetaminophen (10-30) ug/mL Ur Barbiturates Screen (Negative) U Tricyclic Antidepress (Negative) Ur Phencyclidine Scrn (Negative) Ur Amphetamines Screen (Negative) U Methamphetamines Scrn (Negative) Ur MDMA Scrn (Ecstasy) (Negative) U Benzodiazepines Scrn (Negative) Urine Cocaine Screen (Negative) U Marijuana (THC) Screen (Negative) Ethyl Alcohol ( - 10) mg/dL Chlamy pneumoniae PCR (Not Detect) Adenovirus (PCR) (Not Detect) B. pertussis DNA (PCR) (Not Detecte) B.parapertussis DNA PCR (Not Detecte) Coronavirus OC43 (PCR) (Not Detect) Coronavirus HKU1 (PCR) (Not Detect) Coronavirus 229E (PCR) (Not Detect) SARS-CoV-2 (PCR) (Not Detecte) Coronavirus NL63 (PCR) (Not Detect) Human Metapneumovir PCR (Not Detect) Influenza Type A (PCR) (Not Detect) Influenza Type B (PCR) (Not Detect) M. pneumoniae (PCR) (Not Detect) Parainfluenza 1 (PCR) (Not Detect) Parainfluenza 2 (PCR) (Not Detect) Parainfluenza 3 (PCR) (Not Detect) Parainfluenza 4 (PCR) (Not Detect) RSV (PCR) (Not Detect) Entero/Rhino (PCR) (Not Detect) MDM Narrative Medical decision making narrative: 62-year-old female with multiple comorbidities presents with increasing weakness and shortness of breath over the past few days. She is requiring 4 L by nasal cannula. Multiple diagnoses considered including pneumonia, heart failure, pulmonaryEmbolism, however imaging notes only possible pneumonitis. I have attempted trials off of oxygen and she routinely drops into the 80s and becomes increasingly short of breath only to improve while on supplemental oxygen. She has been treated with fluids, cultures are pending, patient given Rocephin initially. Patient will require hospitalization for further characterization and treatment of her condition. Patient and family understand and agree with the diagnosis and plan. I have discussed the patient's clinical course with the hospitalist Dr. Patel who is happy to accept patient on his service Discharge Plan Departure Patient Disposition: Admitted As Inpatient Clinical Impression: Acute hypoxemic respiratory failure, Pneumonia Admit Date/Time: 06/03/22 14:27 Admit Provider: Ricardo Patel
[2022-06-03 11:24] LABS: Procalcitonin 0.76 ng/mL (<0.5)
--- NOTE | 2022-06-03 11:24 | DI.US.S_ITS ---
PROCEDURE: US ABDOMEN LIMITED INDICATIONS: DISTENTION ?ASCITES TECHNIQUE: Real-time focused scanning was performed of the abdomen, with image documentation. COMPARISON: None. FINDINGS: No ascites in any of the four abdominal quadrants. The visible organs are within normal limits for size. IMPRESSION: No sonographic explanation for abdominal distention. Dictated by: Ana Adkins M.D. on 06/03/2022 at 12:24 Approved by: Ana Adkins M.D. on 06/03/2022 at 12:24
[2022-06-03 11:27] LABS: Creatine Kinase 410 U/L (30-135)
[2022-06-03 11:40] LABS: NT-proBNP (BNP-Adult 18+) 873 pg/mL (<125); Troponin I 0.012 ng/mL (0.01-0.034)
[2022-06-03 11:43] LABS: CKMB % Relative Index 0.9 % (1.5-5.0); Creatine Kinase MB 3.61 ng/mL (<2.37)
[2022-06-03 11:46] LABS: D Dimer 723 ng/ml (<500)
[2022-06-03 11:51] LABS: Appearance Urine UA CLEAR; Bilirubin Urine UA NEGATIVE (NEGATIVE); Color Urine UA YELLOW; Glucose Urine UA NEGATIVE (Negative); Ketones Urine UA NEGATIVE (NEGATIVE); Leukocyte Esterase Urine UA NEGATIVE (NEGATIVE); Nitrite Urine UA NEGATIVE (Negative); Occult Blood Urine UA TRACE-INTACT (Negative); Protein Urine UA NEGATIVE (Negative); Specific Gravity Urine UA <=1.005 (1.000-1.035); Urobilinogen Urine UA 0.2 E.U./dL (0.2)
[2022-06-03 11:53] LABS: Acetaminophen < 10 ug/mL (10-30); Ethanol (ETOH) < 10 mg/dL; Salicylate < 1.0 mg/dL (<20)
--- NOTE | 2022-06-03 11:56 | DI.CT.S_ITS ---
PROCEDURE: CT ANGIO CHEST PE PROTOCOL INDICATIONS: SOB, critical dimer, hypoxemia, cough TECHNIQUE: After the administration of intravenous contrast, 2 mm thick sections acquired from the pulmonary apices to the posterior costophrenic angles. 3-dimensional maximum intensity projection (MIP) coronal and sagittal reformats were then acquired through the thorax. For radiation dose reduction, the following was used: automated exposure control, adjustment of mA and/or kV according to patient size. COMPARISON: None. FINDINGS: Image quality: Excellent. Pulmonary arteries: Pulmonary arteries are normal in size, and demonstrate no intraluminal filling defects to suggest central pulmonary embolism. Lungs and pleura: The perihilar airways are mildly flattened and demonstrate mild to moderate wall thickening. Patchy multifocal tiny left lower lobe airspace opacities and ground-glass opacity. Minor ground-glass opacity in the right posterior lower lobe and bilaterally layering along the major fissures. There are no pleural effusions or pneumothorax. Findings are superimposed on mild emphysema. Mediastinum: Heart size is normal, without pericardial effusion. No mediastinal or hilar adenopathy. Thoracic aorta is normal in caliber and enhancement. Esophagus is normal in caliber, with a tiny hiatal hernia. Bones and chest wall: No suspicious bony lesions. Ribs and thoracic spine appear intact throughout. Thyroid gland is not well seen. No axillary or supraclavicular adenopathy. Abdomen: Visualized upper abdominal solid organs appear normal in the early arterial phase of enhancement. IMPRESSION: 1. No pulmonary embolus. 2. Small left lower lobe alveolar opacities suggesting pneumonitis, most likely infectious or inflammatory. 3. Gravitational changes suggesting mild volume overload/CHF. 4. Bronchial wall thickening and narrowing in the perihilar regions as well as emphysema. Dictated by: Ana Adkins M.D. on 06/03/2022 at 12:56 Approved by: Ana Adkins M.D. on 06/03/2022 at 13:01
--- NOTE | 2022-06-03 11:57 | DI.CT.S_ITS ---
PROCEDURE: CT ABDOMEN PELVIS W CON INDICATIONS: abdominal pain TECHNIQUE: After the administration of intravenous contrast, axial sections acquired from the lung bases to the pubic symphysis. Coronal and sagittal reformats were performed. For radiation dose reduction, the following was used: automated exposure control, adjustment of mA and/or kV according to patient size. COMPARISON: [facility], CT, CT ABDOMEN PELVIS W CON, 07/05/2021, 4:42. FINDINGS: Image quality: Excellent. Lung bases: Small airspace opacity at the left lung base suggesting small pneumonia. Heart: No significant findings. ABDOMEN: Liver: Unremarkable. Gallbladder: Surgically absent. Biliary ducts: Appropriate post cholecystectomy. Pancreas: Unremarkable. Spleen: Unremarkable. Adrenal Glands: Unremarkable. Kidneys and Ureters: A few cortical cysts are present in each kidney. No hydronephrosis. Minor right hydroureter without calcification. Stomach and Bowel: Normal stomach and small bowel loops. There is an ileocolonic anastomosis. Mildly increased quantity of solid stool present in the colon. Mild proximal sigmoid colon diverticulosis. Peritoneum: No abnormal intraperitoneal fluid. No free air. Ventral Wall: No hernias. Evidence of prior midline incision. Abdominal Nodes: No retroperitoneal or mesenteric adenopathy by size criteria. Vessels: Aorta and inferior vena cava are normal in size. PELVIS: Pelvic Organs: The uterus has a normal CT appearance. Ovarian tissue is not well seen. Bladder: There is a Betts catheter in the urinary bladder. No bladder calculi or significant bladder wall thickening. Small amount of air from recent catheter placement. Pelvic Nodes: No enlarged lymph nodes. Miscellaneous: No hernias are seen. Bones: Unremarkable. IMPRESSION: 1. No acute process. 2. Mildly increased stool quantity. 3. Small left lower lung pneumonitis visible. 4. Prior cholecystectomy and ileocolonic anastomosis. Dictated by: Ana Adkins M.D. on 06/03/2022 at 13:02 Approved by: Ana Adkins M.D. on 06/03/2022 at 13:07
[2022-06-03 12:01] LABS: Bacteria Urine None Seen; Culture Indicated Urine Cult Not Indicated; RBC Urine None Seen (0-5/HPF); Squamous Epithelial Cell Urine None Seen (0-5/HPF); WBC Urine 0-1/HPF (0-5/HPF)
[2022-06-03 12:02] LABS: UR Morphine/Opiate cutoff 300 Positive (Negative); Ur Creatinine Normal (Normal); Ur Specific Gravity Normal (Normal); Urine Amphetamines Negative (Negative); Urine Barbiturates Negative (Negative); Urine Benzodiazepines Negative (Negative); Urine Cocaine Negative (Negative); Urine MDMA Negative (Negative); Urine Methadone Negative (Negative); Urine Methamphetamines Negative (Negative); Urine Oxycodone Negative (Negative); Urine Phencyclidine Negative (Negative); Urine Tetrahydrocannabinol Negative (Negative); Urine Tricyclic Antidepressant Negative (Negative); Urine pH Normal (Normal)
[2022-06-03 12:03] LABS: Fractionated Inspired Oxygen 36; HCO3 ABG 26 mmol/L (23-27); Oxygen Saturation ABG 98 % (95-100); PCO2 ABG 46.4 mmHg (35-45); PO2 ABG 116 mmHg (80-100); TCO2 ABG 27 mmol/L (23-27)
[2022-06-03 12:20] LABS: Adenovirus Not Detected (Not Detect); B. parapertussis Not Detected (Not Detecte); Bordetella pertussis Not Detected (Not Detecte); Chlamydophila pneumoniae Not Detected (Not Detect); Coronavirus 229E Not Detected (Not Detect); Coronavirus HKU1 Not Detected (Not Detect); Coronavirus NL 63 Not Detected (Not Detect); Coronavirus OC43 Not Detected (Not Detect); Human Metapneumovirus Not Detected (Not Detect); Human Rhinovirus/Enterovirus Not Detected (Not Detect); Influenza A Not Detected (Not Detect); Influenza B Not Detected (Not Detect); Mycoplasma pneumoniae Not Detected (Not Detect); Parainfluenza Virus 1 Not Detected (Not Detect); Parainfluenza Virus 2 Not Detected (Not Detect); Parainfluenza Virus 3 Not Detected (Not Detect); Parainfluenza Virus 4 Not Detected (Not Detect); Respiratory Syncytial Virus Not Detected (Not Detect); SARS- CoV-2 Not Detected (Not Detecte)
[2022-06-03] MEDS: cefTRIAXone 2,000 MG in SODIUM CHLORIDE 0.9% 100 ML 200 MG IV (12:24)
[2022-06-03] MEDS: THIAMINE 200 MG in SODIUM CHLORIDE 0.9% 100 ML 408 MG IV (13:03)
--- NOTE | 2022-06-03 14:45 | PM.HP.1 ---
History of Present Illness History of Present Illness Chief complaint: DR angel; acute resp. symptoms Narrative: Louann Diaz is a 62-year-old female with medical history of Crohn's disease on Humira, hypertension, hypothyroidism, chronic pain on Suboxone, PTSD, depression, anxiety and insomnia who presents with worsening shortness of breath. Patient states over the past few days she is had worsening dry cough and shortness of breath. had her come to her PCP for an appointment and she was sent to the ED for evaluation. In ED patient had a chest x-ray and CTA chest which showed likely developing left lower lobe pneumonia. Also evidence of mild volume overload and emphysema. Was satting in the mid 80s so required 4 L of oxygen. She also describes chest pain intermittently for the past month. Pain is substernal and will come and go. She is worried about it because she is also retaining water in her legs and belly she says. She has a strong family history of heart disease. She also sweats profusely and very easily with some occasional dizziness. She denies diarrhea, cough, headache, or NV. [facility] Medical History Abnormal chest xray Acute renal insufficiency ADHD Allergy to antibiotic Anemia (~2016) Ankle pain (~2017) Anxiety Asthma Asthma Attention deficit disorder Back pain of lumbar region with sciatica Bipolar disorder in partial remission Bronchospasm Cataracts, bilateral Cataracts, bilateral (~2018) Chicken pox Chronic back pain (~2003) Chronic back pain greater than 3 months duration Chronic cough Chronic pain Chronic post-traumatic stress disorder (PTSD) COPD (chronic obstructive pulmonary disease) Cough COVID-19 vaccine series declined Crohn's disease (~2009) Decreased GFR Depressed bipolar affective disorder Depression (~1988) Eczema Eczema Elevated liver enzymes Elevated parathyroid hormone Encounter for tobacco use cessation counseling Foot pain (~2018) Foot pain, left Glomerulonephritis Headache Hemorrhoid (~1979) Hepatitis A test positive Hepatitis B surface antigen positive History of emphysema (~2017) HLD (hyperlipidemia) Hypercalcemia Hypothyroidism (~1989) Insomnia Kidney disease Kidney disease (~1974) Left foot pain Lower extremity pain, posterior Marijuana use Migraines Mouth sores MRSA (methicillin resistant Staphylococcus aureus) (~2004) Nausea & vomiting Opacity of lung on imaging study Oral lesion Oral lesion Osteopenia of multiple sites Osteoporosis (~2016) Other spondylosis, lumbar region Pharyngitis Post traumatic stress disorder (PTSD) Pulmonary scarring Radiculopathy, lumbar region Restless leg syndrome Restless legs syndrome Seizure Serum calcium elevated Skin cancer, basal cell (~2017) Sleep apnea Small bowel obstruction Tobacco abuse disorder Tobacco use disorder, mild, in early remission Vitamin D deficiency Surgical History History of section History of cholecystectomy History of intestinal surgery History of partial hysterectomy S/P tonsillectomy Family History Mother Cancer Alzheimer disease Father Heart disease Kidney disease Social History household members: spouse Smoking Status: Former smoker alcohol intake: former Meds Home Medications and Allergies Home Medications Medication Instructions Recorded Confirmed Type trazodone 50 mg tablet See Rx Instructions PO BEDTIME PRN 03/05/21 06/03/22 Rx insomnia #180 tabs ferrous sulfate 325 mg (65 mg 65 mg PO DAILY anemia 07/05/21 06/03/22 History iron) tablet (Iron (ferrous sulfate)) albuterol sulfate 90 mcg/actuation 2 puff inhalation Q4-6H PRN 12/31/21 06/03/22 Rx aerosol inhaler (Ventolin HFA) shortness of breath or wheezing #8.5 grams ondansetron 4 mg disintegrating See Rx Instructions .Route 01/13/22 06/03/22 Rx tablet .COMPLEX #60 tabs buspirone 10 mg tablet 15 mg PO BID #270 tabs 04/15/22 06/03/22 Rx Synthroid 137 mcg tablet 137 mcg PO DAILY #90 tabs 04/16/22 06/03/22 Rx (levothyroxine) lidocaine HCl 2 % mucosal solution 15 ml mucous membrane QID PRN pain 05/06/22 06/03/22 Rx #100 mL naloxone 0.4 mg/mL injection 0.4 mg IM Q2M PRN opioid reversal 05/14/22 06/03/22 Rx syringe #10 mL Suboxone 8 mg-2 mg sublingual film 1 film buccal Q24H #30 ea 05/21/22 06/03/22 Rx (buprenorphine-naloxone) lisinopril 5 mg tablet 5 mg PO BID 06/03/22 06/03/22 History pregabalin 25 mg capsule 75 mg PO BID 06/03/22 06/03/22 History Allergies Allergy/AdvReac Type Severity Reaction Status Date / Time Penicillins Allergy Severe Rash Verified 06/03/22 09:33 Sulfa (Sulfonamide Allergy Intermediate Hives Verified 06/03/22 09:33 Antibiotics) adalimumab [From Humira] AdvReac Intermediate pneumonia Verified 06/03/22 09:33 quetiapine [From Seroquel] AdvReac Intermediate Verified 06/03/22 09:33 Review of Systems Review of Systems Narrative: All other systems reviewed with the patient and are negative unless otherwise stated. Exam Vital Signs (past 8 hours): - 06/03/22 10:18 06/03/22 10:20 06/03/22 10:25 Temperature 99.7 F H Pulse Rate 99 H 100 H 99 H Respiratory Rate 30 H 27 H 22 Blood Pressure 106/65 Pulse Oximetry 96 93 95 Oxygen Delivery Method Room Air Oxygen Flow Rate 06/03/22 10:30 06/03/22 10:31 06/03/22 10:31 Temperature Pulse Rate 97 H 96 H Respiratory Rate 42 H 30 H Blood Pressure 115/56 L Pulse Oximetry 93 92 Oxygen Delivery Method Oxygen Flow Rate 06/03/22 10:35 06/03/22 10:40 06/03/22 10:45 Temperature Pulse Rate 92 H 97 H Respiratory Rate 23 38 H Blood Pressure 83/46 L Pulse Oximetry 92 90 L Oxygen Delivery Method Oxygen Flow Rate 06/03/22 10:45 06/03/22 10:50 06/03/22 10:52 Temperature Pulse Rate 97 H 93 H Respiratory Rate 24 23 Blood Pressure 91/63 Pulse Oximetry 86 L 86 L Oxygen Delivery Method Room Air Room Air Oxygen Flow Rate 06/03/22 10:52 06/03/22 10:55 06/03/22 10:58 Temperature Pulse Rate 92 H 93 H 93 H Respiratory Rate 19 23 28 H Blood Pressure Pulse Oximetry 96 97 Oxygen Delivery Method Nasal Cannula Oxygen Flow Rate 4 06/03/22 10:58 06/03/22 11:00 06/03/22 11:00 Temperature Pulse Rate 91 H Respiratory Rate 25 H Blood Pressure 108/50 L 102/58 L Pulse Oximetry 97 Oxygen Delivery Method Oxygen Flow Rate 06/03/22 11:05 06/03/22 11:05 06/03/22 11:10 Temperature Pulse Rate 97 H Respiratory Rate 31 H Blood Pressure 108/67 117/57 L Pulse Oximetry 97 Oxygen Delivery Method Oxygen Flow Rate 06/03/22 11:10 06/03/22 11:15 06/03/22 11:15 Temperature Pulse Rate 91 H 89 Respiratory Rate 22 21 Blood Pressure 103/54 L Pulse Oximetry 97 98 Oxygen Delivery Method Oxygen Flow Rate 06/03/22 11:20 06/03/22 11:20 06/03/22 11:25 Temperature Pulse Rate 90 101 H Respiratory Rate 25 H 42 H Blood Pressure 105/56 L Pulse Oximetry 98 97 Oxygen Delivery Method Oxygen Flow Rate 06/03/22 11:30 06/03/22 11:35 06/03/22 11:39 Temperature Pulse Rate 86 88 92 H Respiratory Rate 19 24 20 Blood Pressure Pulse Oximetry 96 97 97 Oxygen Delivery Method Oxygen Flow Rate 06/03/22 11:39 06/03/22 11:40 06/03/22 11:40 Temperature Pulse Rate 94 H Respiratory Rate 31 H Blood Pressure 123/56 L 139/60 Pulse Oximetry 97 Oxygen Delivery Method Oxygen Flow Rate 06/03/22 11:45 06/03/22 11:45 06/03/22 11:50 Temperature Pulse Rate 88 86 Respiratory Rate 21 26 H Blood Pressure 137/56 L Pulse Oximetry 98 98 Oxygen Delivery Method Oxygen Flow Rate 06/03/22 11:55 06/03/22 11:56 06/03/22 11:56 Temperature Pulse Rate 85 83 Respiratory Rate 30 H 29 H Blood Pressure 108/51 L Pulse Oximetry 98 98 Oxygen Delivery Method Oxygen Flow Rate 06/03/22 12:00 06/03/22 12:16 06/03/22 12:17 Temperature Pulse Rate 86 84 82 Respiratory Rate 31 H 20 13 Blood Pressure Pulse Oximetry 97 98 100 Oxygen Delivery Method Nasal Cannula Oxygen Flow Rate 06/03/22 12:17 06/03/22 12:20 06/03/22 12:24 Temperature Pulse Rate 87 81 Respiratory Rate 22 17 Blood Pressure 116/71 Pulse Oximetry 100 98 Oxygen Delivery Method Oxygen Flow Rate 06/03/22 12:24 06/03/22 12:25 06/03/22 12:30 Temperature Pulse Rate 82 Respiratory Rate 23 Blood Pressure 125/59 L 117/62 Pulse Oximetry 98 Oxygen Delivery Method Oxygen Flow Rate 06/03/22 12:30 06/03/22 12:35 06/03/22 12:40 Temperature 99.5 F 99.5 F 99.5 F Pulse Rate 80 82 83 Respiratory Rate 19 19 21 Blood Pressure Pulse Oximetry 98 97 96 Oxygen Delivery Method Oxygen Flow Rate 06/03/22 12:45 06/03/22 12:50 06/03/22 12:50 Temperature 99.5 F 99.5 F Pulse Rate 84 77 Respiratory Rate 26 H 12 Blood Pressure 121/56 L Pulse Oximetry 98 96 Oxygen Delivery Method Oxygen Flow Rate 06/03/22 12:55 06/03/22 13:00 06/03/22 13:01 Temperature 99.7 F H 99.7 F H 99.7 F H Pulse Rate 76 84 84 Respiratory Rate 15 27 H 30 H Blood Pressure Pulse Oximetry 96 98 98 Oxygen Delivery Method Oxygen Flow Rate 06/03/22 13:01 06/03/22 13:05 06/03/22 13:10 Temperature 99.7 F H 99.7 F H Pulse Rate 78 84 Respiratory Rate 20 28 H Blood Pressure 115/71 Pulse Oximetry 96 98 Oxygen Delivery Method Oxygen Flow Rate 06/03/22 13:11 06/03/22 13:11 06/03/22 13:15 Temperature 99.7 F H 99.5 F Pulse Rate 81 84 Respiratory Rate 21 28 H Blood Pressure 110/53 L Pulse Oximetry 98 98 Oxygen Delivery Method Nasal Cannula Oxygen Flow Rate 4 Oxygen Delivery Method Nasal Cannula Oxygen Flow Rate 4 Narrative Exam Narrative: GEN: no acute distress HEENT: moist mucous membranes, PERRL NECK: trachea midline, no JVD CV: regular rate and rhythm, no murmurs PULM: mild crackles at left lung base ABD: soft, nontender, nondistended, no organomegaly EXT: warm and well perfused with trace edema NEURO: awake, alert, oriented, no focal deficits Objective Labs 06/04/22 05:34 06/04/22 05:34 Labs: Laboratory Results - last 24 hr 06/03/22 06/03/22 06/03/22 10:33 10:33 10:33 WBC 11.4 H RBC 3.25 L Hgb 10.2 L Hct 30.3 L MCV 93.2 MCH 31.5 MCHC 33.8 RDW 14.8 Plt Count 182 Neut % (Auto) 92.3 H Lymph % (Auto) 4.1 L [place] % (Auto) 3.2 Eos % (Auto) 0.1 L Baso % (Auto) 0.3 Neut # (Auto) 02132 H Lymph # (Auto) 500 L [place] # (Auto) 400 Eos # (Auto) 0 Baso # (Auto) 0 PT 10.4 INR 0.9 APTT 25 L D-Dimer ABG pH ABG pCO2 ABG pO2 ABG HCO3 ABG Total CO2 ABG O2 Saturation ABG Base Excess FiO2 Sodium 131 L Potassium 4.8 Chloride 99 Carbon Dioxide 26 BUN 38 H Creatinine 1.19 H Estimated GFR 51 L BUN/Creatinine Ratio 31.9 H Glucose 132 H Lactate Calcium 9.2 Total Bilirubin 0.9 AST 35 ALT 33 Alkaline Phosphatase 69 Total Creatine Kinase CK-MB (CK-2) CK-MB (CK-2) Rel Index Troponin I NT-Pro-B Natriuret Pep Total Protein 6.4 Albumin 3.7 Globulin 2.7 Albumin/Globulin Ratio 1.4 Lipase 36 Procalcitonin 0.76 H Urine Color Urine Appearance Urine pH Ur Specific [place] Urine Protein Urine Glucose (UA) Urine Ketones Urine Occult Blood Urine Nitrate Urine Bilirubin Urine Urobilinogen Ur Leukocyte Esterase Urine RBC Urine WBC Ur Squamous Epith Cells Urine Bacteria Ur Culture Indicated? Salicylates U Opiates 300ng/mL cut Ur Oxycodone Screen Urine Methadone Screen Acetaminophen Ur Barbiturates Screen U Tricyclic Antidepress Ur Phencyclidine Scrn Ur Amphetamines Screen U Methamphetamines Scrn Ur MDMA Scrn (Ecstasy) U Benzodiazepines Scrn Urine Cocaine Screen U Marijuana (THC) Screen Ethyl Alcohol Chlamy pneumoniae PCR Adenovirus (PCR) B. pertussis DNA (PCR) B.parapertussis DNA PCR Coronavirus OC43 (PCR) Coronavirus HKU1 (PCR) Coronavirus 229E (PCR) SARS-CoV-2 (PCR) Coronavirus NL63 (PCR) Human Metapneumovir PCR Influenza Type A (PCR) Influenza Type B (PCR) M. pneumoniae (PCR) Parainfluenza 1 (PCR) Parainfluenza 2 (PCR) Parainfluenza 3 (PCR) Parainfluenza 4 (PCR) RSV (PCR) Entero/Rhino (PCR) 06/03/22 06/03/22 06/03/22 10:33 10:33 10:33 WBC RBC Hgb Hct MCV MCH MCHC RDW Plt Count Neut % (Auto) Lymph % (Auto) [place] % (Auto) Eos % (Auto) Baso % (Auto) Neut # (Auto) Lymph # (Auto) [place] # (Auto) Eos # (Auto) Baso # (Auto) PT INR APTT D-Dimer 723 H ABG pH ABG pCO2 ABG pO2 ABG HCO3 ABG Total CO2 ABG O2 Saturation ABG Base Excess FiO2 Sodium Potassium Chloride Carbon Dioxide BUN Creatinine Estimated GFR BUN/Creatinine Ratio Glucose Lactate 0.9 Calcium Total Bilirubin AST ALT Alkaline Phosphatase Total Creatine Kinase CK-MB (CK-2) CK-MB (CK-2) Rel Index Troponin I NT-Pro-B Natriuret Pep Total Protein Albumin Globulin Albumin/Globulin Ratio Lipase Procalcitonin Urine Color Urine Appearance Urine pH Ur Specific [place] Urine Protein Urine Glucose (UA) Urine Ketones Urine Occult Blood Urine Nitrate Urine Bilirubin Urine Urobilinogen Ur Leukocyte Esterase Urine RBC Urine WBC Ur Squamous Epith Cells Urine Bacteria Ur Culture Indicated? Salicylates < 1.0 U Opiates 300ng/mL cut Ur Oxycodone Screen Urine Methadone Screen Acetaminophen < 10 Ur Barbiturates Screen U Tricyclic Antidepress Ur Phencyclidine Scrn Ur Amphetamines Screen U Methamphetamines Scrn Ur MDMA Scrn (Ecstasy) U Benzodiazepines Scrn Urine Cocaine Screen U Marijuana (THC) Screen Ethyl Alcohol < 10 Chlamy pneumoniae PCR Adenovirus (PCR) B. pertussis DNA (PCR) B.parapertussis DNA PCR Coronavirus OC43 (PCR) Coronavirus HKU1 (PCR) Coronavirus 229E (PCR) SARS-CoV-2 (PCR) Coronavirus NL63 (PCR) Human Metapneumovir PCR Influenza Type A (PCR) Influenza Type B (PCR) M. pneumoniae (PCR) Parainfluenza 1 (PCR) Parainfluenza 2 (PCR) Parainfluenza 3 (PCR) Parainfluenza 4 (PCR) RSV (PCR) Entero/Rhino (PCR) 06/03/22 06/03/22 06/03/22 10:37 10:44 11:38 WBC RBC Hgb Hct MCV MCH MCHC RDW Plt Count Neut % (Auto) Lymph % (Auto) [place] % (Auto) Eos % (Auto) Baso % (Auto) Neut # (Auto) Lymph # (Auto) [place] # (Auto) Eos # (Auto) Baso # (Auto) PT INR APTT D-Dimer ABG pH ABG pCO2 ABG pO2 ABG HCO3 ABG Total CO2 ABG O2 Saturation ABG Base Excess FiO2 Sodium Potassium Chloride Carbon Dioxide BUN Creatinine Estimated GFR BUN/Creatinine Ratio Glucose Lactate Calcium Total Bilirubin AST ALT Alkaline Phosphatase Total Creatine Kinase 410 H CK-MB (CK-2) 3.61 H CK-MB (CK-2) Rel Index 0.9 L Troponin I 0.012 NT-Pro-B Natriuret Pep 873 H Total Protein Albumin Globulin Albumin/Globulin Ratio Lipase Procalcitonin Urine Color Urine Appearance Urine pH Ur Specific [place] Urine Protein Urine Glucose (UA) Urine Ketones Urine Occult Blood Urine Nitrate Urine Bilirubin Urine Urobilinogen Ur Leukocyte Esterase Urine RBC Urine WBC Ur Squamous Epith Cells Urine Bacteria Ur Culture Indicated? Salicylates U Opiates 300ng/mL cut Positive H Ur Oxycodone Screen Negative Urine Methadone Screen Negative Acetaminophen Ur Barbiturates Screen Negative U Tricyclic Antidepress Negative Ur Phencyclidine Scrn Negative Ur Amphetamines Screen Negative U Methamphetamines Scrn Negative Ur MDMA Scrn (Ecstasy) Negative U Benzodiazepines Scrn Negative Urine Cocaine Screen Negative U Marijuana (THC) Screen Negative Ethyl Alcohol Chlamy pneumoniae PCR Not detected Adenovirus (PCR) Not detected B. pertussis DNA (PCR) Not detected B.parapertussis DNA PCR Not detected Coronavirus OC43 (PCR) Not detected Coronavirus HKU1 (PCR) Not detected Coronavirus 229E (PCR) Not detected SARS-CoV-2 (PCR) Not detected Coronavirus NL63 (PCR) Not detected Human Metapneumovir PCR Not detected Influenza Type A (PCR) Not detected Influenza Type B (PCR) Not detected M. pneumoniae (PCR) Not detected Parainfluenza 1 (PCR) Not detected Parainfluenza 2 (PCR) Not detected Parainfluenza 3 (PCR) Not detected Parainfluenza 4 (PCR) Not detected RSV (PCR) Not detected Entero/Rhino (PCR) Not detected 06/03/22 06/03/22 11:38 11:54 WBC RBC Hgb Hct MCV MCH MCHC RDW Plt Count Neut % (Auto) Lymph % (Auto) [place] % (Auto) Eos % (Auto) Baso % (Auto) Neut # (Auto) Lymph # (Auto) [place] # (Auto) Eos # (Auto) Baso # (Auto) PT INR APTT D-Dimer ABG pH 7.35 ABG pCO2 46.4 H ABG pO2 116 H ABG HCO3 26 ABG Total CO2 27 ABG O2 Saturation 98 ABG Base Excess 0.0 FiO2 36 Sodium Potassium Chloride Carbon Dioxide BUN Creatinine Estimated GFR BUN/Creatinine Ratio Glucose Lactate Calcium Total Bilirubin AST ALT Alkaline Phosphatase Total Creatine Kinase CK-MB (CK-2) CK-MB (CK-2) Rel Index Troponin I NT-Pro-B Natriuret Pep Total Protein Albumin Globulin Albumin/Globulin Ratio Lipase Procalcitonin Urine Color Yellow Urine Appearance Clear Urine pH 7.0 Ur Specific [place] <=1.005 Urine Protein Negative Urine Glucose (UA) Negative Urine Ketones Negative Urine Occult Blood Trace-intact Urine Nitrate Negative Urine Bilirubin Negative Urine Urobilinogen 0.2 Ur Leukocyte Esterase Negative Urine RBC None seen Urine WBC 0-1/hpf Ur Squamous Epith Cells None seen Urine Bacteria None seen Ur Culture Indicated? Cult not indicated Salicylates U Opiates 300ng/mL cut Ur Oxycodone Screen Urine Methadone Screen Acetaminophen Ur Barbiturates Screen U Tricyclic Antidepress Ur Phencyclidine Scrn Ur Amphetamines Screen U Methamphetamines Scrn Ur MDMA Scrn (Ecstasy) U Benzodiazepines Scrn Urine Cocaine Screen U Marijuana (THC) Screen Ethyl Alcohol Chlamy pneumoniae PCR Adenovirus (PCR) B. pertussis DNA (PCR) B.parapertussis DNA PCR Coronavirus OC43 (PCR) Coronavirus HKU1 (PCR) Coronavirus 229E (PCR) SARS-CoV-2 (PCR) Coronavirus NL63 (PCR) Human Metapneumovir PCR Influenza Type A (PCR) Influenza Type B (PCR) M. pneumoniae (PCR) Parainfluenza 1 (PCR) Parainfluenza 2 (PCR) Parainfluenza 3 (PCR) Parainfluenza 4 (PCR) RSV (PCR) Entero/Rhino (PCR) Assessment & Plan Assessment & Plan narrative: # acute hypoxic respiratory failure -secondary to pneumonia vs CHF -currently requiring 4 L of oxygen and on none at baseline -treat pneumonia as below -wean O2 as able # community-acquired pneumonia/pneumonitis -CTA with no PE but left lower lobe pneumonitis which is infectious vs inflammatory -procal 0.76 suggesting bacterial infection -continue rocephin and azithro x5 and x3 days respectively -sputum culture ordered # possible acute CHF exacerbation -CTA chest with mild pulmonary edema suggesting volume overload/CHF -Lasix 40 mg IV daily ordered -obtain echo -with chest pain may warrant stress test, initial trop negative # KRISTI -creatinine 1.19 with baseline of 0.7 -due to edema noted on CTA chest will hold fluids -monitor and avoid nephrotoxic agents -diuresis as above # Crohn's disease -patient having abdominal pain however CT abdomen pelvis showed no acute process -holding home Humira # hypothyroidism -continue home Synthroid -check TSH # PTSD, depression, anxiety, insomnia -continue home Buspar and trazodone # chronic pain -continue home Suboxone Code status is full code. COVID negative. DVT prophylaxis with heparin subcutaneous. Proxy is Tiago Diaz . I have reviewed home meds and used all available resources to reconcile the home meds. This patient will be admitted as inpatient and will require greater than 2 midnights of hospital time to treat pneumonia and hypoxic respiratory failure.
--- NOTE | 2022-06-03 15:01 | DI.ECHO.S_ITS ---
[facility] +---------+ [facility] +---------+ : : [address] : [place] : : : : [id number] : : : : Phone: [phone] Echocardiogram Report + + :Name: HARSH PARRA Study Date: 06/04/2022 Height: 66 in : :[facility] ReadingLocation: Weight: 224 lb : : Gender: Female BSA: 2.1 m2 : :: 1960 Age: 62 yrs BP: 103/83 mmHg: :Reason For Study: PULMONARY EDEMA : :Ordering Physician: [place], : :GINNY Zamora Performed By: Shreya Rocha : :Referring: GINNY OSBORNE : + + Interpretation Summary Left ventricular ejection fraction is estimated to be 65 +/- 5%. There is no significant valvular heart disease. Procedure: A two-dimensional transthoracic echocardiogram with color flow and Doppler was performed. The study quality was technically adequate. There is no prior echocardiogram noted for this patient. The patient was in sinus rhythm with heart rates between 82-95 bpm during the exam. Left Ventricle: The left ventricle is normal in size and wall thickness. 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 Left ventricular ejection fraction is estimated to be 65 +/- 5%. Left ventricular wall motion is normal. Right Ventricle: The right ventricle is normal in size and function. Atria: The left atrial size is normal. Right atrial size is normal. There is no Doppler evidence for an interatrial shunt. Mitral Valve: The mitral valve is normal in structure and function. There is trace mitral regurgitation. Aortic Valve: The aortic valve is trileaflet. The aortic valve opens well. There is no aortic valve stenosis. No aortic regurgitation is present. Tricuspid Valve: The tricuspid valve is normal in structure and function. There is trace tricuspid regurgitation. Pulmonary artery pressures cannot be estimated because of the lack of a measurable TR jet velocity. Pulmonic Valve: The pulmonic valve is not well visualized. There is no pulmonic valvular regurgitation. Great Vessels: The aortic root is normal size. The dimensions of the ascending aorta are normal. The IVC is dilated (diameter is greater than 2.1 cm) yet it collapses greater than 50% with a sniff. This suggests a right atrial pressure of 8 mm Hg. Pericardium/ Pleura There is an anterior echo-free space consistent with a fat pad. There is no pleural effusion. MMode/2D Measurements & Calculations LVIDd: 4.4 cm LVOT diam: 2.1 cm LVIDs: 3.0 cm Ao root diam: 3.6 cm FS: 32.6 % asc Aorta Diam: 3.3 cm IVSd: 0.77 cm Ao Arch Diam (Prox Trans): 2.9 cm LVPWd: 0.97 cm LV holman. diameter/BSA (cm/m^2): 2.1 LV sys. diameter/BSA (cm/m^2): 1.4 LA A2 area: 17.1 cm2 RA long axis: 4.9 cm LA A4 area: 12.3 cm2 RA area: 13.9 cm2 LA length (vol): 4.5 cm RA vol: 33.8 ml LA vol: 40.1 ml RA : 16.1 ml/m2 LA vol index: 19.1 ml/m2 IVC diam: 2.2 cm RVD1 (basal): 3.4 cm RVD2 (mid): 2.4 cm TAPSE: 1.9 cm Doppler Measurements & Calculations Ao V2 max: 140.2 cm/sec LVOT Max David: 136.9 cm/sec Ao V2 mean: 106.9 cm/sec LV V1 max P.5 mmHg Ao max P.9 mmHg LV V1 VTI: 29.3 cm Ao mean P.9 mmHg ALICJA(I,D): 3.8 cm2 Ao V2 VTI: 27.7 cm ALICJA(V,D): 3.5 cm2 sev ratio: 1.1 ALICJA indexed to BSA (cm^2/m^2): 1.8 MV E max david: 89.4 cm/sec PA V2 max: 93.8 cm/sec MV A max david: 107.1 cm/sec PA V2 mean: 67.0 cm/sec MV E/A: 0.83 PA mean P.0 mmHg Med Peak E' David: 7.2 cm/sec PA pr(Accel): 31.0 mmHg E/E' med: 12.5 Lat Peak E' David: 9.6 cm/sec E/E' lat: 9.4 E/e' average: 10.9 MV dec time: 0.18 sec SV(LVOT): 105.2 ml Reading Physician:10:25 AM
[2022-06-03] MEDS: AZITHROMYCIN 500 MG in DEXTROSE 5% IN WATER 250 ML 250 MG IV (15:06)
[2022-06-03] MEDS: FUROSEMIDE 40 MG/4 ML VIAL IV (15:22)
[2022-06-03 15:23] LABS: Magnesium 1.8 mg/dL (1.6-2.3)
[2022-06-03 15:51] LABS: TSH w/ Reflex to FT4 3.91 uIU/mL (0.47-4.68)
[2022-06-03 16:32] LABS: pH ABG 7.35 (7.35-7.45)
[2022-06-03 16:50] LABS: Ammonia (NH3) < 9 umol/L (9-30)
[2022-06-03] MEDS: HEPARIN 5,000 UNIT/ML VIAL 5000 UNIT SUBCUT (21:46)
[2022-06-04] MEDS: LEVOTHYROXINE 137 MCG TABLET PO (05:47)
[2022-06-04 06:01] LABS: Add Manual Diff / Slide Review NO; Basophils Absolute Auto 0 /uL (0-100); Basophils Percent Auto 0.5 % (0-2); Eosinophils Absolute Auto 200 /uL (0-450); Eosinophils Percent Auto 2.9 % (2-4); Hemoglobin 9.6 g/dL (12.0-16.0); Lymphocytes Absolute Auto 1100 /uL (1100-4500); Lymphocytes Percent Auto 13.7 % (25-40); Mean Corpuscular HGB Conc 33.2 % (30-36); Mean Corpuscular Hemoglobin 30.9 PG (26-34); Mean Corpuscular Volume 93.2 fL (80-100); Monocytes Absolute Auto 600 /uL (0-900); Monocytes Percent Auto 7.5 % (3-14); Neutrophils Absolute Auto 5900 /uL (1500-7000); Neutrophils Percent Auto 75.4 % (50-75); Platelet Count 172 X10^3/uL (150-400); Red Blood Cell Count 3.11 X10^6/uL (4.0-5.2); White Blood Cell Count 7.8 X10^3/uL (4.5-11.0)
[2022-06-04 06:08] LABS: Blood Urea Nitrogen 26 mg/dL (7-17); Calcium 8.9 mg/dL (8.4-10.2); Carbon Dioxide 32 mmol/L (22-32); Chloride 103 mmol/L (98-107); Estimated Glomerular Filt Rate > 60 mL/min (>60); Glucose 102 mg/dL (80-110); HEMOLYSIS < 15 (0-50); Potassium 4.3 mmol/L (3.4-5.1); Sodium 135 mmol/L (137-145)
[2022-06-04 06:11] VITALS: BP 114/61; PULSE 95; RESP 18; TEMP 36.4; O2SAT 98
[2022-06-04 06:25] LABS: Procalcitonin 0.93 ng/mL (<0.5)
[2022-06-04] MEDS: ACETAMINOPHEN 325 MG TABLET 650 MG PO (06:49)
--- NOTE | 2022-06-04 07:30 | P.PN_ITS ---
Exam Vital Signs (past 8 hours): - 06/03/22 23:57 06/04/22 06:11 Temperature 97.3 F L 97.6 F Pulse Rate 76 95 H Respiratory Rate 18 18 Blood Pressure 103/83 114/61 Pulse Oximetry 97 98 Oxygen Flow Rate 2 2 Fraction of Inspired Oxygen 28 SaO2/FiO2 Ratio 350 Oxygen Delivery Method Nasal Cannula Oxygen Flow Rate 2 Narrative Exam Narrative: GEN: no acute distress, obese HEENT: moist mucous membranes, PERRL NECK: trachea midline, no JVD CV: regular rate and rhythm, no murmurs PULM: clear bilaterally ABD: soft, nontender, nondistended, no organomegaly EXT: warm and well perfused with no edema NEURO: awake, alert, oriented, no focal deficits Objective Labs 06/04/22 05:34 06/04/22 05:34 Labs: Laboratory Results - last 24 hr 06/03/22 06/03/22 06/03/22 10:33 10:33 10:33 WBC 11.4 H RBC 3.25 L Hgb 10.2 L Hct 30.3 L MCV 93.2 MCH 31.5 MCHC 33.8 RDW 14.8 Plt Count 182 Neut % (Auto) 92.3 H Lymph % (Auto) 4.1 L [place] % (Auto) 3.2 Eos % (Auto) 0.1 L Baso % (Auto) 0.3 Neut # (Auto) 73451 H Lymph # (Auto) 500 L [place] # (Auto) 400 Eos # (Auto) 0 Baso # (Auto) 0 PT 10.4 INR 0.9 APTT 25 L D-Dimer ABG pH ABG pCO2 ABG pO2 ABG HCO3 ABG Total CO2 ABG O2 Saturation ABG Base Excess FiO2 Sodium 131 L Potassium 4.8 Chloride 99 Carbon Dioxide 26 BUN 38 H Creatinine 1.19 H Estimated GFR 51 L BUN/Creatinine Ratio 31.9 H Glucose 132 H Lactate Calcium 9.2 Magnesium Total Bilirubin 0.9 AST 35 ALT 33 Alkaline Phosphatase 69 Ammonia Total Creatine Kinase CK-MB (CK-2) CK-MB (CK-2) Rel Index Troponin I NT-Pro-B Natriuret Pep Total Protein 6.4 Albumin 3.7 Globulin 2.7 Albumin/Globulin Ratio 1.4 Lipase 36 Procalcitonin 0.76 H TSH Urine Color Urine Appearance Urine pH Ur Specific [place] Urine Protein Urine Glucose (UA) Urine Ketones Urine Occult Blood Urine Nitrate Urine Bilirubin Urine Urobilinogen Ur Leukocyte Esterase Urine RBC Urine WBC Ur Squamous Epith Cells Urine Bacteria Ur Culture Indicated? Salicylates U Opiates 300ng/mL cut Ur Oxycodone Screen Urine Methadone Screen Acetaminophen Ur Barbiturates Screen U Tricyclic Antidepress Ur Phencyclidine Scrn Ur Amphetamines Screen U Methamphetamines Scrn Ur MDMA Scrn (Ecstasy) U Benzodiazepines Scrn Urine Cocaine Screen U Marijuana (THC) Screen Ethyl Alcohol Chlamy pneumoniae PCR Adenovirus (PCR) B. pertussis DNA (PCR) B.parapertussis DNA PCR Coronavirus OC43 (PCR) Coronavirus HKU1 (PCR) Coronavirus 229E (PCR) SARS-CoV-2 (PCR) Coronavirus NL63 (PCR) Human Metapneumovir PCR Influenza Type A (PCR) Influenza Type B (PCR) M. pneumoniae (PCR) Parainfluenza 1 (PCR) Parainfluenza 2 (PCR) Parainfluenza 3 (PCR) Parainfluenza 4 (PCR) RSV (PCR) Entero/Rhino (PCR) 06/03/22 06/03/22 06/03/22 10:33 10:33 10:33 WBC RBC Hgb Hct MCV MCH MCHC RDW Plt Count Neut % (Auto) Lymph % (Auto) [place] % (Auto) Eos % (Auto) Baso % (Auto) Neut # (Auto) Lymph # (Auto) [place] # (Auto) Eos # (Auto) Baso # (Auto) PT INR APTT D-Dimer 723 H ABG pH ABG pCO2 ABG pO2 ABG HCO3 ABG Total CO2 ABG O2 Saturation ABG Base Excess FiO2 Sodium Potassium Chloride Carbon Dioxide BUN Creatinine Estimated GFR BUN/Creatinine Ratio Glucose Lactate 0.9 Calcium Magnesium Total Bilirubin AST ALT Alkaline Phosphatase Ammonia Total Creatine Kinase CK-MB (CK-2) CK-MB (CK-2) Rel Index Troponin I NT-Pro-B Natriuret Pep Total Protein Albumin Globulin Albumin/Globulin Ratio Lipase Procalcitonin TSH Urine Color Urine Appearance Urine pH Ur Specific [place] Urine Protein Urine Glucose (UA) Urine Ketones Urine Occult Blood Urine Nitrate Urine Bilirubin Urine Urobilinogen Ur Leukocyte Esterase Urine RBC Urine WBC Ur Squamous Epith Cells Urine Bacteria Ur Culture Indicated? Salicylates < 1.0 U Opiates 300ng/mL cut Ur Oxycodone Screen Urine Methadone Screen Acetaminophen < 10 Ur Barbiturates Screen U Tricyclic Antidepress Ur Phencyclidine Scrn Ur Amphetamines Screen U Methamphetamines Scrn Ur MDMA Scrn (Ecstasy) U Benzodiazepines Scrn Urine Cocaine Screen U Marijuana (THC) Screen Ethyl Alcohol < 10 Chlamy pneumoniae PCR Adenovirus (PCR) B. pertussis DNA (PCR) B.parapertussis DNA PCR Coronavirus OC43 (PCR) Coronavirus HKU1 (PCR) Coronavirus 229E (PCR) SARS-CoV-2 (PCR) Coronavirus NL63 (PCR) Human Metapneumovir PCR Influenza Type A (PCR) Influenza Type B (PCR) M. pneumoniae (PCR) Parainfluenza 1 (PCR) Parainfluenza 2 (PCR) Parainfluenza 3 (PCR) Parainfluenza 4 (PCR) RSV (PCR) Entero/Rhino (PCR) 06/03/22 06/03/22 06/03/22 10:33 10:33 10:37 WBC RBC Hgb Hct MCV MCH MCHC RDW Plt Count Neut % (Auto) Lymph % (Auto) [place] % (Auto) Eos % (Auto) Baso % (Auto) Neut # (Auto) Lymph # (Auto) [place] # (Auto) Eos # (Auto) Baso # (Auto) PT INR APTT D-Dimer ABG pH ABG pCO2 ABG pO2 ABG HCO3 ABG Total CO2 ABG O2 Saturation ABG Base Excess FiO2 Sodium Potassium Chloride Carbon Dioxide BUN Creatinine Estimated GFR BUN/Creatinine Ratio Glucose Lactate Calcium Magnesium 1.8 Total Bilirubin AST ALT Alkaline Phosphatase Ammonia Total Creatine Kinase CK-MB (CK-2) CK-MB (CK-2) Rel Index Troponin I NT-Pro-B Natriuret Pep Total Protein Albumin Globulin Albumin/Globulin Ratio Lipase Procalcitonin TSH 3.91 Urine Color Urine Appearance Urine pH Ur Specific [place] Urine Protein Urine Glucose (UA) Urine Ketones Urine Occult Blood Urine Nitrate Urine Bilirubin Urine Urobilinogen Ur Leukocyte Esterase Urine RBC Urine WBC Ur Squamous Epith Cells Urine Bacteria Ur Culture Indicated? Salicylates U Opiates 300ng/mL cut Ur Oxycodone Screen Urine Methadone Screen Acetaminophen Ur Barbiturates Screen U Tricyclic Antidepress Ur Phencyclidine Scrn Ur Amphetamines Screen U Methamphetamines Scrn Ur MDMA Scrn (Ecstasy) U Benzodiazepines Scrn Urine Cocaine Screen U Marijuana (THC) Screen Ethyl Alcohol Chlamy pneumoniae PCR Not detected Adenovirus (PCR) Not detected B. pertussis DNA (PCR) Not detected B.parapertussis DNA PCR Not detected Coronavirus OC43 (PCR) Not detected Coronavirus HKU1 (PCR) Not detected Coronavirus 229E (PCR) Not detected SARS-CoV-2 (PCR) Not detected Coronavirus NL63 (PCR) Not detected Human Metapneumovir PCR Not detected Influenza Type A (PCR) Not detected Influenza Type B (PCR) Not detected M. pneumoniae (PCR) Not detected Parainfluenza 1 (PCR) Not detected Parainfluenza 2 (PCR) Not detected Parainfluenza 3 (PCR) Not detected Parainfluenza 4 (PCR) Not detected RSV (PCR) Not detected Entero/Rhino (PCR) Not detected 06/03/22 06/03/22 06/03/22 10:44 11:38 11:38 WBC RBC Hgb Hct MCV MCH MCHC RDW Plt Count Neut % (Auto) Lymph % (Auto) [place] % (Auto) Eos % (Auto) Baso % (Auto) Neut # (Auto) Lymph # (Auto) [place] # (Auto) Eos # (Auto) Baso # (Auto) PT INR APTT D-Dimer ABG pH ABG pCO2 ABG pO2 ABG HCO3 ABG Total CO2 ABG O2 Saturation ABG Base Excess FiO2 Sodium Potassium Chloride Carbon Dioxide BUN Creatinine Estimated GFR BUN/Creatinine Ratio Glucose Lactate Calcium Magnesium Total Bilirubin AST ALT Alkaline Phosphatase Ammonia Total Creatine Kinase 410 H CK-MB (CK-2) 3.61 H CK-MB (CK-2) Rel Index 0.9 L Troponin I 0.012 NT-Pro-B Natriuret Pep 873 H Total Protein Albumin Globulin Albumin/Globulin Ratio Lipase Procalcitonin TSH Urine Color Yellow Urine Appearance Clear Urine pH 7.0 Ur Specific [place] <=1.005 Urine Protein Negative Urine Glucose (UA) Negative Urine Ketones Negative Urine Occult Blood Trace-intact Urine Nitrate Negative Urine Bilirubin Negative Urine Urobilinogen 0.2 Ur Leukocyte Esterase Negative Urine RBC None seen Urine WBC 0-1/hpf Ur Squamous Epith Cells None seen Urine Bacteria None seen Ur Culture Indicated? Cult not indicated Salicylates U Opiates 300ng/mL cut Positive H Ur Oxycodone Screen Negative Urine Methadone Screen Negative Acetaminophen Ur Barbiturates Screen Negative U Tricyclic Antidepress Negative Ur Phencyclidine Scrn Negative Ur Amphetamines Screen Negative U Methamphetamines Scrn Negative Ur MDMA Scrn (Ecstasy) Negative U Benzodiazepines Scrn Negative Urine Cocaine Screen Negative U Marijuana (THC) Screen Negative Ethyl Alcohol Chlamy pneumoniae PCR Adenovirus (PCR) B. pertussis DNA (PCR) B.parapertussis DNA PCR Coronavirus OC43 (PCR) Coronavirus HKU1 (PCR) Coronavirus 229E (PCR) SARS-CoV-2 (PCR) Coronavirus NL63 (PCR) Human Metapneumovir PCR Influenza Type A (PCR) Influenza Type B (PCR) M. pneumoniae (PCR) Parainfluenza 1 (PCR) Parainfluenza 2 (PCR) Parainfluenza 3 (PCR) Parainfluenza 4 (PCR) RSV (PCR) Entero/Rhino (PCR) 06/03/22 06/03/22 06/04/22 11:54 16:20 05:34 WBC 7.8 RBC 3.11 L Hgb 9.6 L Hct 29.0 L MCV 93.2 MCH 30.9 MCHC 33.2 RDW 15.0 H Plt Count 172 Neut % (Auto) 75.4 H Lymph % (Auto) 13.7 L [place] % (Auto) 7.5 Eos % (Auto) 2.9 Baso % (Auto) 0.5 Neut # (Auto) 5900 Lymph # (Auto) 1100 [place] # (Auto) 600 Eos # (Auto) 200 Baso # (Auto) 0 PT INR APTT D-Dimer ABG pH 7.35 ABG pCO2 46.4 H ABG pO2 116 H ABG HCO3 26 ABG Total CO2 27 ABG O2 Saturation 98 ABG Base Excess 0.0 FiO2 36 Sodium Potassium Chloride Carbon Dioxide BUN Creatinine Estimated GFR BUN/Creatinine Ratio Glucose Lactate Calcium Magnesium Total Bilirubin AST ALT Alkaline Phosphatase Ammonia < 9 L Total Creatine Kinase CK-MB (CK-2) CK-MB (CK-2) Rel Index Troponin I NT-Pro-B Natriuret Pep Total Protein Albumin Globulin Albumin/Globulin Ratio Lipase Procalcitonin TSH Urine Color Urine Appearance Urine pH Ur Specific [place] Urine Protein Urine Glucose (UA) Urine Ketones Urine Occult Blood Urine Nitrate Urine Bilirubin Urine Urobilinogen Ur Leukocyte Esterase Urine RBC Urine WBC Ur Squamous Epith Cells Urine Bacteria Ur Culture Indicated? Salicylates U Opiates 300ng/mL cut Ur Oxycodone Screen Urine Methadone Screen Acetaminophen Ur Barbiturates Screen U Tricyclic Antidepress Ur Phencyclidine Scrn Ur Amphetamines Screen U Methamphetamines Scrn Ur MDMA Scrn (Ecstasy) U Benzodiazepines Scrn Urine Cocaine Screen U Marijuana (THC) Screen Ethyl Alcohol Chlamy pneumoniae PCR Adenovirus (PCR) B. pertussis DNA (PCR) B.parapertussis DNA PCR Coronavirus OC43 (PCR) Coronavirus HKU1 (PCR) Coronavirus 229E (PCR) SARS-CoV-2 (PCR) Coronavirus NL63 (PCR) Human Metapneumovir PCR Influenza Type A (PCR) Influenza Type B (PCR) M. pneumoniae (PCR) Parainfluenza 1 (PCR) Parainfluenza 2 (PCR) Parainfluenza 3 (PCR) Parainfluenza 4 (PCR) RSV (PCR) Entero/Rhino (PCR) 06/04/22 05:34 WBC RBC Hgb Hct MCV MCH MCHC RDW Plt Count Neut % (Auto) Lymph % (Auto) [place] % (Auto) Eos % (Auto) Baso % (Auto) Neut # (Auto) Lymph # (Auto) [place] # (Auto) Eos # (Auto) Baso # (Auto) PT INR APTT D-Dimer ABG pH ABG pCO2 ABG pO2 ABG HCO3 ABG Total CO2 ABG O2 Saturation ABG Base Excess FiO2 Sodium 135 L Potassium 4.3 Chloride 103 Carbon Dioxide 32 BUN 26 H Creatinine 1.00 Estimated GFR > 60 BUN/Creatinine Ratio 26.0 H Glucose 102 Lactate Calcium 8.9 Magnesium Total Bilirubin AST ALT Alkaline Phosphatase Ammonia Total Creatine Kinase CK-MB (CK-2) CK-MB (CK-2) Rel Index Troponin I NT-Pro-B Natriuret Pep Total Protein Albumin Globulin Albumin/Globulin Ratio Lipase Procalcitonin 0.93 H TSH Urine Color Urine Appearance Urine pH Ur Specific [place] Urine Protein Urine Glucose (UA) Urine Ketones Urine Occult Blood Urine Nitrate Urine Bilirubin Urine Urobilinogen Ur Leukocyte Esterase Urine RBC Urine WBC Ur Squamous Epith Cells Urine Bacteria Ur Culture Indicated? Salicylates U Opiates 300ng/mL cut Ur Oxycodone Screen Urine Methadone Screen Acetaminophen Ur Barbiturates Screen U Tricyclic Antidepress Ur Phencyclidine Scrn Ur Amphetamines Screen U Methamphetamines Scrn Ur MDMA Scrn (Ecstasy) U Benzodiazepines Scrn Urine Cocaine Screen U Marijuana (THC) Screen Ethyl Alcohol Chlamy pneumoniae PCR Adenovirus (PCR) B. pertussis DNA (PCR) B.parapertussis DNA PCR Coronavirus OC43 (PCR) Coronavirus HKU1 (PCR) Coronavirus 229E (PCR) SARS-CoV-2 (PCR) Coronavirus NL63 (PCR) Human Metapneumovir PCR Influenza Type A (PCR) Influenza Type B (PCR) M. pneumoniae (PCR) Parainfluenza 1 (PCR) Parainfluenza 2 (PCR) Parainfluenza 3 (PCR) Parainfluenza 4 (PCR) RSV (PCR) Entero/Rhino (PCR) [facility] Medical History Abnormal chest xray Acute renal insufficiency ADHD Allergy to antibiotic Anemia (~2016) Ankle pain (~2017) Anxiety Asthma Asthma Attention deficit disorder Back pain of lumbar region with sciatica Bipolar disorder in partial remission Bronchospasm Cataracts, bilateral Cataracts, bilateral (~2018) Chicken pox Chronic back pain (~2003) Chronic back pain greater than 3 months duration Chronic cough Chronic pain Chronic post-traumatic stress disorder (PTSD) COPD (chronic obstructive pulmonary disease) Cough COVID-19 vaccine series declined Crohn's disease (~2009) Decreased GFR Depressed bipolar affective disorder Depression (~1988) Eczema Eczema Elevated liver enzymes Elevated parathyroid hormone Encounter for tobacco use cessation counseling Foot pain (~2018) Foot pain, left Glomerulonephritis Headache Hemorrhoid (~1979) Hepatitis A test positive Hepatitis B surface antigen positive History of emphysema (~2017) HLD (hyperlipidemia) Hypercalcemia Hypothyroidism (~1989) Insomnia Kidney disease Kidney disease (~1974) Left foot pain Lower extremity pain, posterior Marijuana use Migraines Mouth sores MRSA (methicillin resistant Staphylococcus aureus) (~2004) Nausea & vomiting Opacity of lung on imaging study Oral lesion Oral lesion Osteopenia of multiple sites Osteoporosis (~2016) Other spondylosis, lumbar region Pharyngitis Post traumatic stress disorder (PTSD) Pulmonary scarring Radiculopathy, lumbar region Restless leg syndrome Restless legs syndrome Seizure Serum calcium elevated Skin cancer, basal cell (~2016) Sleep apnea Small bowel obstruction Tobacco abuse disorder Tobacco use disorder, mild, in early remission Vitamin D deficiency Surgical History History of section History of cholecystectomy History of intestinal surgery History of partial hysterectomy S/P tonsillectomy Family History Mother Cancer Alzheimer disease Father Heart disease Kidney disease Social History household members: spouse Smoking Status: Former smoker alcohol intake: former Assessment & Plan Assessment & Plan narrative: # acute hypoxic respiratory failure -secondary to pneumonia vs CHF -currently requiring 4 L of oxygen and on none at baseline -treat pneumonia as below -wean O2 as able # community-acquired pneumonia/pneumonitis -CTA with no PE but left lower lobe pneumonitis which is infectious vs inflam matory -procal 0.76 suggesting bacterial infection -continue rocephin and azithro x5 and x3 days respectively -sputum culture ordered # possible acute CHF exacerbation -CTA chest with mild pulmonary edema suggesting volume overload/CHF -Lasix 40 mg daily ordered -obtain echo # KRISTI -creatinine 1.19 with baseline of 0.7 -due to edema noted on CTA chest will hold fluids -monitor and avoid nephrotoxic agents -diuresis as above # Crohn's disease -patient having abdominal pain however CT abdomen pelvis showed no acute process -holding home Humira # hypothyroidism -continue home Synthroid -check TSH # PTSD, depression, anxiety, insomnia -continue home Buspar and trazodone # maintenance opioid therapy -continue home Suboxone Code status is full code. COVID negative. DVT prophylaxis with heparin subcutaneous. Proxy is Tiago Diaz . I have reviewed home meds and used all available resources to reconcile the home meds. This patient will be admitted as inpatient and will require greater than 2 midnights of hospital time to treat pneumonia and hypoxic respiratory failure. Quality VTE Deep Vein Thrombosis/Pulmonary Embolism Present on Admission: No
[2022-06-04 07:57] VITALS: O2SAT 96
[2022-06-04 08:58] VITALS: BP 114/64; PULSE 100; RESP 20; TEMP 36.5; O2SAT 97
[2022-06-04] MEDS: FERROUS SULFATE 325 MG TABLET PO (09:06)
[2022-06-04] MEDS: AZITHROMYCIN 250 MG TABLET 500 MG PO (09:06)
[2022-06-04] MEDS: BUSPIRONE 5 MG TABLET 15 MG PO (09:06)
[2022-06-04] MEDS: cefTRIAXone 1,000 MG in SODIUM CHLORIDE 0.9% 100 ML 200 MG IV (09:06)
[2022-06-04] MEDS: FUROSEMIDE 40 MG/4 ML VIAL IV (09:06)
[2022-06-04] MEDS: HEPARIN 5,000 UNIT/ML VIAL 5000 UNIT SUBCUT (09:07)
--- NOTE | 2022-06-04 10:48 | CM.DANOTE ---
DCP: Case received, EMR reviewed and met with patient. Introduced self and role. Was able to obtain information regarding patient's baseline activity status prior to hospitalization. DCP assessment completed with information currently available. Patient is a 62 year old female who admitted yesterday afternoon to the care of the hospitalist team. PCP: MAXIMILIAN Doyle. Payer: confirmed: Medicare/. Patient came to the hospital via private vehicle secondary to having altered mental status, increased work of breathing. She was noted to have some abdominal distention. Patient has history of opioid abuse, Chroh's, is on suboxone. Patient had noted to have oxygen sats in the 80s, was placed on oxygen. Patient was diagnosed with acute hypoxic respiratory failure secondary to pneumonia and CHF. Met with patient in her room. Confirmed that she resides in [place] with spouse, Tiago. She confirmed that she does not use any DME at baseline. She indicated that she only drives rarely, short distances, otherwise, her spouse transports her to various appointments. P: DCP to continue to follow. Patient should be able to go home when deemed medically stable. Na Ribeiro RN/Instructional Technology Teacher Discharge Planning/Care Management CM Discharge Assessment Start: 06/04/22 10:46 Freq: Status: Active Protocol: Document 06/04/22 10:46 (Rec: 06/04/22 10:48 [id number]) Discharge Planning Assessment Assigned Construction Administrative Assistant Na Ribeiro RN/Instructional Technology Teacher Advance Directives? No Advance Directives on File No History Provided By Patient,Medical Record Prior Living Arrangements House Household Members spouse Type of transporation used prior to Drives own vehicle admit Comment Drives short distances, otherwise, spouse transports Independent with ADL's Yes Is patient alert and oriented? Yes Needs Assistance With Home Chores / Shopping Caregiver for Another No Barriers to Discharge No Discharge Plan Home Transportation Arrangement Spouse Referrals Initiated None needed Whiteboard Updated in Patient Room with Yes name and ext. # of Construction Administrative Assistant Review Status In Process Next Review Type Continued Stay Review
[2022-06-04 11:20] VITALS: O2SAT 97
[2022-06-04 11:34] LABS: Troponin I < 0.012 ng/mL (0.01-0.034)
--- NOTE | 2022-06-04 14:35 | P.DS_ITS ---
History of Present Illness History of Present Illness Chief complaint: DR angel; acute resp. symptoms Narrative: Louann Diaz is a 62-year-old female with medical history of Crohn's disease on Humira, hypertension, hypothyroidism, chronic pain on Suboxone, PTSD, depression, anxiety and insomnia who presents with worsening shortness of breath. Patient states over the past few days she is had worsening dry cough and shortness of breath. had her come to her PCP for an appointment and she was sent to the ED for evaluation. In ED patient had a chest x-ray and CTA chest which showed likely developing left lower lobe pneumonia. Also evidence of mild volume overload and emphysema. Was satting in the mid 80s so required 4 L of oxygen. She also describes chest pain intermittently for the past month. Pain is substernal and will come and go. She is worried about it because she is also retaining water in her legs and belly she says. She has a strong family history of heart disease. She also sweats profusely and very easily with some occasional dizziness. She denies diarrhea, cough, headache, or NV. Discharge Providers Provider Date of admission: 06/03/22 14:27 Discharge Date: 06/04/22 Primary care physician: MAXIMILIAN Doyle Discharge provider: Ricardo Patel DO Summary Hospital Course Discharge Diagnosis: # acute hypoxic respiratory failure, resolved -secondary to pneumonia vs CHF -currently requiring 4 L of oxygen and on none at baseline -treat pneumonia as below -wean O2 as able -able to wean off O2 to room air # community-acquired pneumonia/pneumonitis -CTA with no PE but left lower lobe pneumonitis which is infectious vs inflammatory -procal 0.76 suggesting bacterial infection -continue rocephin and azithro x5 and x3 days respectively -sputum culture ordered but never collected -patient discharged on po abx # acute HFpEF exacerbation -CTA chest with mild pulmonary edema suggesting volume overload/CHF -Lasix 40 IV mg daily ordered -echo with EF 65-70% -discharged on po lasix # KRISTI, resolved -creatinine 1.19 with baseline of 0.7 -due to edema noted on CTA chest will hold IVF -monitor and avoid nephrotoxic agents -diuresis as above -Cr normalized # Crohn's disease -patient having abdominal pain however CT abdomen pelvis showed no acute process -holding home Humira # hypothyroidism -continue home Synthroid -TSH normal at 3.91 # PTSD, depression, anxiety, insomnia -continue home Buspar and trazodone # maintenance opioid therapy -continue home Suboxone Hospital Course: Admitted for hypoxic resp failure due to PNA and HFpEF exacerbation. Given IV abx and IV lasix and able to wean off O2. Discharged on po lasix and po abx to finish 5 day course of abx. Time Spent with Patient Time spent: Greater than 30 minutes Exam Vital Signs (past 8 hours): - 06/04/22 07:57 06/04/22 08:58 06/04/22 11:20 Temperature 97.7 F Pulse Rate 100 H Respiratory Rate 20 Blood Pressure 114/64 Pulse Oximetry 96 97 97 Oxygen Delivery Method Nasal Cannula Oxygen Flow Rate 2 0 Fraction of Inspired Oxygen 28 SaO2/FiO2 Ratio 350 Oxygen Delivery Method Nasal Cannula Oxygen Flow Rate 0 Narrative Exam Narrative: GEN: no acute distress HEENT: moist mucous membranes, PERRL NECK: trachea midline, no JVD CV: regular rate and rhythm, no murmurs PULM: mild crackles at left lung base ABD: soft, nontender, nondistended, no organomegaly EXT: warm and well perfused with trace edema NEURO: awake, alert, oriented, no focal deficits Objective Labs 06/04/22 05:34 06/04/22 05:34 Labs: Laboratory Results - last 24 hr 06/03/22 06/03/22 06/03/22 10:33 10:33 11:54 WBC RBC Hgb Hct MCV MCH MCHC RDW Plt Count Neut % (Auto) Lymph % (Auto) [place] % (Auto) Eos % (Auto) Baso % (Auto) Neut # (Auto) Lymph # (Auto) [place] # (Auto) Eos # (Auto) Baso # (Auto) ABG pH 7.35 Sodium Potassium Chloride Carbon Dioxide BUN Creatinine Estimated GFR BUN/Creatinine Ratio Glucose Calcium Magnesium 1.8 Ammonia Troponin I Procalcitonin TSH 3.91 06/03/22 06/04/22 06/04/22 16:20 05:34 05:34 WBC 7.8 RBC 3.11 L Hgb 9.6 L Hct 29.0 L MCV 93.2 MCH 30.9 MCHC 33.2 RDW 15.0 H Plt Count 172 Neut % (Auto) 75.4 H Lymph % (Auto) 13.7 L [place] % (Auto) 7.5 Eos % (Auto) 2.9 Baso % (Auto) 0.5 Neut # (Auto) 5900 Lymph # (Auto) 1100 [place] # (Auto) 600 Eos # (Auto) 200 Baso # (Auto) 0 ABG pH Sodium 135 L Potassium 4.3 Chloride 103 Carbon Dioxide 32 BUN 26 H Creatinine 1.00 Estimated GFR > 60 BUN/Creatinine Ratio 26.0 H Glucose 102 Calcium 8.9 Magnesium Ammonia < 9 L Troponin I Procalcitonin 0.93 H TSH 06/04/22 05:34 WBC RBC Hgb Hct MCV MCH MCHC RDW Plt Count Neut % (Auto) Lymph % (Auto) [place] % (Auto) Eos % (Auto) Baso % (Auto) Neut # (Auto) Lymph # (Auto) [place] # (Auto) Eos # (Auto) Baso # (Auto) ABG pH Sodium Potassium Chloride Carbon Dioxide BUN Creatinine Estimated GFR BUN/Creatinine Ratio Glucose Calcium Magnesium Ammonia Troponin I < 0.012 Procalcitonin TSH PFSH Medical History Abnormal chest xray Acute renal insufficiency ADHD Allergy to antibiotic Anemia (~2016) Ankle pain (~2017) Anxiety Asthma Asthma Attention deficit disorder Back pain of lumbar region with sciatica Bipolar disorder in partial remission Bronchospasm Cataracts, bilateral Cataracts, bilateral (~2018) Chicken pox Chronic back pain (~2003) Chronic back pain greater than 3 months duration Chronic cough Chronic pain Chronic post-traumatic stress disorder (PTSD) COPD (chronic obstructive pulmonary disease) Cough COVID-19 vaccine series declined Crohn's disease (~2009) Decreased GFR Depressed bipolar affective disorder Depression (~1988) Eczema Eczema Elevated liver enzymes Elevated parathyroid hormone Encounter for tobacco use cessation counseling Foot pain (~2018) Foot pain, left Glomerulonephritis Headache Hemorrhoid (~1979) Hepatitis A test positive Hepatitis B surface antigen positive History of emphysema (~2017) HLD (hyperlipidemia) Hypercalcemia Hypothyroidism (~1989) Insomnia Kidney disease Kidney disease (~1974) Left foot pain Lower extremity pain, posterior Marijuana use Migraines Mouth sores MRSA (methicillin resistant Staphylococcus aureus) (~2004) Nausea & vomiting Opacity of lung on imaging study Oral lesion Oral lesion Osteopenia of multiple sites Osteoporosis (~2016) Other spondylosis, lumbar region Pharyngitis Post traumatic stress disorder (PTSD) Pulmonary scarring Radiculopathy, lumbar region Restless leg syndrome Restless legs syndrome Seizure Serum calcium elevated Skin cancer, basal cell (~2017) Sleep apnea Small bowel obstruction Tobacco abuse disorder Tobacco use disorder, mild, in early remission Vitamin D deficiency Surgical History History of section History of cholecystectomy History of intestinal surgery History of partial hysterectomy S/P tonsillectomy Family History Mother Cancer Alzheimer disease Father Heart disease Kidney disease Social History household members: spouse Smoking Status: Former smoker alcohol intake: former Discharge Plan Discharge Plan Patient Disposition: Home Provider Discharge Comment: You were admitted for worsening cough and shortness of breath and found to have pneumonia. You received IV antibiotics while in the hospital and your infection improved. You will now need to finish a course of oral antibiotics at home. I've also included some lasix to use if you notice swelling in your legs develop. Discharge orders & Medications Prescriptions: New cefdinir 300 mg capsule 300 mg PO BID 3 Days Qty: 6 0RF Rx Instructions: start on 06/05 furosemide [Lasix] 20 mg tablet 20 mg PO DAILY PRN (Reason: edema) Qty: 30 0RF Continued trazodone 50 mg tablet See Rx Instructions PO BEDTIME PRN (Reason: insomnia) Qty: 180 3RF Rx Instructions: Take 50 to 150 bedtime albuterol sulfate [Ventolin HFA] 90 mcg/actuation HFA aerosol inhaler 2 puff inhalation Q4-6H PRN (Reason: shortness of breath or wheezing) Qty: 8.5 3RF ondansetron 4 mg tablet,disintegrating See Rx Instructions .ROUTE .COMPLEX Qty: 60 3RF Dose Instruction: DISSOLVE 1 TABLET ON THE TONGUE EVERY 6 HOURS NEEDED FOR NAUSEA OR VOMITING Rx Instructions: DISSOLVE 1 TABLET ON THE TONGUE EVERY 6 HOURS NEEDED FOR NAUSEA OR VOMITING buspirone 10 mg tablet 15 mg PO BID Qty: 270 0RF levothyroxine [Synthroid] 137 mcg tablet 137 mcg PO DAILY Qty: 90 1RF Rx Instructions: Brand name only. lidocaine HCl 2 % solution 15 ml mucous membrane QID PRN (Reason: pain) Qty: 100 2RF Rx Instructions: Apply 15mL to mucous membranes as needed for oral pain 4 times per day buprenorphine-naloxone [Suboxone] 8-2 mg film 1 film buccal Q24H Qty: 30 2RF Rx Instructions: 1 strip under the tongue daily for pain - fill 05/30/22 naloxone 0.4 mg/mL syringe 0.4 mg IM Q2M PRN (Reason: opioid reversal) Qty: 10 1RF Rx Instructions: NTExceed 10 mg total dose/episode ferrous sulfate [Iron (ferrous sulfate)] 325 mg (65 mg iron) Tablet 65 mg PO DAILY lisinopril 5 mg tablet 5 mg PO BID pregabalin 25 mg capsule 75 mg PO BID Rx Instructions: Take 2 capsule up to 4x/day daily for pain PA Approved 02/09/21-01/02/23 PA Approved 02/09/22-02/08/23 #720 every 90 days Follow up/Referrals: Liat Hernandez ARNP [Primary Care Provider] - 2 Weeks ([address] [facility] will call you with a 2 week follow up with jose l terrell ) Visit Report/Discharge Packet Instructions: Pneumonia-Adult, DI for Heart Failure, Furosemide, Azithromycin, Cefdinir Stand Alone Forms: Congestive Heart Failure, Patient Portal/API, Stroke Signs & Symptoms Discharge Data Primary Care Provider: Liat Hernandez Discharges patient from system. Discharge Date/Time: 06/04/22 15:59 Quality VTE Deep Vein Thrombosis/Pulmonary Embolism Present on Admission: No
--- NOTE | 2022-06-04 15:56 | PC.NURSE ---
Pt is dressed and ready for discharge home with Spouse. IV's have been removed. Went over d/c instructions with Pt and Spouse-discussed d/c meds, time of last dose, reviewed stroke education, CHF guidelines sheet as well as CHF education. Reminded Pt to take her full course of abx as ordered. Pt denied further questions and was taken out via W/C by RN with Spouse and all belongings.
[2022-06-04 21:11] LABS: Osmolality, Serum 286 mOsmol/kg (280-301)
== END 2022-06-04 15:59 | disposition home or self-care (01) | DRG 193 ==
LOC: ED 14:27 → AC 14:28
PROVIDERS: Admitting Provider Student in an Organized Health Care Education/Training Program; Emergency Provider Emergency Medicine; Family Provider Psychiatry & Neurology Psychiatry; PCP Nurse Practitioner; Referring Provider Emergency Medicine; Visit Provider Student in an Organized Health Care Education/Training Program
DX: J18.9 Pneumonia, unspecified organism (principal); J96.01 Acute respiratory failure with hypoxia; N17.9 Acute kidney failure, unspecified; K50.90 Crohn's disease, unspecified, without complications; E03.9 Hypothyroidism, unspecified; F43.10 Post-traumatic stress disorder, unspecified; F32.A Depression, unspecified; F41.9 Anxiety disorder, unspecified; G47.00 Insomnia, unspecified; G89.29 Other chronic pain; I50.9 Heart failure, unspecified; I11.0 Hypertensive heart disease with heart failure; D64.9 Anemia, unspecified; Z87.891 Personal history of nicotine dependence; Z20.822 Contact with and (suspected) exposure to COVID-19
CPT/HCPCS: 36415; 36600; 71045; 71275; 74177; 76705; 80048; 80053; 80305; 80320; 80329; 81001; 82140; 82550; 82553; 82805; 83605; 83690; 83735; 83880; 83930; 84145; 84443; 84484; 85025; 85379; 85610; 85730; 87040; 87633; 93005; 93010; 93306; 94762; 96365; 96367; 99285; G0480; J0696; J1644; J1940; Q9967

== ENCOUNTER 2022-06-15 20:43 | Emergency (ER) | payer MEDICARE, OTHER, SELFPAY ==
[2022-06-10 12:41] VITALS: BMI 36.3
[2022-06-15 20:56] VITALS: BP 107/53; PULSE 65; RESP 18; TEMP 36.2; O2SAT 97; BMI 33.2
== END 2022-06-15 22:08 | disposition left against medical advice (07) ==
PROVIDERS: Emergency Provider Emergency Medicine; Family Provider Psychiatry & Neurology Psychiatry; PCP Nurse Practitioner
DX: M79.89 Other specified soft tissue disorders (principal)
CPT/HCPCS: 99281

== ENCOUNTER → 2022-06-24 07:49 | Outpatient (CLI) | payer MEDICARE, OTHER, SELFPAY ==
[2022-06-16 09:10] VITALS: BMI 36.3
--- NOTE | 2022-06-25 11:35 | DI.NM.S_ITS ---
DATE OF SERVICE: PROCEDURE: Exercise stress test. INDICATIONS: Shortness of breath. CARDIAC STRESS: Patient underwent exercise stress test under the supervision of an attending staff. When she arrived for stress test, lying down blood pressure was about 70/50 mmHg. Standing blood pressure was the same. She was mildly lightheaded. As she started walking on treadmill, her blood pressure came up and maximum blood pressure was 160/76 mmHg. She walked only for 3 minutes and 31 seconds. She felt weak all over with aching legs, moderate shortness of breath, left arm numbness. She could not do stage II. No chest pain. Baseline rhythm sinus. During stress, no convincing ischemic changes seen. No significant arrhythmias. Achieved 4.6 METS of workload. LISA positive 44%. CONCLUSION: 1. Exercise stress test is negative for inducible ischemia. Very poor exercise tolerance. Functional aerobic impairment positive 44%. Achieved 4.6 metabolic equivalents of workload. No chest pain or significant arrhythmias. 2. The patient was hypotensive at rest with blood pressure 70/50, however, with walking, blood pressure went up to 160/76 mmHg. As far as exercise stress test is concerned, this is a low-risk exercise stress test. Correlate clinically. Luoann Diaz - RACHEL/attila/bashir doc#: [id number]/job#: [id number] dd: 06/24/2022 17:06:00 dt: 06/24/2022 23:14:00 DICTATING /COPIES TO: Imelda Esparza MD COPIES MNE: JAY;
== END ==
PROVIDERS: Family Provider Psychiatry & Neurology Psychiatry; PCP Nurse Practitioner; Referring Provider Nurse Practitioner; Visit Provider Nurse Practitioner
DX: R06.02 Shortness of breath (principal); R03.1 Nonspecific low blood-pressure reading
CPT/HCPCS: 93017

== ENCOUNTER 2022-06-24 11:34 | Emergency (ER) | payer MEDICARE, OTHER, SELFPAY ==
[2022-06-16 09:10] VITALS: BMI 36.3
[2022-06-24] VITALS (7 sets, daily range): BP systolic 78–116; BP diastolic 51–78; PULSE 64–77; RESP 16–28; TEMP 36.6; O2SAT 93–97; BMI 33.9
--- NOTE | 2022-06-24 11:42 | DI.RAD.S_ITS ---
PROCEDURE: XR CHEST 1V INDICATIONS: Shortness of breath TECHNIQUE: One view of the chest was acquired. COMPARISON: [facility], CR, XR CHEST 1V, 06/03/2022, 10:50. [facility], CR, XR CHEST 2V, 12/26/2021, 10:52. FINDINGS: Surgical changes and devices: None. Lungs and pleura: Suspected left lung base scarring/atelectasis. No dense consolidation or pleural effusion. Mediastinum: Mediastinal contours appear normal. Heart size is normal. Bones and chest wall: No suspicious bony lesions. Overlying soft tissues appear unremarkable. IMPRESSION: No acute radiographic abnormality. Suspected left lung base atelectasis or scarring. Consider future imaging surveillance to assess for resolution. Dictated by: Brodie Hernandez M.D. on 06/24/2022 at 13:18 Approved by: Brodie Hernandez M.D. on 06/24/2022 at 13:20
[2022-06-24 11:54] LABS: Add Manual Diff / Slide Review NO; Basophils Absolute Auto 100 /uL (0-100); Basophils Percent Auto 1.3 % (0-2); Eosinophils Absolute Auto 200 /uL (0-450); Eosinophils Percent Auto 4.2 % (2-4); Hematocrit 33.5 % (36-46); Hemoglobin 11.2 g/dL (12.0-16.0); Lymphocytes Absolute Auto 1600 /uL (1100-4500); Lymphocytes Percent Auto 33.3 % (25-40); Mean Corpuscular HGB Conc 33.4 % (30-36); Mean Corpuscular Volume 92.9 fL (80-100); Monocytes Absolute Auto 500 /uL (0-900); Monocytes Percent Auto 10.5 % (3-14); Neutrophils Absolute Auto 2400 /uL (1500-7000); Neutrophils Percent Auto 50.7 % (50-75); Platelet Count 313 X10^3/uL (150-400); Red Blood Cell Count 3.61 X10^6/uL (4.0-5.2); Red Cell Distribution Width 13.7 % (11.6-14.8); White Blood Cell Count 4.8 X10^3/uL (4.5-11.0)
[2022-06-24 11:57] LABS: Prothrombin Time 11.3 SECONDS (10.1-12.7)
[2022-06-24 11:59] LABS: Lactate (Lactic Acid) 0.6 mmol/L (0.7-2.1)
[2022-06-24 12:01] LABS: Alanine Aminotransferase 21 IU/L (<35); Albumin 4.3 g/dL (3.5-5.0); Albumin Globulin Ratio 1.3 (1.0-2.8); Alkaline Phosphatase 75 U/L (38-126); Aspartate Aminotransferase 26 IU/L (14-36); BUN Creatinine Ratio 16.3 (6-22); Bilirubin Total 0.4 mg/dL (0.2-1.3); Blood Urea Nitrogen 27 mg/dL (7-17); Calcium 10.2 mg/dL (8.4-10.2); Carbon Dioxide 23 mmol/L (22-32); Chloride 103 mmol/L (98-107); Estimated Glomerular Filt Rate 34 mL/min (>60); Globulin 3.4 g/dL (1.7-4.1); Glucose 101 mg/dL (80-110); HEMOLYSIS < 15 (0-50); Potassium 5.1 mmol/L (3.4-5.1); Sodium 135 mmol/L (137-145); Total Protein 7.7 g/dL (6.3-8.2)
[2022-06-24 12:12] LABS: NT-proBNP (BNP-Adult 18+) 72 pg/mL (<125); Troponin I < 0.012 ng/mL (0.01-0.034)
--- NOTE | 2022-06-24 13:10 | ED_ITS ---
HPI - General Adult General Chief complaint: Shortness of Breath/Dyspnea Stated complaint: SOB/ stress test this morning/fatigue/achy LT arm Time Seen by Provider: 06/24/22 12:54 Source: patient Mode of arrival: Ambulatory History of Present Illness HPI narrative: Patient is a 62-year-old female who earlier today underwent a stress test. She states this was ordered after she was admitted to the hospital recently for heart failure. States that during the test she was feeling very fatigued and was also having left arm discomfort. She stated that she was able to complete the test. She was able to go home but the discomfort was worsening so she came back to the emergency department. By the time I evaluated the patient she stated that she was feeling much better. The left arm discomfort had returned. She states that she has been hypotensive for the past couple months. She does take lisinopril. She was recently added on spironolactone and furosemide which he has been taking. She states she falls asleep very quickly. She denies chest pain. Related Data Home Medications Medication Instructions Recorded Confirmed ferrous sulfate 325 mg (65 mg 65 mg PO DAILY anemia 07/05/21 06/17/22 iron) tablet (Iron (ferrous sulfate)) lisinopril 5 mg tablet 5 mg PO BID 06/03/22 06/17/22 pregabalin 25 mg capsule 75 mg PO BID 06/03/22 06/17/22 Previous Rx's Medication Instructions Recorded trazodone 50 mg tablet See Rx Instructions PO BEDTIME PRN 03/05/21 insomnia #180 tabs albuterol sulfate 90 mcg/actuation 2 puff inhalation Q4-6H PRN 12/31/21 aerosol inhaler (Ventolin HFA) shortness of breath or wheezing #8.5 grams ondansetron 4 mg disintegrating See Rx Instructions .Route 01/13/22 tablet .COMPLEX #60 tabs buspirone 10 mg tablet 15 mg PO BID #270 tabs 04/15/22 Synthroid 137 mcg tablet 137 mcg PO DAILY #90 tabs 04/16/22 (levothyroxine) lidocaine HCl 2 % mucosal solution 15 ml mucous membrane QID PRN pain 05/06/22 #100 mL naloxone 0.4 mg/mL injection 0.4 mg IM Q2M PRN opioid reversal 05/14/22 syringe #10 mL Suboxone 12 mg-3 mg sublingual 1 film buccal Q24H #30 ea 06/10/22 film (buprenorphine-naloxone) furosemide 20 mg tablet (Lasix) 20 mg PO DAILY edema #90 tabs 06/10/22 levofloxacin 500 mg tablet 500 mg PO Q24H #10 tabs 06/10/22 sulfamethoxazole 800 1 tab PO BID #20 tabs 06/16/22 mg-trimethoprim 160 mg tablet (Bactrim DS) Suboxone 12 mg-3 mg sublingual 1 film buccal Q24H #30 ea 06/17/22 film (buprenorphine-naloxone) Suboxone 12 mg-3 mg sublingual 1 film buccal Q24H #30 ea 06/17/22 film (buprenorphine-naloxone) spironolactone 25 mg tablet 25 mg PO DAILY #90 tabs 06/17/22 Allergies Allergy/AdvReac Type Severity Reaction Status Date / Time Penicillins Allergy Severe Rash Verified 06/24/22 11:37 Sulfa (Sulfonamide Allergy Intermediate Hives Verified 06/24/22 11:37 Antibiotics) adalimumab [From Humira] AdvReac Intermediate pneumonia Verified 06/24/22 11:37 quetiapine [From Seroquel] AdvReac Intermediate Verified 06/24/22 11:37 Review of Systems Review of Systems ROS Unobtainable: All systems reviewed & are unremarkable except as noted in HPI and below Patient History Medical History Abnormal chest xray Acute renal insufficiency ADHD Allergy to antibiotic Anemia (~2016) Ankle pain (~2017) Anxiety Asthma Asthma Attention deficit disorder Back pain of lumbar region with sciatica Bipolar disorder in partial remission Bronchospasm Cataracts, bilateral Cataracts, bilateral (~2018) Chicken pox Chronic back pain (~2003) Chronic back pain greater than 3 months duration Chronic cough Chronic pain Chronic post-traumatic stress disorder (PTSD) COPD (chronic obstructive pulmonary disease) Cough COVID-19 vaccine series declined Crohn's disease (~2009) Decreased GFR Depressed bipolar affective disorder Depression (~1988) Eczema Eczema Elevated liver enzymes Elevated parathyroid hormone Encounter for tobacco use cessation counseling Foot pain (~2018) Foot pain, left Glomerulonephritis Headache Hemorrhoid (~1979) Hepatitis A test positive Hepatitis B surface antigen positive History of emphysema (~2017) HLD (hyperlipidemia) Hypercalcemia Hypothyroidism (~1989) Immunosuppressed status Insomnia Kidney disease Kidney disease (~1974) Left foot pain Lower extremity edema Lower extremity pain, posterior Marijuana use Migraines Mouth sores MRSA (methicillin resistant Staphylococcus aureus) (~2004) Nausea & vomiting Opacity of lung on imaging study Oral lesion Oral lesion Osteopenia of multiple sites Osteoporosis (~2016) Other spondylosis, lumbar region Pharyngitis Post traumatic stress disorder (PTSD) Pulmonary scarring Radiculopathy, lumbar region Restless leg syndrome Restless legs syndrome Seizure Serum calcium elevated Skin cancer, basal cell (~2016) Sleep apnea Small bowel obstruction Tobacco abuse disorder Tobacco use disorder, mild, in early remission Vitamin D deficiency Surgical History History of section History of cholecystectomy History of intestinal surgery History of partial hysterectomy S/P tonsillectomy Family History Mother Cancer Alzheimer disease Father Heart disease Kidney disease Social History household members: spouse Smoking Status: Former smoker alcohol intake: former Smoking Status: Former smoker tobacco type: vaping alcohol intake frequency: other Substance Use Type: does not use Exam Initial Vital Signs Initial Vital Signs: Vital Signs Temperature 97.9 F 06/24/22 11:37 Pulse Rate 77 06/24/22 11:37 Respiratory Rate 16 06/24/22 11:37 Blood Pressure 116/78 06/24/22 11:37 Pulse Oximetry 96 06/24/22 11:37 Oxygen Delivery Method Room Air 06/24/22 11:37 Const General: cooperative and No ill appearing HENMT Head: normal to inspection and normocephalic Resp Effort & Inspection: normal respiratory effort Auscultation: clear to auscultation bilaterally Cardio Rate: regular rate Rhythm: regular rhythm GI Inspection: normal to inspection Skin General: no rashes or lesions noted Neuro General: patient alert, patient awake and moves all extremities Extrem General: normal to inspection and capillary refill normal Course Orders Ordered: ED Orders 06/24/22 11:42 XR chest 1V Stat Complete Blood Count AUTO DIFF Stat Comprehensive Metabolic Panel Stat Lactate (Lactic Acid) Stat NT-proBNP (BNP-Adult 18+) Stat Prothrombin Time INR Stat Troponin I Stat Measure peak expiratory flow ONCE RT Consult Eval and Treat NOW 06/24/22 11:57 EKG-12 Lead Stat Vital Signs Vital signs: Vital Signs - 8 hr 06/24/22 11:37 06/24/22 12:32 06/24/22 12:34 Temperature 97.9 F Pulse Rate 77 71 75 Respiratory Rate 16 28 H Blood Pressure 116/78 Pulse Oximetry 96 96 Oxygen Delivery Method Room Air 06/24/22 12:34 06/24/22 13:00 06/24/22 13:01 Temperature Pulse Rate 64 65 Respiratory Rate 22 23 Blood Pressure 102/58 L Pulse Oximetry 97 Oxygen Delivery Method 06/24/22 13:01 06/24/22 13:30 06/24/22 13:50 Temperature Pulse Rate 66 64 Respiratory Rate 19 Blood Pressure 78/54 L 86/51 L Pulse Oximetry 95 93 Oxygen Delivery Method Room Air Medical Decision Making Medical Records Medical records reviewed: Yes I reviewed the patient's medical records. Lab Data Lab results reviewed: Yes I reviewed the patient's lab results. 06/24/22 11:42 06/24/22 11:42 Labs: Lab Results 06/24/22 06/24/22 06/24/22 Range/Units 11:42 11:42 11:42 WBC 4.8 (4.5-11.0) X10^3/uL RBC 3.61 L (4.0-5.2) X10^6/uL Hgb 11.2 L (12.0-16.0) g/dL Hct 33.5 L (36-46) % MCV 92.9 (80-100) fL MCH 31.0 (26-34) PG MCHC 33.4 (30-36) % RDW 13.7 (11.6-14.8) % Plt Count 313 (150-400) X10^3/uL Neut % (Auto) 50.7 (50-75) % Lymph % (Auto) 33.3 (25-40) % [place] % (Auto) 10.5 (3-14) % Eos % (Auto) 4.2 H (2-4) % Baso % (Auto) 1.3 (0-2) % Neut # (Auto) 2400 (4251-4253) /uL Lymph # (Auto) 1600 (4666-4289) /uL [place] # (Auto) 500 (0-900) /uL Eos # (Auto) 200 (0-450) /uL Baso # (Auto) 100 (0-100) /uL PT 11.3 (10.1-12.7) SECONDS INR 1.0 (0.9-1.3) Sodium 135 L (137-145) mmol/L Potassium 5.1 (3.4-5.1) mmol/L Chloride 103 (98-107) mmol/L Carbon Dioxide 23 (22-32) mmol/L BUN 27 H (7-17) mg/dL Creatinine 1.66 H (0.52-1.04) mg/dL Estimated GFR 34 L (>60) mL/min BUN/Creatinine Ratio 16.3 (6-22) Glucose 101 (80-110) mg/dL Lactate (0.7-2.1) mmol/L Calcium 10.2 (8.4-10.2) mg/dL Total Bilirubin 0.4 (0.2-1.3) mg/dL AST 26 (14-36) IU/L ALT 21 (<35) IU/L Alkaline Phosphatase 75 (38-126) U/L Troponin I < 0.012 (0.01-0.034) ng/mL NT-Pro-B Natriuret Pep 72 (<125) pg/mL Total Protein 7.7 (6.3-8.2) g/dL Albumin 4.3 (3.5-5.0) g/dL Globulin 3.4 (1.7-4.1) g/dL Albumin/Globulin Ratio 1.3 (1.0-2.8) / Range/Units 11:42 WBC (4.5-11.0) X10^3/uL RBC (4.0-5.2) X10^6/uL Hgb (12.0-16.0) g/dL Hct (36-46) % MCV (80-100) fL MCH (26-34) PG MCHC (30-36) % RDW (11.6-14.8) % Plt Count (150-400) X10^3/uL Neut % (Auto) (50-75) % Lymph % (Auto) (25-40) % [place] % (Auto) (3-14) % Eos % (Auto) (2-4) % Baso % (Auto) (0-2) % Neut # (Auto) (6712-6519) /uL Lymph # (Auto) (2114-0816) /uL [place] # (Auto) (0-900) /uL Eos # (Auto) (0-450) /uL Baso # (Auto) (0-100) /uL PT (10.1-12.7) SECONDS INR (0.9-1.3) Sodium (137-145) mmol/L Potassium (3.4-5.1) mmol/L Chloride (98-107) mmol/L Carbon Dioxide (22-32) mmol/L BUN (7-17) mg/dL Creatinine (0.52-1.04) mg/dL Estimated GFR (>60) mL/min BUN/Creatinine Ratio (6-22) Glucose (80-110) mg/dL Lactate 0.6 L (0.7-2.1) mmol/L Calcium (8.4-10.2) mg/dL Total Bilirubin (0.2-1.3) mg/dL AST (14-36) IU/L ALT (<35) IU/L Alkaline Phosphatase (38-126) U/L Troponin I (0.01-0.034) ng/mL NT-Pro-B Natriuret Pep (<125) pg/mL Total Protein (6.3-8.2) g/dL Albumin (3.5-5.0) g/dL Globulin (1.7-4.1) g/dL Albumin/Globulin Ratio (1.0-2.8) Imaging Data Chest x-ray: Radiologist's Impression: PROCEDURE:? XR CHEST 1V ? INDICATIONS:? Shortness of breath ? TECHNIQUE:? One view of the chest was acquired.? ? COMPARISON:? [facility], CR, XR CHEST 1V, 06/03/2022, 10:50.? [facility], CR, XR CHEST 2V, 12/26/2021, 10:52. ? FINDINGS:? ? Surgical changes and devices:? None.? ? Lungs and pleura:? Suspected left lung base scarring/atelectasis.? No dense consolidation or pleural effusion. ? Mediastinum:? Mediastinal contours appear normal.? Heart size is normal.? ? Bones and chest wall:? No suspicious bony lesions.? Overlying soft tissues appear unremarkable.? ? IMPRESSION:? No acute radiographic abnormality.? Suspected left lung base atelectasis or scarring.? Consider future imaging surveillance to assess for resolution. ECG Data Attestation: I personally reviewed and interpreted this ECG as follows: Interpretation: Sinus rhythm Ventricular rate is 70 Normal axis Normal QRS Normal QTC No ST T wave changes MDM Narrative Medical decision making narrative: At the time of my evaluation the patient states she was now asymptomatic. I was able to talk with diagnostic imaging and according to them the wet read of her stress test earlier today showed no acute changes. Patient is hypotensive but she states she is been hypotensive for the past several months. She was able to stand up and walk without any lightheadedness. To discuss this with her. Will have her stop taking her lisinopril and see if this improves her blood pressure at home. This may potentially improve some of her lightheadedness. She does have a way of checking her blood pressure at home. She stated that she would like to go home and feels comfortable going home. She is an appointment with her primary doctor in 2 weeks from now. She is not in acute heart failure. Low suspicion for ACS. Patient's was at bedside for these discussions as well. They expressed understanding and agreement with plan. Discharge Plan Departure Patient Disposition: Home Clinical Impression: Arm pain, left, Fatigue, Hypotension Instructions: DI for Fatigue Activity Restrictions/Additional Instructions: I recommend that you continue to take all of your medications as directed however I would recommend that you stop taking your lisinopril. Take your blood pressure at home on a daily basis like we discussed. Keep your follow-up appointment scheduled for later this month. Return to the emergency department for new or worsening symptoms. Prescriptions: No Action trazodone 50 mg tablet See Rx Instructions PO BEDTIME PRN (Reason: insomnia) Qty: 180 3RF Rx Instructions: Take 50 to 150 bedtime albuterol sulfate [Ventolin HFA] 90 mcg/actuation HFA aerosol inhaler 2 puff inhalation Q4-6H PRN (Reason: shortness of breath or wheezing) Qty: 8.5 3RF ondansetron 4 mg tablet,disintegrating See Rx Instructions .ROUTE .COMPLEX Qty: 60 3RF Dose Instruction: DISSOLVE 1 TABLET ON THE TONGUE EVERY 6 HOURS NEEDED FOR NAUSEA OR VOMITING Rx Instructions: DISSOLVE 1 TABLET ON THE TONGUE EVERY 6 HOURS NEEDED FOR NAUSEA OR VOMITING buspirone 10 mg tablet 15 mg PO BID Qty: 270 0RF levothyroxine [Synthroid] 137 mcg tablet 137 mcg PO DAILY Qty: 90 1RF Rx Instructions: Brand name only. 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 buprenorphine-naloxone [Suboxone] 12-3 mg film 1 film buccal Q24H Qty: 30 0RF Rx Instructions: 1 film under tongue daily for pain relief, ok to fill 07/10/22 buprenorphine-naloxone [Suboxone] 12-3 mg film 1 film buccal Q24H Qty: 30 0RF Rx Instructions: 1 film under tongue daily for pain management, ok to fill 08/08/22 naloxone 0.4 mg/mL syringe 0.4 mg IM Q2M PRN (Reason: opioid reversal) Qty: 10 1RF Rx Instructions: NTExceed 10 mg total dose/episode levofloxacin 500 mg tablet 500 mg PO Q24H Qty: 10 0RF Rx Instructions: Take 1 tab by mouth daily with a probiotic furosemide [Lasix] 20 mg tablet 20 mg PO DAILY Qty: 90 0RF Rx Instructions: Take 1 tab daily, weight 3x/week, take extra dose if you gain >/=5 lbs/1 week buprenorphine-naloxone [Suboxone] 12-3 mg film 1 film buccal Q24H Qty: 30 2RF Rx Instructions: Take 1 film daily for pain sulfamethoxazole-trimethoprim [Bactrim DS] 800-160 mg tablet 1 tab PO BID Qty: 20 0RF ferrous sulfate [Iron (ferrous sulfate)] 325 mg (65 mg iron) Tablet 65 mg PO DAILY lisinopril 5 mg tablet 5 mg PO BID pregabalin 25 mg capsule 75 mg PO BID Rx Instructions: Take 2 capsule up to 4x/day daily for pain PA Approved 02/09/21-01/02/23 PA Approved 02/09/22-02/08/23 #720 every 90 days Referrals: Liat Hernandez ARNP [Primary Care Provider] - Stand Alone Forms: Patient Portal/API
== END 2022-06-24 13:50 | disposition home or self-care (01) ==
PROVIDERS: Emergency Provider Emergency Medicine; Family Provider Psychiatry & Neurology Psychiatry; PCP Nurse Practitioner
DX: M79.602 Pain in left arm (principal); I95.9 Hypotension, unspecified; R53.83 Other fatigue; R06.02 Shortness of breath; R03.1 Nonspecific low blood-pressure reading
CPT/HCPCS: 36415; 71045; 80053; 83605; 83880; 84484; 85025; 85610; 93005; 93017; 99283; 99284

== ENCOUNTER → 2022-06-26 08:54 | Outpatient (CLI) | payer MEDICARE, OTHER, SELFPAY ==
[2022-06-16 09:10] VITALS: BMI 36.3
--- NOTE | 2022-06-26 08:56 | DI.RAD.S_ITS ---
PROCEDURE: XR CERVICAL SPINE 4V OR 5V INDICATIONS: Ataxia, bilateral hand weakness TECHNIQUE: 5 views of the cervical spine acquired. COMPARISON: None. FINDINGS: Bones: No fractures or dislocations to the C7-T1 level. Mild degenerative endplate changes are seen at C4-5 and C5-6 levels. Oblique images demonstrate no bony foraminal stenoses. Soft tissues: No prevertebral soft tissue swelling. IMPRESSION: Mild degenerative disc disease in lower cervical spine. No fracture or dislocation. No significant bony foraminal stenosis. Dictated by: Wilner Nowak M.D. on 06/26/2022 at 9:16 Approved by: Wilner Nowak M.D. on 06/26/2022 at 9:38
--- NOTE | 2022-06-26 08:56 | DI.RAD.S_ITS ---
PROCEDURE: XR LUMBAR SPINE MIN 4V INDICATIONS: Low back pain TECHNIQUE: 5 views of the lumbar spine were acquired, including bilateral oblique views. COMPARISON: [facility], , XR LUMBAR SPINE 2-3V, 01/01/2022, 11:51. FINDINGS: Bones: 5 nonrib-bearing vertebrae are present. There is mild rightward curvature of thoracolumbar spine unchanged from prior study. Mild degenerative endplate changes are seen throughout lumbar spine. 4 mm retrolisthesis of L2 on L3 is seen. 3 mm anterolisthesis of L4 on L5 is also noted. No vertebral body compression fractures. No suspicious bony lesions. Soft tissues: Overlying bowel gas pattern is normal. No suspicious soft tissue calcifications. Oblique images: No pars defects. IMPRESSION: Mild degenerative disc disease throughout lumbar spine with grade 1 spondylolisthesis at L2-3 and L4-5 levels as above. No acute compression fracture. No gross pars defects. Dictated by: Wilner Nowak M.D. on 06/26/2022 at 9:41 Approved by: Wilner Nowak M.D. on 06/26/2022 at 9:43
== END ==
PROVIDERS: Family Provider Psychiatry & Neurology Psychiatry; PCP Nurse Practitioner; Referring Provider Anesthesiology; Visit Provider Anesthesiology
DX: R27.0 Ataxia, unspecified (principal); M47.896 Other spondylosis, lumbar region; M54.40 Lumbago with sciatica, unspecified side; M51.36 Other intervertebral disc degeneration, lumbar region; M43.16 Spondylolisthesis, lumbar region; M50.33 Other cervical disc degeneration, cervicothoracic region; R25.2 Cramp and spasm; R29.898 Other symptoms and signs involving the musculoskeletal system; Z68.32 Body mass index [BMI] 32.0-32.9, adult
CPT/HCPCS: 72050; 72110; 99214

== ENCOUNTER → 2022-07-01 16:54 | Outpatient (CLI) | payer MEDICARE, OTHER, SELFPAY ==
[2022-06-16 09:10] VITALS: BMI 36.3
[2022-07-01 18:28] LABS: Alanine Aminotransferase 24 IU/L (<35); Albumin 4.2 g/dL (3.5-5.0); Albumin Globulin Ratio 1.4 (1.0-2.8); Alkaline Phosphatase 70 U/L (38-126); Aspartate Aminotransferase 26 IU/L (14-36); BUN Creatinine Ratio 17.5 (6-22); Bilirubin Total 0.4 mg/dL (0.2-1.3); Blood Urea Nitrogen 18 mg/dL (7-17); Calcium 10.4 mg/dL (8.4-10.2); Carbon Dioxide 25 mmol/L (22-32); Chloride 106 mmol/L (98-107); Cholesterol 153 mg/dL (140-199); Estimated Glomerular Filt Rate > 60 mL/min (>60); Globulin 3.1 g/dL (1.7-4.1); Glucose 113 mg/dL (80-110); HDL Cholesterol 33 mg/dL (40-60); HEMOLYSIS < 15 (0-50); LDL Cholesterol Calculated 71 mg/dL (<100); Potassium 4.1 mmol/L (3.4-5.1); Sodium 140 mmol/L (137-145); Total Protein 7.3 g/dL (6.3-8.2); Triglycerides 244 mg/dL (35-150)
[2022-07-01 18:39] LABS: Add Manual Diff / Slide Review NO; Basophils Absolute Auto 0 /uL (0-100); Basophils Percent Auto 0.8 % (0-2); Eosinophils Absolute Auto 300 /uL (0-450); Eosinophils Percent Auto 6.5 % (2-4); Hemoglobin 11.6 g/dL (12.0-16.0); Lymphocytes Absolute Auto 1900 /uL (1100-4500); Mean Corpuscular HGB Conc 33.3 % (30-36); Mean Corpuscular Hemoglobin 30.5 PG (26-34); Mean Corpuscular Volume 91.5 fL (80-100); Monocytes Absolute Auto 400 /uL (0-900); Monocytes Percent Auto 8.1 % (3-14); Neutrophils Absolute Auto 2200 /uL (1500-7000); Neutrophils Percent Auto 45.6 % (50-75); Platelet Count 281 X10^3/uL (150-400); Red Blood Cell Count 3.82 X10^6/uL (4.0-5.2); White Blood Cell Count 4.9 X10^3/uL (4.5-11.0)
[2022-07-01 18:43] LABS: Vitamin D 25 Hydroxy (D3) 26.6 ng/mL (30.0-100.0)
[2022-07-01 18:48] LABS: Creatinine Urine Random 100.2 mg/dL
[2022-07-01 18:55] LABS: Microalbumin Urine Random < 0.6 mg/dL (0-1.6)
== END ==
PROVIDERS: Family Provider Psychiatry & Neurology Psychiatry; PCP Nurse Practitioner; Referring Provider Family Medicine; Visit Provider Family Medicine
DX: E55.9 Vitamin D deficiency, unspecified (principal); R79.89 Other specified abnormal findings of blood chemistry; D64.9 Anemia, unspecified; K50.90 Crohn's disease, unspecified, without complications; M81.0 Age-related osteoporosis without current pathological fracture; E78.5 Hyperlipidemia, unspecified; Z00.00 Encounter for general adult medical examination without abnormal findings
CPT/HCPCS: 36415; 80053; 80061; 82043; 82306; 82570; 85025

== ENCOUNTER → 2022-07-16 08:35 | Outpatient (CLI) | payer MEDICARE, OTHER, SELFPAY ==
[2022-06-16 09:10] VITALS: BMI 36.3
--- NOTE | 2022-07-16 08:36 | DI.MRI.S_ITS ---
PROCEDURE: MR CERVICAL SPINE WO CON INDICATIONS: Ataxia, b/l hand weakness TECHNIQUE: Noncontrast sagittal T1 spin echo and T2 fast spin echo, sagittal STIR, foraminal oblique sagittal T2 fast spin echo, and axial gradient echo or T2 fast spin echo through the cervical spine. COMPARISON: [facility], CR, XR CERVICAL SPINE 4V OR 5V, 06/26/2022, 9:01. FINDINGS: Image quality: Excellent. Alignment and Curvature: There is loss of normal cervical lordosis. Bone Marrow: Marrow demonstrates normal overall signal. Minimal reactive signal within the endplates adjacent to the cervical and upper thoracic discs. Spinal Cord: Visualized spinal cord has normal size and signal. No cerebellar tonsillar herniation. Paraspinous Soft Tissues: No paravertebral masses. Prevertebral soft tissues are normal in thickness. C2-C3: Moderate disc desiccation. Mild diffuse disc bulge. Mild facet and uncovertebral hypertrophy. Mild canal stenosis. Mild left greater than right foraminal stenosis. C3-C4: Moderate disc desiccation. Mild diffuse disc bulge. Mild facet and uncovertebral hypertrophy. Mild canal stenosis. Moderate left and mild right foraminal stenosis. C4-C5: Moderate disc desiccation. Left paracentral protrusion. Mild facet and uncovertebral hypertrophy bilaterally. Moderate to severe canal stenosis. Minimal left cord flattening. Severe left and moderate right foraminal stenosis. Left C5 nerve root compression. C5-C6: Moderate disc desiccation. Mild diffuse disc bulge with left paracentral protrusion. Mild facet and uncovertebral hypertrophy bilaterally. Moderate to severe canal stenosis. Mild left cord flattening. Moderate left and mild right foraminal stenosis. C6-C7: Moderate disc desiccation. Mild diffuse disc bulge with small superimposed central protrusion. Mild facet and uncovertebral hypertrophy. Moderate canal stenosis. Mild bilateral foraminal stenosis. C7-T1: Moderate disc desiccation. Mild diffuse disc bulge. Mild facet and uncovertebral hypertrophy. Mild canal stenosis. Mild bilateral foraminal stenosis. IMPRESSION: 1. Multilevel degenerative disc and facet disease, as well as uncovertebral hypertrophy. 2. Multilevel canal stenoses, worst at C4-C5 and C5-C6 where there is minimal cord flattening. 3. Multilevel foraminal stenoses, worst at C4-C5 where there is associated intraforaminal nerve root compression. Recommend correlation with clinical symptoms to ascertain relevance of this finding. Dictated by: Jacey Berger M.D. on 07/16/2022 at 10:21 Approved by: Jacey Berger M.D. on 07/16/2022 at 10:35
== END ==
PROVIDERS: Family Provider Psychiatry & Neurology Psychiatry; PCP Nurse Practitioner; Referring Provider Anesthesiology; Visit Provider Anesthesiology
DX: M50.31 Other cervical disc degeneration, high cervical region (principal); M48.02 Spinal stenosis, cervical region; M47.812 Spondylosis without myelopathy or radiculopathy, cervical region; R27.0 Ataxia, unspecified; R29.898 Other symptoms and signs involving the musculoskeletal system; R25.2 Cramp and spasm
CPT/HCPCS: 72141

== ENCOUNTER 2022-07-30 13:25 | Outpatient (CLI) | payer MEDICARE, OTHER, SELFPAY ==
[2022-06-16 09:10] VITALS: BMI 36.3
--- NOTE | 2022-07-30 13:26 | DI.RAD.S_ITS ---
PROCEDURE: PAIN L INTERLAMINAR/CAUDAL INJ INDICATIONS: RADICULOPATHY COMPARISON: [facility], CR, XR LUMBAR SPINE MIN 4V, 06/26/2022, 9:01. FINDINGS: Fluoroscopic spot filming was performed to verify placement of spinal needles at the L4-L5 level(s), as labeled on the films. Appropriate location(s) of the needle tip(s) was confirmed by injection of iodinated contrast. IMPRESSION: Fluoroscopy for pain management. Dictated by: Rosalba Joyce M.D. on 07/30/2022 at 15:15 Approved by: Rosalba Joyce M.D. on 07/30/2022 at 15:16
[2022-07-30 13:35] VITALS: BP 125/72; PULSE 81; RESP 18; O2SAT 96
[2022-07-30 13:58] VITALS: BP 121/74; PULSE 69; RESP 16; O2SAT 97
[2022-07-30] MEDS: IOPAMIDOL 15 ML VIAL 3 ML INJ (14:00)
[2022-07-30] MEDS: DEXAMETHASONE 10 MG/ML VIAL 20 MG INJ (14:00)
[2022-07-30 14:03] VITALS: BP 122/76; PULSE 72; RESP 18; O2SAT 99
[2022-07-30 14:06] VITALS: BP 137/68; PULSE 77; RESP 16; O2SAT 99
--- NOTE | 2022-07-30 14:09 | P.PCN_ITS ---
Date/Time/Diagnoses Date of procedure: 07/30/22 Time of procedure: 13:45 Procedure Notes Physician: Sal Strong Total Fluoroscopy time (seconds): 12 Total sedation minutes: 0 Procedure in detail & Post-procedure care: L4-5 Interlaminar Epidural Steroid Injection Indications: Louann is presenting for treatment of lumbar radiculopathy with low back and leg pain. Preoperative diagnosis: Lumbar radiculopathy Postoperative diagnosis: Same Focused Examination: Ax3 Mood and affect are normal Vital Signs: VSS Consent: Following review of allergies and potential side effects/complications, including, but not necessarily limited to, infection, allergic reaction, local tissue breakdown, stroke, temporary or permanent nerve injury, paralysis, and possible , the patient indicated that they understood and agreed to proceed.? An informed consent document was signed by the patient, witnessed by a nurse and placed in the patient's chart.? Additionally, other treatment options including medications and physical therapy were reviewed with the patient. All questions were answered. Site was then marked. Anesthesia: Local Position: Prone Monitoring: NIBP, Pulse oximetry, 3 lead EKG Needle used: 18 G 3.5? Tuohy Contrast: Isovue 300M Injectate: Dexamethasone 15 mg with 1% lidocaine 1.5 mL Technique: The skin was prepped with chloraprep and then draped in a sterile fashion. Time out was performed as per protocol. Oxygen applied via NC. Skin and subcutaneous structures of the needle entry site was then infiltrated with 3 mL of lidocaine 1%. Under AP, lateral and contralateral oblique fluoroscopic control, the Tuohy needle was guided into the L4-5 epidural space. The space was accessed with loss of resistance technique. Isovue 300M was then injected and the spread was consistent with the epidural space. There was no evidence for intravascular or intrathecal uptake. After negative aspiration, the above- mentioned injectate was then slowly administered and the needle withdrawn. The patient expressed no unusual discomfort or paresthesias during the injection. Band-Aids applied to injection sites. EBL: less than 1 ml Complications: None Post Procedure: Patient was taken to the recovery and monitored. The patient was provided a Pain Log to continue to record the patient's response to the target- specific procedure prior to the patient's follow-up visit with the referring physician. Patient was stable upon discharge. Detailed post procedure instructions were provided. Patient was asked to call in the event of worsening pain, fever, weakness, numbness or bladder or bowel incontinence.
== END 2022-07-30 14:14 | disposition home or self-care (01) ==
LOC: RAD 13:26
PROVIDERS: Family Provider Psychiatry & Neurology Psychiatry; PCP Nurse Practitioner; Referring Provider Anesthesiology; Visit Provider Anesthesiology
DX: M54.16 Radiculopathy, lumbar region (principal)
CPT/HCPCS: 62323; J1100

== ENCOUNTER → 2022-08-07 11:56 | Outpatient (CLI) | payer MEDICARE, OTHER, SELFPAY ==
[2022-06-16 09:10] VITALS: BMI 36.3
[2022-08-07 12:24] LABS: BUN Creatinine Ratio 14.3 (6-22); Blood Urea Nitrogen 13 mg/dL (7-17); Estimated Glomerular Filt Rate > 60 mL/min (>60)
== END ==
PROVIDERS: Family Provider Psychiatry & Neurology Psychiatry; PCP Nurse Practitioner; Referring Provider Family Medicine; Visit Provider Family Medicine
DX: R10.31 Right lower quadrant pain (principal)
CPT/HCPCS: 36415; 82565; 84520

== ENCOUNTER → 2022-08-07 12:06 | Outpatient (CLI) | payer MEDICARE, OTHER, SELFPAY ==
[2022-06-16 09:10] VITALS: BMI 36.3
--- NOTE | 2022-08-07 12:07 | DI.CT.S_ITS ---
PROCEDURE: CT ABDOMEN PELVIS W CON INDICATIONS: right lower quadrant pain and possible blockage. History of Crohn's disease. History of bowel resection. TECHNIQUE: After the administration of oral and IV contrast, axial sections were acquired from the lung bases to the pubic symphysis. Coronal and sagittal reformats were performed. For radiation dose reduction, the following was used: automated exposure control, adjustment of mA and/or kV according to patient size. COMPARISON: [facility], CT, CT ABDOMEN PELVIS W CON, 06/03/2022, 12:04. FINDINGS: Image quality: Excellent. Lung bases: Right middle lobe and lingula scars and atelectasis. Small hiatal hernia. Heart: No significant findings. ABDOMEN: Liver: Normal size. Mild hepatic steatosis. Gallbladder: Surgically absent Biliary ducts: Unremarkable. Pancreas: Unremarkable. Spleen: Unremarkable. Adrenal Glands: Unremarkable. Kidneys and Ureters: Multiple low-density cortical nodules in kidneys are most likely renal cysts. No stones or hydronephrosis. Stomach and Bowel: There are postsurgical changes related to prior resection. There is short segment thickening of a loop of small intestine in the left lower abdomen. Proximally there is mild small bowel dilation measuring up to 3.4 cm in diameter. There are several air-fluid levels in small intestine. Peritoneum: No abnormal intraperitoneal fluid. No free air. Ventral Wall: There is a small fat containing ventral hernia. Abdominal Nodes: No retroperitoneal or mesenteric adenopathy by size criteria. Vessels: Aorta and inferior vena cava are normal in size. PELVIS: Pelvic Organs: Unremarkable. Bladder: Unremarkable. Pelvic Nodes: No enlarged lymph nodes. Miscellaneous: No inguinal hernias are seen. Bones: Unremarkable. IMPRESSION: 1. Short segment small bowel wall thickening suggesting flare of Crohn's disease. 2. Mild small bowel dilation and several small air-fluid levels. There may be mild partial small bowel obstruction. No high-grade small bowel obstruction. 3. Appendix is not identified. No secondary signs for acute appendicitis. Multiple renal cysts bilaterally. Dictated by: Rosalba Joyce M.D. on 08/07/2022 at 14:48 Approved by: Rosalba Joyce M.D. on 08/07/2022 at 15:21
== END ==
PROVIDERS: Family Provider Psychiatry & Neurology Psychiatry; PCP Nurse Practitioner; Referring Provider Nurse Practitioner; Visit Provider Nurse Practitioner
DX: K50.90 Crohn's disease, unspecified, without complications (principal); R10.31 Right lower quadrant pain; K76.0 Fatty (change of) liver, not elsewhere classified; K43.9 Ventral hernia without obstruction or gangrene; N28.1 Cyst of kidney, acquired; Z90.49 Acquired absence of other specified parts of digestive tract
CPT/HCPCS: 36415; 74177; 82565; 84520; Q9967

== ENCOUNTER → 2022-08-25 11:11 | Outpatient (CLI) | payer MEDICARE, OTHER, SELFPAY ==
[2022-06-16 09:10] VITALS: BMI 36.3
--- NOTE | 2022-08-25 11:12 | DI.US.S_ITS ---
PROCEDURE: US PERIPH VENOUS LOW EXTREM RT INDICATIONS: PAIN, EDEMA TECHNIQUE: Real-time imaging, as well as color and pulse Doppler interrogation, were performed of the lower extremity deep veins from the inguinal ligament to the popliteal fossa. COMPARISON: None. FINDINGS: The common femoral, femoral and popliteal veins are normally compressible, and free of intraluminal thrombus. Color and pulse Doppler demonstrate normal phasic intraluminal flow. There is normal augmentation response to distal compression maneuver. IMPRESSION: Negative for deep venous thrombosis. Dictated by: Fotrino Casillas M.D. on 08/25/2022 at 10:59 Approved by: Fortino Casillas M.D. on 08/25/2022 at 11:00
== END ==
PROVIDERS: Family Provider Psychiatry & Neurology Psychiatry; PCP Nurse Practitioner; Referring Provider Nurse Practitioner; Visit Provider Nurse Practitioner
DX: M79.89 Other specified soft tissue disorders (principal); M79.661 Pain in right lower leg
CPT/HCPCS: 93971

== ENCOUNTER → 2022-08-28 14:34 | Outpatient (CLI) | payer MEDICARE, OTHER, SELFPAY ==
[2022-06-16 09:10] VITALS: BMI 36.3
[2022-08-28 16:34] LABS: Alanine Aminotransferase 23 IU/L (<35); Albumin 4.1 g/dL (3.5-5.0); Albumin Globulin Ratio 1.5 (1.0-2.8); Alkaline Phosphatase 86 U/L (38-126); Aspartate Aminotransferase 19 IU/L (14-36); Bilirubin Total 0.3 mg/dL (0.2-1.3); Blood Urea Nitrogen 22 mg/dL (7-17); Calcium 10.5 mg/dL (8.4-10.2); Carbon Dioxide 30 mmol/L (22-32); Chloride 99 mmol/L (98-107); Estimated Glomerular Filt Rate 60 mL/min (>60); Globulin 2.8 g/dL (1.7-4.1); Glucose 130 mg/dL (80-110); HEMOLYSIS < 15 (0-50); Magnesium 2.1 mg/dL (1.6-2.3); Potassium 5.1 mmol/L (3.4-5.1); Sodium 135 mmol/L (137-145); Total Protein 6.9 g/dL (6.3-8.2)
[2022-08-28 17:00] LABS: Thyroid Stimulating Hormone 2.46 uIU/mL (0.47-4.68)
[2022-08-29 09:17] LABS: Calcium 9.3 mg/dL (8.7-10.3); Parathyroid Hormone, Intact 105 pg/mL (15-65)
== END ==
PROVIDERS: Family Provider Psychiatry & Neurology Psychiatry; PCP Nurse Practitioner; Referring Provider Nurse Practitioner; Visit Provider Nurse Practitioner
DX: R25.2 Cramp and spasm (principal); E03.9 Hypothyroidism, unspecified; L74.9 Eccrine sweat disorder, unspecified; D64.9 Anemia, unspecified; E83.52 Hypercalcemia; K50.90 Crohn's disease, unspecified, without complications; R79.89 Other specified abnormal findings of blood chemistry; M81.0 Age-related osteoporosis without current pathological fracture
CPT/HCPCS: 36415; 80053; 80145; 82310; 82397; 83735; 83970; 84443

== ENCOUNTER 2022-09-15 08:45 | Emergency (ER) | payer MEDICARE, OTHER, SELFPAY ==
[2022-06-16 09:10] VITALS: BMI 36.3
[2022-09-15 08:58] VITALS: BP 136/71; PULSE 67; RESP 18; TEMP 36.2; O2SAT 97; BMI 32.3
--- NOTE | 2022-09-15 09:02 | DI.RAD.S_ITS ---
PROCEDURE: XR ANKLE RT MIN 3V INDICATIONS: fall, twisted ankle about 2 weeks ago, pain and swelling TECHNIQUE: 3 views of the ankle were acquired. COMPARISON: None. FINDINGS: Bones: No evidence for acute or subacute fractures. Normal alignment. Ankle mortise is normally aligned. No suspicious bony lesions. Soft tissues: No tibiotalar joint effusion. Achilles tendon appears normal. Soft tissue swelling of the right ankle and proximal foot. IMPRESSION: Right ankle soft tissue swelling without underlying fracture or dislocation. No reactive changes of subacute fracture healing visualized. If there is persistent clinical concern for internal soft tissue derangement, consider further evaluation with MRI. Dictated by: Víctor Lawler M.D. on 09/15/2022 at 10:10 Approved by: Víctor Lawler M.D. on 09/15/2022 at 10:11
--- NOTE | 2022-09-15 09:02 | DI.RAD.S_ITS ---
PROCEDURE: XR FOOT RT MIN 3V INDICATIONS: fall, twisted ankle about 2 weeks ago, pain and swelling TECHNIQUE: 3 views of the foot were acquired. COMPARISON: [facility], , XR FOOT RT MIN 3V, 04/15/2022, 17:10. FINDINGS: Bones: No acute fractures or dislocations. No suspicious bony lesions. Soft tissues: No tibiotalar joint effusion. Achilles tendon appears normal. Diffuse soft tissue swelling of the right foot IMPRESSION: Right foot soft tissue swelling. No evidence for acute fracture or dislocation. No reactive changes of subacute fracture healing identified. Dictated by: Víctor Lawler M.D. on 09/15/2022 at 10:08 Approved by: Víctor Lawler M.D. on 09/15/2022 at 10:09
--- NOTE | 2022-09-15 19:04 | ED.LOWEXIN ---
HPI - Extremity Injury (Lower) <Zelda Valera PA-C - Last Filed: 09/16/22 19:05> General Chief Complaint: Extremity Injury, Lower Stated Complaint: rt foot injury/pain t-2weeks Time Seen by Provider: 09/15/22 08:50 Source: patient Mode of arrival: Ambulatory History of Present Illness HPI Narrative: 62-year-old female presents to the ED with chief complaint right foot and ankle pain. Patient states that she suffered a mechanical fall about 2 weeks ago, the pain has persisted and states that it has become increasingly harder to bear weight and walk without pain. Patient denies numbness, tingling, weakness. No other injuries. Related Data Home Medications Medication Instructions Recorded Confirmed ferrous sulfate 325 mg (65 mg 65 mg PO DAILY anemia 07/05/21 08/19/22 iron) tablet (Iron (ferrous sulfate)) adalimumab 40 mg/0.4 mL 40 mg SUBCUT QWEEK 06/26/22 08/19/22 subcutaneous pen kit (Humira(CF) Pen) sucralfate 100 mg/mL oral 100 mg PO DAILY PRN 06/26/22 08/19/22 suspension Previous Rx's Medication Instructions Recorded albuterol sulfate 90 mcg/actuation 2 puff inhalation Q4-6H PRN 12/31/21 aerosol inhaler (Ventolin HFA) shortness of breath or wheezing #8.5 grams Synthroid 137 mcg tablet 137 mcg PO DAILY #90 tabs 04/16/22 (levothyroxine) lidocaine HCl 2 % mucosal solution 15 ml mucous membrane QID PRN pain 05/06/22 #100 mL naloxone 0.4 mg/mL injection 0.4 mg IM Q2M PRN opioid reversal 05/14/22 syringe #10 mL spironolactone 50 mg tablet 50 mg PO QAM #90 tabs 07/04/22 Suboxone 12 mg-3 mg sublingual 2 film buccal Q24H #60 ea 07/22/22 film (buprenorphine-naloxone) Suboxone 12 mg-3 mg sublingual 2 film buccal Q24H #60 ea 07/22/22 film (buprenorphine-naloxone) diazepam 2 mg tablet 2 mg PO BID PRN nausea and 07/28/22 vomiting #10 tabs omeprazole 40 mg capsule,delayed 40 mg PO DAILY #90 caps 08/14/22 release trazodone 50 mg tablet See Rx Instructions PO BEDTIME PRN 08/19/22 insomnia #180 tabs buspirone 10 mg tablet 20 mg PO BID #360 tabs 08/28/22 ondansetron 4 mg disintegrating See Rx Instructions .Route 09/09/22 tablet .COMPLEX #60 tabs promethazine 25 mg tablet 25 mg PO TID PRN nausea #30 tabs 09/16/22 Allergies Allergy/AdvReac Type Severity Reaction Status Date / Time Penicillins Allergy Severe Rash Verified 08/19/22 07:48 Sulfa (Sulfonamide Allergy Intermediate Hives Verified 08/19/22 07:48 Antibiotics) pregabalin AdvReac Severe lower Verified 08/19/22 07:48 extremity swelling quetiapine [From Seroquel] AdvReac Intermediate Verified 08/19/22 07:48 Review of Systems <Zelda Valera PA-C - Last Filed: 09/16/22 19:05> Review of Systems ROS Unobtainable: All systems reviewed & are unremarkable except as noted in HPI and below Constitutional Constitutional: Denies chills, Denies fatigue, Denies fever(s), Denies frequent falls, Denies lethargy and Denies weakness Eyes Eyes: Denies change in vision, Denies eye discharge, Denies irritation and Denies loss of vision ENT Ears, Nose, Mouth, and Throat: Denies change in voice, Denies dizziness, Denies neck pain, Denies sore throat and Denies throat swelling Cardiovascular Cardiovascular: Denies chest pain, Denies irregular heart rhythm, Denies lightheadedness, Denies palpitations, Denies dyspnea, Denies dyspnea on exertion and Denies orthopnea Respiratory Respiratory: Denies cough, Denies dyspnea, Denies dyspnea on exertion and Denies wheezing Gastrointestinal Gastrointestinal: Denies abdominal pain, Denies change in bowel habits, Denies diarrhea, Denies nausea and Denies vomiting Genitourinary Genitourinary: Denies hematuria, Denies flank pain, Denies urinary incontinence and Denies urinary urgency Musculoskeletal Musculoskeletal: Denies back pain, Denies muscle weakness, Denies neck pain, Denies numbness and Denies tingling Comments: Right foot and ankle pain, swelling Integumentary/Breasts Skin/Breast: Denies pruritus, Denies erythema, Denies rash and Denies wounds Neurologic Neurologic: Denies behavioral changes, Denies confusion, Denies dizziness, Denies frequent falls, Denies loss of vision, Denies numbness, Denies tingling and Denies weakness Psychiatric Psychiatric: Denies anxiety, Denies behavioral changes, Denies confusion, Denies depression, Denies homicidal ideation and Denies suicidal ideation Endocrine Endocrine: Denies fatigue, Denies flushing and Denies palpitations Hematologic/Lymphatic Hematologic/Lymphatic: Denies easy bruising Allergic/Immunologic Allergic/Immunologic: Denies urticaria, Denies throat swelling and Denies wheezing Patient History <Zelda Valera PA-C - Last Filed: 09/16/22 19:05> Medical History Abnormal chest xray Acute renal insufficiency Adalimumab (Humira) long-term use ADHD Allergy to antibiotic Anemia (~2016) Ankle pain (~2017) Anxiety Asthma Asthma Ataxia Attention deficit disorder Back pain of lumbar region with sciatica Bipolar disorder in partial remission Bronchospasm Cataracts, bilateral Cataracts, bilateral (~2018) Chicken pox Chronic back pain (~2003) Chronic back pain greater than 3 months duration Chronic cough Chronic pain Chronic post-traumatic stress disorder (PTSD) COPD (chronic obstructive pulmonary disease) Cough COVID-19 vaccine series declined Crohn's disease (~2009) Decreased GFR Depressed bipolar affective disorder Depression (~1988) Eczema Eczema Elevated liver enzymes Elevated parathyroid hormone Encounter for tobacco use cessation counseling Foot pain (~2018) Foot pain, left Glomerulonephritis Hand weakness Headache Hemorrhoid (~1979) Hepatitis A test positive Hepatitis B surface antigen positive History of emphysema (~2017) HLD (hyperlipidemia) Hypercalcemia Hypothyroidism (~1989) Immunosuppressed status Insomnia Kidney disease Kidney disease (~1974) Left foot pain Leg swelling Lower extremity edema Lower extremity pain, posterior Marijuana use Migraines Mouth sores MRSA (methicillin resistant Staphylococcus aureus) (~2004) Nausea & vomiting Opacity of lung on imaging study Oral lesion Oral lesion Osteopenia of multiple sites Osteoporosis (~2016) Other spondylosis, lumbar region Pharyngitis Post traumatic stress disorder (PTSD) Pulmonary scarring Radiculopathy, lumbar region Restless leg syndrome Restless legs syndrome Seizure Serum calcium elevated Skin cancer, basal cell (~2016) Sleep apnea Small bowel obstruction Spasms of the hands or feet Tobacco abuse disorder Tobacco use disorder, mild, in early remission Vitamin D deficiency Surgical History History of section History of cholecystectomy History of intestinal surgery History of partial hysterectomy S/P tonsillectomy Family History Mother Cancer Alzheimer disease Father Heart disease Kidney disease Social History household members: spouse Smoking Status: Former smoker alcohol intake: former Smoking Status: Former smoker tobacco type: vaping alcohol intake frequency: other Substance Use Type: does not use Exam <Zelda Valera PA-C - Last Filed: 09/16/22 19:05> Narrative Exam Narrative: Const General:?cooperative, healthy appearing and comfortable HENMT Head:?normal to inspection Ears:?hearing grossly normal bilaterally Nose:?external nose normal Face and sinus:?normal facial exam and sinuses nontender Mouth:?oral mucosae normal Throat:?posterior oropharynx normal Eyes General:?appearance normal, both eyes and all related structures Neck Neck:?normal visual inspection and no lymphadenopathy noted Resp Effort & Inspection:?normal respiratory effort Auscultation:?clear to auscultation bilaterally Cardio Rate:?regular rate Rhythm:?regular rhythm Musculoskeletal There is some swelling and tenderness to palpation of the right ankle. No deformities, bruising. There is full range of motion. Strength and sensation is intact. Patient is neurovascularly intact. Neuro General:?patient alert, patient awake and patient oriented x3 Initial Vital Signs Initial Vital Signs: Vital Signs Temperature 97.1 F L 09/15/22 08:58 Pulse Rate 67 09/15/22 08:58 Respiratory Rate 18 09/15/22 08:58 Blood Pressure 136/71 09/15/22 08:58 Pulse Oximetry 97 09/15/22 08:58 Oxygen Delivery Method Room Air 09/15/22 08:58 <Deena Salas DO - Last Filed: 09/16/22 19:25> Initial Vital Signs Initial Vital Signs: Vital Signs Temperature 97.1 F L 09/15/22 08:58 Pulse Rate 67 09/15/22 08:58 Respiratory Rate 18 09/15/22 08:58 Blood Pressure 136/71 09/15/22 08:58 Pulse Oximetry 97 09/15/22 08:58 Oxygen Delivery Method Room Air 09/15/22 08:58 MDM - Extremity Injury (Lower) <Zelda Valera PA-C - Last Filed: 09/16/22 19:05> MDM Narrative Medical decision making narrative: 62-year-old female presents to the ED with chief complaint right foot and ankle pain. Concern for fracture/dislocation versus musculoskeletal sprain. X-rays of the foot and ankle without acute findings. Patient's symptoms likely due to a musculoskeletal sprain/strain. Recommend supportive care with lidocaine patches, Ad wraps, heat packs, elevation, ibuprofen, Tylenol. Recommend follow-up with her PCP Dr. Hernandez's office for further evaluation and possible referral to physical therapy. ED return precautions were discussed with patient. Patient verbalized understanding. Medical records reviewed: Yes Discharge Plan Departure Patient Disposition: Home Clinical Impression: Ankle sprain Instructions: DI for Ankle Sprain Activity Restrictions/Additional Instructions: You were evaluated in the ED today for right ankle pain. Your x-rays were normal, no fractures or dislocations seen on x-ray. Your symptoms are likely due to an ankle sprain from the fall. You may continue to take ibuprofen, Tylenol, Lidocaine patches, Ad wrap, heat packs to promote healing. Please follow-up with your PCP Dr. Hernandez or somebody else at her practice for further evaluation and referral to physical therapy. Return to the ED if you note worsening symptoms, numbness, tingling, weakness. Prescriptions: No Action trazodone 50 mg tablet See Rx Instructions PO BEDTIME PRN (Reason: insomnia) Qty: 180 3RF Rx Instructions: Take 100 to 200 bedtime albuterol sulfate [Ventolin HFA] 90 mcg/actuation HFA aerosol inhaler 2 puff inhalation Q4-6H PRN (Reason: shortness of breath or wheezing) Qty: 8.5 3RF levothyroxine [Synthroid] 137 mcg tablet 137 mcg PO DAILY Qty: 90 1RF Rx Instructions: Brand name only. lidocaine HCl 2 % solution 15 ml mucous membrane QID PRN (Reason: pain) Qty: 100 2RF Rx Instructions: Apply 15mL to mucous membranes as needed for oral pain 4 times per day spironolactone 50 mg tablet 50 mg PO QAM Qty: 90 3RF buprenorphine-naloxone [Suboxone] 12-3 mg film 2 film buccal Q24H Qty: 60 0RF Rx Instructions: 1 film under tongue daily for pain relief, ok to fill 07/10/22 buprenorphine-naloxone [Suboxone] 12-3 mg film 2 film buccal Q24H Qty: 60 3RF Rx Instructions: 2 film under tongue daily for pain management omeprazole 40 mg capsule,delayed release(DR/EC) 40 mg PO DAILY Qty: 90 3RF buspirone 10 mg tablet 20 mg PO BID Qty: 360 1RF ondansetron 4 mg tablet,disintegrating See Rx Instructions .ROUTE .COMPLEX Qty: 60 3RF Dose Instruction: DISSOLVE 1 TABLET ON THE TONGUE EVERY 6 HOURS NEEDED FOR NAUSEA OR VOMITING Rx Instructions: DISSOLVE 1 TABLET ON THE TONGUE EVERY 6 HOURS NEEDED FOR NAUSEA OR VOMITING promethazine 25 mg tablet 25 mg PO TID PRN (Reason: nausea) Qty: 30 0RF Rx Instructions: Take 1/2 - 1 tab am and pm, and 1 more dose as needed per day, max dose 3/day naloxone 0.4 mg/mL syringe 0.4 mg IM Q2M PRN (Reason: opioid reversal) Qty: 10 1RF Rx Instructions: NTExceed 10 mg total dose/episode diazepam 2 mg tablet 2 mg PO BID PRN (Reason: nausea and vomiting) Qty: 10 0RF ferrous sulfate [Iron (ferrous sulfate)] 325 mg (65 mg iron) Tablet 65 mg PO DAILY Humira(CF) Pen 40 mg/0.4 mL pen injector kit 40 mg SUBCUT QWEEK sucralfate 100 mg/mL suspension 100 mg PO DAILY PRN Referrals: Liat Hernandez ARNP [Primary Care Provider] - Stand Alone Forms: Patient Portal/API <Deena Salas DO - Last Filed: 09/16/22 19:25> Cosign ED Attending Coshectorature Attestation: I was immediately available in the department for consultation. Documentation has been reviewed.
== END 2022-09-15 11:35 | disposition home or self-care (01) ==
PROVIDERS: Emergency Provider Student in an Organized Health Care Education/Training Program; Family Provider Psychiatry & Neurology Psychiatry; PCP Nurse Practitioner
DX: S93.401A Sprain of unspecified ligament of right ankle, initial encounter (principal); W19.XXXA Unspecified fall, initial encounter
CPT/HCPCS: 73610; 73630; 99281; 99283

== ENCOUNTER 2022-09-17 15:45 | Outpatient (CLI) | payer MEDICARE, OTHER, SELFPAY ==
[2022-09-16 16:14] VITALS: BMI 36.3
[2022-09-17 16:00] VITALS: BP 130/72; PULSE 85; RESP 16; TEMP 36.4; O2SAT 96
--- NOTE | 2022-09-17 16:27 | PC.NURSE ---
Pt reports pain in her foot/leg to MD while checking her in for her procedure. Noted to have 2+ pitting edema in right lower leg starting about 3 inches below her knee into her foot. She states the swelling is going higher and higher up her leg. No redness or streaking noted. She states she was seen in the ER and at doctors office today. Notes reviewed by Dr. Strong from those visits. Cancelling her procedure today due to new changes with this swelling and MD ordering ultrasound to be done and further eval done for this edema before rescheduling MBB. Pt states understanding and is willing to have ultrasound done.
--- NOTE | 2022-09-17 16:49 | PC.NURSE ---
Pt discharged to [facility] [id number]
--- NOTE | 2022-09-17 17:00 | DI.US.S_ITS ---
PROCEDURE: US PERIP VENOUS LOW EXTREM RT INDICATIONS: SWELLING TECHNIQUE: Real-time imaging, as well as color and pulse Doppler interrogation, were performed of the lower extremity deep veins from the inguinal ligament to the popliteal fossa, with documentation of the visualized calf veins. COMPARISON: [facility], , [facility] VENOUS LOW EXTREM RT, 08/25/2022, 11:30. FINDINGS: The common femoral, femoral, popliteal, and the visualized calf veins are normally compressible, and free of intraluminal thrombus. Color and pulse Doppler demonstrate normal phasic intraluminal flow. There is normal augmentation response to distal compression maneuver. IMPRESSION: No findings of lower extremity deep venous thrombosis. Dictated by: Tristian Mcgraw M.D. on 09/17/2022 at 17:13 Approved by: Tristian Mcgraw M.D. on 09/17/2022 at 17:14
== END 2022-09-17 16:40 | disposition home or self-care (01) ==
PROVIDERS: Family Provider Psychiatry & Neurology Psychiatry; PCP Nurse Practitioner; Referring Provider Anesthesiology; Visit Provider Anesthesiology
DX: M47.896 Other spondylosis, lumbar region (principal); R60.0 Localized edema; M79.604 Pain in right leg
CPT/HCPCS: 93971

== ENCOUNTER → 2022-09-23 13:55 | Outpatient (CLI) | payer MEDICARE, OTHER, SELFPAY ==
[2022-09-16 16:14] VITALS: BMI 36.3
--- NOTE | 2022-09-23 13:59 | DI.RAD.S_ITS ---
PROCEDURE: XR TIBIA FUBULA RT 2V INDICATIONS: méndez pain, Rt TECHNIQUE: 2 views of the tibia and fibula were acquired. COMPARISON: None. FINDINGS: Bones: No fractures or dislocations. No suspicious bony lesions. Soft tissues: No suspicious soft tissue calcifications or masses. IMPRESSION: No acute osseous abnormalities. If clinical symptoms persist, consider bone scan or MRI for further evaluation. Dictated by: Rosalba Joyce M.D. on 09/23/2022 at 15:13 Approved by: Rosalba Joyce M.D. on 09/23/2022 at 15:13
[2022-09-23 16:33] LABS: Creatine Kinase 52 U/L (30-135)
[2022-09-26 13:41] LABS: Uric Acid 7.4 mg/dL (2.5-6.2)
== END ==
LOC: LAB 13:56 → RAD 13:58
PROVIDERS: Family Provider Psychiatry & Neurology Psychiatry; PCP Nurse Practitioner; Referring Provider Family Medicine; Visit Provider Family Medicine
DX: M79.661 Pain in right lower leg (principal); M79.10 Myalgia, unspecified site; M79.604 Pain in right leg; M79.89 Other specified soft tissue disorders
CPT/HCPCS: 36415; 73590; 82550; 84550

== ENCOUNTER → 2022-10-02 13:53 | Outpatient (CLI) | payer MEDICARE, OTHER, SELFPAY ==
[2022-09-16 16:14] VITALS: BMI 36.3
--- NOTE | 2022-10-02 13:54 | DI.NM.S_ITS ---
PROCEDURE: NM BONE 3 PHASE RADIOPHARMACEUTICAL: 21.8 mCi Tc-99m MDP IV. INDICATIONS: bilateral méndez pain TECHNIQUE: Multiple bone scintigrams were obtained after intravenous injection of Tc-99m MDP, including flow, blood pool, and delayed images centered to the region of interest. COMPARISON: [facility], CR, XR TIBIA FIBULA RT 2V, 09/23/2022, 14:34. FINDINGS: In the distal tibia, there is increased activity on blood flow phase, blood pool phase and delayed phase. No abnormal activity seen within the left lower extremity. IMPRESSION: Increased activity within the right distal tibia on all phases. Given clinical history this is concerning for stress fracture. No fracture was seen on recent x-ray, MRI can be obtained if clinically indicated as it is more sensitive for the detection of stress fractures. No abnormal activity within the visualized left lower extremity. Dictated by: Tristian Mcgraw M.D. on 10/03/2022 at 12:22 Approved by: Tristian Mcgraw M.D. on 10/03/2022 at 12:33
== END ==
PROVIDERS: Family Provider Psychiatry & Neurology Psychiatry; PCP Nurse Practitioner; Referring Provider Family Medicine; Visit Provider Family Medicine
DX: M79.605 Pain in left leg (principal); M79.604 Pain in right leg; Z79.620 Long term (current) use of immunosuppressive biologic; M79.89 Other specified soft tissue disorders
CPT/HCPCS: 78315; A9503

== ENCOUNTER → 2022-10-04 09:38 | Outpatient (CLI) | payer MEDICARE, OTHER, SELFPAY ==
[2022-09-16 16:14] VITALS: BMI 36.3
--- NOTE | 2022-10-04 09:40 | DI.MRI.S_ITS ---
PROCEDURE: MR LOWER LEG RT WO CON INDICATIONS: Please evaluate for stress fracture per bone scan rec TECHNIQUE: Noncontrast coronal and sagittal T1 spin echo and STIR; axial T1 spin echo and T2 fast spin echo with fat saturation through the distal right lower extremity. COMPARISON: [facility], CR, XR TIBIA FIBULA RT 2V, 09/23/2022, 14:34. [facility], [place], NM BONE 3 PHASE, 10/02/2022, 14:08. FINDINGS: Image quality: Excellent. Bones: A fracture line can be seen involving the distal right tibia medially, with associated abnormal surrounding STIR signal. Soft tissues: Soft tissue edema can be seen along the medial aspect of the right ankle. The scanned muscles demonstrate normal overall bulk and internal signal. Subcutaneous tissues appear normal as well. No soft tissue masses are present. IMPRESSION: Distal right tibial stress fracture until proven otherwise. Associated overlying soft tissue edema can be seen. Dictated by: Fortino Casillas M.D. on 10/04/2022 at 11:04 Approved by: Fortino Casillas M.D. on 10/04/2022 at 11:06
== END ==
PROVIDERS: Family Provider Psychiatry & Neurology Psychiatry; PCP Nurse Practitioner; Referring Provider Nurse Practitioner; Visit Provider Nurse Practitioner
DX: M79.89 Other specified soft tissue disorders (principal); M84.361A Stress fracture, right tibia, initial encounter for fracture; M79.604 Pain in right leg; R94.8 Abnormal results of function studies of other organs and systems
CPT/HCPCS: 73718

== ENCOUNTER 2022-10-08 08:42 | Outpatient (CLI) | payer MEDICARE, OTHER, SELFPAY ==
[2022-09-16 16:14] VITALS: BMI 36.3
[2022-10-08] VITALS (19 sets, daily range): BP systolic 79–142; BP diastolic 45–59; PULSE 54–69; RESP 6–22; TEMP 36; O2SAT 93–99
--- NOTE | 2022-10-08 08:43 | DI.RAD.S_ITS ---
PROCEDURE: PAIN L/S FACET INJ/BLK 1ST STONE COMPARISON: None. INDICATIONS: RADICULOPATHY FINDINGS: Intraoperative fluoroscopic images shows injection needles placed bilaterally at L3 through L5 levels. IMPRESSION: Fluoro guidance was provided intraoperatively for bilateral L3, L4, and L5 medial branch block performed by ordering physician. Dictated by: Wilner Nowak M.D. on 10/08/2022 at 10:19 Approved by: Wilner Nowak M.D. on 10/08/2022 at 10:20
[2022-10-08] MEDS: MIDAZOLAM 2 MG/2 ML VIAL 1 MG IV ×2 (09:14→09:21)
[2022-10-08] MEDS: BUPIVACAINE 0.5% (PF) 10 ML VIAL 5 ML INJ (09:19)
[2022-10-08] MEDS: IOPAMIDOL 15 ML VIAL 3 ML INJ (09:19)
[2022-10-08] MEDS: SODIUM CHLORIDE 0.9% 250 ML 999 ML IV (09:45)
--- NOTE | 2022-10-08 10:09 | PC.NURSE ---
0935 Patient received post injection in NAD. Hypotension noted, patient asymptomatic. Drowsy but easily awakens to verbal stimuli. Dr. Strong made aware, discussion for plan of care if BP remains low. 0945 Patient remains hypotensive, see flowsheet. Intermittent sleeping, still awakens easily and denies any further symptoms. Dr. Strong aware, verbal order for 250 mL IVF bolus received and initiated. 1010 Patient remains drowsy. BP with some improvement, MAP consistently >65. Last BP 89/52 (66). Dr. Strong updated.
--- NOTE | 2022-10-08 10:27 | PC.NURSE ---
Dr. Strong consistently updated on patient status. BP maintaining MAP > 65 after IVF bolus completed. Patient stood at chairside with SBA, steady without complaints of dizziness or weakness. BP 122/59 (85).
--- NOTE | 2022-10-08 10:38 | PC.NURSE ---
Dr. Strong at chairside to re-evaluate. Patient awake, alert with BP 142/55. Denies weakness, dizziness or any other symptoms. Verbal order that patient is ready for discharge.
--- NOTE | 2022-10-08 12:30 | P.PCN_ITS ---
Date/Time/Diagnoses Date of procedure: 10/08/22 Time of procedure: 09:00 Procedure Notes Physician: Sal Strong Total Fluoroscopy time (seconds): 19 Total sedation minutes: 13 Procedure in detail & Post-procedure care: Bilateral L3, 4, 5 Lumbar Medial Branch Blocks Indications: Louann is presenting for treatment of lumbar spondylosis with low back pain. Preoperative diagnosis: Bilateral lumbar spondylosis Postoperative diagnosis: Same Pre-procedure History: Patient demonstrates today moderate to severe non- radicular back pain without neurologic deficit aggravated by hyperextension yes Back pain greater than leg pain? yes Patient today has tenderness over the suspected joint(s) yes History of post-traumatic injury? no Hypertrophic arthropathy yes Back pain associated with suspected motion segment instability, hypermobility or pseudoarthrosis no F Pre-testing pain score (VAS): 5/10 Focused Examination: Ax3 Mood and affect are normal Vital Signs: VSS ASA: 2 Consent: Following review of allergies and potential side effects/complications, including, but not necessarily limited to, infection, allergic reaction, local tissue breakdown, stroke, temporary or permanent nerve injury, paralysis, and possible , the patient indicated that they understood and agreed to proceed.? An informed consent document was signed by the patient, witnessed by a nurse and placed in the patient's chart.? Additionally, other treatment options including medications and physical therapy were reviewed with the patient. All questions were answered. Site was then marked. Anesthesia: After review of previous anesthetic history and IV conscious sedation, the patient was deemed safe to proceed with today's procedure with IV conscious sedation. IV sedation was accomplished with midazolam 2 mg administered by the RN after order by Dr. Strong. Sedation was titrated to patient comfort during the course of the procedure. Patient remained responsive to all verbal commands. Position: Prone Monitoring: NIBP, Pulse oximetry, 3 lead EKG Needle used: 22 ga 5 inch spinal needle Contrast: Isovue 300M Injectate: 0.5% bupivacaine 1 mL per site Procedure: The patient was brought into the procedure room and positioned into the prone position. Skin was prepped with a Chloraprep solution, allowed to air dry, and then draped in sterile fashion.? The right L4-5 and L5-S1 facet joints were visually identified with fluoroscopy. Lidocaine 1% was used to anesthetize the skin over each target destination with a 25ga needle. A 22 ga, 5 inch spinal needle was advanced to the location of the medial branch at the junction of the superior articular process and the transverse process at L4,5 and the base of the SAP of the sacrum using intermittent fluoroscopy in the AP view. Isovue 300M contrast 0.2ml was injected at each level outlining the medial borders for each level and the base of the SAP of the sacrum in the AP and lateral views. There was no evidence of vascular or intrathecal uptake. The above injectate was slowly injected at each target destination. The left L4-5 and L5-S1 facet joints were visually identified with fluoroscopy. Lidocaine 1% was used to anesthetize the skin over each target destination with a 25ga needle. A 22 ga, 5 inch spinal needle was advanced to the location of the medial branch at the junction of the superior articular process and the transverse process at L4,5 and the base of the SAP of the sacrum using intermittent fluoroscopy in the AP view. Isovue 300M contrast 0.2ml was injected at each level outlining the medial borders for each level and the base of the S AP of the sacrum in the AP and lateral views. There was no evidence of vascular or intrathecal uptake. The above injectate was slowly injected at each target destination. At the end of the procedure the needles were withdrawn and Band- Aids were applied for a dressing. At the end of the procedure the needles were withdrawn and Band-Aids were applied for a dressing. Post Procedure: Patient was taken to the recovery and monitored. She was hypotensive in recovery and received a 250 cc bolus of normal saline. Her blood pressure returned to baseline after this bolus. She remained asymptomatic and denied chest pain, dizziness or shortness of breath. The patient was provided a Pain Log to continue to record the patient's response to the target-specific procedure prior to the patient's follow-up visit with the referring physician. Patient was stable upon discharge. Detailed post procedure instructions were provided. Patient was asked to call in the event of worsening pain, fever, weakness, numbness or bladder or bowel incontinence. Postoperatively, today patient demonstrates the following changes with hyperextension and with tenderness over the suspected joint(s). Provacative testing using the Saenz's facet loading test Right side Left side E Directly before the block ?VAS (0-10) = 5/10 VAS (0-10) = 5/10 5 minutes after the block VAS (0-10) = 2/10 VAS (0-10) = 2/10 Percentage relief obtained with this diagnostic block 60% 60% Any improved physical functioning directly after the blocks? Range of motion Based on the medial branches blocked today, if the patient meets insurance criteria for radiofrequency, the treatment should result in the denervation of the bilateral L4-5 and L5-S1 facet joint nerves. We would expect to denervate a total of 4 facets during the radiofrequency ablation.
== END 2022-10-08 10:39 | disposition home or self-care (01) ==
LOC: RAD 08:43
PROVIDERS: Family Provider Psychiatry & Neurology Psychiatry; PCP Nurse Practitioner; Referring Provider Anesthesiology; Visit Provider Anesthesiology
DX: M47.816 Spondylosis without myelopathy or radiculopathy, lumbar region (principal)
CPT/HCPCS: 64493; 64494; 99152; J2250

== ENCOUNTER → 2022-11-06 13:09 | Outpatient (CLI) | payer MEDICARE, OTHER, SELFPAY ==
[2022-09-16 16:14] VITALS: BMI 36.3
== END ==
PROVIDERS: Family Provider Psychiatry & Neurology Psychiatry; PCP Nurse Practitioner; Referring Provider Nurse Practitioner; Visit Provider Nurse Practitioner
DX: J44.1 Chronic obstructive pulmonary disease with (acute) exacerbation (principal); Z87.891 Personal history of nicotine dependence
CPT/HCPCS: 94060; 94726; 94729

== ENCOUNTER → 2022-11-07 11:04 | Outpatient (CLI) | payer MEDICARE, OTHER, SELFPAY ==
[2022-09-16 16:14] VITALS: BMI 36.3
[2022-11-07 12:22] LABS: Appearance Urine UA CLEAR; Bilirubin Urine UA NEGATIVE (NEGATIVE); Color Urine UA YELLOW; Glucose Urine UA NEGATIVE (Negative); Ketones Urine UA NEGATIVE (NEGATIVE); Leukocyte Esterase Urine UA TRACE (NEGATIVE); Nitrite Urine UA NEGATIVE (Negative); Occult Blood Urine UA NEGATIVE (Negative); Protein Urine UA NEGATIVE (Negative); Specific Gravity Urine UA 1.015 (1.000-1.035); Urobilinogen Urine UA 0.2 E.U./dL (0.2)
[2022-11-07 12:39] LABS: pH Urine UA 5.5 (4.5-8.0)
[2022-11-07 12:40] LABS: Bacteria Urine None Seen; Culture Indicated Urine Cult Not Indicated; RBC Urine None Seen (0-5/HPF); Squamous Epithelial Cell Urine None Seen (0-5/HPF); WBC Urine 1-5/HPF (0-5/HPF)
== END ==
PROVIDERS: Family Provider Psychiatry & Neurology Psychiatry; PCP Nurse Practitioner; Referring Provider Family Medicine; Visit Provider Family Medicine
DX: R30.0 Dysuria (principal)
CPT/HCPCS: 81001; 87086

== ENCOUNTER 2022-12-01 07:33 | Emergency (ER) | payer MEDICARE, OTHER, SELFPAY ==
[2022-09-16 16:14] VITALS: BMI 36.3
[2022-12-01] VITALS (14 sets, daily range): BP systolic 128–177; BP diastolic 64–103; PULSE 84–131; RESP 10–34; TEMP 36; O2SAT 92–98; BMI 32.3
--- NOTE | 2022-12-01 07:39 | DI.CT.S_ITS ---
PROCEDURE: CT ABDOMEN PELVIS W CON INDICATIONS: N/V UPPER ABD PAIN X5 DAYS TECHNIQUE: After the administration of intravenous contrast, axial sections acquired from the lung bases to the pubic symphysis. Coronal and sagittal reformats were performed. For radiation dose reduction, the following was used: automated exposure control, adjustment of mA and/or kV according to patient size. COMPARISON: [facility], CT, CT ABDOMEN PELVIS W CON, 08/07/2022, 13:41. FINDINGS: Image quality: Excellent. Lung bases: Unremarkable. Heart: No significant findings. ABDOMEN: Liver: Unremarkable. Gallbladder: Gallbladder is surgically absent. Biliary ducts: There is mild intrahepatic biliary ductal take a méndez which has developed since the previous study. There is a suggestion of a possible choledococele at the entrance into the small bowel. Pancreas: Unremarkable. Spleen: Unremarkable. Adrenal Glands: Unremarkable. Kidneys and Ureters: Unremarkable. Stomach and Bowel: Remote partial distal ileal resection and possibly partial proximal colectomy. There is mild dilatation of the small bowel which extends to the anastomotic clips. However, the anastomotic clips may not be the site of the obstruction. The proximal colon has a focal area of mild narrowing. Findings may either represent partial or early small bowel obstruction versus ileus. Proximal small bowel measures up to 3.9 cm. Peritoneum: No abnormal intraperitoneal fluid. No free air. Ventral Wall: No hernias. Abdominal Nodes: No retroperitoneal or mesenteric adenopathy by size criteria. Vessels: Aorta and inferior vena cava are normal in size. PELVIS: Pelvic Organs: Unremarkable. Bladder: Unremarkable. Pelvic Nodes: No enlarged lymph nodes. Miscellaneous: No hernias are seen. Bones: Unremarkable. IMPRESSION: 1. Question partial/early small bowel obstruction versus ileus pattern. 2. Remote cholecystectomy. 3. Development of mild intrahepatic biliary ductal dilatation since the previous study. There is a question of a possible small choledochocele. Dictated by: Robel Rayo M.D. on 12/01/2022 at 8:54 Approved by: Robel Rayo M.D. on 12/01/2022 at 9:06
--- NOTE | 2022-12-01 07:39 | ED_ITS ---
HPI - Nausea/Vomiting/Diarrhea General Chief complaint: Nausea/Vomiting/Diarrhea Stated complaint: T-5 Vomiting/sick Time Seen by Provider: 12/01/22 07:34 History of Present Illness HPI Narrative: 62 year old female with history of Crohn's disease, previous history of ileocecectomy, COPD, chronic pain, severe depression presents by private vehicle from home for 5 days of generalized abdominal pain with nausea and vomiting. Patient is also reporting shortness of breath, that has been ongoing for a month. States she chronically feels short of breath. Recently had pulmonary function tests, but has not gotten the results of these tests yet as her primary care doctor is out of town. Patient does have history of bowel obstructions, but states that this is ?definitely different than my bowel obstructions?. Related Data Home Medications Medication Instructions Recorded Confirmed ferrous sulfate 325 mg (65 mg 65 mg PO DAILY anemia 07/05/21 11/06/22 iron) tablet (Iron (ferrous sulfate)) omeprazole 40 mg capsule,delayed 40 mg PO DAILY 11/06/22 11/06/22 release Previous Rx's Medication Instructions Recorded albuterol sulfate 90 mcg/actuation 2 puff inhalation Q4-6H PRN 12/31/21 aerosol inhaler (Ventolin HFA) shortness of breath or wheezing #8.5 grams lidocaine HCl 2 % mucosal solution 15 ml mucous membrane QID PRN pain 05/06/22 #100 mL naloxone 0.4 mg/mL injection 0.4 mg IM Q2M PRN opioid reversal 05/14/22 syringe #10 mL spironolactone 50 mg tablet 50 mg PO QAM #90 tabs 07/04/22 trazodone 50 mg tablet See Rx Instructions PO BEDTIME PRN 08/19/22 insomnia #180 tabs ondansetron 4 mg disintegrating See Rx Instructions .Route 09/09/22 tablet .COMPLEX #60 tabs promethazine 25 mg tablet 25 mg PO TID PRN nausea #30 tabs 09/16/22 Synthroid 137 mcg tablet 137 mcg PO DAILY #90 tabs 10/06/22 (levothyroxine) buspirone 10 mg tablet 20 mg (2 x 10 mg) PO BID #360 tabs 10/06/22 ipratropium bromide 17 2 inh inhalation Q6H PRN shortness 11/24/22 mcg/actuation HFA aerosol inhaler of breath or wheezing #12.9 grams Suboxone 12 mg-3 mg sublingual 2 film buccal Q24H #60 ea 11/25/22 film (buprenorphine-naloxone) carbamazepine 200 mg 200 mg PO BID #60 caps 11/25/22 capsule,extended release [id number] ipratropium bromide 17 2 puff inhalation Q8H #12.9 grams 12/01/22 mcg/actuation HFA aerosol inhaler (Atrovent HFA) metoclopramide HCl 10 mg tablet 10 mg PO Q6H PRN nausea and 12/01/22 (Reglan) vomiting #30 tabs Allergies Allergy/AdvReac Type Severity Reaction Status Date / Time Penicillins Allergy Severe Rash Verified 12/01/22 10:42 Sulfa (Sulfonamide Allergy Intermediate Hives Verified 12/01/22 10:42 Antibiotics) pregabalin AdvReac Severe lower Verified 12/01/22 10:42 extremity swelling quetiapine [From Seroquel] AdvReac Intermediate Verified 12/01/22 10:42 Review of Systems Review of Systems Narrative: CONSTITUTIONAL- Denies: fever, chills, fatigue HEENT- Denies: sore throat, nosebleed, vision changes RESPIRATORY-reports: Shortness of breath Denies: cough, wheezing CARDIAC- Denies: chest pain, edema, orthopnea GI-reports: Abdominal pain, nausea, vomiting Denies: constipation, diarrhea - Denies: frequency, dysuria, hematuria, flank pain MSK- Denies: extremity pain, extremity swelling, joint pain, joint swelling SKIN- Denies: rash, itching, burn, swelling NEUROLOGICAL- Denies: headache, numbness, weakness, dizziness PSYCHIATRIC- Denies: anxiety, depression, suicidal ideation, homicidal ideation Patient History Medical History (Updated 12/01/22 @ 11:33 by Deena Meehan MD) Stress fracture of right tibia Pain of right lower extremity Adalimumab (Humira) long-term use Leg swelling Spasms of the hands or feet Hand weakness Ataxia Lower extremity edema Immunosuppressed status Pneumonia Acute hypoxemic respiratory failure Chronic back pain greater than 3 months duration HLD (hyperlipidemia) Vitamin D deficiency Mouth sores Other spondylosis, lumbar region Radiculopathy, lumbar region Back pain of lumbar region with sciatica Tobacco use disorder, mild, in early remission Opacity of lung on imaging study Pulmonary scarring Allergy to antibiotic Oral lesion Glomerulonephritis Hepatitis B surface antigen positive Hepatitis A test positive Small bowel obstruction Pharyngitis COVID-19 vaccine series declined Depressed bipolar affective disorder Serum calcium elevated Elevated parathyroid hormone Oral lesion Insomnia Elevated liver enzymes Osteopenia of multiple sites Decreased GFR Left foot pain Acute renal insufficiency Nausea & vomiting Hypercalcemia Bronchospasm Foot pain, left Lower extremity pain, posterior Encounter for tobacco use cessation counseling Cough Attention deficit disorder Tobacco abuse disorder Eczema History of emphysema (~2017) Sleep apnea Chronic cough Asthma Abnormal chest xray Post traumatic stress disorder (PTSD) Depression (~1988) Anxiety Seizure Restless leg syndrome Migraines Headache ADHD Osteoporosis (~2016) Foot pain (~2018) Chronic back pain (~2003) Ankle pain (~2017) MRSA (methicillin resistant Staphylococcus aureus) (~2004) Chicken pox Anemia (~2016) Cataracts, bilateral (~2018) Kidney disease (~1974) Hemorrhoid (~1979) Crohn's disease (~2009) Hypothyroidism (~1989) Skin cancer, basal cell (~2016) Marijuana use Eczema Asthma COPD (chronic obstructive pulmonary disease) Restless legs syndrome Chronic post-traumatic stress disorder (PTSD) Bipolar disorder in partial remission Cataracts, bilateral Kidney disease Chronic pain Surgical History S/P tonsillectomy History of intestinal surgery History of cholecystectomy History of partial hysterectomy History of section Family History Mother Cancer Alzheimer disease Father Heart disease Kidney disease Social History household members: spouse Smoking Status: Former smoker alcohol intake: former Smoking Status: Former smoker tobacco type: vaping alcohol intake frequency: other Substance Use Type: does not use Exam Initial Vital Signs Initial Vital Signs: Vital Signs Pulse Rate 131 H 12/01/22 07:41 Pulse Oximetry 94 12/01/22 07:41 Const: Awake, alert, no acute distress, appears chronically unwell, older than stated age, obese Eyes: PERRL, EOMI, conjunctiva normal ENT: Atraumatic, dentition normal, mucous membranes moist Cardiac: regular rate, regular rhythm RESP: unlabored, faint expiratory wheezes GI: Atraumatic, soft, generalized tenderness to deep palpation without rebound or guarding MSK: Atraumatic, full range of motion, pulses equal Skin: Warm, Dry, intact, no rashes Neuro: AO x3, CN II-XII grossly intact, moves all extremities Psych: affect normal, mood normal, not suicidal, not homicidal Course Course Course Narrative: Chronically unwell appearing but not acutely toxic patient presenting for nausea, vomiting, abdominal pain and shortness of breath. These are all chronic issues for the patient, but the abdominal pain has been worse in the last 5 days and usual. Patient states that she fired her GI doctor because she did not agree with being on Humira and she is currently off of immunologics. Has not been taking albuterol because it doesn't work for me. We will order labs, CT imaging, medications for nausea, fluids. Orders Ordered: ED Orders 12/01/22 07:38 EKG-12 Lead Stat 12/01/22 07:39 CT abdomen pelvis w con Stat 12/01/22 07:48 Chest [XR chest 1V] Stat 12/01/22 07:50 Complete Blood Count AUTO DIFF Stat Comprehensive Metabolic Panel Stat Lactate (Lactic Acid) Stat Lipase Stat 12/01/22 10:15 Urine Culture Stat Urine Microscopic Stat Discontinued Medications Albuterol/Ipratropium (Albuterol/Ipratropium 3 Ml Ampul) 6 ml INH NOW ONE Stop: 12/01/22 10:40 Last Admin: 12/01/22 10:48 Dose: 6 ml Documented By: MEGHNA Sodium Chloride (Normal Saline 0.9%) 1,000 mls @ 1,000 mls/hr IV BOLUS ONE Stop: 12/01/22 08:37 Last Infusion: 12/01/22 08:35 Dose: Infused Documented By: Admin: 12/01/22 07:52 Dose: 1,000 mls/hr Documented By: ANNA Methylprednisolone (Methylprednisolone 125 Mg/2 Ml Vial) 125 mg IV NOW ONE Stop: 12/01/22 10:40 Last Admin: 12/01/22 10:46 Dose: 125 mg Documented By: BITA Morphine Sulfate (Morphine 4 Mg/Ml Inj) 4 mg IV NOW ONE Stop: 12/01/22 09:31 Last Admin: 12/01/22 09:38 Dose: 4 mg Documented By: KF Ondansetron HCl (Ondansetron 4 Mg/2 Ml Inj) 4 mg IV NOW ONE Stop: 12/01/22 07:39 Last Admin: 12/01/22 07:52 Dose: 4 mg Documented By: SPF Reevaluation(s) Reevaluation #1: Patient is feeling improved after medications, tolerating ice chips. No emesis noted while in department. Laboratory work is reviewed, no significant electrolyte abnormalities. Mild increase in liver enzymes, uncertain significance. CT of the abdomen and pelvis shows ?question partial/early small- bowel obstruction versus ileus pattern?. This has been ongoing for at least 5 days with normal electrolytes. Discussed case with Dr. Foley of general surgery. I reviewed the CT report, Dr. Foley agrees that since this has been ongoing for multiple days and patient has a soft abdomen with no electrolyte derangements this is stable for discharge home. Recommended outpatient GI follow up. Patient and informed of all imaging results at bedside. Recommended against narcotics as this can decreased motility and lead to worsening symptoms. I recommended GI follow up and primary care follow up. Patient is sent home with Reglan for its antinausea and pro-motility properties. Patient requested a different nebulizer for home use since albuterol ?does not work on me?. I informed the patient that albuterol is part of the nebulizer that she received today that she reported improvement with. We will also send patient home on Atrovent. Has been at bedside states that he will help the patient with her medications and will follow up. ED return precautions discussed at bedside. Patient expressed understanding of the plan and is in agreement at this time. All questions answered at the time of discharge. Consultations Consultation #1: Dr. Foley (General surgery) - reviewed CT report, since symptoms ongoing for 5 days with normal electrolytes this is stable for outpatient follow up. No need for hospitalization. Vital Signs Vital signs: Vital Signs - 8 hr 12/01/22 07:41 12/01/22 07:42 12/01/22 07:42 Temperature 96.8 F L Pulse Rate 131 H 113 H Respiratory Rate 24 Blood Pressure 177/103 H 177/103 H Pulse Oximetry 94 92 Oxygen Delivery Method Room Air Oxygen Flow Rate Fraction of Inspired Oxygen 12/01/22 07:42 12/01/22 08:00 12/01/22 08:00 Temperature Pulse Rate 120 H 107 H Respiratory Rate 24 Blood Pressure 159/81 H Pulse Oximetry 93 92 Oxygen Delivery Method Oxygen Flow Rate Fraction of Inspired Oxygen 12/01/22 08:42 12/01/22 08:45 12/01/22 08:45 Temperature Pulse Rate 102 H 100 H Respiratory Rate 27 H Blood Pressure 167/100 H Pulse Oximetry 93 94 Oxygen Delivery Method Oxygen Flow Rate Fraction of Inspired Oxygen 12/01/22 09:00 12/01/22 09:00 12/01/22 09:30 Temperature Pulse Rate 96 H Respiratory Rate 22 Blood Pressure 150/90 H 145/80 H Pulse Oximetry 96 Oxygen Delivery Method Oxygen Flow Rate Fraction of Inspired Oxygen 12/01/22 09:30 12/01/22 10:00 12/01/22 10:00 Temperature Pulse Rate 97 H 97 H Respiratory Rate 23 10 L Blood Pressure 139/87 Pulse Oximetry 93 93 Oxygen Delivery Method Oxygen Flow Rate Fraction of Inspired Oxygen 12/01/22 10:30 12/01/22 10:30 12/01/22 10:48 Temperature Pulse Rate 102 H 84 Respiratory Rate 27 H 20 Blood Pressure 139/78 Pulse Oximetry 94 95 Oxygen Delivery Method Room Air Room Air Oxygen Flow Rate 0 Fraction of Inspired Oxygen 21 12/01/22 11:00 12/01/22 11:00 12/01/22 11:32 Temperature Pulse Rate 105 H 127 H Respiratory Rate 28 H Blood Pressure 128/64 Pulse Oximetry 98 96 Oxygen Delivery Method Room Air Oxygen Flow Rate Fraction of Inspired Oxygen 12/01/22 11:42 12/01/22 11:43 12/01/22 11:43 Temperature Pulse Rate 124 H 125 H Respiratory Rate 34 H 16 Blood Pressure 151/89 H Pulse Oximetry 93 92 Oxygen Delivery Method Oxygen Flow Rate Fraction of Inspired Oxygen MDM - Nausea/Vomiting/Diarrhea Differential Diagnosis Differential diagnosis: Likely traveler's diarrhea, food poisoning and gastroenteritis Lab Data 12/01/22 07:50 12/01/22 07:50 Labs: Lab Results 12/01/22 12/01/22 Range/Units 07:50 10:15 WBC 11.8 H (4.5-11.0) X10^3/uL RBC 4.37 (4.0-5.2) X10^6/uL Hgb 13.4 (12.0-16.0) g/dL Hct 39.6 (36-46) % MCV 90.6 (80-100) fL MCH 30.5 (26-34) PG MCHC 33.7 (30-36) % RDW 13.5 (11.6-14.8) % Plt Count 314 (150-400) X10^3/uL Neut % (Auto) 75.1 H (50-75) % Lymph % (Auto) 17.0 L (25-40) % [place] % (Auto) 5.2 (3-14) % Eos % (Auto) 2.2 (2-4) % Baso % (Auto) 0.5 (0-2) % Neut # (Auto) 8900 H (4327-7622) /uL Lymph # (Auto) 2000 (5928-6223) /uL [place] # (Auto) 600 (0-900) /uL Eos # (Auto) 300 (0-450) /uL Baso # (Auto) 100 (0-100) /uL Sodium 133 L (137-145) mmol/L Potassium 4.0 (3.4-5.1) mmol/L Chloride 99 (98-107) mmol/L Carbon Dioxide 23 (22-32) mmol/L BUN 15 (7-17) mg/dL Creatinine 0.87 (0.52-1.04) mg/dL Estimated GFR > 60 (>60) mL/min BUN/Creatinine Ratio 17.2 (6-22) Glucose 125 H (80-110) mg/dL Lactate 1.9 (0.7-2.1) mmol/L Calcium 12.4 H (8.4-10.2) mg/dL Total Bilirubin 0.6 (0.2-1.3) mg/dL AST 50 H (14-36) IU/L ALT 41 H (<35) IU/L Alkaline Phosphatase 128 H (38-126) U/L Total Protein 8.3 H (6.3-8.2) g/dL Albumin 4.8 (3.5-5.0) g/dL Globulin 3.5 (1.7-4.1) g/dL Albumin/Globulin Ratio 1.4 (1.0-2.8) Lipase 60 (23-300) U/L Urine RBC 1-5/hpf (0-5/HPF) Urine WBC 1-5/hpf (0-5/HPF) Ur Squamous Epith Cells 1-5 /hpf (0-5/HPF) Urine Bacteria None seen (None) Ur Culture Indicated? Specimen cultured Urine Dip Bedside Urine Glucose Negative Bedside Urine Bilirubin - Negative Bedside Urine Ketone - Negative Urine Specific [place] 1.010 Bedside Urine Occult Blood - Negative Bedside Urine pH 6.0 Bedside Urine Protein - Negative Bedside Urine Urobilinogen - Negative Bedside Urine Nitrite - Negative Bedside Urine Leukocytes +/- 15 Esterase Discharge Plan Departure Patient Disposition: Home Clinical Impression: Abdominal pain Qualifiers: Abdominal location: upper abdomen, unspecified Qualified Code(s): R10.10 - Upper abdominal pain, unspecified COPD (chronic obstructive pulmonary disease) Qualifiers: COPD type: unspecified COPD Qualified Code(s): J44.9 - Chronic obstructive pulmonary disease, unspecified Instructions: DI for Crohn Disease, DI for Chronic Obstructive Pulmonary Disease Prescriptions: New metoclopramide HCl [Reglan] 10 mg tablet 10 mg PO Q6H PRN (Reason: nausea and vomiting) Qty: 30 0RF Atrovent HFA 17 mcg/actuation HFA aerosol inhaler 2 puff inhalation Q8H Qty: 12.9 0RF No Action trazodone 50 mg tablet See Rx Instructions PO BEDTIME PRN (Reason: insomnia) Qty: 180 3RF Rx Instructions: Take 100 to 200 bedtime carbamazepine 200 mg capsule, ER multiphase 12 hr 200 mg PO BID Qty: 60 1RF albuterol sulfate [Ventolin HFA] 90 mcg/actuation HFA aerosol inhaler 2 puff inhalation Q4-6H PRN (Reason: shortness of breath or wheezing) Qty: 8.5 3RF lidocaine HCl 2 % solution 15 ml mucous membrane QID PRN (Reason: pain) Qty: 100 2RF Rx Instructions: Apply 15mL to mucous membranes as needed for oral pain 4 times per day spironolactone 50 mg tablet 50 mg PO QAM Qty: 90 3RF ondansetron 4 mg tablet,disintegrating See Rx Instructions .ROUTE .COMPLEX Qty: 60 3RF Dose Instruction: DISSOLVE 1 TABLET ON THE TONGUE EVERY 6 HOURS NEEDED FOR NAUSEA OR VOMITING Rx Instructions: DISSOLVE 1 TABLET ON THE TONGUE EVERY 6 HOURS NEEDED FOR NAUSEA OR VOMITING promethazine 25 mg tablet 25 mg PO TID PRN (Reason: nausea) Qty: 30 0RF Rx Instructions: Take 1/2 - 1 tab am and pm, and 1 more dose as needed per day, max dose 3/day buspirone 10 mg tablet 20 mg PO BID Qty: 360 1RF levothyroxine [Synthroid] 137 mcg tablet 137 mcg PO DAILY Qty: 90 1RF Rx Instructions: Brand name only. ipratropium bromide 17 mcg/actuation HFA aerosol inhaler 2 inh inhalation Q6H PRN (Reason: shortness of breath or wheezing) Qty: 12.9 0RF buprenorphine-naloxone [Suboxone] 12-3 mg film 2 film buccal Q24H Qty: 60 3RF Rx Instructions: 2 film under tongue daily for pain management omeprazole 40 mg capsule,delayed release(DR/EC) 40 mg PO DAILY naloxone 0.4 mg/mL syringe 0.4 mg IM Q2M PRN (Reason: opioid reversal) Qty: 10 1RF Rx Instructions: NTExceed 10 mg total dose/episode ferrous sulfate [Iron (ferrous sulfate)] 325 mg (65 mg iron) Tablet 65 mg PO DAILY Referrals: Liat Hernandez ARNP [Primary Care Provider] - Stand Alone Forms: Patient Portal/API
--- NOTE | 2022-12-01 07:48 | DI.RAD.S_ITS ---
PROCEDURE: XR CHEST 1V INDICATIONS: low O2, vomiting TECHNIQUE: One view of the chest was acquired. COMPARISON: [facility], CR, XR CHEST 1V, 06/24/2022, 11:39. FINDINGS: Surgical changes and devices: None. Lungs and pleura: Lungs are clear. No pleural effusions or pneumothorax. Mediastinum: Mediastinal contours appear normal. Heart size is normal. Bones and chest wall: No suspicious bony lesions. Overlying soft tissues appear unremarkable. IMPRESSION: Portable chest within normal limits for age. Dictated by: Anita Rhodes M.D. on 12/01/2022 at 8:20 Approved by: Anita Rhodes M.D. on 12/01/2022 at 8:21
[2022-12-01] MEDS: SODIUM CHLORIDE 0.9% 1,000 ML 1000 ML IV (07:52)
[2022-12-01] MEDS: ONDANSETRON 4 MG/2 ML INJ IV (07:52)
[2022-12-01 08:01] LABS: Add Manual Diff / Slide Review NO; Basophils Absolute Auto 100 /uL (0-100); Basophils Percent Auto 0.5 % (0-2); Eosinophils Absolute Auto 300 /uL (0-450); Eosinophils Percent Auto 2.2 % (2-4); Hematocrit 39.6 % (36-46); Hemoglobin 13.4 g/dL (12.0-16.0); Lymphocytes Absolute Auto 2000 /uL (1100-4500); Mean Corpuscular HGB Conc 33.7 % (30-36); Mean Corpuscular Hemoglobin 30.5 PG (26-34); Mean Corpuscular Volume 90.6 fL (80-100); Monocytes Absolute Auto 600 /uL (0-900); Monocytes Percent Auto 5.2 % (3-14); Neutrophils Absolute Auto 8900 /uL (1500-7000); Neutrophils Percent Auto 75.1 % (50-75); Platelet Count 314 X10^3/uL (150-400); Red Blood Cell Count 4.37 X10^6/uL (4.0-5.2); Red Cell Distribution Width 13.5 % (11.6-14.8); White Blood Cell Count 11.8 X10^3/uL (4.5-11.0)
[2022-12-01 08:13] LABS: Alanine Aminotransferase 41 IU/L (<35); Albumin 4.8 g/dL (3.5-5.0); Albumin Globulin Ratio 1.4 (1.0-2.8); Alkaline Phosphatase 128 U/L (38-126); Aspartate Aminotransferase 50 IU/L (14-36); BUN Creatinine Ratio 17.2 (6-22); Bilirubin Total 0.6 mg/dL (0.2-1.3); Blood Urea Nitrogen 15 mg/dL (7-17); Calcium 12.4 mg/dL (8.4-10.2); Carbon Dioxide 23 mmol/L (22-32); Chloride 99 mmol/L (98-107); Estimated Glomerular Filt Rate > 60 mL/min (>60); Globulin 3.5 g/dL (1.7-4.1); Glucose 125 mg/dL (80-110); HEMOLYSIS 28 (0-50); Lactate (Lactic Acid) 1.9 mmol/L (0.7-2.1); Lipase 60 U/L (23-300); Sodium 133 mmol/L (137-145); Total Protein 8.3 g/dL (6.3-8.2)
[2022-12-01] MEDS: MORPHINE 4 MG/ML INJ IV (09:38)
[2022-12-01 10:44] LABS: Bacteria Urine None Seen; Culture Indicated Urine Specimen Cultured; RBC Urine 1-5/HPF (0-5/HPF); Squamous Epithelial Cell Urine 1-5 /HPF (0-5/HPF); WBC Urine 1-5/HPF (0-5/HPF)
[2022-12-01] MEDS: methylPREDNISolone 125 MG/2 ML VIAL IV (10:46)
[2022-12-01] MEDS: ALBUTEROL/IPRATROPIUM 3 ML AMPUL 6 ML INH (10:48)
== END 2022-12-01 11:53 | disposition home or self-care (01) ==
PROVIDERS: Emergency Provider Emergency Medicine; Family Provider Psychiatry & Neurology Psychiatry; PCP Nurse Practitioner
DX: R10.10 Upper abdominal pain, unspecified (principal); J44.9 Chronic obstructive pulmonary disease, unspecified; R11.2 Nausea with vomiting, unspecified; Z79.899 Other long term (current) drug therapy
CPT/HCPCS: 36415; 71045; 74177; 80053; 81003; 81015; 83605; 83690; 85025; 87086; 93005; 93010; 94640; 96361; 96374; 96375; 99284; 99285; J2270; J2405; J2930; Q9967

== ENCOUNTER → 2023-03-24 08:45 | Outpatient (CLI) | payer MEDICARE, OTHER, SELFPAY ==
[2022-12-08 13:17] VITALS: BMI 36.3
--- NOTE | 2023-03-24 09:00 | DI.US.S_ITS ---
PROCEDURE: US ABDOMEN COMPLETE INDICATIONS: pain in right upper quad, r/o hepatic steatosis, elevated LF TECHNIQUE: Real-time scanning was performed of the abdominal and retroperitoneal organs, with image documentation. COMPARISON: [facility], US, US ABDOMEN LIMITED, 06/03/2022, 11:40. [facility], CT, CT ABDOMEN PELVIS W CON, 12/01/2022, 7:55. FINDINGS: Liver: 15 cm. Increased echogenicity. Gallbladder: Absent Biliary ducts: Intrahepatic bile ducts are non-dilated. Extrahepatic bile duct caliber measures 7 mm. Normal is 6-7 mm or less in diameter, or 10 mm or less post-cholecystectomy. Pancreas: Limited visualization. Spleen: Spleen is normal in size and homogeneous in echotexture. Kidneys: Kidneys are normal in size and echotexture. Right kidney measures 10 cm long; left kidney measures 10 cm long. No hydronephrosis or nephrolithiasis. No solid masses. Echogenic cortex. Aorta: Visualized aorta is normal in caliber at less than 3 cm. Iliacs: Proximal common iliac arteries are normal in caliber at less than 2.5 cm. IVC: Intrahepatic inferior vena cava is patent. Miscellaneous: No free abdominal fluid. IMPRESSION: Increased hepatic echogenicity is nonspecific, most commonly due to steatosis or fibrofatty infiltration. Gallbladder is absent. No pathologic biliary ductal dilation allowing for post cholecystectomy state. Echogenic, slightly thin renal cortices suggestive of medical renal disease. Dictated by: Brodie Hernandez M.D. on 03/24/2023 at 10:43 Approved by: Brodie Hernandez M.D. on 03/24/2023 at 10:45
[2023-03-24 10:07] LABS: Add Manual Diff / Slide Review NO; Basophils Absolute Auto 0 /uL (0-100); Basophils Percent Auto 0.6 % (0-2); Eosinophils Absolute Auto 200 /uL (0-450); Eosinophils Percent Auto 2.5 % (2-4); Hematocrit 38.2 % (36-46); Hemoglobin 12.9 g/dL (12.0-16.0); Lymphocytes Absolute Auto 1100 /uL (1100-4500); Lymphocytes Percent Auto 15.5 % (25-40); Mean Corpuscular HGB Conc 33.7 % (30-36); Mean Corpuscular Hemoglobin 30.7 PG (26-34); Monocytes Absolute Auto 400 /uL (0-900); Monocytes Percent Auto 4.9 % (3-14); Neutrophils Absolute Auto 5500 /uL (1500-7000); Neutrophils Percent Auto 76.5 % (50-75); Platelet Count 323 X10^3/uL (150-400); Red Blood Cell Count 4.19 X10^6/uL (4.0-5.2); Red Cell Distribution Width 13.2 % (11.6-14.8); White Blood Cell Count 7.1 X10^3/uL (4.5-11.0)
[2023-03-24 10:29] LABS: Erythrocyte Sedimentation Rate 20 MM/HR (0-20)
--- NOTE | 2023-03-24 10:30 | DI.RAD.S_ITS ---
Bone Density Report Name: HARSH PARRA Age: 62 Sex: Female Ethnicity: White Date of : 1960 Indication: osteopenia; monitoring treatment; Referring Provider: DARIO MAK Study: Bone densitometry was performed. Exam Date: March 24, 2023 Accession number: [id number] Bone Density: Region BMD T-score Z-score Classification AP Spine(L1, L2) 0.937 -0.4 1.2 Normal Femoral Neck (Left) 0.621 -2.1 -0.6 Osteopenia Total Hip (Left) 0.766 -1.4 -0.3 Osteopenia Femoral Neck (Right) 0.658 -1.7 -0.3 Osteopenia Total Hip (Right) 0.791 -1.2 -0.1 Osteopenia Total Hip Mean 0.779 -1.3 -0.2 Osteopenia World Health Organization criteria for BMD impression classify patients as: Normal (T-score at or above -1.0), Osteopenia (T-score between -1.0 and -2.5), or Osteoporosis (T-score at or below -2.5). 10-year Fracture Risk: FRAX not reported because: Treated for osteoporosis Previous Exams: -- Region Exam Age BMD T-score BMD Change BMD Change Date g/cm2 vs Baseline vs Previous -- AP Spine (L1-L2) 03/24/2023 62 0.937 -0.4 0.015 (1.6%)# 0.015 (1.6%)# 12/01/2019 59 0.922 -0.5 Total Hip(Left) 03/24/2023 62 0.766 -1.4 0.029 (3.9%)# 0.029 (3.9%)# 12/01/2019 59 0.737 -1.7 Total Hip(Right) 03/24/2023 62 0.791 -1.2 0.033 (4.3%)# 0.033 (4.3%)# 12/01/2019 59 0.759 -1.5 -- *Denotes significance at 95% confidence level, LSC for AP Spine = 0.022 g/cm2, LSC for Total Hip = 0.027 g/cm2 # Denotes dissimilar scan types or analysis methods Impression: The patient has low bone mass, based on the Left Femoral Neck T-score. No significant bone loss was observed. Discussion: PATIENT UNDER TREATMENT WITH NO SIGNIFICANT BMD LOSS SINCE LAST EXAM. In an untreated patient, BMD typically declines with age. A lack of decline or gain is usually a sign that treatment is efficacious and fracture risk is reduced. It is important to ask patients whether they are taking their medications and to encourage continued and appropriate compliance with their osteoporosis therapies to reduce fracture risk. It is also important to review their risk factors and encourage appropriate calcium and vitamin D intakes, exercise, fall prevention and other lifestyle measures. Follow-Up: Consider a repeat BMD and Vertebral Fracture Assessment (VFA) exam in 2 years or sooner if medically necessary, to reassess this patient's status. Reported by: RIKKI DOWNING M.D. on 03/24/2023 10:26:00 AM.
[2023-03-24 10:33] LABS: HEMOLYSIS < 15 (0-50); Iron 98 ug/dL (37-170)
[2023-03-24 10:43] LABS: Percent Iron Saturation 32 % (15-50); Total Iron Binding Capacity 309 ug/dL (265-497); Transferrin 269 mg/dL (206-381)
[2023-03-24 10:45] LABS: Free T3, Triiodothyronine Free 3.57 pg/mL (2.77-5.27); Free T4, Direct Thyroxine 0.96 ng/dL (0.78-2.19)
[2023-03-24 10:58] LABS: Thyroid Stimulating Hormone 5.57 uIU/mL (0.47-4.68)
[2023-03-24 11:39] LABS: Alanine Aminotransferase 34 IU/L (<35); Albumin 4.4 g/dL (3.5-5.0); Albumin Globulin Ratio 1.3 (1.0-2.8); Alkaline Phosphatase 126 U/L (38-126); Aspartate Aminotransferase 32 IU/L (14-36); BUN Creatinine Ratio 16.3 (6-22); Bilirubin Total 0.7 mg/dL (0.2-1.3); Blood Urea Nitrogen 15 mg/dL (7-17); C-Reactive Protein Quant 0.9 mg/dL (<1.0); Calcium 11.8 mg/dL (8.4-10.2); Carbon Dioxide 24 mmol/L (22-32); Chloride 106 mmol/L (98-107); Estimated Glomerular Filt Rate > 60 mL/min (>60); Globulin 3.5 g/dL (1.7-4.1); Glucose 105 mg/dL (80-110); HEMOLYSIS < 15 (0-50); Potassium 4.6 mmol/L (3.4-5.1); Sodium 140 mmol/L (137-145); Total Protein 7.9 g/dL (6.3-8.2)
[2023-03-24 11:40] LABS: Rheumatoid Factor < 8.6 IU/mL (<12.0)
[2023-03-24 12:25] LABS: Vitamin B12 253 pg/mL (239-931)
[2023-03-25 12:09] LABS: Labcorp Hemoglobin (Hb) A1c 5.4 % (4.8-5.6)
[2023-03-26 20:30] LABS: Calcium 11.9 mg/dL (8.7-10.3); Parathyroid Hormone, Intact 102 pg/mL (15-65)
[2023-03-29 17:58] LABS: ANA Screen, IFA Positive (.)
== END ==
PROVIDERS: Family Provider Psychiatry & Neurology Psychiatry; PCP Nurse Practitioner; Referring Provider Nurse Practitioner; Visit Provider Nurse Practitioner
DX: R10.11 Right upper quadrant pain (principal); M81.0 Age-related osteoporosis without current pathological fracture; F31.30 Bipolar disorder, current episode depressed, mild or moderate severity, unspecified; K50.90 Crohn's disease, unspecified, without complications; F41.9 Anxiety disorder, unspecified; I10 Essential (primary) hypertension; R73.01 Impaired fasting glucose; M25.50 Pain in unspecified joint; E83.52 Hypercalcemia; Z90.49 Acquired absence of other specified parts of digestive tract
CPT/HCPCS: 36415; 76700; 77080; 80053; 82310; 82607; 83036; 83540; 83550; 83970; 84439; 84443; 84481; 85025; 85651; 86038; 86140; 86430

== ENCOUNTER 2023-04-01 04:23 | Emergency (ER) | payer MEDICARE, OTHER, SELFPAY ==
[2022-12-08 13:17] VITALS: BMI 36.3
[2023-04-01] VITALS (11 sets, daily range): BP systolic 120–161; BP diastolic 63–95; PULSE 58–94; RESP 12–34; TEMP 37; O2SAT 93–99; BMI 31.4
--- NOTE | 2023-04-01 04:33 | ED_ITS ---
HPI - Abdominal Pain General Chief Complaint: Abdominal Pain Stated Complaint: vomiting Time Seen by Provider: 04/01/23 04:26 History of Present Illness HPI narrative: patient comes to the ED today with about 18 hours of vomiting. She has had multiple episodes of cyclic vomiting previously with no definitive diagnosis made. She does not use marijuana. She does not drink alcohol. She does not have diabetes. She has not had fever, diarrhea, abdominal pain or chest pain or shortness of breath. Just persistent nausea and vomiting. Zofran has been ineffective. This episode started about 7:00 a.m. yesterday so we are nearly 24 hours Related Data Home Medications Medication Instructions Recorded Confirmed ferrous sulfate 325 mg (65 mg 65 mg PO DAILY anemia 07/05/21 12/31/22 iron) tablet (Iron (ferrous sulfate)) Previous Rx's Medication Instructions Recorded naloxone 0.4 mg/mL injection 0.4 mg IM Q2M PRN opioid reversal 05/14/22 syringe #10 mL trazodone 50 mg tablet See Rx Instructions PO BEDTIME PRN 08/19/22 insomnia #180 tabs promethazine 25 mg tablet 25 mg PO TID PRN nausea #30 tabs 09/16/22 buspirone 10 mg tablet 20 mg (2 x 10 mg) PO BID #360 tabs 10/06/22 ipratropium bromide 17 2 inh inhalation Q6H PRN shortness 11/24/22 mcg/actuation HFA aerosol inhaler of breath or wheezing #12.9 grams ipratropium bromide 17 2 puff inhalation Q8H #12.9 grams 12/01/22 mcg/actuation HFA aerosol inhaler (Atrovent HFA) fluticasone 250 mcg-salmeterol 50 1 inh inhalation BID #60 ea 12/16/22 mcg/dose blistr powdr for inhalation (Advair Diskus) naloxegol 12.5 mg tablet (Movantik) 25 mg (2 x 12.5 mg) PO QAM #180 12/16/22 tabs lisinopril 20 mg tablet 20 mg PO DAILY #90 tabs 01/05/23 sucralfate 100 mg/mL oral 1 g (10 mL) PO BID #420 mL 01/16/23 suspension (Carafate) lidocaine HCl 2 % mucosal solution 15 ml mucous membrane QID PRN pain 02/04/23 #100 mL dexamethasone 0.5 mg/5 mL oral 0.5 mg (5 mL) PO TID PRN mouth 03/18/23 elixir sores #237 mL famotidine 40 mg tablet 40 mg PO DAILY #90 tabs 03/18/23 ondansetron 8 mg disintegrating 8 mg PO Q8H #60 tabs 03/18/23 tablet oxycodone 5 mg tablet 10 mg (2 x 5 mg) PO TID PRN pain 03/18/23 30 days #180 tabs Synthroid 137 mcg tablet 137 mcg PO DAILY #90 tabs 03/30/23 (levothyroxine) promethazine 25 mg rectal 25 mg MA Q6H PRN nausea and 04/01/23 suppository vomiting #12 ea Allergies Allergy/AdvReac Type Severity Reaction Status Date / Time Penicillins Allergy Severe Rash Verified 12/31/22 10:28 Sulfa (Sulfonamide Allergy Intermediate Hives Verified 12/31/22 10:28 Antibiotics) adalimumab [From Humira] Allergy Unknown Verified 12/31/22 10:28 pregabalin AdvReac Severe lower Verified 12/31/22 10:28 extremity swelling quetiapine [From Seroquel] AdvReac Intermediate Verified 12/31/22 10:28 Patient History Medical History (Updated 04/01/23 @ 07:37 by Aneudy Spence MD) Hyperparathyroidism RAYSHAWN positive Hypertension Lumbar spondylosis COPD (chronic obstructive pulmonary disease) Therapeutic opioid-induced constipation (OIC) Stress fracture of right tibia Pain of right lower extremity Adalimumab (Humira) long-term use Leg swelling Spasms of the hands or feet Hand weakness Ataxia Lower extremity edema Immunosuppressed status Pneumonia Acute hypoxemic respiratory failure Chronic back pain greater than 3 months duration HLD (hyperlipidemia) Vitamin D deficiency Mouth sores Other spondylosis, lumbar region Radiculopathy, lumbar region Back pain of lumbar region with sciatica Tobacco use disorder, mild, in early remission Opacity of lung on imaging study Pulmonary scarring Allergy to antibiotic Oral lesion Glomerulonephritis Hepatitis B surface antigen positive Hepatitis A test positive Small bowel obstruction Pharyngitis COVID-19 vaccine series declined Depressed bipolar affective disorder Serum calcium elevated Elevated parathyroid hormone Oral lesion Insomnia Elevated liver enzymes Osteopenia of multiple sites Decreased GFR Left foot pain Acute renal insufficiency Nausea & vomiting Hypercalcemia Bronchospasm Foot pain, left Lower extremity pain, posterior Encounter for tobacco use cessation counseling Cough Attention deficit disorder Tobacco abuse disorder Eczema History of emphysema (~2017) Sleep apnea Chronic cough Asthma Abnormal chest xray Post traumatic stress disorder (PTSD) Depression (~1988) Anxiety Seizure Restless leg syndrome Migraines Headache ADHD Osteoporosis (~2016) Foot pain (~2018) Chronic back pain (~2003) Ankle pain (~2017) MRSA (methicillin resistant Staphylococcus aureus) (~2004) Chicken pox Anemia (~2016) Cataracts, bilateral (~2018) Kidney disease (~1974) Hemorrhoid (~1979) Crohn's disease (~2009) Hypothyroidism (~1989) Skin cancer, basal cell (~2016) Marijuana use Eczema Asthma Restless legs syndrome Chronic post-traumatic stress disorder (PTSD) Bipolar disorder in partial remission Cataracts, bilateral Kidney disease Chronic pain Surgical History S/P tonsillectomy History of intestinal surgery History of cholecystectomy History of partial hysterectomy History of section Family History Mother Cancer Alzheimer disease Father Heart disease Kidney disease Social History household members: spouse Smoking Status: Former smoker alcohol intake: former Smoking Status: Former smoker tobacco type: vaping alcohol intake frequency: other Substance Use Type: does not use Exam Narrative Exam Narrative: GENERAL: Alert, cooperative and in no distress. HEAD: Atraumatic. Normocephalic. EYES: Sclera are clear without icterus. Extraocular movements are full. ENT: No rhinorrhea. NECK: Supple. Full range of motion. CARDIOVASCULAR: Normal rate and rhythm without murmur gallop or rub. RESPIRATORY: Clear to auscultation. Breath sounds equal bilaterally. No wheezes, rales, or rhonchi. GASTROINTESTINAL: Abdomen soft, non-tender, nondistended. EXTREMITIES: No edema, full range of motion. No obvious trauma. BACK: Normal inspection NEURO: Nonfocal examination, normal speech SKIN: No rash or erythema of visible areas PSYCH: Normally oriented. Normal range of affect. Appropriate behavior Initial Vital Signs Initial Vital Signs: Vital Signs Pulse Rate 94 H 04/01/23 04:31 Pulse Oximetry 99 04/01/23 04:31 Oxygen Delivery Method Room Air 04/01/23 04:31 Course Orders Ordered: ED Orders 04/01/23 04:38 CBC Auto Diff [Complete Blood Count AUTO DIFF] Stat CMP [Comprehensive Metabolic Panel] Stat Discontinued Medications Diazepam (Diazepam 10 Mg/2 Ml Syringe) 2 mg IV NOW ONE Stop: 04/01/23 04:33 Last Admin: 04/01/23 04:49 Dose: 2 mg Documented By: NARAYAN Droperidol (Droperidol 5 Mg/2 Ml Vial) 2.5 mg IV NOW ONE Stop: 04/01/23 04:33 Last Admin: 04/01/23 04:48 Dose: 2.5 mg Documented By: NARAYAN Sodium Chloride (Normal Saline 0.9%) 1,000 mls @ 2,000 mls/hr IV BOLUS ONE Stop: 04/01/23 05:01 Last Infusion: 04/01/23 06:00 Dose: Infused Documented By: Admin: 04/01/23 04:45 Dose: 2,000 mls/hr Documented By: NARAYAN Ketorolac Tromethamine (Ketorolac 30 Mg/Ml Vial) 15 mg IV NOW ONE Stop: 04/01/23 04:33 Last Admin: 04/01/23 04:46 Dose: 15 mg Documented By: NARAYAN Vital Signs Vital signs: Vital Signs - 8 hr 04/01/23 04:31 04/01/23 04:33 04/01/23 05:00 Temperature 98.6 F Pulse Rate 94 H 93 H 74 Respiratory Rate 17 14 Blood Pressure 161/95 H Pulse Oximetry 99 94 94 Oxygen Delivery Method Room Air Room Air Room Air 04/01/23 05:17 04/01/23 05:17 04/01/23 05:30 Temperature Pulse Rate 77 74 Respiratory Rate 19 12 Blood Pressure 125/73 Pulse Oximetry 94 93 Oxygen Delivery Method 04/01/23 05:30 04/01/23 06:00 04/01/23 06:00 Temperature Pulse Rate 71 Respiratory Rate 20 Blood Pressure 125/68 122/71 Pulse Oximetry 96 Oxygen Delivery Method 04/01/23 06:30 04/01/23 06:30 04/01/23 07:00 Temperature Pulse Rate 58 L 59 L Respiratory Rate 22 13 Blood Pressure 120/71 Pulse Oximetry 97 98 Oxygen Delivery Method 04/01/23 07:27 04/01/23 07:27 04/01/23 07:30 Temperature Pulse Rate 74 62 Respiratory Rate 34 H 20 Blood Pressure 126/63 Pulse Oximetry 98 97 Oxygen Delivery Method 04/01/23 07:31 04/01/23 07:31 Temperature Pulse Rate 63 Respiratory Rate 25 H Blood Pressure 147/67 H Pulse Oximetry 97 Oxygen Delivery Method MDM - Abdominal Pain Lab Data 04/01/23 04:38 04/01/23 04:38 Labs: Lab Results 04/01/23 Range/Units 04:38 WBC 8.7 (4.5-11.0) X10^3/uL RBC 4.17 (4.0-5.2) X10^6/uL Hgb 12.9 (12.0-16.0) g/dL Hct 38.1 (36-46) % MCV 91.5 (80-100) fL MCH 31.0 (26-34) PG MCHC 33.9 (30-36) % RDW 13.0 (11.6-14.8) % Plt Count 334 (150-400) X10^3/uL Neut % (Auto) 77.1 H (50-75) % Lymph % (Auto) 14.7 L (25-40) % Chaves % (Auto) 6.4 (3-14) % Eos % (Auto) 1.3 L (2-4) % Baso % (Auto) 0.5 (0-2) % Neut # (Auto) 6700 (2670-6121) /uL Lymph # (Auto) 1300 (4552-2961) /uL Chaves # (Auto) 600 (0-900) /uL Eos # (Auto) 100 (0-450) /uL Baso # (Auto) 0 (0-100) /uL Sodium 140 (137-145) mmol/L Potassium 4.2 (3.4-5.1) mmol/L Chloride 108 H (98-107) mmol/L Carbon Dioxide 21 L (22-32) mmol/L BUN 10 (7-17) mg/dL Creatinine 0.96 (0.52-1.04) mg/dL Estimated GFR > 60 (>60) mL/min BUN/Creatinine Ratio 10.4 (6-22) Glucose 110 (80-110) mg/dL Calcium 10.8 H (8.4-10.2) mg/dL Total Bilirubin 1.2 (0.2-1.3) mg/dL AST 27 (14-36) IU/L ALT 27 (<35) IU/L Alkaline Phosphatase 114 (38-126) U/L Total Protein 7.4 (6.3-8.2) g/dL Albumin 4.1 (3.5-5.0) g/dL Globulin 3.3 (1.7-4.1) g/dL Albumin/Globulin Ratio 1.2 (1.0-2.8) MDM Narrative Medical decision making narrative: Patient looks uncomfortable with an emesis bag in her hand. She says she has had this same constellation of symptoms many times in the past. She is frustrated by its presence. She says this is precisely light episode she is experienced previously. My plan is to treat her symptomatically and see if we can get symptoms to resolve as well as check basic labs Patient feels quite a bit better now and would like to go home. Labs are reassuring. I think home disposition is safe and appropriate. Discharge Plan Departure Patient Disposition: Home Clinical Impression: Cyclic vomiting syndrome Instructions: DI for Vomiting -- Adult Activity Restrictions/Additional Instructions: I am sorry that you had this very difficult problem but I am glad you are feeling somewhat better. Keep herself well hydrated. If symptoms return you can use promethazine either oral tablets or rectal suppositories which I have prescribed. You can take 25 or 50 mg of promethazine every 6 hours. Follow-up with your doctor to discuss further investigation as warranted. Prescriptions: New promethazine 25 mg suppository 25 mg MA Q6H PRN (Reason: nausea and vomiting) Qty: 12 0RF No Action trazodone 50 mg tablet See Rx Instructions PO BEDTIME PRN (Reason: insomnia) Qty: 180 3RF Rx Instructions: Take 100 to 200 bedtime promethazine 25 mg tablet 25 mg PO TID PRN (Reason: nausea) Qty: 30 0RF Rx Instructions: Take 1/2 - 1 tab am and pm, and 1 more dose as needed per day, max dose 3/day buspirone 10 mg tablet 20 mg PO BID Qty: 360 1RF ipratropium bromide 17 mcg/actuation HFA aerosol inhaler 2 inh inhalation Q6H PRN (Reason: shortness of breath or wheezing) Qty: 12.9 0RF lisinopril 20 mg tablet 20 mg PO DAILY Qty: 90 1RF sucralfate [Carafate] 100 mg/mL suspension 1 g PO BID Qty: 420 0RF lidocaine HCl 2 % solution 15 ml mucous membrane QID PRN (Reason: pain) Qty: 100 2RF Rx Instructions: Apply 15mL to mucous membranes as needed for oral pain 4 times per day levothyroxine [Synthroid] 137 mcg tablet 137 mcg PO DAILY Qty: 90 3RF Rx Instructions: Brand name only. Movantik 12.5 mg tablet 25 mg PO QAM Qty: 180 3RF Rx Instructions: 1-2 tabs daily for constipation, must be taken on empty stomach; no food 1 hr after or 2-3 hrs before dose fluticasone propion-salmeterol [Advair Diskus] 250-50 mcg/dose blister with device 1 inh inhalation BID Qty: 60 11RF oxycodone 5 mg tablet 10 mg PO TID PRN (Reason: pain) 30 Days Qty: 180 0RF Rx Instructions: Take 1-2 tabs by mouth every 8 hours as needed for pain dexamethasone 0.5 mg/5 mL elixir 0.5 mg PO TID PRN (Reason: mouth sores) Qty: 237 0RF Rx Instructions: Swish in mouth as needed ondansetron 8 mg tablet,disintegrating 8 mg PO Q8H Qty: 60 3RF famotidine 40 mg tablet 40 mg PO DAILY Qty: 90 2RF Rx Instructions: Gastric reflux naloxone 0.4 mg/mL syringe 0.4 mg IM Q2M PRN (Reason: opioid reversal) Qty: 10 1RF Rx Instructions: NTExceed 10 mg total dose/episode Atrovent HFA 17 mcg/actuation HFA aerosol inhaler 2 puff inhalation Q8H Qty: 12.9 0RF ferrous sulfate [Iron (ferrous sulfate)] 325 mg (65 mg iron) Tablet 65 mg PO DAILY Referrals: Liat Hernandez ARNP [Primary Care Provider] - Stand Alone Forms: Patient Portal/API
[2023-04-01] MEDS: SODIUM CHLORIDE 0.9% 1,000 ML 2000 ML IV (04:45)
[2023-04-01] MEDS: KETOROLAC 30 MG/ML VIAL 15 MG IV (04:46)
[2023-04-01 04:48] LABS: Add Manual Diff / Slide Review NO; Basophils Absolute Auto 0 /uL (0-100); Basophils Percent Auto 0.5 % (0-2); Eosinophils Absolute Auto 100 /uL (0-450); Eosinophils Percent Auto 1.3 % (2-4); Hematocrit 38.1 % (36-46); Hemoglobin 12.9 g/dL (12.0-16.0); Lymphocytes Absolute Auto 1300 /uL (1100-4500); Lymphocytes Percent Auto 14.7 % (25-40); Mean Corpuscular HGB Conc 33.9 % (30-36); Mean Corpuscular Volume 91.5 fL (80-100); Monocytes Absolute Auto 600 /uL (0-900); Monocytes Percent Auto 6.4 % (3-14); Neutrophils Absolute Auto 6700 /uL (1500-7000); Neutrophils Percent Auto 77.1 % (50-75); Platelet Count 334 X10^3/uL (150-400); Red Blood Cell Count 4.17 X10^6/uL (4.0-5.2); White Blood Cell Count 8.7 X10^3/uL (4.5-11.0)
[2023-04-01] MEDS: DROPERIDOL 5 MG/2 ML VIAL 2.5 MG IV (04:48)
[2023-04-01] MEDS: diazePAM 10 MG/2 ML SYRINGE 2 MG IV (04:49)
[2023-04-01 05:32] LABS: Alanine Aminotransferase 27 IU/L (<35); Albumin 4.1 g/dL (3.5-5.0); Albumin Globulin Ratio 1.2 (1.0-2.8); Alkaline Phosphatase 114 U/L (38-126); Aspartate Aminotransferase 27 IU/L (14-36); BUN Creatinine Ratio 10.4 (6-22); Bilirubin Total 1.2 mg/dL (0.2-1.3); Blood Urea Nitrogen 10 mg/dL (7-17); Calcium 10.8 mg/dL (8.4-10.2); Carbon Dioxide 21 mmol/L (22-32); Chloride 108 mmol/L (98-107); Estimated Glomerular Filt Rate > 60 mL/min (>60); Globulin 3.3 g/dL (1.7-4.1); Glucose 110 mg/dL (80-110); HEMOLYSIS 23 (0-50); Potassium 4.2 mmol/L (3.4-5.1); Sodium 140 mmol/L (137-145); Total Protein 7.4 g/dL (6.3-8.2)
== END 2023-04-01 07:56 | disposition home or self-care (01) ==
PROVIDERS: Emergency Provider Family Medicine Addiction Medicine; Family Provider Psychiatry & Neurology Psychiatry; PCP Nurse Practitioner
DX: R11.15 Cyclical vomiting syndrome unrelated to migraine (principal)
CPT/HCPCS: 36415; 80053; 85025; 96361; 96374; 96375; 99284; J1790; J1885; J3360

== ENCOUNTER → 2023-04-02 09:48 | Outpatient (CLI) | payer MEDICARE, OTHER, SELFPAY ==
[2022-12-08 13:17] VITALS: BMI 36.3
--- NOTE | 2023-04-02 09:48 | DI.CT.S_ITS ---
PROCEDURE: CT LUNG LOW DOSE SCREENING INDICATIONS: tobacco use disorder within the past 2 years TECHNIQUE: Noncontrast 2.0-2.5 mm thick sections acquired from the pulmonary apices to the posterior costophrenic angles. 7 mm thick axial MIP, and 5 mm coronal and sagittal reformats were then acquired. For radiation dose reduction, the following was used: automated exposure control, adjustment of mA and/or kV according to patient size. COMPARISON: [facility], CT, CT ANGIO CHEST PE PROTOCOL, 06/03/2022, 12:04. FINDINGS: Image quality: Diagnostic. Lower Neck: No enlarged lymph nodes. Thyroid: No thyroid nodules which require sonographic follow up, per consensus guidelines. Axillae: No enlarged lymph nodes. Chest Wall: Unremarkable. Bones: Unremarkable. Lungs and Pleura: No pneumothorax or pleural effusions. Moderate pulmonary emphysema. No suspicious pulmonary nodule present. Heart: Heart size is normal. No pericardial effusion. Thoracic Vessels: The aorta and pulmonary arteries demonstrate normal size. Mediastinum and Lexie: No enlarged lymph nodes. Esophagus: No wall thickening. No hiatal hernia. Upper Abdomen: Visualized upper abdomen solid organs and bowel loops appear normal. Cholecystectomy IMPRESSION: No suspicious pulmonary nodules. LUNG-RADS 1; continued annual screening, if eligible. Moderate pulmonary emphysema para Approved by: Alfredito Guidry M.D. on 04/02/2023 at 18:29
[2023-04-02 12:35] LABS: Vitamin D 25 Hydroxy (D3) 25.9 ng/mL (30.0-100.0)
[2023-04-13 13:39] LABS: 1,25-Dihydroxy, Vitamin D-2 <10 pg/mL (.)
== END ==
PROVIDERS: Family Provider Psychiatry & Neurology Psychiatry; PCP Nurse Practitioner; Referring Provider Nurse Practitioner; Visit Provider Nurse Practitioner
DX: Z87.891 Personal history of nicotine dependence (principal); J43.9 Emphysema, unspecified; Z12.2 Encounter for screening for malignant neoplasm of respiratory organs; E83.52 Hypercalcemia
CPT/HCPCS: 36415; 71271; 82306; 82397; 82652

== ENCOUNTER → 2023-04-07 13:24 | Outpatient (CLI) | payer MEDICARE, OTHER, SELFPAY ==
[2022-12-08 13:17] VITALS: BMI 36.3
--- NOTE | 2023-04-07 13:25 | DI.MG.S_ITS ---
BILATERAL DIGITAL SCREENING MAMMOGRAM 3D/2D WITH CAD: 04/07/2023 CLINICAL: Routine screening. Comparison is made to exams dated: 12/04/2020 mammogram, 12/01/2019 mammogram, and 09/15/2018 mammogram - [facility]. There are scattered areas of fibroglandular density in both breasts (category b / 25%-50% glandular tissue). Current study was also evaluated with a Computer Aided Detection (CAD) system. No significant masses, calcifications, or other findings are seen in either breast. There has been no significant interval change. IMPRESSION: NEGATIVE There is no mammographic evidence of malignancy. A 1 year screening mammogram is recommended. Based on the Tyrer Cuzick model (a risk assessment model) the patient's lifetime risk is 4.7% and her 10 year risk is 2.1%. According to the ACR, ACS, and NCCN guidelines, an annual breast MRI exam along with mammogram is recommended if the patient's lifetime risk is 20% or greater. This exam was interpreted at Station ID: [id number]. NOTE: For mammograms, a report in lay terms will be sent to the patient. Approximately 15% of breast malignancies will not be visualized mammographically. In the management of a palpable breast mass, a negative mammogram must not discourage biopsy of a clinically suspicious lesion. Electronically Signed By: Lowell mcleod/lauro:04/07/2023 14:34:42 letter sent: Normal Exam ACR BI-RADS Category 1: Negative [id number]
== END ==
PROVIDERS: Family Provider Psychiatry & Neurology Psychiatry; PCP Nurse Practitioner; Referring Provider Nurse Practitioner; Visit Provider Nurse Practitioner
DX: Z12.31 Encounter for screening mammogram for malignant neoplasm of breast (principal); R92.323 Mammographic fibroglandular density, bilateral breasts
CPT/HCPCS: 77063; 77067

== ENCOUNTER 2023-05-14 22:45 | Emergency (ER) | payer MEDICARE, OTHER, SELFPAY ==
[2022-12-08 13:17] VITALS: BMI 36.3
== END 2023-05-14 23:09 | disposition home or self-care (01) ==
PROVIDERS: Emergency Provider Emergency Medicine; Family Provider Psychiatry & Neurology Psychiatry; PCP Nurse Practitioner

== ENCOUNTER → 2024-01-04 07:44 | Outpatient (CLI) | payer MEDICARE, OTHER, SELFPAY ==
[2022-12-08 13:17] VITALS: BMI 36.3
--- NOTE | 2024-01-04 | DI.MRI.S_ITS ---
PROCEDURE: MR ELBOW LT W CON INDICATIONS: LEFT ELBOW PAIN TECHNIQUE: Noncontrast coronal proton density fast spin echo and T2 fast spin echo with fat saturation, axial and sagittal T1 spin echo and T2 fast spin echo with fat saturation through the elbow. COMPARISON: None. FINDINGS: Image quality: Excellent. Lateral structures: The lateral ulnar collateral ligament and radial collateral ligament both appear intact. The overlying common extensor tendon also appears normal. Medial structures: The ulnar collateral ligament appears attenuated at its proximal insertion with surrounding soft tissue edema.. The overlying common flexor tendon appears thickened with intrasubstance T2 hyperintense signal and surrounding edema at its medial epicondylar insertion. The ulnar nerve appears normal in size and signal within the cubital tunnel. Anterior structures: The biceps and brachialis tendons both appear intact as they insert onto the proximal radius and ulna, respectively. No bicipitoradial bursal fluid. The median and radial neurovascular bundles appear normal; no focal muscle atrophy to suggest nerve impingement. Posterior structures: Distal triceps tendinosis at its proximal olecranon insertion is seen. No olecranon bursal fluid. Bone and cartilage: No bone marrow contusions or fractures. No osteochondral injuries. IMPRESSION: 1. Suggestion of [id number] medial epicondylitis with low-grade partial-thickness tear involving proximal ulnar collateral ligament and tendinosis/low-grade intrasubstance partial-thickness tear involving overlying common flexor tendon origin. 2. Distal triceps tendinosis at its proximal olecranon insertion. 3. No marrow edema. No fracture or dislocation. No intra-articular loose bodies. Dictated by: Wilner Nowak M.D. on 01/04/2024 at 12:48 Approved by: Wilner Nowak M.D. on 01/04/2024 at 12:50
== END ==
LOC: MRI 07:45
PROVIDERS: Family Provider Psychiatry & Neurology Psychiatry; Referring Provider Orthopaedic Surgery; Visit Provider Orthopaedic Surgery
DX: M25.522 Pain in left elbow (principal)
CPT/HCPCS: 73221

== ENCOUNTER → 2024-06-26 12:31 | Outpatient (CLI) | payer MEDICARE, OTHER, SELFPAY ==
[2022-12-08 13:17] VITALS: BMI 36.3
--- NOTE | 2024-06-26 12:33 | DI.CT.S_ITS ---
PROCEDURE: CT LUNG LOW DOSE SCREENING INDICATIONS: Nicotine dependence TECHNIQUE: Noncontrast 2.0-2.5 mm thick sections acquired from the pulmonary apices to the posterior costophrenic angles. 7 mm thick axial MIP, and 5 mm coronal and sagittal reformats were then acquired. For radiation dose reduction, the following was used: automated exposure control, adjustment of mA and/or kV according to patient size. COMPARISON: [facility], CT, CT LUNG LOW DOSE SCREENING, 04/02/2023, 9:58. FINDINGS: Image quality: Diagnostic. Lower Neck: No enlarged lymph nodes. Thyroid: No thyroid nodules which require sonographic follow up, per consensus guidelines. Axillae: No enlarged lymph nodes. Chest Wall: Unremarkable. Bones: Unremarkable. Lungs and Pleura: No pneumothorax or pleural effusions. No consolidation or suspicious nodules. Heart: Heart size is normal. No pericardial effusion. Thoracic Vessels: The aorta and pulmonary arteries demonstrate normal size. Mediastinum and Lexie: No enlarged lymph nodes. Esophagus: No wall thickening. No hiatal hernia. Upper Abdomen: Visualized upper abdomen solid organs and bowel loops appear normal. IMPRESSION: No suspicious pulmonary nodules. LUNG-RADS 1; continued annual screening, if eligible. Clinically Significant Non-pulmonary Findings: None. Dictated by: Yordan Langley M.D. on 06/26/2024 at 13:07 Approved by: Yordan Langley M.D. on 06/26/2024 at 13:12
== END ==
LOC: CT 12:32
PROVIDERS: Family Provider Psychiatry & Neurology Psychiatry; Referring Provider Internal Medicine; Visit Provider Internal Medicine
DX: F17.210 Nicotine dependence, cigarettes, uncomplicated (principal)
CPT/HCPCS: 71271